=== PATIENT | male | born 1940 | race Two or more races ===

== ENCOUNTER → 2020-04-15 13:47 | Outpatient (BNVA) | payer MEDICARE, MEDICAID, SELFPAY | PROVIDERS: Visit Provider Urology | DX: R35.1 Nocturia (principal); R39.12 Poor urinary stream; N40.1 Benign prostatic hyperplasia with lower urinary tract symptoms; N13.8 Other obstructive and reflux uropathy | CPT/HCPCS: 99202 ==

== ENCOUNTER 2020-05-20 12:12 | Outpatient (REF) | payer MEDICARE, MEDICAID, SELFPAY ==
--- NOTE | ~2020-05-20 | US_ITS ---
EXAMINATION: US PELVIS LIMITED (BLADDER) CLINICAL INFORMATION: Benign prostatic hyperplasia with lower urinary tract symptoms. COMPARISON: None TECHNIQUE: Real-time imaging of the bladder. FINDINGS: BLADDER: Well distended and normal. Bilateral ureteral jets are demonstrated. Prevoid bladder volume is 242 mL. Postvoid bladder volume is 26.3 mL. ADDITIONAL FINDINGS: Enlarged prostate, prostate volume 78.6 mL. US/US bladder IMPRESSION: 1. Post void bladder residual 26.3 mL. 2. Enlarged prostate, prostate volume 78.6 mL.
== END 2020-05-20 12:13 | disposition home or self-care (01) ==
LOC: HO.US 12:12
PROVIDERS: Visit Provider Urology
DX: N40.1 Benign prostatic hyperplasia with lower urinary tract symptoms (principal); N13.8 Other obstructive and reflux uropathy
CPT/HCPCS: 76857

== ENCOUNTER → 2020-05-27 12:49 | Outpatient (BNVA) | payer MEDICARE, MEDICAID, SELFPAY | PROVIDERS: Visit Provider Urology | DX: N40.1 Benign prostatic hyperplasia with lower urinary tract symptoms (principal); N13.8 Other obstructive and reflux uropathy | CPT/HCPCS: 99212 ==

== ENCOUNTER 2020-06-03 11:49 | Outpatient (REF) | payer MEDICARE, MEDICAID, SELFPAY ==
--- NOTE | ~2020-06-03 | US_ITS ---
EXAMINATION: US VENOUS ULTRASOUND WITH DOPPLER LOWER EXTREMITY, LEFT CLINICAL INFORMATION: Edema left lower extremity. Assess for occult DVT. COMPARISON: None TECHNIQUE: Ultrasound of the deep veins is performed from the hip to the calf with compression sonography and color and pulse Doppler assessment. Spectral analysis with color-flow imaging is performed. FINDINGS: There is normal venous compression and respiratory variation and augmented flow. The visualized common femoral vein, superficial femoral vein, profunda femoral vein, popliteal vein, and the trifurcation region shows no evidence of deep venous thrombosis. No popliteal fossa cyst. Incidental node seen left groin with normal pardeep architecture and short axis dimension 0.7 cm. US/US venous duplex LE LT IMPRESSION: No DVT demonstrated in the left lower extremity.
== END 2020-06-03 11:50 | disposition home or self-care (01) ==
LOC: HO.US 11:49
PROVIDERS: PCP Internal Medicine; Visit Provider Internal Medicine
DX: R60.0 Localized edema (principal)
CPT/HCPCS: 93971

== ENCOUNTER → 2020-07-15 12:34 | Outpatient (BNVA) | payer MEDICARE, MEDICAID, SELFPAY | PROVIDERS: PCP Internal Medicine; Visit Provider Surgery Vascular Surgery | DX: I83.12 Varicose veins of left lower extremity with inflammation (principal) | CPT/HCPCS: 99202 ==

== ENCOUNTER 2020-07-21 13:06 | Outpatient (REF) | payer MEDICARE, MEDICAID, SELFPAY ==
--- NOTE | ~2020-07-21 | US_ITS ---
EXAMINATION: RIGHT and LEFT LOWER EXTREMITY VENOUS ULTRASOUND (Reflux Exam) CLINICAL INDICATION: leg pain and varicose veins. COMPARISON: None. TECHNIQUE: Color flow triplex imaging and compression Doppler was performed to evaluate both the deep and the superficial systems bilaterally. To evaluate the superficial system, the examination was performed in the upright position. Color-flow Doppler ultrasound and compression ultrasound were utilized. In addition, maneuvers were utilized to demonstrate reflux. FINDINGS: 1. DEEP VENOUS ULTRASOUND OF THE RIGHT LOWER EXTREMITY: Respiratory variation, normal compression and augmented flow are noted in the right common femoral vein as well as the right popliteal vein and there is no evidence of deep venous thrombosis at these locations. There is deep venous reflux in the common femoral vein measuring 1 second. There is no deep venous reflux seen in the mid femoral or popliteal veins.. There is no evidence of a Dalton's cyst. 2. SUPERFICIAL ULTRASOUND WITH DOPPLER OF RIGHT LOWER EXTREMITY: The right great saphenous vein at the saphenofemoral junction measures 7 mm, at the mid thigh 2 mm, jtada-qri-ldnm 3 mm, ixeia-wzp-objn 2 mm, at mid calf 2 mm and at the ankle measures 2 mm. There is a 2.1 seconds reflux below the knee. There is an accessory medial greater saphenous vein that measures 5 mm and does not demonstrate reflux. The right small saphenous vein measures 2-3 mm and shows no reflux. There is a grocery store courtesy clerk that measures 2 mm below the knee and does not demonstrate reflux. There are small varicosities measuring less than 3 mm that do not demonstrate reflux. 3. DEEP VENOUS ULTRASOUND OF THE LEFT LOWER EXTREMITY: Respiratory variation, normal compression and augmented flow are noted in the left common femoral vein as well as the left popliteal vein and there is no evidence of deep venous thrombosis at these locations. There is no evidence of reflux in the deep system in either the common femoral vein or the popliteal vein. . There is no evidence of a Dalton's cyst. 4. SUPERFICIAL ULTRASOUND WITH DOPPLER OF LEFT LOWER EXTREMITY: Left great saphenous vein at the saphenofemoral junction measures 8 mm, at the mid thigh to mm, wfzgu-urr-mlad 2 mm, rjvzt-hkr-vcuq 2 mm, at mid calf 2 mm and at the ankle measures 1 mm. There is no reflux demonstrated in the left great saphenous vein. Is an accessory medial greater saphenous vein that measures 4 mm and does not demonstrate reflux. The left small saphenous vein measures 1-2 mm and shows no reflux. There is small varicosities measuring less than 3 mm that do not demonstrate reflux. US/US venous duplex LE BI IMPRESSION: 1. No evidence of DVT. Right deep venous reflux in the right common femoral vein. No left deep venous reflux seen. 2. Right greater saphenous vein reflux below the knee measuring 2.1 seconds. No left greater saphenous vein reflux.
== END 2020-07-21 13:07 | disposition home or self-care (01) ==
LOC: HO.US 13:06
PROVIDERS: Visit Provider Surgery Vascular Surgery
DX: I83.893 Varicose veins of bilateral lower extremities with other complications (principal)
CPT/HCPCS: 93970

== ENCOUNTER 2020-08-30 07:55 | Emergency (ER) | payer MEDICARE, MEDICAID, SELFPAY ==
--- NOTE | ~2020-08-30 | XR_ITS ---
EXAMINATION: XR RIBS, RIGHT CLINICAL INFORMATION: Status post fall. COMPARISON: None TECHNIQUE: 3 views of the right ribs were obtained. FINDINGS: Lungs are clear. No consolidation, pneumothorax, or pleural effusion. The cardiomediastinal silhouette and pulmonary vasculature are normal. Osseous structures are unremarkable. Ribs are intact. No fractures are identified. XR/XR ribs RT min 3V w CXR1V IMPRESSION: No acute cardiopulmonary process seen. There is no visible right rib fracture. Seen.
[2020-08-30 08:20] VITALS: BP 157/70; PULSE 79; RESP 17; TEMP 36.8; O2SAT 96; BMI 27.4
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
--- NOTE | 2020-08-30 08:23 | ECG_ITS ---
Test Reason : CP Blood Pressure : / mmHG Vent. Rate : 084 BPM Atrial Rate : 084 BPM P-R Int : 194 ms QRS Dur : 092 ms QT Int : 378 ms P-R-T Axes : 066 045 049 degrees QTc Int : 446 ms Normal sinus rhythm Normal ECG When compared with ECG of 02-DEC-2019 11:02, No significant change was found Referred By: Dara Polanco Electronically Signed By:RUFINO ASHTON MD
[2020-08-30 08:42] VITALS: PULSE 76
--- NOTE | 2020-08-30 09:13 | PC.NURSE ---
Patient is resting quietly in bed in no distress. Respirations are even and nonlabored.
--- NOTE | 2020-08-30 10:08 | PC.NURSE ---
Discharge instructions given to pt who verbalized understanding and denies any questions. pt is amb to exit in no distress
== END 2020-08-30 10:13 | disposition home or self-care (01) ==
PROVIDERS: Emergency Provider Emergency Medicine; PCP Internal Medicine
DX: S20.211A Contusion of right front wall of thorax, initial encounter (principal); R07.89 Other chest pain; V18.0XXA Pedal cycle driver injured in noncollision transport accident in nontraffic accident, initial encounter; Y93.55 Activity, bike riding; Y92.410 Unspecified street and highway as the place of occurrence of the external cause; Y99.9 Unspecified external cause status
CPT/HCPCS: 71101; 93005; 99283; 99284

== ENCOUNTER 2020-09-13 13:49 | Outpatient (REF) | payer MEDICARE, MEDICAID, SELFPAY ==
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
== END 2020-09-13 13:50 | disposition home or self-care (01) ==
LOC: HO.XRAY 13:49
PROVIDERS: PCP Internal Medicine Geriatric Medicine; Visit Provider Emergency Medicine
DX: Z87.828 Personal history of other (healed) physical injury and trauma (principal)
CPT/HCPCS: 71101; 71120

== ENCOUNTER 2020-12-01 07:59 | Emergency (ER) | payer MEDICARE, MEDICAID, SELFPAY ==
--- NOTE | ~2020-12-01 | CT_ITS ---
EXAMINATION: CT HEAD WITHOUT CONTRAST CLINICAL INFORMATION: Mental status change COMPARISON: Previous head CT most recent November 2019 TECHNIQUE: Contiguous axial imaging was performed from the skull base to vertex without intravenous administration of contrast. This CT examination was performed using dose optimization techniques as appropriate, variously including the following: *Automated exposure control *Adjustment of mA and/or kV according to patient size (this includes techniques or standardized protocols for targeted exams where dose is matched to indication/reason for exam; i.e. extremities or head) *Use of iterative reconstruction technique DLP: 745 mGy-cm FINDINGS: There is no evidence of an extra-axial collection. There is no evidence of intra-axial or extra-axial hemorrhage. The ventricles and extra-axial CSF spaces are appropriate. There is nonspecific periventricular white matter disease. No mass, mass effect or infarct is seen. Review of bone windows is normal. No skull fracture is seen. Visualized paranasal sinuses, mastoid air cells and middle ears are clear. CT/CT head/brain wo con IMPRESSION: No acute findings. Mild nonspecific periventricular white matter disease similar to previous exam.
--- NOTE | ~2020-12-01 | XR_ITS ---
EXAMINATION: XR CHEST CLINICAL INFORMATION: Mental status change COMPARISON: Previous chest x-rays most recent August 2020 TECHNIQUE: Frontal view of the chest was obtained. FINDINGS: The cardiac silhouette is slightly enlarged but stable. Hilar and mediastinal contours are unremarkable. The lungs are clear. There is no pleural effusion or pneumothorax. There are degenerative changes of the spine. XR/XR chest 1V IMPRESSION: No evidence for acute disease in the chest.
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
[2020-12-01 08:18] VITALS: BP 126/54; PULSE 75; RESP 18; TEMP 36.6; O2SAT 96; BMI 28.3
[2020-12-01 08:59] LABS: MANUAL DIFF FLAG NO
[2020-12-01 09:01] LABS: Basophils Percent Auto 0.2 % (0-2); Eosinophils Absolute Auto 0.2 X10*3/uL (0.0-0.4); Eosinophils Percent Auto 2.2 % (0-4); Hematocrit 40.7 % (42-52); Imm Gran Abs Auto 0.04 X10*3/uL (0.00-0.03); Imm Gran Pct Auto 0.5 % (0.0-0.4); Lymphocytes Absolute Auto 1.6 X10*3/uL (1.2-4.9); Lymphocytes Percent Auto 19.8 % (20-40); Mean Corpuscular HGB Conc 31.9 g/dl (31.0-36.0); Mean Corpuscular Hemoglobin 29.5 pg (27.0-33.0); Mean Corpuscular Volume 92.5 fL (80-98); Mean Platelet Volume 10.2 fL (9.4-12.4); Monocytes Absolute Auto 0.7 X10*3/uL (0.1-1.2); Monocytes Percent Auto 8.7 % (2-11); Neutrophils Absolute Auto 5.6 X10*3/uL (2.0-8.3); Neutrophils Percent Auto 68.6 % (45-73); Platelet Count 224 X10*3/uL (160-400); Red Cell Distribution Width 13.4 % (11.0-16.0); White Blood Count 8.1 X10*3/uL (4.8-10.8)
[2020-12-01 09:01] LABS: Appearance Urine HAZY; Glucose Urine UA NEG (NEG); Leukocyte Esterase Urine NEG (NEG); Nitrite Urine NEG (NEG); Specific Gravity - Urine >= 1.030 (1.005-1.025); UACC Culture Trigger NO; Urine Blood NEG (NEG); Urine Ketones NEG (NEG); Urine Protein 1+ MG/DL (NEG-TRACE)
[2020-12-01 09:02] LABS: Color Urine YELLOW
[2020-12-01 09:07] LABS: Mucus Urine 2+ /LPF
[2020-12-01 09:08] LABS: Bacteria Urine TRACE /LPF; RBC Urine 0 /HPF (0); WBC Urine 0-2 /HPF (0-4)
[2020-12-01 09:10] LABS: Amorphous Sediment Urine TRACE /LPF
[2020-12-01 09:25] LABS: Alanine Aminotransferase 16 U/L (0-40); Albumin Level 3.8 g/dL (3.5-5.0); Alkaline Phosphatase 105 U/L (39-117); Anion Gap 11 (12-20); Aspartate Amino Transferase 15 U/L (5-37); Bilirubin Direct 0.2 mg/dL (0.0-0.5); Bilirubin Total 0.6 mg/dL (0.0-1.0); Blood Urea Nitrogen 23 mg/dL (9-16); Calcium 9.6 mg/dL (8.4-10.2); Carbon Dioxide 29 mmol/L (22-29); Chloride 108 mmol/L (96-108); Creatinine Clr Calc Pharmacy 60.4; Estimated Glomerular Filt Rate > 60; Glucose Random 122 mg/dL (60-115); Lipase 86 U/L (8-78); Potassium 4.7 mmol/L (3.3-5.1); Sodium 143 mmol/L (135-145)
== END 2020-12-01 10:26 | disposition home or self-care (01) ==
PROVIDERS: Emergency Provider Emergency Medicine
DX: R42 Dizziness and giddiness (principal); F03.90 Unspecified dementia, unspecified severity, without behavioral disturbance, psychotic disturbance, mood disturbance, and anxiety; I10 Essential (primary) hypertension; Z79.899 Other long term (current) drug therapy; Z79.82 Long term (current) use of aspirin
CPT/HCPCS: 36415; 70450; 71045; 80048; 80076; 81001; 81003; 83690; 85025; 99283; 99284

== ENCOUNTER 2021-02-18 08:20 | Outpatient (REF) | payer MEDICARE, MEDICAID, SELFPAY ==
[2021-02-18 09:42] LABS: Thyroid Stimulating Hormone 0.78 uIU/mL (0.32-4.0); Vitamin D 25-OH Total 24.3 ng/mL (>30)
[2021-02-18 09:43] LABS: PSA,Total (Free>4and<10) 2.23 ng/mL (0.00-4.00)
[2021-02-18 10:33] LABS: Folate 11.5 ng/mL (> or = 4.0); Vitamin B12 279 pg/mL (200-900)
== END 2021-02-18 08:21 | disposition home or self-care (01) ==
LOC: HO.LAB 08:20
PROVIDERS: Urology; PCP Internal Medicine Geriatric Medicine; Visit Provider Psychiatry & Neurology Neurology
DX: G31.84 Mild cognitive impairment of uncertain or unknown etiology (principal); N40.1 Benign prostatic hyperplasia with lower urinary tract symptoms; N13.8 Other obstructive and reflux uropathy; Z12.5 Encounter for screening for malignant neoplasm of prostate
CPT/HCPCS: 36415; 82306; 82607; 82746; 84153; 84436; 84443

== ENCOUNTER 2021-12-16 09:00 | Outpatient (RCR) | payer MEDICARE, MEDICAID, SELFPAY ==
[2021-11-14 09:04] VITALS: BP 146/64; PULSE 63; O2SAT 97
== END 2021-12-16 10:23 | disposition home or self-care (01) ==
LOC: HO.PT 09:00
PROVIDERS: PCP Internal Medicine Geriatric Medicine; Visit Provider Nurse Practitioner Family
DX: M54.50 Low back pain, unspecified (principal)
CPT/HCPCS: 97110; 97140; 97161

== ENCOUNTER 2021-12-21 09:06 | Outpatient (REF) | payer MEDICARE, MEDICAID, SELFPAY ==
--- NOTE | ~2021-12-21 | US_ITS ---
EXAMINATION: US RETROPERITONEAL LIMITED (RENAL ONLY) CLINICAL INFORMATION: Frequency of micturition. Benign prostatic hyperplasia with lower urinary tract symptoms. COMPARISON: MRA abdomen 03/12/2007. TECHNIQUE: Real-time imaging of the kidneys. FINDINGS: RIGHT KIDNEY: 8.9 x 5.2 x 4.9 cm (SAG x AP x TRV). The kidney is normal in size, contour, and echogenicity. Renal cortical thickness is normal. No renal calculi or hydronephrosis. Midpole cyst measures 2.3 x 2.2 x 2.8 cm. There is a small peripheral calcification. LEFT KIDNEY: 10.3 x 4.4 x 4.9 cm (SAG x AP x TRV). The kidney is normal in size, contour, and echogenicity. Renal cortical thickness is normal. No renal calculi or hydronephrosis. Lower pole cyst measures 0.9 cm. This appears simple. No follow-up imaging recommended. US/US renal BI IMPRESSION: No hydronephrosis or nephrolithiasis. Right midpole 2.8 cm renal cyst with a peripheral calcification.
== END 2021-12-21 09:07 | disposition home or self-care (01) ==
LOC: HO.US 09:06
PROVIDERS: Visit Provider Nurse Practitioner Family
DX: N40.1 Benign prostatic hyperplasia with lower urinary tract symptoms (principal); R10.9 Unspecified abdominal pain; R35.0 Frequency of micturition; M54.50 Low back pain, unspecified
CPT/HCPCS: 76775

== ENCOUNTER → 2022-02-01 11:28 | Outpatient (BNVA) | payer MEDICARE, MEDICAID, SELFPAY | PROVIDERS: PCP Internal Medicine Geriatric Medicine; Visit Provider Urology | DX: N40.1 Benign prostatic hyperplasia with lower urinary tract symptoms (principal); N13.8 Other obstructive and reflux uropathy; R39.12 Poor urinary stream | CPT/HCPCS: 51798; 99212 ==

== ENCOUNTER → 2022-08-01 09:39 | Outpatient (BNVA) | payer MEDICARE, SELFPAY | PROVIDERS: PCP Internal Medicine Geriatric Medicine; Visit Provider Urology | DX: N40.1 Benign prostatic hyperplasia with lower urinary tract symptoms (principal); N13.8 Other obstructive and reflux uropathy; R35.1 Nocturia | CPT/HCPCS: 51798; 99212 ==

== ENCOUNTER 2022-10-16 12:00 | Outpatient (REF) | payer MEDICARE, SELFPAY ==
[2022-10-16 13:17] LABS: MANUAL DIFF FLAG NO
[2022-10-16 13:56] LABS: Basophils Percent Auto 0.3 % (0-2); Eosinophils Absolute Auto 0.3 X10*3/uL (0.0-0.4); Eosinophils Percent Auto 3.8 % (0-4); Hematocrit 42.1 % (42.0-52.0); Hemoglobin 13.3 g/dl (14.0-18.0); Imm Gran Abs Auto 0.07 X10*3/uL (0.00-0.03); Imm Gran Pct Auto 0.8 % (0.0-0.4); Lymphocytes Percent Auto 22.6 % (20-40); Mean Corpuscular HGB Conc 31.6 g/dl (31.0-36.0); Mean Corpuscular Hemoglobin 29.8 pg (27.0-33.0); Mean Corpuscular Volume 94.4 fL (80.0-98.0); Mean Platelet Volume 10.9 fL (9.4-12.4); Monocytes Absolute Auto 0.8 X10*3/uL (0.1-1.2); Monocytes Percent Auto 9.2 % (2-11); Neutrophils Absolute Auto 5.5 x10*3/uL (2.0-8.3); Neutrophils Percent Auto 63.3 % (45-73); Platelet Count 184 X10*3/uL (160-400); Red Blood Count 4.46 X10*6/uL (4.60-5.80); Red Cell Distribution Width 13.2 % (11.0-16.0); White Blood Count 8.6 X10*3/uL (4.8-10.8)
[2022-10-16 16:52] LABS: Alanine Aminotransferase 40 U/L (0-40); Albumin Level 3.9 g/dL (3.5-5.0); Alkaline Phosphatase 78 U/L (39-117); Anion Gap 8 (12-20); Aspartate Amino Transferase 27 U/L (5-37); Bilirubin Total 0.5 mg/dL (0.0-1.0); Blood Urea Nitrogen 18 mg/dL (9-16); Calcium 9.6 mg/dL (8.4-10.2); Carbon Dioxide 32 mmol/L (22-29); Chloride 105 mmol/L (96-108); Estimated Glomerular Filt Rate > 60; Glucose Random 78 mg/dL (60-115); Potassium 4.3 mmol/L (3.3-5.1); Sodium 141 mmol/L (135-145); Total Protein 7.3 g/dL (6.5-8.0)
[2022-10-16 16:59] LABS: TSH reflex Free T4 0.11 uIU/mL (0.32-4.0)
[2022-10-16 17:29] LABS: Free T4 (Free Thyroxine) 1.03 ng/dL (0.71-1.85)
[2022-10-22 22:18] LABS: NT-proBNP 709 pg/mL (<450)
== END 2022-10-16 12:01 | disposition home or self-care (01) ==
LOC: HO.HHCL 12:00
PROVIDERS: Visit Provider Family Medicine
DX: R60.0 Localized edema (principal); I35.0 Nonrheumatic aortic (valve) stenosis
CPT/HCPCS: 36415; 80053; 83880; 84439; 84443; 85025

== ENCOUNTER 2022-10-16 12:43 | Outpatient (REF) | payer MEDICARE, SELFPAY ==
--- NOTE | ~2022-10-16 | XR_ITS ---
EXAMINATION: XR CHEST CLINICAL INFORMATION: Leg swelling COMPARISON: Chest 12/01/2020 TECHNIQUE: 2 views of the chest were obtained. FINDINGS: The cardiac silhouette is slightly enlarged, however, stable. Hilar and mediastinal contours are unremarkable. The lungs are clear. There is no pleural effusion or pneumothorax. There are mild degenerative changes of the thoracic spine. XR/XR chest 2V IMPRESSION: No acute cardiopulmonary disease.
== END 2022-10-16 12:44 | disposition home or self-care (01) ==
LOC: HO.HHCX 12:43
PROVIDERS: Visit Provider Family Medicine
DX: R60.0 Localized edema (principal); R09.89 Other specified symptoms and signs involving the circulatory and respiratory systems; I35.0 Nonrheumatic aortic (valve) stenosis
CPT/HCPCS: 71046

== ENCOUNTER 2022-10-18 09:43 | Outpatient (REF) | payer MEDICARE, SELFPAY ==
[2022-10-18 12:28] LABS: Free T4 (Free Thyroxine) 0.92 ng/dL (0.71-1.85); Thyroid Stimulating Hormone 0.12 uIU/mL (0.32-4.0)
[2022-10-20 01:44] LABS: Triiodothyronine T3 Free 3.1 pg/mL (2.3-4.2)
[2022-10-20 06:02] LABS: Thyroglobulin Antibodies <1 IU/mL (< or = 1)
[2022-10-26 15:17] LABS: Thyroid Stimulating Immunoglob <89 % baseline (<140)
== END 2022-10-18 09:44 | disposition home or self-care (01) ==
LOC: HO.HHCL 09:43
PROVIDERS: Visit Provider Family Medicine
DX: R94.6 Abnormal results of thyroid function studies (principal)
CPT/HCPCS: 36415; 84439; 84443; 84445; 84481; 86800

== ENCOUNTER 2022-11-07 10:27 | Outpatient (REF) | payer MEDICARE, SELFPAY ==
--- NOTE | ~2022-11-07 | US_ITS ---
EXAMINATION: US THYROID CLINICAL INFORMATION: Low TSH level. COMPARISON: None available. TECHNIQUE: Linear transducer grayscale and color Doppler examination with attention to the region of the thyroid. FINDINGS: SIZE: Measurements of the thyroid lobes and nodules are given in sagittal, anteroposterior and transverse dimensions, respectively. Right Thyroid Lobe: 4.6 x 1.8 x 2.2 cm, volume 9.5 mL. Parenchyma: The gland echotexture is homogeneous. Thyroid vascularity is normal. Left Thyroid Lobe: 4.0 x 1.6 x 2.1 cm, volume 7.0 mL. Parenchyma: The gland echotexture is homogeneous. Thyroid vascularity is normal. Isthmus: 0.9 cm in maximum AP dimension. Estimated total number of nodules greater than or equal to 1 cm: 1. Teletypesetter Operator nodules are described as follows: 1. Location: Left midpole. Size: 1.2 x 0.7 x 0.9 cm, volume 0.42 mL. Nodule characteristics: Composition: Solid (2). Echogenicity: Isoechoic (1). Shape: Wider. Margins: Ill-defined (0). Echogenic Foci: None (0). ACR TI-RADS total points: 3. ACR TI-RADS category: 3. 2. Location: Left lower pole. Size: 0.6 x 0.6 x 0.7 cm, volume 0.14 mL. Nodule characteristics: Composition: Solid (2). Echogenicity: Isoechoic (1). Shape: Wider. Margins: Wider. Echogenic Foci: None (0). ACR TI-RADS total points: 3. ACR TI-RADS category: 3. 3. Location: Left upper pole. Size: 0.8 x 0.5 x 0.7 cm. Nodule characteristics: Composition: Mixed cystic and solid (1). Echogenicity: Isoechoic (1). Shape: Wider. Margins: Smooth (0). Echogenic Foci: None (0). ACR TI-RADS total points: 2. ACR TI-RADS category: 2. 4. Location: Right midpole. Size: 0.7 x 0.5 x 0.5 cm, volume 0.10 mL. Nodule characteristics: Composition: Mixed cystic and solid (1). Echogenicity: Isoechoic (1). Shape: Wider. Margins: Ill-defined (0). Echogenic Foci: None (0). ACR TI-RADS total points: 2. ACR TI-RADS category: 2. Small lower pole right lobe nodule measuring 0.9 x x 0.6 x 0.6 cm and volume 0.20 cm. It has a cystic composition. NODES: No lymphadenopathy is seen in the tissue surrounding the thyroid gland. US/US thyroid IMPRESSION: Bilateral thyroid nodules. None of the nodules are suspicious.
== END 2022-11-07 10:28 | disposition home or self-care (01) ==
LOC: HO.HMGCX 10:27
PROVIDERS: PCP Internal Medicine Geriatric Medicine; Visit Provider Family Medicine
DX: R79.89 Other specified abnormal findings of blood chemistry (principal)
CPT/HCPCS: 76536

== ENCOUNTER 2022-11-21 09:27 | Outpatient (REF) | payer MEDICARE, SELFPAY ==
[2022-11-21 12:01] LABS: Anion Gap 14 (12-20); Blood Urea Nitrogen 18 mg/dL (9-16); Calcium 9.7 mg/dL (8.4-10.2); Carbon Dioxide 30 mmol/L (22-29); Chloride 104 mmol/L (96-108); Estimated Glomerular Filt Rate > 60; Glucose Random 110 mg/dL (60-115); Potassium 3.7 mmol/L (3.3-5.1); Sodium 144 mmol/L (135-145)
[2022-11-21 13:05] LABS: Microalbum/Creatinine Ratio Ur 9.6 ug/mg cr (<30)
== END 2022-11-21 09:28 | disposition home or self-care (01) ==
LOC: HO.HHCL 09:27
PROVIDERS: Visit Provider Internal Medicine Geriatric Medicine
DX: R60.0 Localized edema (principal); I87.2 Venous insufficiency (chronic) (peripheral)
CPT/HCPCS: 36415; 80048; 82043

== ENCOUNTER 2023-03-05 10:51 | Outpatient (REF) | payer MEDICARE, SELFPAY ==
[2023-03-05 14:07] LABS: Anion Gap 11 (12-20); Blood Urea Nitrogen 16 mg/dL (9-16); Calcium 9.6 mg/dL (8.4-10.2); Carbon Dioxide 30 mmol/L (22-29); Chloride 106 mmol/L (96-108); Estimated Glomerular Filt Rate > 60; Glucose Random 101 mg/dL (60-115); Potassium 4.1 mmol/L (3.3-5.1); Sodium 143 mmol/L (135-145)
[2023-03-05 14:27] LABS: TSH reflex Free T4 0.16 uIU/mL (0.32-4.0)
[2023-03-05 15:15] LABS: Free T4 (Free Thyroxine) 0.94 ng/dL (0.71-1.85)
== END 2023-03-05 10:52 | disposition home or self-care (01) ==
LOC: HO.HHCL 10:51
PROVIDERS: Visit Provider Internal Medicine Geriatric Medicine
DX: I10 Essential (primary) hypertension (principal); E05.90 Thyrotoxicosis, unspecified without thyrotoxic crisis or storm
CPT/HCPCS: 36415; 80048; 84439; 84443

== ENCOUNTER 2023-06-06 08:48 | Outpatient (REF) | payer MEDICARE, SELFPAY ==
[2023-06-07 09:03] LABS: Appearance Urine Clear; Color Urine Yellow; Glucose Urine UA Negative (Negative); Leukocyte Esterase Urine Negative (Negative); Nitrite Urine Negative (Negative); Urine Blood Negative (Negative); Urine Ketones Negative (Negative); Urine Protein Negative (Neg-Trace)
[2023-06-07 09:06] LABS: Bacteria Urine None Seen (None Seen); Hyaline Casts Urine 0-2 /LPF (0-2); RBC Urine 0-2 /HPF (0-2); Squamous Epithelial Cell Urine 0-2 /HPF (0-2); WBC Urine 0-5 /HPF (0-5)
== END 2023-06-06 08:49 | disposition home or self-care (01) ==
LOC: HO.HHCLNP 08:48
PROVIDERS: Visit Provider Internal Medicine Geriatric Medicine
DX: N39.0 Urinary tract infection, site not specified (principal)
CPT/HCPCS: 81001

== ENCOUNTER 2023-08-03 09:23 | Outpatient (AMB) | payer MEDICARE, SELFPAY ==
--- NOTE | 2023-08-03 09:51 | MHC.OFFVIS ---
Intake Visit Reasons: BPH- yearly follow up/PVR Intake Note: Patient is Present for PVR/ Urology Med: Doxazosin, Finasteride Antibiotic Allergy:None Blood Thinner: Aspirin Last PVR: 0 Todays PVR: 43 Allergies nifedipine [From Procardia] Allergy (Intermediate, Verified 08/03/23 09:52) EDEMA ibuprofen [Ibuprofen] Allergy (Mild, Verified 08/03/23 09:52) RASH ibuprofen Allergy (Unknown, Uncoded 08/03/23 09:52) rash nifedipine Allergy (Unknown, Uncoded 08/03/23 09:52) edema HPI Comments Details: Frederick is a pleasant Pakistani-speaking male. He is a patient of Dr. Chavez. He seen for the following urologic conditions - lower urinary tract symptoms Pakistani translation performed in office by qualified senior medical transcriptionist PVR 43 cc Twelve month follow-up PVR Accompanied by POCKET GRINDER OPERATOR Reasonable control Occasional accidents Recommend timed voiding - every 3 hours On frusemide for fluid management Continue medication Lower urinary tract symptoms Current visit is for - further symptom evaluation of, predominantly obstructive symptoms Current treatment includes - combination therapy with finasteride and doxazosin 4 mg Prior treatments include - none Prostate Symptom Score - moderate, bother 3 Symptoms include - weak stream, incomplete emptying, nocturia which are progressing Results from testing include - 05/16 bladder ultrasound prostate 80 g, residual 25. Prior Prostate Score unknown PSA 02/13 2.2 Prostate volume 50 g Associated conditions CAD frusemide, carvedilol CVA No Diabetes No Elevated PSA No Erectile Dysfunction yes Testing at next visit will include PVR PFSH Medical History High cholesterol HTN (hypertension) Social History Alcohol intake: never Patient Tobacco Use Status: Never used Tobacco Review of Systems Const Denies chills and Denies fever(s) Card Reports no additional complaints and Denies syncope Resp Denies cough GI Denies abdominal pain and Denies heartburn Reports as per HPI and Denies change in libido Neuro Denies syncope Psych Denies change in libido Endo Denies change in libido Physical Exam Const General: cooperative, healthy appearing, comfortable and no acute distress Orientation/consciousness: patient oriented x3 HEENT Face and sinus: Yes normal facial exam Mouth: moist mucous membranes Neck Neck: Yes normal visual inspection, Yes full ROM and Yes trachea midline Chest Chest palpation & inspection: normal inspection of the chest Resp Effort & Inspection: normal respiratory effort, able to speak in complete sentences and no respiratory distress GI Inspection: Yes normal to inspection Back/Spine/Pelvis Cervical Spine: normal cervical lordosis Thoracic/Lumbar Spine: thoracic and lumbar spine normal to inspection Skin General skin exam: no rashes or lesions noted Neuro General: patient oriented x3, gait normal, tone normal and moves all extremities Extrem General: Yes normal to inspection and Yes capillary refill normal Office Procedures Post Void Residual Post Residual Void Post Void Residual (PVR): 43 [id number] Void Residual by ultrasound Assessment & Plan Assessment & Plan (1) BPH w urinary obs/LUTS: Code(s): N40.1 - Benign prostatic hyperplasia with lower urinary tract symptoms; N13.8 - Other obstructive and reflux uropathy Category: Medical (2) Weak urinary stream: Code(s): R39.12 - Poor urinary stream Category: Medical (3) Nocturia more than twice per night: Code(s): R35.1 - Nocturia Category: Medical Plan Twelve month follow-up Orders: Orders AMB Post Void Residual by ultrasound Today N13.8 - Other obstructive and reflux uropathy, N40.1 - Benign prostatic hyperplasia with lower urinary tract symptoms Medications: Refilled finasteride 5 mg PO DAILY 90 days 90 tabs 3RF N13.8 - Other obstructive and reflux uropathy, N40.1 - Benign prostatic hyperplasia with lower urinary tract symptoms doxazosin 4 mg PO BEDTIME 90 days 90 tabs 3RF N13.8 - Other obstructive and reflux uropathy, N40.1 - Benign prostatic hyperplasia with lower urinary tract symptoms Patient Instructions: Imaging studies, laboratory and physical exam results were discussed and reviewed in detail. No major barriers to patient understanding were identified. An opportunity to ask questions regarding the treatment plan was provided. All questions were answered. The patient expressed understanding and agreement with the above treatment plan. The patient is aware they should contact our office by phone for worsening of their current condition or the appearance of new urologic symptoms. Compliance is encouraged with any medications and followup testing that is ordered. It is a privilege to participate in the urologic care of your patient. If you have any questions or concerns regarding treatment for the above conditions, or other urologic issues, please do not hesitate to contact me. The office telephone contact is [phone]. This note is constructed using voice recognition software. While every effort has been made to ensure accuracy patrol deputy sheriff errors may have been included. Yours sincerely, Dr Triston Lui MD, [facility] - Urology Providers of Expert, Compassionate Care for the Genitourinary System Coding Level of Care Code Est Pt Level 4 (40397) Diagnoses BPH w urinary obs/LUTS N40.1; N13.8 Weak urinary stream R39.12 Nocturia more than twice per night R35.1 CPT Codes Post Residual Void - PVR CPT Code: 46949-[id number] Void Residual by ultrasound ([id number])
== END 2023-08-03 10:26 | disposition home or self-care (01) ==
LOC: HO.HUSH 09:23
PROVIDERS: PCP Internal Medicine Geriatric Medicine; Visit Provider Urology
DX: N40.1 Benign prostatic hyperplasia with lower urinary tract symptoms (principal); N13.8 Other obstructive and reflux uropathy; R39.12 Poor urinary stream; R35.1 Nocturia
CPT/HCPCS: 99213

== ENCOUNTER 2023-08-03 11:54 | Outpatient (REF) | payer MEDICARE, SELFPAY ==
[2023-08-03 13:01] LABS: MANUAL DIFF FLAG NO
[2023-08-03 13:22] LABS: Basophils Percent Auto 0.3 % (0-2); Eosinophils Absolute Auto 0.1 X10*3/uL (0.0-0.4); Eosinophils Percent Auto 1.1 % (0-4); Hematocrit 39.8 % (42.0-52.0); Hemoglobin 13.1 g/dl (14.0-18.0); Imm Gran Abs Auto 0.06 X10*3/uL (0.00-0.03); Imm Gran Pct Auto 0.7 % (0.0-0.4); Lymphocytes Absolute Auto 1.9 X10*3/uL (1.2-4.9); Mean Corpuscular HGB Conc 32.9 g/dl (31.0-36.0); Mean Corpuscular Volume 91.1 fL (80.0-98.0); Mean Platelet Volume 10.1 fL (9.4-12.4); Monocytes Absolute Auto 0.6 X10*3/uL (0.1-1.2); Neutrophils Absolute Auto 6.2 x10*3/uL (2.0-8.3); Neutrophils Percent Auto 69.9 % (45-73); Platelet Count 179 X10*3/uL (160-400); Red Blood Count 4.37 X10*6/uL (4.60-5.80); White Blood Count 8.8 X10*3/uL (4.8-10.8)
[2023-08-03 13:28] LABS: Alanine Aminotransferase 22 U/L (0-40); Alkaline Phosphatase 80 U/L (39-117); Anion Gap 14 (12-20); Aspartate Amino Transferase 22 U/L (5-37); Bilirubin Total 0.6 mg/dL (0.0-1.0); Blood Urea Nitrogen 13 mg/dL (9-16); Calcium 9.6 mg/dL (8.4-10.2); Carbon Dioxide 29 mmol/L (22-29); Chloride 103 mmol/L (96-108); Estimated Glomerular Filt Rate 59; Glucose Random 90 mg/dL (60-115); Potassium 4.2 mmol/L (3.3-5.1); Sodium 142 mmol/L (135-145); Total Protein 7.6 g/dL (6.5-8.0)
[2023-08-06 08:27] LABS: HBS Num1 0.89 mIU/mL (0-7.99); HBsAGNum1 0.24 S/CO (0.00-0.99); Hepatitis B Surface Antigen Negative (Negative); ~HepC Num1 0.33 S/CO (0.00-0.79); ~Hepatitis B Surface Antibody NONREACTIVE (Nonreactive); ~Hepatitis C Antibody Nonreactive (Nonreactive)
== END 2023-08-03 11:55 | disposition home or self-care (01) ==
LOC: HO.HHCL 11:54
PROVIDERS: Visit Provider Internal Medicine Geriatric Medicine
DX: R19.8 Other specified symptoms and signs involving the digestive system and abdomen (principal); R63.5 Abnormal weight gain; R60.9 Edema, unspecified
CPT/HCPCS: 36415; 51798; 80053; 85025; 86706; 86803; 87340; 99212

== ENCOUNTER 2023-08-25 10:48 | Emergency (ER) | payer MEDICARE, SELFPAY ==
--- NOTE | ~2023-08-25 | XR_ITS ---
EXAMINATION: Right shoulder, right clavicle, right humerus and right elbow x-rays CLINICAL INFORMATION: Pain post fall COMPARISON: None. TECHNIQUE: 2 views of the right shoulder, one view of the right clavicle, 2 views of the right humerus and 2 views of the right elbow FINDINGS: Right shoulder: Bone alignment is normal. No fracture or dislocation. Normal glenohumeral joint. Arthritis at the acromioclavicular joint. Soft tissues are normal. Right clavicle: Bone alignment is normal. No acute fracture or dislocation. Arthritis at the acromioclavicular joint. Well-corticated ossification adjacent to the distal clavicle and superior acromioclavicular joint, question related to old trauma. Right humerus: Bone alignment is normal. No fracture or dislocation. Normal soft tissues. Right elbow: Bone alignment is normal. No fracture or dislocation. Soft tissue calcification or ossification adjacent to the medial humeral epicondyle questionable for evidence of old epicondylitis. Soft tissues otherwise normal. Rotation on the lateral view making it difficult to evaluate for elbow joint effusion. XR/XR clavicle RT IMPRESSION: No acute fracture or dislocation. Degenerative changes.
--- NOTE | ~2023-08-25 | CT_ITS ---
EXAMINATION: CT HEAD WITHOUT CONTRAST CLINICAL INFORMATION: Unwitnessed fall with head trauma COMPARISON: Previous head CT most recent November 2020 TECHNIQUE: Contiguous axial imaging was performed from the skull base to vertex without intravenous administration of contrast. This CT examination was performed using dose optimization techniques as appropriate, variously including the following: *Automated exposure control *Adjustment of mA and/or kV according to patient size (this includes techniques or standardized protocols for targeted exams where dose is matched to indication/reason for exam; i.e. extremities or head) *Use of iterative reconstruction technique DLP: 721 mGy-cm FINDINGS: There is no evidence of an extra-axial collection. There is no evidence of intra or extra-axial hemorrhage. There is low-attenuation seen at the base of the bilateral frontal lobes, left greater than right question representing changes from old trauma versus old subcortical white matter infarcts. The ventricles and extra-axial CSF spaces are prominent suggestive of generalized atrophy. There is nonspecific periventricular white matter disease. No mass, mass effect or other infarct is seen. No skull fracture. Visualized paranasal sinuses, mastoid air cells and middle ears are clear. High attenuation adjacent to the right posterior parietal bone questionable for small scalp hematoma. CT/CT head/brain wo IV con IMPRESSION: No acute intracranial pathology. Generalized atrophy and nonspecific periventricular white matter disease. Low-attenuation at the base of both frontal lobes, left greater than right, question representing changes from old trauma versus old infarcts.
--- NOTE | ~2023-08-25 | XR_ITS ---
EXAMINATION: Right shoulder, right clavicle, right humerus and right elbow x-rays CLINICAL INFORMATION: Pain post fall COMPARISON: None. TECHNIQUE: 2 views of the right shoulder, one view of the right clavicle, 2 views of the right humerus and 2 views of the right elbow FINDINGS: Right shoulder: Bone alignment is normal. No fracture or dislocation. Normal glenohumeral joint. Arthritis at the acromioclavicular joint. Soft tissues are normal. Right clavicle: Bone alignment is normal. No acute fracture or dislocation. Arthritis at the acromioclavicular joint. Well-corticated ossification adjacent to the distal clavicle and superior acromioclavicular joint, question related to old trauma. Right humerus: Bone alignment is normal. No fracture or dislocation. Normal soft tissues. Right elbow: Bone alignment is normal. No fracture or dislocation. Soft tissue calcification or ossification adjacent to the medial humeral epicondyle questionable for evidence of old epicondylitis. Soft tissues otherwise normal. Rotation on the lateral view making it difficult to evaluate for elbow joint effusion. XR/XR shoulder RT min 2V IMPRESSION: No acute fracture or dislocation. Degenerative changes.
--- NOTE | ~2023-08-25 | XR_ITS ---
EXAMINATION: Right shoulder, right clavicle, right humerus and right elbow x-rays CLINICAL INFORMATION: Pain post fall COMPARISON: None. TECHNIQUE: 2 views of the right shoulder, one view of the right clavicle, 2 views of the right humerus and 2 views of the right elbow FINDINGS: Right shoulder: Bone alignment is normal. No fracture or dislocation. Normal glenohumeral joint. Arthritis at the acromioclavicular joint. Soft tissues are normal. Right clavicle: Bone alignment is normal. No acute fracture or dislocation. Arthritis at the acromioclavicular joint. Well-corticated ossification adjacent to the distal clavicle and superior acromioclavicular joint, question related to old trauma. Right humerus: Bone alignment is normal. No fracture or dislocation. Normal soft tissues. Right elbow: Bone alignment is normal. No fracture or dislocation. Soft tissue calcification or ossification adjacent to the medial humeral epicondyle questionable for evidence of old epicondylitis. Soft tissues otherwise normal. Rotation on the lateral view making it difficult to evaluate for elbow joint effusion. XR/XR elbow RT 2V IMPRESSION: No acute fracture or dislocation. Degenerative changes.
--- NOTE | ~2023-08-25 | XR_ITS ---
EXAMINATION: XR CHEST CLINICAL INFORMATION: Fall COMPARISON: Previous chest x-ray most recent September 2022 TECHNIQUE: 2 views of the chest were obtained. FINDINGS: The cardiac and mediastinal contours are stable. The lungs are clear. No pleural effusion or pneumothorax. Degenerative changes of the thoracic spine. XR/XR chest 2V IMPRESSION: No evidence for acute disease in the chest.
--- NOTE | ~2023-08-25 | XR_ITS ---
EXAMINATION: Right shoulder, right clavicle, right humerus and right elbow x-rays CLINICAL INFORMATION: Pain post fall COMPARISON: None. TECHNIQUE: 2 views of the right shoulder, one view of the right clavicle, 2 views of the right humerus and 2 views of the right elbow FINDINGS: Right shoulder: Bone alignment is normal. No fracture or dislocation. Normal glenohumeral joint. Arthritis at the acromioclavicular joint. Soft tissues are normal. Right clavicle: Bone alignment is normal. No acute fracture or dislocation. Arthritis at the acromioclavicular joint. Well-corticated ossification adjacent to the distal clavicle and superior acromioclavicular joint, question related to old trauma. Right humerus: Bone alignment is normal. No fracture or dislocation. Normal soft tissues. Right elbow: Bone alignment is normal. No fracture or dislocation. Soft tissue calcification or ossification adjacent to the medial humeral epicondyle questionable for evidence of old epicondylitis. Soft tissues otherwise normal. Rotation on the lateral view making it difficult to evaluate for elbow joint effusion. XR/XR humerus RT IMPRESSION: No acute fracture or dislocation. Degenerative changes.
--- NOTE | ~2023-08-25 | CT_ITS ---
EXAMINATION: CT CERVICAL SPINE WITHOUT CONTRAST CLINICAL INFORMATION: Unwitnessed fall. Head trauma. COMPARISON: Previous cervical spine CT from 2010 TECHNIQUE: Axial images through the cervical spine without IV contrast. Sagittal and coronal reconstructions on the technologist workstation were performed. This CT examination was performed using dose optimization techniques as appropriate, variously including the following: *Automated exposure control *Adjustment of mA and/or kV according to patient size (this includes techniques or standardized protocols for targeted exams where dose is matched to indication/reason for exam; i.e. extremities or head) *Use of iterative reconstruction technique DLP: 458 mGy-cm FINDINGS: Bone alignment is normal. No fracture or dislocation. There is multilevel degenerative spondylosis and degenerative disc disease. There is bilateral facet arthritis, right greater than left. There are degenerative changes at the C1 dens articulation. Prevertebral soft tissues are normal. Visualized lung apices are clear. CT/CT cervical spine wo IV con IMPRESSION: Degenerative changes. No fracture or dislocation. Fleischner guidelines were followed.
[2023-08-25 10:51] VITALS: BP 130/100; PULSE 68; RESP 19; TEMP 36.6; O2SAT 98; BMI 30.8
--- NOTE | 2023-08-25 11:06 | ED_ITS ---
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 Patient currently lives alone. Per family member/ career services assistant, upon arrival to his house at 9:30 a.m. this morning, she found him lying on his bedroom floor covered in blood and incontinent of feces. She noticed that he was wearing 2 different slippers. As fall was unwitnessed, they assume that he attempted to get up to pass a bowel movement in the middle of the night, accidentally put on 2 different slippers, and tripped while attempting to open the door to his bedroom, causing him to fall on his right side. They were able to assist patient up and brought him to the ED for further evaluation. He takes aspirin 81 mg daily. Not on anticoagulation. He presents today with a laceration to the right ear lobe that they believe he sustained via head strike on pull out bed in room. Patient is noted to have Alzheimer's and is a poor historian. He currently endorses minimal right shoulder and right elbow discomfort. No other concerns at this time. Denies headache, dizziness, chest pain, SOB, palpitations. Related Data Home Medications ?Medication ?Instructions ?Recorded ?Confirmed aspirin 81 mg tablet,delayed 81 mg PO QAM 05/27/20 08/01/22 release atorvastatin 20 mg tablet 20 mg PO BEDTIME 05/27/20 08/01/22 calcium carbonate 500 mg-vitamin 1 tab PO BID 05/27/20 08/01/22 D3 10 mcg (400 unit) chewable tablet carvedilol 25 mg tablet 25 mg PO BID 05/27/20 08/01/22 hydralazine 50 mg tablet 50 mg PO TID 05/27/20 08/01/22 irbesartan 300 mg tablet 300 mg PO DAILY 05/27/20 08/01/22 loratadine 10 mg tablet 10 mg PO DAILY 05/27/20 08/01/22 colchicine 0.6 mg tablet 0.6 mg PO DAILY 10/26/21 08/01/22 furosemide 20 mg tablet 20 mg PO DAILY 10/26/21 08/01/22 memantine 5 mg tablet 5 mg PO 10/26/21 08/01/22 pantoprazole 40 mg tablet,delayed 40 mg PO DAILY 10/26/21 08/01/22 release polyvinyl alcohol 1.4 % eye drops 0 drp ophthalmic (eye) Q2H PRN 10/26/21 08/01/22 sertraline 25 mg tablet 25 mg PO DAILY 10/26/21 08/01/22 trazodone 100 mg tablet 100 mg PO BEDTIME 10/26/21 08/01/22 Previous Rx's ?Medication ?Instructions ?Recorded doxazosin 4 mg tablet 4 mg PO BEDTIME 90 days #90 tabs 08/03/23 finasteride 5 mg tablet 5 mg PO DAILY 90 days #90 tabs 08/03/23 Allergies Allergy/AdvReac Type Severity Reaction Status Date / Time nifedipine [From Procardia] Allergy Intermediate EDEMA Verified 08/25/23 10:57 ibuprofen [Ibuprofen] Allergy Mild RASH Verified 08/25/23 10:57 ibuprofen Allergy Unknown rash Uncoded 08/25/23 10:57 nifedipine Allergy Unknown edema Uncoded 08/25/23 10:57 Review of Systems 2 Review of Systems: Yes all other systems are reviewed and are negative [facility] Past Medical History Attestation statement: The following information was validated with the patient. Source: old records reviewed and nursing notes reviewed Medical History High cholesterol HTN (hypertension) Social History Social History Alcohol intake: never Patient Tobacco Use Status: Never used Tobacco Advance Directives: No Advance Directives Information Provided: No Physical Exam 2 Vital Signs: Vital Signs: Last Vital Signs Temp 98 F 08/25/23 16:08 Pulse 68 08/25/23 16:08 Resp 19 08/25/23 16:08 BP 130/100 H 08/25/23 16:08 Pulse Ox 98 08/25/23 16:08 BMI result Body Mass Index 30.8 vital signs stable Const: General: cooperative, healthy appearing and no acute distress O rientation/consciousness: oriented to person and oriented to place L imitations: no limitations HEENT: Other: + 2.5 cm crescent shaped laceration note d to posterior right ear lobe. Bleeding controlled. Head: Yes normal to inspection, Yes No palpable skull fracture present, Yes normocephalic and Yes atraumatic Eyes: General: appearance normal, both eyes and all related structures C onjunctivae: conjunctivae normal Sclerae: sclerae normal Pupils: Equal, round and reactive pupils present Neck: Neck: Yes normal visual inspection, Yes full ROM, Yes no lymphadenopathy and Yes no meningeal signs Resp: Effort & Inspection: normal respiratory effort and able to speak in complete sentences Auscultation: clear to auscultation bilaterally Cardio: Rate: regular rate Rhythm: regular rhythm Back/Spine/Pelvis: Other: No midline spinous tenderness or step off deformity. No paraspinal muscle tenderness. Skin: General skin exam: no rashes or lesions noted Neuro: Other: Strength 5/5 intact throughout.? No saddle anesthesia.? Sensation intact to light touch.? Neurovascular intact distally.? General: oriented to person, oriented to place, gait normal, moves all extremities, no meningeal signs and no focal motor deficits Cranial nerves: Y es Equal, round and reactive pupils present Gait exam (Neuro): Normal gait present Motor exam (neuro): 5/5 motor strength present throughout and Pronator motor function not present Coordination: pyuleb-yk-[id number] test normal, lioj-sr-[id number] test normal and Normal rapid alternating movements of the distal upper extremity present (Neuro) Pupils: Normal pupillary reactivity/response: bilateral Extrem: General: Yes normal to inspection Course Course Course Narrative: 1550-- CBC without leukocytosis or left shift. Chronically anemic when compared to priors, H&H 12.3/36.5. No active bleeding. He denies hematemesis, hematochezia, melena, bright red blood per rectum. Chemistry without acute electrolyte abnormality requiring intervention. BUN slightly elevated to 22, creatinine WNL. Normal liver function. Patient is declining urine sample today. CT head/brain does not demonstrate bleed or skull fracture. CT cervical spine does not demonstrate fracture. X-rays of right clavicle, humerus, shoulder, elbow do not demonstrate acute bony abnormality. > right ear lobe laceration repaired with 7 6 0 nylon sutures. 5 mL of 1% lidocaine used. Patient tolerated procedure well. Bleeding controlled. Antibiotics are not warranted at this time. educated patient and career services assistant on worrisome signs and symptoms, specifically on signs of infection. Patient has remained stable throughout ED visit today. Discussed worrisome signs and symptoms and when to return to the ED. All questions answered at this time. Patient is agreeable with disposition and stable for discharge. Medications Administered Discontinued Medications Generic Name Dose Route Start Last Admin Trade Name Dmitriy PRN Reason Stop Dose Admin Diphtheria/Tetanus/Acell Pertussis 0.5 ml 08/25/23 12:58 08/25/23 13:28 Diphth,Pertus(Acell),Tet Adult 0.5 Ml Syringe IM 08/25/23 12:59 0.5 ml .ONCE ONE Administration Lidocaine HCl 5 ml 08/25/23 12:58 08/25/23 13:29 Lidocaine Hcl 1 % Mpf 5 Ml Vial INFILTRATI 08/25/23 12:59 5 ml ONCE ONE Administration Procedures Laceration Laceration 1: Site: other (ear) Side (If applicable): right Size (cm): 4 Description: linear Depth: simple, single layer Local Anesthetic: lidocaine 1% Amount of anesthesia used (mL): 5 Pre-repair: wound explored, irrigated extensively and deep structures intact Skin layer closed with: nylon Size (cm): 6-0 Number of sutures: 7 Technique: simple, interrupted Medical Decision Making Medical Decision Making MDM Narrative: 82 year old [place] Citizen speaking male with pmhx significant for BPH, HDL, HTN, and Alzheimer's dementia presents to the ED today with family for evaluation after mechanical fall last night. Vital signs stable. Nontoxic appearing and in NAD. On exam, there is a 2.5 cm crescent shaped laceration noted to posterior right ear lobe. Bleeding controlled. ttp. no auricular hematoma noted. EAC and TM wnl. No palpable skull fx. perrla. exam nonfocal. aox2. No midline spinous tenderness or step off deformity. No paraspinal muscle tenderness. FROM intact to cspine. He does not present in collar. ambulating with steady gait. cerebellum intact. Differential diagnosis includes concussion, contusion, ICH, skull fracture, fracture, subluxation Plan for labs, imaging, lac repair, and re-eval. Differential Diagnosis Differential Diagnoses: The differential diagnosis associated with the presentation includes as above. Admission/Observation Consideration of admission/observation: Escalation of care including admission/observation considered EXAMINATION: Right shoulder, right clavicle, right humerus and right elbow x-rays CLINICAL INFORMATION: Pain post fall COMPARISON: None. TECHNIQUE: 2 views of the right shoulder, one view of the right clavicle, 2 views of the right humerus and 2 views of the right elbow FINDINGS: Right shoulder: Bone alignment is normal. No fracture or dislocation. Normal glenohumeral joint. Arthritis at the acromioclavicular joint. Soft tissues are normal. Right clavicle: Bone alignment is normal. No acute fracture or dislocation. Arthritis at the acromioclavicular joint. Well-corticated ossification adjacent to the distal clavicle and superior acromioclavicular joint, question related to old trauma. Right humerus: Bone alignment is normal. No fracture or dislocation. Normal soft tissues. Right elbow: Bone alignment is normal. No fracture or dislocation. Soft tissue calcification or ossification adjacent to the medial humeral epicondyle questionable for evidence of old epicondylitis. Soft tissues otherwise normal. Rotation on the lateral view making it difficult to evaluate for elbow joint effusion. XR/XR shoulder RT min 2V IMPRESSION: No acute fracture or dislocation. Degenerative changes. -------- EXAMINATION: XR CHEST CLINICAL INFORMATION: Fall COMPARISON: Previous chest x-ray most recent September 2022 TECHNIQUE: 2 views of the chest were obtained. FINDINGS: The cardiac and mediastinal contours are stable. The lungs are clear. No pleural effusion or pneumothorax. Degenerative changes of the thoracic spine. XR/XR chest 2V IMPRESSION: No evidence for acute disease in the chest. Lab Data MDM Lab Attestation statement: I reviewed the patient's lab results. as above. 08/25/23 12:24 08/25/23 12:24 Labs: Lab Results 08/25/23 Range/Units 12:24 WBC 9.7 (4.8-10.8) X10*3/uL RBC 4.03 L (4.60-5.80) X10*6/uL Hgb 12.3 L (14.0-18.0) g/dl Hct 36.5 L (42.0-52.0) % MCV 90.6 (80.0-98.0) fL MCH 30.5 (27.0-33.0) pg MCHC 33.7 (31.0-36.0) g/dl RDW 13.0 (11.0-16.0) % Plt Count 161 (160-400) X10*3/uL MPV 9.5 (9.4-12.4) fL Immature Gran % (Auto) 0.7 H (0.0-0.4) % Neut % (Auto) 72.7 (45-73) % Lymph % (Auto) 18.5 L (20-40) % [place] % (Auto) 6.8 (2-11) % Eos % (Auto) 1.1 (0-4) % Baso % (Auto) 0.2 (0-2) % Lymph # (Auto) 1.8 (1.2-4.9) X10*3/uL [place] # (Auto) 0.7 (0.1-1.2) X10*3/uL Eos # (Auto) 0.1 (0.0-0.4) X10*3/uL Baso # (Auto) 0.0 (0.0-0.2) X10*3/uL Abs Immat Gran (auto) 0.07 H (0.00-0.03) X10*3/uL Absolute Neuts (auto) 7.1 (2.0-8.3) x10*3/uL Absolute Nucleated RBC 0.000 (0.0-0.012) X10*3/uL Nucleated RBC % (auto) 0.0 (0.0-0.2) /100WBC Sodium 141 (135-145) mmol/L Potassium 4.0 (3.3-5.1) mmol/L Chloride 102 (96-108) mmol/L Carbon Dioxide 31 H (22-29) mmol/L Anion Gap 12 (12-20) BUN 22 H (9-16) mg/dL Creatinine 1.04 (0.5-1.4) mg/dL Estim Creat Clear Calc 52.6 Estimated GFR > 60 Random Glucose 92 (60-115) mg/dL Calcium 10.0 (8.4-10.2) mg/dL Magnesium 2.1 (1.6-2.6) mg/dL Total Bilirubin 0.5 (0.0-1.0) mg/dL AST 21 (5-37) U/L ALT 25 (0-40) U/L Alkaline Phosphatase 85 (39-117) U/L Total Creatine Kinase 56 (38-174) U/L Total Protein 7.3 (6.5-8.0) g/dL Albumin 3.9 (3.5-5.0) g/dL Lipase 45 (8-78) U/L Independent Interpretation I performed an independent interpretation of an: Plain X-Ray and CT Scan Interpretation: XR right shoulder, right clavicle, right humerus and right elbow without fracture, agree with radiologist's interpretation. CXR without pneumo, agree with radiologist's interpretation. CT head/ brain without acute bleed, agree with radiologist's interpretation. CT c spine without fracture, agree with radiologist's interpretation. Radiology Impression Discussion of test interpretation with radiology: I have reviewed the radiologist's reading. Radiologist Impression: EXAMINATION: CT HEAD WITHOUT CONTRAST CLINICAL INFORMATION: Unwitnessed fall with head trauma COMPARISON: Previous head CT most recent November 2020 TECHNIQUE: Contiguous axial imaging was performed from the skull base to vertex without intravenous administration of contrast. This CT examination was performed using dose optimization techniques as appropriate, variously including the following: *Automated exposure control *Adjustment of mA and/or kV according to patient size (this includes techniques or standardized protocols for targeted exams where dose is matched to indication/reason for exam; i.e. extremities or head) *Use of iterative reconstruction technique DLP: 721 mGy-cm FINDINGS: There is no evidence of an extra-axial collection. There is no evidence of intra or extra-axial hemorrhage. There is low-attenuation seen at the base of the bilateral frontal lobes, left greater than right question representing changes from old trauma versus old subcortical white matter infarcts. The ventricles and extra-axial CSF spaces are prominent suggestive of generalized atrophy. There is nonspecific periventricular white matter disease. No mass, mass effect or other infarct is seen. No skull fracture. Visualized paranasal sinuses, mastoid air cells and middle ears are clear. High attenuation adjacent to the right posterior parietal bone questionable for small scalp hematoma. CT/CT head/brain wo IV con IMPRESSION: No acute intracranial pathology. Generalized atrophy and nonspecific periventricular white matter disease. Low-attenuation at the base of both frontal lobes, left greater than right, question representing changes from old trauma versus old infarcts. EXAMINATION: CT CERVICAL SPINE WITHOUT CONTRAST CLINICAL INFORMATION: Unwitnessed fall. Head trauma. COMPARISON: Previous cervical spine CT from 2009 TECHNIQUE: Axial images through the cervical spine without IV contrast. Sagittal and coronal reconstructions on the technologist workstation were performed. This CT examination was performed using dose optimization techniques as appropriate, variously including the following: *Automated exposure control *Adjustment of mA and/or kV according to patient size (this includes techniques or standardized protocols for targeted exams where dose is matched to indication/reason for exam; i.e. extremities or head) *Use of iterative reconstruction technique DLP: 458 mGy-cm FINDINGS: Bone alignment is normal. No fracture or dislocation. There is multilevel degenerative spondylosis and degenerative disc disease. There is bilateral facet arthritis, right greater than left. There are degenerative changes at the C1 dens articulation. Prevertebral soft tissues are normal. Visualized lung apices are clear. CT/CT cervical spine wo IV con IMPRESSION: Degenerative changes. No fracture or dislocation. Fleischner guidelines were followed. ------ EXAMINATION: XR CHEST CLINICAL INFORMATION: Fall COMPARISON: Previous chest x-ray most recent September 2022 TECHNIQUE: 2 views of the chest were obtained. FINDINGS: The cardiac and mediastinal contours are stable. The lungs are clear. No pleural effusion or pneumothorax. Degenerative changes of the thoracic spine. XR/XR chest 2V IMPRESSION: No evidence for acute disease in the chest. EXAMINATION: Right shoulder, right clavicle, right humerus and right elbow x-rays CLINICAL INFORMATION: Pain post fall COMPARISON: None. TECHNIQUE: 2 views of the right shoulder, one view of the right clavicle, 2 views of the right humerus and 2 views of the right elbow FINDINGS: Right shoulder: Bone alignment is normal. No fracture or dislocation. Normal glenohumeral joint. Arthritis at the acromioclavicular joint. Soft tissues are normal. Right clavicle: Bone alignment is normal. No acute fracture or dislocation. Arthritis at the acromioclavicular joint. Well-corticated ossification adjacent to the distal clavicle and superior acromioclavicular joint, question related to old trauma. Right humerus: Bone alignment is normal. No fracture or dislocation. Normal soft tissues. Right elbow: Bone alignment is normal. No fracture or dislocation. Soft tissue calcification or ossification adjacent to the medial humeral epicondyle questionable for evidence of old epicondylitis. Soft tissues otherwise normal. Rotation on the lateral view making it difficult to evaluate for elbow joint effusion. XR/XR clavicle RT IMPRESSION: No acute fracture or dislocation. Degenerative changes. External Record Review External record reviewed: Inpatient record, Office record, Outpatient record, Prior outpatient labs, Prior outpatient radiology, Primary care record and Outside ED record Prescription Management I considered prescription management with: Pain Medication and Antibiotic Chronic Conditions Patient?s care impacted by: Other (dementia) Social Determinants Patient?s care significantly limited by Social Determinants of Health including: Other Social Determinant of Health Critical Care Time Critical Care Time Critical Care Time: No Discharge Plan Discharge Clinical Impression: Laceration of ear, external, right, Fall Patient Disposition: Home, Self-Care Instructions: Laceration (ED), Fall Prevention for Older Adults (ED), Fall Prevention (ED) Additional Instructions: You were seen in ED today for evaluation after fall. Your labs today are reassuring. The CT scan of your head/ brain does not demonstrate bleed or fracture. The CT scan of your neck does not how fracture. Your chest xray is normal. The xrays of your right clavicle, shoulder, upper arm, and elbow are normal. The laceration to your right earlob was repaired with 7 sutures today. Keep the area clean, dry, and intact until removal of sutures. Please return to the ED in 3-5 days to have these removed. You may apply bacitracin to the area. You do not require oral antibiotics at this time. You may take tylenol at home as needed for pain/ discomfort. Please follow up with your PCP. If you do not have one, a referral has been provided to you. You may call them to establish care. Return to the ED if the ear becomes significantly swollen, painful, if you spike a fever (>100.4F), or if the wound opens and you are unable to control the bleeding. In the case of an emergency call 911. Prescriptions: No Action irbesartan 300 mg tablet 300 mg PO DAILY hydralazine 50 mg tablet 50 mg PO TID carvedilol 25 mg tablet 25 mg PO BID calcium carbonate-vitamin D3 500 mg(1,250mg) -400 unit tablet,chewable 1 tab PO BID loratadine 10 mg tablet 10 mg PO DAILY aspirin 81 mg tablet,delayed release (DR/EC) 81 mg PO QAM atorvastatin 20 mg tablet 20 mg PO BEDTIME memantine 5 mg tablet 5 mg PO colchicine 0.6 mg tablet 0.6 mg PO DAILY sertraline 25 mg tablet 25 mg PO DAILY pantoprazole 40 mg tablet,delayed release (DR/EC) 40 mg PO DAILY trazodone 100 mg tablet 100 mg PO BEDTIME polyvinyl alcohol 1.4 % drops 0 drp ophthalmic (eye) Q2H PRN furosemide 20 mg tablet 20 mg PO DAILY doxazosin 4 mg tablet 4 mg PO BEDTIME 90 Days Qty: 90 3RF finasteride 5 mg tablet 5 mg PO DAILY 90 Days Qty: 90 3RF Referrals: Name,MD Galen [Primary Care Provider] - Interventions: ED Discharge Assessment Last Done: 08/25/23 16:08 Discharge Date/Time: 08/25/23 16:08 Print Language: [place] Citizen
[2023-08-25 12:31] LABS: Basophils Percent Auto 0.2 % (0-2); Eosinophils Absolute Auto 0.1 X10*3/uL (0.0-0.4); Eosinophils Percent Auto 1.1 % (0-4); Hematocrit 36.5 % (42.0-52.0); Hemoglobin 12.3 g/dl (14.0-18.0); Imm Gran Abs Auto 0.07 X10*3/uL (0.00-0.03); Imm Gran Pct Auto 0.7 % (0.0-0.4); Lymphocytes Absolute Auto 1.8 X10*3/uL (1.2-4.9); Lymphocytes Percent Auto 18.5 % (20-40); MANUAL DIFF FLAG NO; Mean Corpuscular HGB Conc 33.7 g/dl (31.0-36.0); Mean Corpuscular Hemoglobin 30.5 pg (27.0-33.0); Mean Corpuscular Volume 90.6 fL (80.0-98.0); Mean Platelet Volume 9.5 fL (9.4-12.4); Monocytes Absolute Auto 0.7 X10*3/uL (0.1-1.2); Monocytes Percent Auto 6.8 % (2-11); Neutrophils Absolute Auto 7.1 x10*3/uL (2.0-8.3); Neutrophils Percent Auto 72.7 % (45-73); Platelet Count 161 X10*3/uL (160-400); Red Blood Count 4.03 X10*6/uL (4.60-5.80); White Blood Count 9.7 X10*3/uL (4.8-10.8)
[2023-08-25 12:50] LABS: Alanine Aminotransferase 25 U/L (0-40); Albumin Level 3.9 g/dL (3.5-5.0); Alkaline Phosphatase 85 U/L (39-117); Anion Gap 12 (12-20); Aspartate Amino Transferase 21 U/L (5-37); Bilirubin Total 0.5 mg/dL (0.0-1.0); Blood Urea Nitrogen 22 mg/dL (9-16); Carbon Dioxide 31 mmol/L (22-29); Chloride 102 mmol/L (96-108); Creatinine Clr Calc Pharmacy 52.6; Estimated Glomerular Filt Rate > 60; Glucose Random 92 mg/dL (60-115); Lipase 45 U/L (8-78); Magnesium 2.1 mg/dL (1.6-2.6); Sodium 141 mmol/L (135-145); Total Protein 7.3 g/dL (6.5-8.0)
[2023-08-25] MEDS: Diphth,Pertus(ACell),Tet Adult 0.5 ML SYRINGE IM (13:28)
[2023-08-25] MEDS: Lidocaine HCl 1 % MPF 5 ML VIAL INFILTRATI (13:29)
[2023-08-25 16:08] VITALS: BP 130/100; PULSE 68; RESP 19; TEMP 36.6; O2SAT 98
== END 2023-08-25 16:08 | disposition home or self-care (01) ==
PROVIDERS: Physician Assistant Medical; Emergency Provider Emergency Medicine; PCP Internal Medicine Geriatric Medicine
DX: S01.311A Laceration without foreign body of right ear, initial encounter (principal); W18.30XA Fall on same level, unspecified, initial encounter; I10 Essential (primary) hypertension; E78.5 Hyperlipidemia, unspecified; G30.9 Alzheimer's disease, unspecified; F02.80 Dementia in other diseases classified elsewhere, unspecified severity, without behavioral disturbance, psychotic disturbance, mood disturbance, and anxiety; Y93.9 Activity, unspecified; Y92.032 Bedroom in apartment as the place of occurrence of the external cause; Y99.9 Unspecified external cause status; Z23 Encounter for immunization
CPT/HCPCS: 12013; 36415; 70450; 71046; 72125; 73000; 73030; 73060; 73070; 80053; 82550; 83690; 83735; 85025; 90471; 90715; 99283; 99284

== ENCOUNTER 2023-08-31 10:13 | Emergency (ER) | payer MEDICARE, SELFPAY ==
[2023-08-31 10:51] VITALS: BP 146/60; PULSE 66; RESP 16; TEMP 35.9; O2SAT 97; BMI 34.3
--- NOTE | 2023-08-31 11:24 | ED.WOUNDLAC ---
HPI - Wound/Laceration General Chief Complaint: Wound/Laceration Stated Complaint: stitch removal Time Seen by Provider: 08/31/23 11:24 Source: patient Mode of arrival: ambulatory Limitations: no limitations History of Present Illness HPI narrative: Patient is an 82-year-old male who presents emergency department for suture removal from the right ear. Reports he was seen in the emergency department 08/25/2023 for evaluation after mechanical fall. He denies any fevers, chills, pus-like drainage, pain to the ear. Denies any hearing changes. No new physical complaints Related Data Home Medications ?Medication ?Instructions ?Recorded ?Confirmed aspirin 81 mg tablet,delayed 81 mg PO QAM 05/27/20 08/01/22 release atorvastatin 20 mg tablet 20 mg PO BEDTIME 05/27/20 08/01/22 calcium carbonate 500 mg-vitamin 1 tab PO BID 05/27/20 08/01/22 D3 10 mcg (400 unit) chewable tablet carvedilol 25 mg tablet 25 mg PO BID 05/27/20 08/01/22 hydralazine 50 mg tablet 50 mg PO TID 05/27/20 08/01/22 irbesartan 300 mg tablet 300 mg PO DAILY 05/27/20 08/01/22 loratadine 10 mg tablet 10 mg PO DAILY 05/27/20 08/01/22 colchicine 0.6 mg tablet 0.6 mg PO DAILY 10/26/21 08/01/22 furosemide 20 mg tablet 20 mg PO DAILY 10/26/21 08/01/22 memantine 5 mg tablet 5 mg PO 10/26/21 08/01/22 pantoprazole 40 mg tablet,delayed 40 mg PO DAILY 10/26/21 08/01/22 release polyvinyl alcohol 1.4 % eye drops 0 drp ophthalmic (eye) Q2H PRN 10/26/21 08/01/22 sertraline 25 mg tablet 25 mg PO DAILY 10/26/21 08/01/22 trazodone 100 mg tablet 100 mg PO BEDTIME 10/26/21 08/01/22 Previous Rx's ?Medication ?Instructions ?Recorded doxazosin 4 mg tablet 4 mg PO BEDTIME 90 days #90 tabs 08/03/23 finasteride 5 mg tablet 5 mg PO DAILY 90 days #90 tabs 08/03/23 Allergies Allergy/AdvReac Type Severity Reaction Status Date / Time nifedipine [From Procardia] Allergy Intermediate EDEMA Verified 08/31/23 10:52 ibuprofen [Ibuprofen] Allergy Mild RASH Verified 08/31/23 10:52 ibuprofen Allergy Unknown rash Uncoded 08/31/23 10:52 nifedipine Allergy Unknown edema Uncoded 08/31/23 10:52 Review of Systems Review of Systems: Yes all other systems are reviewed and are negative [facility] Past Medical History Attestation statement: The following information was validated with the patient. Source: old records reviewed Medical History High cholesterol HTN (hypertension) Social History Social History Alcohol intake: never Patient Tobacco Use Status: Never used Tobacco Advance Directives: No Physical Exam Vital Signs: Vital Signs: Last Vital Signs Temp 96.6 F L 08/31/23 11:37 Pulse 66 08/31/23 11:37 Resp 16 08/31/23 11:37 BP 146/60 H 08/31/23 11:37 Pulse Ox 97 08/31/23 11:37 O2 Del Method Room Air 08/31/23 11:37 BMI result Body Mass Index 34.3 Appearance: Alert.?Oriented to person, place and time. No acute distress.?Normal affect. ENT: Pharynx normal.??External ear canal normal. Right posterior ear with 2.5 cm healing laceration, sutures intact, no active bleeding or purulent discharge Neck: Normal inspection.? Neck supple.?? CVS: Heart sounds normal. Normal heart rate and rhythm.? Pulses normal.?? Respiratory: No respiratory distress.? Lung sounds clear to auscultation bilaterally?? Skin: Skin warm and dry.? Normal skin color.? Neuro: Moves all extremities spontaneously. Sensation intact bilaterally. No focal neuro deficits. Ambulates with normal steady gait. Medical Decision Making Medical Decision Making MDM Narrative: Patient is an 82-year-old male who presents emergency department for suture removal, reviewed ED record from 08/25/2023, 7 sutures were placed to the right posterior ear. At this time there is no purulence, active bleeding, appears to be healing well, no erythema or warmth/surrounding cellulitis. Sutures were removed without complication Differential Diagnosis Differential Diagnoses: The differential diagnosis associated with the presentation includes (Laceration, consistent with delayed wound healing, no evidence cellulitis) Independent Historian Clinical information obtained from an independent historian. History obtained from or confirmed by: Other (Caregiver) External Record Review External record reviewed: Outpatient record Discharge Plan Discharge Clinical Impression: Laceration Patient Disposition: Home, Self-Care Additional Instructions: Seven sutures were removed from the right ear today. You may gently cleanse the area twice daily with warm water and mild non scented soap. Follow-up with your primary care provider. Prescriptions: No Action irbesartan 300 mg tablet 300 mg PO DAILY hydralazine 50 mg tablet 50 mg PO TID carvedilol 25 mg tablet 25 mg PO BID calcium carbonate-vitamin D3 500 mg(1,250mg) -400 unit tablet,chewable 1 tab PO BID loratadine 10 mg tablet 10 mg PO DAILY aspirin 81 mg tablet,delayed release (DR/EC) 81 mg PO QAM atorvastatin 20 mg tablet 20 mg PO BEDTIME memantine 5 mg tablet 5 mg PO colchicine 0.6 mg tablet 0.6 mg PO DAILY sertraline 25 mg tablet 25 mg PO DAILY pantoprazole 40 mg tablet,delayed release (DR/EC) 40 mg PO DAILY trazodone 100 mg tablet 100 mg PO BEDTIME polyvinyl alcohol 1.4 % drops 0 drp ophthalmic (eye) Q2H PRN furosemide 20 mg tablet 20 mg PO DAILY doxazosin 4 mg tablet 4 mg PO BEDTIME 90 Days Qty: 90 3RF finasteride 5 mg tablet 5 mg PO DAILY 90 Days Qty: 90 3RF Referrals: Name,MD Galen [Primary Care Provider] - Interventions: ED Discharge Assessment Last Done: 08/31/23 11:37 Discharge Date/Time: 08/31/23 11:39 Print Language: Persian
[2023-08-31 11:37] VITALS: BP 146/60; PULSE 66; RESP 16; TEMP 35.9; O2SAT 97
== END 2023-08-31 11:39 | disposition home or self-care (01) ==
PROVIDERS: Emergency Provider Emergency Medicine Emergency Medical Services; PCP Internal Medicine Geriatric Medicine
DX: Z48.02 Encounter for removal of sutures (principal)
CPT/HCPCS: 99282

== ENCOUNTER 2023-09-12 10:10 | Outpatient (REF) | payer MEDICARE, SELFPAY ==
--- NOTE | ~2023-09-12 | US_ITS ---
EXAMINATION: US ABDOMEN COMPLETE CLINICAL INFORMATION: Increased abdominal girth, edema, rule out ascites. COMPARISON: Renal ultrasound 12/21/2021. Ultrasound bladder 05/20/2020. TECHNIQUE: Real-time imaging of the abdominal viscera. FINDINGS: PANCREAS: Limited. The visualized pancreatic head and body are normal in appearance. The remainder of the pancreas is obscured from visualization by the overlying bowel gas. ABDOMINAL AORTA: The proximal and distal segments are normal in caliber. The mid segment is poorly visualized due to overlapping bowel gas. There are atherosclerotic calcifications. INFERIOR VENA CAVA: Visualized portions are normal. LIVER: Normal. The liver is normal in size. The liver contour is normal. Parenchymal echogenicity is normal. No focal hepatic lesion. There is no intrahepatic biliary duct dilatation seen. GALLBLADDER: A 1.1 cm calculus is impacted within the gallbladder neck. There is no evidence of gallbladder wall thickening or pericholecystic fluid. COMMON BILE DUCT: Normal in caliber measuring 0.5 cm in diameter. RIGHT KIDNEY: At the interpolar aspect, a 3.8 cm benign, simple cyst is seen, for which no imaging follow-up is recommended. No hydronephrosis or renal calculi. The kidney measures 10.1 cm in maximum dimension. LEFT KIDNEY: At the lower pole, a 1.0 cm benign, simple cyst is seen, for which no imaging follow-up is recommended. No hydronephrosis or renal calculi. The kidney measures 11.4 cm in maximum dimension. SPLEEN: No focal finding. The spleen measures 8.5 cm in maximum dimension. FREE FLUID: None. US/US abdomen complete IMPRESSION: 1. There is cholelithiasis. 2. No ascites is visualized. 3. Technically limited ultrasound examination, in particular of the pancreas and abdominal great vessels.
== END 2023-09-12 10:11 | disposition home or self-care (01) ==
LOC: HO.HMGCX 10:10
PROVIDERS: PCP Internal Medicine Geriatric Medicine; Visit Provider Internal Medicine Geriatric Medicine
DX: R19.8 Other specified symptoms and signs involving the digestive system and abdomen (principal); R63.5 Abnormal weight gain; R60.9 Edema, unspecified
CPT/HCPCS: 76700

== ENCOUNTER 2023-09-13 09:40 | Outpatient (REF) | payer MEDICARE, SELFPAY ==
[2023-09-17 22:39] LABS: TS Negative Control Passed; TS Panel A 2; TS Panel B 0; TS Positive Control Passed; TSpotTB Negative (Negative)
== END 2023-09-13 09:41 | disposition home or self-care (01) ==
LOC: HO.HHCL 09:40
PROVIDERS: Visit Provider Internal Medicine Geriatric Medicine
DX: Z11.1 Encounter for screening for respiratory tuberculosis (principal)
CPT/HCPCS: 36415; 86481

== ENCOUNTER 2024-01-09 08:13 | Outpatient (REF) | payer MEDICARE, SELFPAY ==
[2024-01-09 11:37] LABS: Appearance Urine Clear; Color Urine Yellow; Glucose Urine UA Negative (Negative); Leukocyte Esterase Urine Negative (Negative); Nitrite Urine Negative (Negative); PH 5.5 (5.0-9.0); Urine Blood Negative (Negative); Urine Ketones Negative (Negative); Urine Protein Trace mg/dL (Neg-Trace)
[2024-01-09 11:41] LABS: Bacteria Urine None Seen (None Seen); Hyaline Casts Urine 0-2 /LPF (0-2); RBC Urine 0-2 /HPF (0-2); Squamous Epithelial Cell Urine 0-2 /HPF (0-2); WBC Urine 0-5 /HPF (0-5)
== END 2024-01-09 08:14 | disposition home or self-care (01) ==
LOC: HO.HHCL 08:13
PROVIDERS: Visit Provider Internal Medicine Geriatric Medicine
DX: R32 Unspecified urinary incontinence (principal)
CPT/HCPCS: 81001

== ENCOUNTER 2024-01-16 14:00 | Emergency (ER) | payer MEDICARE, SELFPAY ==
--- NOTE | ~2024-01-16 | XR_ITS ---
EXAMINATION: XR CHEST CLINICAL INFORMATION: Fever, cough. COMPARISON: Chest radiograph 08/25/2023. TECHNIQUE: Frontal view of the chest was obtained. FINDINGS: Low lung volumes limiting evaluation of parenchyma details. Diffuse bronchovascular crowding and mild bibasilar subsegmental atelectasis. Within the limitations, no discrete consolidation, significant pleural effusion or pneumothorax. Stable enlargement of the cardiomediastinal silhouette. No acute osseous findings. XR/XR chest 1V IMPRESSION: Within the limitations, no discrete consolidation, pleural effusion or pneumothorax. The left lower lobe is particularly obscured by overlying cardiomediastinal silhouette, consider repeat imaging with a lateral view as clinically warranted. Electronically signed by: Bonnie Mcclellan MD 01/16/2024 07:43 PM EDT
--- NOTE | ~2024-01-16 | CT_ITS ---
EXAMINATION: CT ANGIOGRAM CHEST CLINICAL INFORMATION: Shortness of breath COMPARISON: None available. TECHNIQUE: Multiple axial images were obtained through the chest after the administration of 65 mL of Omnipaque 350 intravenous contrast. Extensive vascular post-processing including two-dimensional and three-dimensional reformatted images were created and reviewed on an independent workstation. This CT examination was performed using dose optimization techniques as appropriate, variously including the following: *Automated exposure control *Adjustment of mA and/or kV according to patient size (this includes techniques or standardized protocols for targeted exams where dose is matched to indication/reason for exam; i.e. extremities or head) *Use of iterative reconstruction technique DLP: 287 mGy-cm FINDINGS: No evidence for acute or chronic pulmonary embolism. Pulmonary arteries are mildly prominent suggesting pulmonary hypertension. Thoracic aorta grossly intact. Motion degradation limits detail assessment. There is no pleural pericardial disease. Coronary artery calcifications are present. There is no mediastinal mass or lymphadenopathy. No evidence for any right heart strain. No infiltrate. No evidence for interstitial lung disease. Visualized upper abdominal organs are unremarkable. Note made of a moderate-sized axial type hiatus hernia. No osseous lesions. CT/CT angio chest PE protocol IMPRESSION: 1. No evidence for any acute or chronic pulmonary embolism. Motion degradation limits assessment. 2. Suspect pulmonary hypertension. 3. Hiatal hernia. Fleischner guidelines were followed. Electronically signed by: Wilbur Underwood MD 01/16/2024 08:44 PM EDT
--- NOTE | ~2024-01-16 | CT_ITS ---
EXAMINATION: CT ABDOMEN AND PELVIS WITH CONTRAST CLINICAL INFORMATION: Abdominal distention and nausea COMPARISON: None available. TECHNIQUE: Multidetector volumetric images were obtained from the superior aspect of the liver through the pubic symphysis following administration 85 mL of Omnipaque 350 intravenous contrast. Sagittal and coronal reformatted images were obtained on the technologist's workstation. Oral contrast: No This CT examination was performed using dose optimization techniques as appropriate, variously including the following: *Automated exposure control *Adjustment of mA and/or kV according to patient size (this includes techniques or standardized protocols for targeted exams where dose is matched to indication/reason for exam; i.e. extremities or head) *Use of iterative reconstruction technique DLP: 590 mGy-cm FINDINGS: LUNG BASES: Lung bases clear. Minimal bibasilar pleural thickening. Small hiatal hernia. LIVER, GALLBLADDER, AND BILIARY TREE: The liver is normal in size, shape, and attenuation. No focal hepatic lesion or biliary ductal dilatation is present. 2 tiny gallstones are seen in the dependent gallbladder but no adjacent inflammatory change. PANCREAS: Unremarkable. SPLEEN: Unremarkable. ADRENAL GLANDS: Unremarkable. KIDNEYS AND URETERS: No solid mass or hydronephrosis or perinephric collection. There is an exophytic cyst, which appear simple off the medial right kidney at 24 mm. No further workup is needed. BLADDER: Unremarkable. GASTROINTESTINAL TRACT: Moderate sigmoid diverticulosis is noted without jayson diverticulitis. There appears to be a small radiodensity within the sigmoid. This may have been ingested. Small hiatal hernia. No bowel obstruction. No right or left lower quadrant inflammatory change. The appendix is normal. ABDOMINAL WALL: No significant hernia is appreciated. LYMPH NODES: Normal. VASCULAR: Aorta atherosclerotic but not aneurysmal. PELVIC VISCERA: The prostate does appear prominent, measuring approximately 16 mm transverse. There is slight mass effect along the base of the bladder. There is no adenopathy or ascites deep in the pelvis. OSSEOUS STRUCTURES: Multilevel advanced degenerative change in the lumbar spine but no fracture or destructive process. CT/CT abdomen pelvis w IV con IMPRESSION: US Appendix normal . Sigmoid diverticulosis noted. No diverticulitis. Tiny gallstones are present. There is a small hiatal hernia. Fleischner guidelines were followed. Electronically signed by: Marcio Michael MD 01/16/2024 04:43 PM EDT
[2024-01-16 14:16] VITALS: BP 143/66; BP 145/64; PULSE 72; PULSE 78; RESP 18; TEMP 37.3; O2SAT 95; O2SAT 99; BMI 26.3
--- NOTE | 2024-01-16 14:21 | ECG_ITS ---
Test Reason : ABD PAIN Blood Pressure : / mmHG Vent. Rate : 074 BPM Atrial Rate : 074 BPM P-R Int : 208 ms QRS Dur : 090 ms QT Int : 398 ms P-R-T Axes : 055 013 057 degrees QTc Int : 441 ms Normal sinus rhythm Normal ECG When compared with ECG of 30-AUG-2020 08:11, No significant change was found Referred By: Sandi Mann Electronically Signed By:Elder Rodriguez
--- NOTE | 2024-01-16 14:24 | ED_ITS ---
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 The family arrived after he was sent from adult daycare they state he is not more confused and his disention is at baseline. He himself has no complaints and is smiling. MD complaint: hiccups Onset (ago): day(s) (3) Location: abdomen Radiation: non-radiation Severity: moderate Relieving factors: none Exacerbating factors: none Associated symptoms: denies other symptoms Treatments prior to arrival: none Related Data Home Medications ?Medication ?Instructions ?Recorded ?Confirmed aspirin 81 mg tablet,delayed 81 mg PO QAM 05/27/20 08/01/22 release atorvastatin 20 mg tablet 20 mg PO BEDTIME 05/27/20 08/01/22 calcium carbonate 500 mg-vitamin 1 tab PO BID 05/27/20 08/01/22 D3 10 mcg (400 unit) chewable tablet carvedilol 25 mg tablet 25 mg PO BID 05/27/20 08/01/22 hydralazine 50 mg tablet 50 mg PO TID 05/27/20 08/01/22 irbesartan 300 mg tablet 300 mg PO DAILY 05/27/20 08/01/22 loratadine 10 mg tablet 10 mg PO DAILY 05/27/20 08/01/22 colchicine 0.6 mg tablet 0.6 mg PO DAILY 10/26/21 08/01/22 furosemide 20 mg tablet 20 mg PO DAILY 10/26/21 08/01/22 memantine 5 mg tablet 5 mg PO 10/26/21 08/01/22 pantoprazole 40 mg tablet,delayed 40 mg PO DAILY 10/26/21 08/01/22 release polyvinyl alcohol 1.4 % eye drops 0 drp ophthalmic (eye) Q2H PRN 10/26/21 08/01/22 sertraline 25 mg tablet 25 mg PO DAILY 10/26/21 08/01/22 trazodone 100 mg tablet 100 mg PO BEDTIME 10/26/21 08/01/22 Previous Rx's ?Medication ?Instructions ?Recorded doxazosin 4 mg tablet 4 mg PO BEDTIME 90 days #90 tabs 08/03/23 finasteride 5 mg tablet 5 mg PO DAILY 90 days #90 tabs 08/03/23 Allergies Allergy/AdvReac Type Severity Reaction Status Date / Time nifedipine [From Procardia] Allergy Intermediate EDEMA Verified 01/16/24 14:18 ibuprofen [Ibuprofen] Allergy Mild RASH Verified 01/16/24 14:18 ibuprofen Allergy Unknown rash Uncoded 01/16/24 14:18 nifedipine Allergy Unknown edema Uncoded 01/16/24 14:18 Review of Systems 2 Review of Systems: ROS unable to be obtained due to dementia [facility] Past Medical History Attestation statement: The following information was validated with the patient. Source: old records reviewed Medical History High cholesterol HTN (hypertension) Social History Social History Alcohol intake: former Patient Tobacco Use Status: Never used Tobacco Smoked in Last 30 Days: No Use of substances other than those prescribed or required for medical reasons: No Advance Directives: No Physical Exam ED Vital Signs: Vital Signs - 24 hr 01/16/24 14:16 01/16/24 17:04 01/16/24 18:44 Temperature 99.1 F 98.5 F 98.6 F Pulse Rate 72 79 74 Respiratory Rate 18 16 15 Blood Pressure 145/64 H 168/79 H 164/70 H Pulse Oximetry 95 96 95 Oxygen Delivery Method Room Air Room Air Room Air 01/16/24 21:26 Temperature 98.2 F Pulse Rate 76 Respiratory Rate 14 Blood Pressure 128/66 Pulse Oximetry 96 Oxygen Delivery Method Room Air BMI result Body Mass Index 26.3 Appearance: Alert. Oriented to his baseline No acute distress. Eyes: Pupils equal, round and reactive to light. ENT: Pharynx normal. Neck: Normal inspection. Neck supple. CVS: Normal heart rate and rhythm. Pulses normal. Respiratory: No respiratory distress. Breath sounds normal. Abdomen: Soft but distended Skin: Skin warm and dry. Normal skin color. Normal skin turgor. Extremities: 1+ pitting symmetric lower extremity edema. No calf ttp Neuro: Oriented X 3. No motor deficit. No sensory deficit. Medications Administered Discontinued Medications Generic Name Dose Route Start Last Admin Trade Name Dmitriy PRN Reason Stop Dose Admin Iohexol 100 ml 01/16/24 16:01 01/16/24 16:02 Iohexol 350 Mg/Ml 100 Ml Infus..Btl IV 01/16/24 16:02 85 ml ONCE ONE Administration Iohexol 65 ml 01/16/24 19:32 01/16/24 19:33 Iohexol 350 Mg/Ml 100 Ml Infus..Btl IV 01/16/24 19:33 65 ml ONCE ONE Administration Ondansetron HCl 4 mg 01/16/24 14:20 01/16/24 14:35 Ondansetron Hcl 4 Mg/2 Ml Vial IVPUSH 01/16/24 14:21 4 mg ONCE ONE Administration Medical Decision Making Medical Decision Making MDM Narrative: 83 yo male with PMH of HTN, HLD, BPH, dementia here with c/o hicccups x 3 days and chronically distended abdomen at this time will need basic labs, CT scan of abdomen, IV zofran and protonix. Possible GERD, constipation, SBO, ileus Differential Diagnosis Differential Diagnoses: The differential diagnosis associated with the presentation includes GERD, constipation, SBO, ileus Admission/Observation Consideration of admission/observation: Escalation of care including admission/observation considered signed out to Dr. Dao pending CT scan of abdomen Lab Data [facility] Lab Attestation statement: I reviewed the patient's lab results. 01/16/24 14:56 01/16/24 14:56 Labs: Lab Results 01/16/24 01/16/24 01/16/24 Range/Units 14:50 14:56 15:02 WBC 9.2 (4.8-10.8) X10*3/uL RBC 4.05 L (4.60-5.80) X10*6/uL Hgb 12.2 L (14.0-18.0) g/dl Hct 37.2 L (42.0-52.0) % MCV 91.9 (80.0-98.0) fL MCH 30.1 (27.0-33.0) pg MCHC 32.8 (31.0-36.0) g/dl RDW 13.1 (11.0-16.0) % Plt Count 188 (160-400) X10*3/uL MPV 10.1 (9.4-12.4) fL Immature Gran % (Auto) 0.5 H (0.0-0.4) % Neut % (Auto) 65.1 (45-73) % Lymph % (Auto) 25.0 (20-40) % [place] % (Auto) 7.9 (2-11) % Eos % (Auto) 1.3 (0-4) % Baso % (Auto) 0.2 (0-2) % Lymph # (Auto) 2.3 (1.2-4.9) X10*3/uL [place] # (Auto) 0.7 (0.1-1.2) X10*3/uL Eos # (Auto) 0.1 (0.0-0.4) X10*3/uL Baso # (Auto) 0.0 (0.0-0.2) X10*3/uL Abs Immat Gran (auto) 0.05 H (0.00-0.03) X10*3/uL Absolute Neuts (auto) 6.0 (2.0-8.3) x10*3/uL Absolute Nucleated RBC 0.000 (0.0-0.012) X10*3/uL Nucleated RBC % (auto) 0.0 (0.0-0.2) /100WBC D-Dimer High Sensitivty NG/ML VBG pH 7.42 (7.32-7.43) VBG pCO2 54 mmHg VBG pO2 42 mmHg VBG HCO3 35 H (22-26) mmol/L VBG O2 Saturation 70.0 % VBG Base Excess 9.1 mmol/L Sodium 143 (135-145) mmol/L Potassium 3.8 (3.3-5.1) mmol/L Chloride 104 (96-108) mmol/L Carbon Dioxide 32 H (22-29) mmol/L Anion Gap 11 L (12-20) BUN 24 H (9-16) mg/dL Creatinine 1.14 (0.5-1.4) mg/dL Estim Creat Clear Calc 50.8 Estimated GFR > 60 Random Glucose 110 (60-115) mg/dL Lactic Acid 1.0 (0.5-2.0) mmol/L Calcium 9.6 (8.4-10.2) mg/dL Magnesium 2.2 (1.6-2.6) mg/dL Total Bilirubin 0.4 (0.0-1.0) mg/dL Direct Bilirubin 0.1 (0.0-0.5) mg/dL AST 30 (5-37) U/L ALT 25 (0-40) U/L Alkaline Phosphatase 73 (39-117) U/L Ammonia 42 (13-55) umol/L Troponin I High Sens 144.9 H* (<3.5-35.0) ng/L C-Reactive Protein 0.58 H (< or = 0.50) mg/dL B-Natriuretic Peptide 139 H (<100) pg/mL Total Protein 7.3 (6.5-8.0) g/dL Albumin 3.9 (3.5-5.0) g/dL Lipase 49 (8-78) U/L Procalcitonin 0.03 ng/mL Urine Color Yellow Urine Appearance Clear Urine pH 6.5 (5.0-9.0) Ur Specific [place] 1.010 (1.005-1.025) Urine Protein Negative (Neg-Trace) mg/dL Urine Glucose (UA) Negative (Negative) mg/dL Urine Ketones Negative (Negative) mg/dL Urine Blood Negative (Negative) Urine Nitrite Negative (Negative) Ur Leukocyte Esterase Negative (Negative) Influenza Type A (PCR) NEGATIVE (Negative) Influenza Type B (PCR) NEGATIVE (Negative) RSV RNA Qual (PCR) NEGATIVE (Negative) SARS-CoV-2 RNA (RT-PCR) NEGATIVE (Negative) 01/16/24 01/16/24 01/16/24 Range/Units 17:01 18:07 21:45 WBC (4.8-10.8) X10*3/uL RBC (4.60-5.80) X10*6/uL Hgb (14.0-18.0) g/dl Hct (42.0-52.0) % MCV (80.0-98.0) fL MCH (27.0-33.0) pg MCHC (31.0-36.0) g/dl RDW (11.0-16.0) % Plt Count (160-400) X10*3/uL MPV (9.4-12.4) fL Immature Gran % (Auto) (0.0-0.4) % Neut % (Auto) (45-73) % Lymph % (Auto) (20-40) % Edwards % (Auto) (2-11) % Eos % (Auto) (0-4) % Baso % (Auto) (0-2) % Lymph # (Auto) (1.2-4.9) X10*3/uL Edwards # (Auto) (0.1-1.2) X10*3/uL Eos # (Auto) (0.0-0.4) X10*3/uL Baso # (Auto) (0.0-0.2) X10*3/uL Abs Immat Gran (auto) (0.00-0.03) X10*3/uL Absolute Neuts (auto) (2.0-8.3) x10*3/uL Absolute Nucleated RBC (0.0-0.012) X10*3/uL Nucleated RBC % (auto) (0.0-0.2) /100WBC D-Dimer High Sensitivty 214 NG/ML VBG pH (7.32-7.43) VBG pCO2 mmHg VBG pO2 mmHg VBG HCO3 (22-26) mmol/L VBG O2 Saturation % VBG Base Excess mmol/L Sodium (135-145) mmol/L Potassium (3.3-5.1) mmol/L Chloride (96-108) mmol/L Carbon Dioxide (22-29) mmol/L Anion Gap (12-20) BUN (9-16) mg/dL Creatinine (0.5-1.4) mg/dL Estim Creat Clear Calc Estimated GFR Random Glucose (60-115) mg/dL Lactic Acid (0.5-2.0) mmol/L Calcium (8.4-10.2) mg/dL Magnesium (1.6-2.6) mg/dL Total Bilirubin (0.0-1.0) mg/dL Direct Bilirubin (0.0-0.5) mg/dL AST (5-37) U/L ALT (0-40) U/L Alkaline Phosphatase (39-117) U/L Ammonia (13-55) umol/L Troponin I High Sens 129.7 H* 117.0 H* (<3.5-35.0) ng/L C-Reactive Protein (< or = 0.50) mg/dL B-Natriuretic Peptide (<100) pg/mL Total Protein (6.5-8.0) g/dL Albumin (3.5-5.0) g/dL Lipase (8-78) U/L Procalcitonin ng/mL Urine Color Urine Appearance Urine pH (5.0-9.0) Ur Specific [place] (1.005-1.025) Urine Protein (Neg-Trace) mg/dL Urine Glucose (UA) (Negative) mg/dL Urine Ketones (Negative) mg/dL Urine Blood (Negative) Urine Nitrite (Negative) Ur Leukocyte Esterase (Negative) Influenza Type A (PCR) (Negative) Influenza Type B (PCR) (Negative) RSV RNA Qual (PCR) (Negative) SARS-CoV-2 RNA (RT-PCR) (Negative) Independent Interpretation I performed an independent interpretation of an: EKG and CT Scan Interpretation: Rate: 74 Rhythm: NSR [place]: normal Normal P waves. 1st degree AVB Normal QRS complex. ST T wave : normal no CLAU, inverted t wave V1 qTC: 441 prior studies: no acute ischemia The study has been interpreted contemporaneously by me. . Independent Historian Clinical information obtained from an independent historian. History obtained from or confirmed by: Friend and EMS External Record Review External record reviewed: Outpatient record Attestation Attending Attestation: This patient was signed out to me at 16:00. He is pending 2nd troponin and CT imaging. -patient's 2nd troponin is still elevated however lower than 1st. I did not appreciate bowel obstruction on his CT abdomen pelvis and radiologist interpretation is negative for any acute surgical findings -on reassessment patient is daughter told me that he was hypoxic earlier today. Given this and his elevated troponin I ordered a CT PE study -CT PE negative for clot and patient's troponin is trending down and he is still well-appearing with no complaints of shortness of breath or chest pain -patient discharged with outpatient follow up instructions and return precautions Hamilton Dao MD Discharge Plan Discharge Clinical Impression: Hiccups Patient Disposition: Still a Patient Instructions: Hiccups (ED) Additional Instructions: Please follow up with the primary care provider in the next 24-48 hours If you develop any new or worsening symptoms please return to the emergency department Prescriptions: No Action irbesartan 300 mg tablet 300 mg PO DAILY hydralazine 50 mg tablet 50 mg PO TID carvedilol 25 mg tablet 25 mg PO BID calcium carbonate-vitamin D3 500 mg(1,250mg) -400 unit tablet,chewable 1 tab PO BID loratadine 10 mg tablet 10 mg PO DAILY aspirin 81 mg tablet,delayed release (DR/EC) 81 mg PO QAM atorvastatin 20 mg tablet 20 mg PO BEDTIME memantine 5 mg tablet 5 mg PO colchicine 0.6 mg tablet 0.6 mg PO DAILY sertraline 25 mg tablet 25 mg PO DAILY pantoprazole 40 mg tablet,delayed release (DR/EC) 40 mg PO DAILY trazodone 100 mg tablet 100 mg PO BEDTIME polyvinyl alcohol 1.4 % drops 0 drp ophthalmic (eye) Q2H PRN furosemide 20 mg tablet 20 mg PO DAILY doxazosin 4 mg tablet 4 mg PO BEDTIME 90 Days Qty: 90 3RF finasteride 5 mg tablet 5 mg PO DAILY 90 Days Qty: 90 3RF Print Language: Kyrgyz
[2024-01-16] MEDS: ondansetron HCL 4 MG/2 ML VIAL IVPUSH (14:35)
[2024-01-16 15:02] LABS: MANUAL DIFF FLAG NO
[2024-01-16 15:03] LABS: Appearance Urine Clear; Color Urine Yellow; Glucose Urine UA Negative (Negative); Leukocyte Esterase Urine Negative (Negative); Nitrite Urine Negative (Negative); PH 6.5 (5.0-9.0); Urine Blood Negative (Negative); Urine Ketones Negative (Negative); Urine Protein Negative (Neg-Trace)
[2024-01-16 15:06] LABS: VBG Base Excess 9.1 mmol/L; VBG HCO3 35 mmol/L (22-26); VBG pCO2 54 mmHg; VBG pH 7.42 (7.32-7.43); VBG pO2 42 mmHg
[2024-01-16 15:07] LABS: Venous Blood Gas Refer to POC result
[2024-01-16 15:09] LABS: Basophils Percent Auto 0.2 % (0-2); Eosinophils Absolute Auto 0.1 X10*3/uL (0.0-0.4); Eosinophils Percent Auto 1.3 % (0-4); Hematocrit 37.2 % (42.0-52.0); Hemoglobin 12.2 g/dl (14.0-18.0); Imm Gran Abs Auto 0.05 X10*3/uL (0.00-0.03); Imm Gran Pct Auto 0.5 % (0.0-0.4); Lymphocytes Absolute Auto 2.3 X10*3/uL (1.2-4.9); Mean Corpuscular HGB Conc 32.8 g/dl (31.0-36.0); Mean Corpuscular Hemoglobin 30.1 pg (27.0-33.0); Mean Corpuscular Volume 91.9 fL (80.0-98.0); Mean Platelet Volume 10.1 fL (9.4-12.4); Monocytes Absolute Auto 0.7 X10*3/uL (0.1-1.2); Monocytes Percent Auto 7.9 % (2-11); Neutrophils Percent Auto 65.1 % (45-73); Platelet Count 188 X10*3/uL (160-400); Red Blood Count 4.05 X10*6/uL (4.60-5.80); Red Cell Distribution Width 13.1 % (11.0-16.0); White Blood Count 9.2 X10*3/uL (4.8-10.8)
[2024-01-16 15:16] LABS: Ammonia 42 umol/L (13-55)
[2024-01-16 15:30] LABS: B Type Natriuretic Peptide 139 pg/mL (<100)
[2024-01-16 15:31] LABS: Alanine Aminotransferase 25 U/L (0-40); Albumin Level 3.9 g/dL (3.5-5.0); Alkaline Phosphatase 73 U/L (39-117); Anion Gap 11 (12-20); Aspartate Amino Transferase 30 U/L (5-37); Bilirubin Direct 0.1 mg/dL (0.0-0.5); Bilirubin Total 0.4 mg/dL (0.0-1.0); Blood Urea Nitrogen 24 mg/dL (9-16); C Reactive Protein 0.58 mg/dL (< or = 0.50); Calcium 9.6 mg/dL (8.4-10.2); Carbon Dioxide 32 mmol/L (22-29); Chloride 104 mmol/L (96-108); Creatinine Clr Calc Pharmacy 50.8; Estimated Glomerular Filt Rate > 60; Glucose Random 110 mg/dL (60-115); Lipase 49 U/L (8-78); Magnesium 2.2 mg/dL (1.6-2.6); Potassium 3.8 mmol/L (3.3-5.1); Sodium 143 mmol/L (135-145); Total Protein 7.3 g/dL (6.5-8.0)
[2024-01-16 15:35] LABS: Influenza A PCR NEGATIVE (Negative); Influenza B PCR NEGATIVE (Negative); Resp Syncy Virus RNA Qual PCR NEGATIVE (Negative); SARS COV2 PCR INHOUSE NEGATIVE (Negative)
[2024-01-16 15:57] LABS: Troponin-I High Sensitivity 144.9 ng/L (<3.5-35.0)
[2024-01-16] MEDS: iohexoL 350 MG/ML 100 ML INFUS..BTL IV (16:02)
[2024-01-16 17:04] VITALS: BP 168/79; PULSE 79; RESP 16; TEMP 36.9; O2SAT 96
[2024-01-16 17:11] LABS: Procalcitonin 0.03 ng/mL
[2024-01-16 17:45] LABS: Troponin-I High Sensitivity 129.7 ng/L (<3.5-35.0)
[2024-01-16 18:21] LABS: D Dimer High Sensitivity 214 NG/ML
[2024-01-16 18:44] VITALS: BP 164/70; PULSE 74; RESP 15; TEMP 37; O2SAT 95
--- NOTE | 2024-01-16 19:01 | PC.NURSE ---
report received from Melissa ENGLISH, assume care of pt at this time
--- NOTE | 2024-01-16 19:26 | PC.NURSE ---
pt to [place], family went with him
[2024-01-16] MEDS: iohexoL 350 MG/ML 100 ML INFUS..BTL 65 ML IV (19:33)
--- NOTE | 2024-01-16 21:09 | ECG_ITS ---
Test Reason : REPEAT Blood Pressure : / mmHG Vent. Rate : 078 BPM Atrial Rate : 078 BPM P-R Int : 218 ms QRS Dur : 094 ms QT Int : 396 ms P-R-T Axes : 058 023 040 degrees QTc Int : 451 ms Sinus rhythm with 1st degree A-V block Otherwise normal ECG When compared with ECG of 16-JAN-2024 14:25, No significant change was found Referred By: Hamilton Dao Electronically Signed By:Elder Rodriguez
[2024-01-16 21:26] VITALS: BP 128/66; PULSE 76; RESP 14; TEMP 36.8; O2SAT 96
[2024-01-16 23:14] VITALS: BP 143/55; PULSE 75; RESP 14; TEMP 36.8; O2SAT 95
== END 2024-01-16 23:15 | disposition home or self-care (01) ==
PROVIDERS: Emergency Medicine; Emergency Provider Student in an Organized Health Care Education/Training Program; PCP Internal Medicine Geriatric Medicine
DX: R06.6 Hiccough (principal); R09.02 Hypoxemia; R60.0 Localized edema; I10 Essential (primary) hypertension; E78.00 Pure hypercholesterolemia, unspecified; Z79.82 Long term (current) use of aspirin; Z79.02 Long term (current) use of antithrombotics/antiplatelets; Z79.899 Other long term (current) drug therapy; Z03.818 Encounter for observation for suspected exposure to other biological agents ruled out
CPT/HCPCS: 0241U; 36415; 71045; 71275; 74177; 80048; 80076; 81003; 82140; 82803; 83605; 83690; 83735; 83880; 84145; 84484; 85025; 85379; 86140; 87040; 93005; 96374; 99284; J2405; Q9967

== ENCOUNTER → 2024-01-16 14:21 | Outpatient (BNV) | payer MEDICARE, SELFPAY | PROVIDERS: Emergency Provider Student in an Organized Health Care Education/Training Program; PCP Internal Medicine Geriatric Medicine; Visit Provider Internal Medicine Cardiovascular Disease | DX: R10.9 Unspecified abdominal pain (principal) | CPT/HCPCS: 93010 ==

== ENCOUNTER 2024-02-03 15:13 | Emergency (ER) | payer MEDICARE, SELFPAY ==
--- NOTE | ~2024-02-03 | CT_ITS ---
EXAM: CT scan of the head and cervical spine. INDICATION: fall, pain TECHNIQUE: A noncontrast CT scan was performed from the skull base to the vertex. A noncontrast CT scan of the cervical spine was performed from the base of the skull through T1 at 2.5 mm and 1.25 mm collimation. Coronal and sagittal reformats were obtained at the acquisition workstation. This CT examination was performed using dose optimization techniques as appropriate, variously including the following: *Automated exposure control *Adjustment of mA and/or kV according to patient size (this includes techniques or standardized protocols for targeted exams where dose is matched to indication/reason for exam; i.e. extremities or head) *Use of iterative reconstruction technique DLP: 698 and 543 mGy-cm COMPARISON: 08/25/2023 FINDINGS: Head: There is no evidence of acute intracranial hemorrhage or territorial infarction. Calles-white matter differentiation is preserved. No abnormal mass effect or midline shift. No extra-axial fluid collections. No abnormal attenuation is demonstrated within the brain parenchyma. Scattered periventricular and deep white matter hypodensities consistent with microangiopathy. The ventricles and sulcal spaces are proportional without hydrocephalus. Proportional prominence of the ventricles and sulcal spaces. No acute osseous or soft tissue abnormalities. The mastoid air cells and visualized portions of the paranasal sinuses are well aerated. Cervical Spine: The atlantooccipital and atlantoaxial articulations remain well aligned. Straightening of the normal cervical lordosis. Otherwise, there is anatomic alignment of the vertebral bodies and posterior elements. No evidence of acute fracture or subluxation. The vertebral body heights and disc spaces are notable for diffuse spondylosis throughout the spine with moderate disc space narrowing and endplate spurring.. There is no prevertebral soft tissue swelling. The thyroid gland and remaining cervical soft tissues are normal in appearance. The lung apices demonstrate no abnormalities. CT/CT cervical spine wo IV con IMPRESSION: No acute intracranial pathology. No acute fracture subluxation cervical spine. Electronically signed by: Wilbur Underwood MD 02/03/2024 06:48 PM [facility]
[2024-02-03 15:33] VITALS: BP 188/98; PULSE 87; O2SAT 96
[2024-02-03 15:34] VITALS: BMI 40.3
[2024-02-03 16:00] VITALS: BP 155/80; PULSE 76; RESP 16; TEMP 36.9; O2SAT 96
[2024-02-03 17:41] LABS: MANUAL DIFF FLAG NO
[2024-02-03 17:42] LABS: Basophils Percent Auto 0.3 % (0-2); Eosinophils Absolute Auto 0.1 X10*3/uL (0.0-0.4); Eosinophils Percent Auto 0.9 % (0-4); Hematocrit 38.5 % (42.0-52.0); Hemoglobin 12.6 g/dl (14.0-18.0); Imm Gran Abs Auto 0.06 X10*3/uL (0.00-0.03); Imm Gran Pct Auto 0.6 % (0.0-0.4); Lymphocytes Absolute Auto 1.4 X10*3/uL (1.2-4.9); Lymphocytes Percent Auto 13.5 % (20-40); Mean Corpuscular HGB Conc 32.7 g/dl (31.0-36.0); Mean Corpuscular Hemoglobin 29.9 pg (27.0-33.0); Mean Corpuscular Volume 91.2 fL (80.0-98.0); Mean Platelet Volume 9.9 fL (9.4-12.4); Monocytes Absolute Auto 0.6 X10*3/uL (0.1-1.2); Monocytes Percent Auto 5.8 % (2-11); Neutrophils Absolute Auto 8.1 x10*3/uL (2.0-8.3); Neutrophils Percent Auto 78.9 % (45-73); Platelet Count 212 X10*3/uL (160-400); Red Blood Count 4.22 X10*6/uL (4.60-5.80); Red Cell Distribution Width 12.9 % (11.0-16.0); White Blood Count 10.3 X10*3/uL (4.8-10.8)
[2024-02-03 18:00] VITALS: BP 157/82; PULSE 78; RESP 18; O2SAT 99
[2024-02-03 18:10] LABS: Alanine Aminotransferase 43 U/L (0-40); Albumin Level 3.8 g/dL (3.5-5.0); Alkaline Phosphatase 77 U/L (39-117); Anion Gap 16 (12-20); Aspartate Amino Transferase 41 U/L (5-37); Bilirubin Total 0.3 mg/dL (0.0-1.0); Blood Urea Nitrogen 15 mg/dL (9-16); Calcium 9.6 mg/dL (8.4-10.2); Carbon Dioxide 28 mmol/L (22-29); Chloride 105 mmol/L (96-108); Creatinine Clr Calc Pharmacy 53.5; Estimated Glomerular Filt Rate 54; Glucose Random 115 mg/dL (60-115); Magnesium 2.3 mg/dL (1.6-2.6); Potassium 4.6 mmol/L (3.3-5.1); Sodium 144 mmol/L (135-145); Total Protein 7.7 g/dL (6.5-8.0)
[2024-02-03 20:00] VITALS: BP 152/82; PULSE 79; RESP 18; TEMP 36.8; O2SAT 95
--- NOTE | 2024-02-03 20:50 | ED.GENADULT ---
HPI - General Adult General Chief complaint: Abdominal Pain Stated complaint: found laying on ground, not alert/oriented Time Seen by Provider: 02/03/24 17:59 Source: EMS Mode of arrival: EMS Limitations: other History of Present Illness ED Provider: Dr. Marycarmen Azar HPI narrative: Patient comes to the emergency room by ambulance. According to EMS, a bystander found the patient prone in the sidewalk. PD was called, patient was unable to answer any questions. Patient arrived to the emergency room via ambulance. When patient arrived, the patient's family was already waiting for him here. According to the patient's brother, the patient has someone who keeps an eye on him all day long. However, patient ran away from home, patient was very close to their home. Because the patient was unable to answer any questions they brought him in. Patient is awake, alert, patient has dementia and is unable to give any significant history. Patient has no complaints. Related Data Home Medications ?Medication ?Instructions ?Recorded ?Confirmed aspirin 81 mg tablet,delayed 81 mg PO QAM 05/27/20 08/01/22 release atorvastatin 20 mg tablet 20 mg PO BEDTIME 05/27/20 08/01/22 calcium carbonate 500 mg-vitamin 1 tab PO BID 05/27/20 08/01/22 D3 10 mcg (400 unit) chewable tablet carvedilol 25 mg tablet 25 mg PO BID 05/27/20 08/01/22 hydralazine 50 mg tablet 50 mg PO TID 05/27/20 08/01/22 irbesartan 300 mg tablet 300 mg PO DAILY 05/27/20 08/01/22 loratadine 10 mg tablet 10 mg PO DAILY 05/27/20 08/01/22 colchicine 0.6 mg tablet 0.6 mg PO DAILY 10/26/21 08/01/22 furosemide 20 mg tablet 20 mg PO DAILY 10/26/21 08/01/22 memantine 5 mg tablet 5 mg PO 10/26/21 08/01/22 pantoprazole 40 mg tablet,delayed 40 mg PO DAILY 10/26/21 08/01/22 release polyvinyl alcohol 1.4 % eye drops 0 drp ophthalmic (eye) Q2H PRN 10/26/21 08/01/22 sertraline 25 mg tablet 25 mg PO DAILY 10/26/21 08/01/22 trazodone 100 mg tablet 100 mg PO BEDTIME 10/26/21 08/01/22 Previous Rx's ?Medication ?Instructions ?Recorded doxazosin 4 mg tablet 4 mg PO BEDTIME 90 days #90 tabs 08/03/23 finasteride 5 mg tablet 5 mg PO DAILY 90 days #90 tabs 08/03/23 Allergies Allergy/AdvReac Type Severity Reaction Status Date / Time nifedipine [From Procardia] Allergy Intermediate EDEMA Verified 02/03/24 15:39 ibuprofen [Ibuprofen] Allergy Mild RASH Verified 02/03/24 15:39 ibuprofen Allergy Unknown rash Uncoded 02/03/24 15:39 nifedipine Allergy Unknown edema Uncoded 02/03/24 15:39 Review of Systems Review of Systems: Constitutional : No Weight loss, No Fever, No Chills, No Night Sweats, No Fatigue, No Malaise ENT/Mouth : No Hearing loss, No Ear Pain, No Nasal Congestion, No Sinus Pain, No Hoarseness, No sore throat, No Rhinorrhea, No Swallowing Difficulty Eyes: No Eye Pain, No Swelling, No Redness, No Foreign Body, No Discharge, No Vision Changes Cardiovascular : No Chest Pain, No SOB, No Dyspnea on Exertion, No Orthopnea, No Edema, No Palpitations Respiratory : No Cough, No Sputum, No Wheezing, No Smoke Exposure, No Dyspnea Gastrointestinal : No Nausea, No Vomiting, No Diarrhea, No Constipation, No abdominal Pain, No Hematochezia, No Melena Genitourinary : no irregular bleeding, No Dysuria, No Urinary Frequency, No Hematuria, No Urinary Incontinence, No Urgency, No Flank Pain, No Urinary Flow Changes, No Hesitancy Musculoskeletal : No joint pain, No Myalgias, No Joint Swelling Skin : No Skin Lesions, No rash Neuro : No Weakness, No Numbness, No Paresthesias, No Loss of Consciousness, No Dizziness, No Headache Psych : No Anxiety/Panic, No Depression, No SI/HI/AH/VH, No Social Issues, Heme/Lymph: No Bruising, No Bleeding,No Lymphadenopathy Endocrine : No Polyuria, No Polydipsia, No Temperature Intolerance [facility] Past Medical History Medical History High cholesterol HTN (hypertension) Social History Social History Alcohol intake: former Patient Tobacco Use Status: Never used Tobacco Advance Directives: No Advance Directives Information Provided: No Do you have a plan to hurt others: No Plan Physical Exam ED Vital Signs: Vital Signs - 24 hr 02/03/24 16:00 02/03/24 18:00 02/03/24 20:00 Temperature 98.4 F 98.3 F Pulse Rate 76 78 79 Respiratory Rate 16 18 18 Blood Pressure 155/80 H 157/82 H 152/82 H Pulse Oximetry 96 99 95 Oxygen Delivery Method Room Air Room Air Room Air BMI result Body Mass Index 40.3 Const Other: Appearance: Alert. Oriented X1 No acute distress. Seems happy Eyes: Pupils equal, round and reactive to light. ENT: Pharynx normal. Neck: Normal inspection. Neck supple. No lymph nodes noted. No crepitus CVS: Normal heart rate and rhythm. Pulses normal. Normal S1 and S2 Respiratory: No respiratory distress. Breath sounds normal. No Wheezing. No rales Abdomen: Soft and nontender. No rigidity. No distention. Skin: Skin warm and dry. Normal skin color. Normal skin turgor. Extremities: No lower extremity edema. No Lacerations. No Rash Neuro: Oriented X 1. No motor deficit. No sensory deficit. Moving all extremities. No slurred speech. CN 2 through 12 grossly intact Psych: calm, cooperative, normal affect Medical Decision Making Medical Decision Making [facility] Narrative: Since patient was found prone in the sidewalk, unclear if he fell, patient has no signs of injury. -patient has no complaints, vitals stable -CT scan of the head and the neck do not show any acute abnormalities. -we attempted to get urine from the patient, patient does not want to be straight cath, does not want to go to the bathroom. Patient is at baseline according to his family. We will go ahead and let the patient be discharged home with his family. Lab Data [facility] Lab Attestation statement: I reviewed the patient's lab results. 02/03/24 17:37 02/03/24 17:37 Labs: Lab Results 02/03/24 Range/Units 17:37 WBC 10.3 (4.8-10.8) X10*3/uL RBC 4.22 L (4.60-5.80) X10*6/uL Hgb 12.6 L (14.0-18.0) g/dl Hct 38.5 L (42.0-52.0) % MCV 91.2 (80.0-98.0) fL MCH 29.9 (27.0-33.0) pg MCHC 32.7 (31.0-36.0) g/dl RDW 12.9 (11.0-16.0) % Plt Count 212 (160-400) X10*3/uL MPV 9.9 (9.4-12.4) fL Immature Gran % (Auto) 0.6 H (0.0-0.4) % Neut % (Auto) 78.9 H (45-73) % Lymph % (Auto) 13.5 L (20-40) % Burnett % (Auto) 5.8 (2-11) % Eos % (Auto) 0.9 (0-4) % Baso % (Auto) 0.3 (0-2) % Lymph # (Auto) 1.4 (1.2-4.9) X10*3/uL Burnett # (Auto) 0.6 (0.1-1.2) X10*3/uL Eos # (Auto) 0.1 (0.0-0.4) X10*3/uL Baso # (Auto) 0.0 (0.0-0.2) X10*3/uL Abs Immat Gran (auto) 0.06 H (0.00-0.03) X10*3/uL Absolute Neuts (auto) 8.1 (2.0-8.3) x10*3/uL Absolute Nucleated RBC 0.000 (0.0-0.012) X10*3/uL Nucleated RBC % (auto) 0.0 (0.0-0.2) /100WBC Sodium 144 (135-145) mmol/L Potassium 4.6 D (3.3-5.1) mmol/L Chloride 105 (96-108) mmol/L Carbon Dioxide 28 (22-29) mmol/L Anion Gap 16 (12-20) BUN 15 (9-16) mg/dL Creatinine 1.28 (0.5-1.4) mg/dL Estim Creat Clear Calc 53.5 Estimated GFR 54 Random Glucose 115 (60-115) mg/dL Calcium 9.6 (8.4-10.2) mg/dL Magnesium 2.3 (1.6-2.6) mg/dL Total Bilirubin 0.3 (0.0-1.0) mg/dL AST 41 H (5-37) U/L ALT 43 H (0-40) U/L Alkaline Phosphatase 77 (39-117) U/L Total Protein 7.7 (6.5-8.0) g/dL Albumin 3.8 (3.5-5.0) g/dL Independent Interpretation I performed an independent interpretation of an: CT Scan Radiology Impression Discussion of test interpretation with radiology: I have reviewed the radiologist's reading. Radiologist Impression: Head: There is no evidence of acute intracranial hemorrhage or territorial infarction. Calles-white matter differentiation is preserved. No abnormal mass effect or midline shift. No extra-axial fluid collections. No abnormal attenuation is demonstrated within the brain parenchyma. Scattered periventricular and deep white matter hypodensities consistent with microangiopathy. The ventricles and sulcal spaces are proportional without hydrocephalus. Proportional prominence of the ventricles and sulcal spaces. No acute osseous or soft tissue abnormalities. The mastoid air cells and visualized portions of the paranasal sinuses are well aerated. Cervical Spine: The atlantooccipital and atlantoaxial articulations remain well aligned. Straightening of the normal cervical lordosis. Otherwise, there is anatomic alignment of the vertebral bodies and posterior elements. No evidence of acute fracture or subluxation. The vertebral body heights and disc spaces are notable for diffuse spondylosis throughout the spine with moderate disc space narrowing and endplate spurring.. There is no prevertebral soft tissue swelling. The thyroid gland and remaining cervical soft tissues are normal in appearance. The lung apices demonstrate no abnormalities. Discharge Plan Discharge Clinical Impression: Dementia Patient Disposition: Home, Self-Care Instructions: Dementia (ED) Additional Instructions: Please follow-up with your primary care physician tomorrow. If you have any worsening or new symptoms, please return to the emergency room or call 911 Prescriptions: No Action irbesartan 300 mg tablet 300 mg PO DAILY hydralazine 50 mg tablet 50 mg PO TID carvedilol 25 mg tablet 25 mg PO BID calcium carbonate-vitamin D3 500 mg(1,250mg) -400 unit tablet,chewable 1 tab PO BID loratadine 10 mg tablet 10 mg PO DAILY aspirin 81 mg tablet,delayed release (DR/EC) 81 mg PO QAM atorvastatin 20 mg tablet 20 mg PO BEDTIME memantine 5 mg tablet 5 mg PO colchicine 0.6 mg tablet 0.6 mg PO DAILY sertraline 25 mg tablet 25 mg PO DAILY pantoprazole 40 mg tablet,delayed release (DR/EC) 40 mg PO DAILY trazodone 100 mg tablet 100 mg PO BEDTIME polyvinyl alcohol 1.4 % drops 0 drp ophthalmic (eye) Q2H PRN furosemide 20 mg tablet 20 mg PO DAILY doxazosin 4 mg tablet 4 mg PO BEDTIME 90 Days Qty: 90 3RF finasteride 5 mg tablet 5 mg PO DAILY 90 Days Qty: 90 3RF Print Language: [place]
[2024-02-03 21:04] VITALS: BP 152/82; PULSE 79; RESP 18; TEMP 36.8; O2SAT 95
[2024-02-03 21:29] LABS: Appearance Urine Clear; Color Urine Yellow; Glucose Urine UA Negative (Negative); Leukocyte Esterase Urine Negative (Negative); Nitrite Urine Negative (Negative); Urine Blood Negative (Negative); Urine Ketones Negative (Negative); Urine Protein Negative (Neg-Trace)
== END 2024-02-03 21:15 | disposition home or self-care (01) ==
PROVIDERS: Physician Assistant Medical; Emergency Provider Emergency Medicine
DX: F03.90 Unspecified dementia, unspecified severity, without behavioral disturbance, psychotic disturbance, mood disturbance, and anxiety (principal); R10.2 Pelvic and perineal pain; R51.9 Headache, unspecified; M54.2 Cervicalgia; Z79.899 Other long term (current) drug therapy
CPT/HCPCS: 36415; 70450; 72125; 80053; 81003; 83735; 85025; 99283

== ENCOUNTER 2024-03-13 11:44 | Inpatient (IN) | payer OTHER, SELFPAY ==
[2024-03-13] VITALS (9 sets, daily range): BP systolic 143–185; BP diastolic 63–81; PULSE 63–72; RESP 16–20; TEMP 36.1–36.8; O2SAT 73–98; BMI 26.3; BMI 26.2
--- NOTE | ~2024-03-13 | US_ITS ---
EXAMINATION: US ABDOMEN LIMITED CLINICAL INFORMATION: Right upper quadrant tenderness, rule out acute cholecystitis. Liver, gallbladder, CBD only per provider. COMPARISON: CT abdomen and pelvis 03/13/2024. Ultrasound abdomen 09/12/2023. Ultrasound renal 12/21/2021. TECHNIQUE: Real-time imaging of the right upper quadrant abdominal viscera. FINDINGS: LIVER: The liver is normal in size. The liver contour is normal. Increased parenchymal echogenicity. No focal hepatic lesion. There is no intrahepatic biliary duct dilatation seen. GALLBLADDER: The gallbladder is physiologically distended. Multiple mobile gallstones are present. No evidence of gallbladder wall thickening or pericholecystic fluid. COMMON BILE DUCT: Normal in caliber measuring 0.3 cm in diameter. FREE FLUID: None. US/US abdomen limited IMPRESSION: Cholelithiasis without gallbladder wall thickening or pericholecystic free fluid to suggest acute cholecystitis. Electronically signed by: Jsesee Anaya MD 03/14/2024 10:41 PM EST
--- NOTE | ~2024-03-13 | CT_ITS ---
EXAMINATION: CT ABDOMEN AND PELVIS WITH CONTRAST CLINICAL INFORMATION: Vomiting. Left upper quadrant tenderness. COMPARISON: CT dated January 16, 2024. TECHNIQUE: Multidetector volumetric images were obtained from the superior aspect of the liver through the pubic symphysis following administration 85 mL of Omnipaque 350 intravenous contrast. Sagittal and coronal reformatted images were obtained on the technologist's workstation. Oral contrast: No This CT examination was performed using dose optimization techniques as appropriate, variously including the following: *Automated exposure control *Adjustment of mA and/or kV according to patient size (this includes techniques or standardized protocols for targeted exams where dose is matched to indication/reason for exam; i.e. extremities or head) *Use of iterative reconstruction technique DLP: 794 mGy-cm FINDINGS: Limited by patient's motion artifact. Gas and fluid-filled mildly prominent jejunal and ileal loops. Numerous diverticula in the left hemicolon. Minimal pericolonic edema pattern in the descending colon and sigmoid colon. Appendix is normal. No ascites. No pneumoperitoneum. No pneumatosis intestinalis. Radiopaque/hyperintense tablets in the duodenum. Cholelithiasis without pericholecystic fluid collection or gallbladder wall thickening. No intrahepatic or extrahepatic biliary ductal dilatation. No peripancreatic fluid collections. Liver and spleen demonstrated no gross focal lesions. No nodular lesions in the adrenal glands. 2 cm exophytic cystic lesion in the lateral lower pole right kidney. There are few scattered subcentimeter cystic lesions in the right kidney. No hydronephrosis in either kidney. Mixed plaques throughout the abdominal aorta wall and iliac arteries without aneurysm or dissection. Calcified plaques in the origin of the main renal arteries. Diastases abdominal rectus muscles in the perihilar umbilical region with small fat-containing umbilical hernia. Multilevel thoracolumbar spondylosis. Castellvi type III sacralization. Bone marrow inhomogeneity of the bony pelvis. Syndesmophyte formation and both sacroiliac joints. CT/CT abdomen pelvis w IV con IMPRESSION: Consider mild enteritis in the correct clinical settings resulting in ileus without intestinal obstruction pattern. Diverticular disease, left hemicolon acute noncomplicated diverticulitis cannot be excluded. Cholelithiasis. Fleischner guidelines were followed. Electronically signed by: Usama Guillaume MD 03/13/2024 03:28 PM EST
--- NOTE | 2024-03-13 11:44 | ED.GENADULT ---
HPI - General Adult General Chief complaint: General Medical Stated complaint: FEVER, VOMITING, FROM ADULT DAY CARE Source: patient, EMS and sales driver Mode of arrival: EMS Limitations: language barrier and altered mental status History of Present Illness ED Provider: Cynthia MARQUEZ narrative: Patient is an 83-year-old male with history of dementia, HTN, high cholesterol presenting to the ED from adult daycare after one episode of vomiting and reported fever. Patient does not remember this episode of vomiting and denies any current complaints. History is limited due to dementia. He is afebrile via rectal temp here. Reportedly tested negative for Covid at daycare. MD complaint: vomiting Onset (ago): minute(s) Treatments prior to arrival: none Related Data Home Medications ?Medication ?Instructions ?Recorded ?Confirmed aspirin 81 mg tablet,delayed 81 mg PO QAM 05/27/20 08/01/22 release atorvastatin 20 mg tablet 20 mg PO BEDTIME 05/27/20 08/01/22 calcium 500 mg (as carbonate)-vit 1 tab PO BID 05/27/20 08/01/22 D3 10 mcg (400 unit) chewable tablet carvedilol 25 mg tablet 25 mg PO BID 05/27/20 08/01/22 hydralazine 50 mg tablet 50 mg PO TID 05/27/20 08/01/22 irbesartan 300 mg tablet 300 mg PO DAILY 05/27/20 08/01/22 loratadine 10 mg tablet 10 mg PO DAILY 05/27/20 08/01/22 colchicine 0.6 mg tablet 0.6 mg PO DAILY 10/26/21 08/01/22 furosemide 20 mg tablet 20 mg PO DAILY 10/26/21 08/01/22 memantine 5 mg tablet 5 mg PO 10/26/21 08/01/22 pantoprazole 40 mg tablet,delayed 40 mg PO DAILY 10/26/21 08/01/22 release polyvinyl alcohol 1.4 % eye drops 0 drp ophthalmic (eye) Q2H PRN 10/26/21 08/01/22 sertraline 25 mg tablet 25 mg PO DAILY 10/26/21 08/01/22 trazodone 100 mg tablet 100 mg PO BEDTIME 10/26/21 08/01/22 acetaminophen 500 mg tablet 500 mg PO Q6H PRN pain 03/13/24 docusate sodium 100 mg capsule 100 mg PO BID 03/13/24 Previous Rx's ?Medication ?Instructions ?Recorded doxazosin 4 mg tablet 4 mg PO BEDTIME 90 days #90 tabs 08/03/23 finasteride 5 mg tablet 5 mg PO DAILY 90 days #90 tabs 08/03/23 Allergies Allergy/AdvReac Type Severity Reaction Status Date / Time nifedipine [From Procardia] Allergy Intermediate EDEMA Verified 03/13/24 11:57 ibuprofen [Ibuprofen] Allergy Mild RASH Verified 03/13/24 11:57 ibuprofen Allergy Unknown rash Uncoded 03/13/24 11:57 nifedipine Allergy Unknown edema Uncoded 03/13/24 11:57 Review of Systems Review of Systems: As per HPI Yes all other systems are reviewed and are negative Constitutional: Constitutional: Reports as per HPI [facility] Past Medical History Medical History High cholesterol HTN (hypertension) Social History Social History Alcohol intake: former Patient Tobacco Use Status: Never used Tobacco Advance Directives: No Advance Directives Information Provided: Yes Do you have a plan to hurt others: No Plan Physical Exam ED Vital Signs: Vital Signs - 24 hr 03/13/24 11:55 03/13/24 15:56 Temperature 97.7 F 97.6 F Pulse Rate 63 68 Respiratory Rate 20 16 Blood Pressure 143/65 H 144/70 H Pulse Oximetry 98 97 Oxygen Delivery Method Room Air Room Air BMI result Body Mass Index 26.3 Const General: cooperative, no acute distress, alert and awake Orientation/consciousness: oriented to person Limitations: altered mental status [facility] Head: Yes normocephalic and Yes atraumatic Ears: external ears normal General nose exam: Normal external nose present Face and sinus: Yes face symmetric Mouth: oropharynx normal and moist mucous membranes Throat: Yes uvula midline Eyes Pupils: Equal, round and reactive pupils present Neck Neck: Yes normal visual inspection and Yes supple Resp Effort & Inspection: normal respiratory effort and able to speak in complete sentences Auscultation: clear to auscultation bilaterally Cardio Rate: regular rate Rhythm: regular rhythm Heart sounds: S1 normal heart sound present and S2 normal heart sound present GI Inspection: Yes distended Palpation (GI): Firmness to palpation present (GI), Tenderness to palpation present (GI) in the LUQ, no guarding and No Rebound tenderness present Auscultation: Hyperactive bowel sounds present General: Yes no CVA tenderness Back/Spine/Pelvis Back: no CVA tenderness Skin General skin exam: elasticity normal and turgor normal Neuro General: oriented to person, moves all extremities, no focal motor deficits and CN's II-XI intact bilaterally Cranial nerves: Yes Equal, round and reactive pupils present Cognition (Neuro): normal cognition Extrem General: Yes full ROM, Yes no pedal edema and Yes no calf tenderness Psych Mental Status: mental status grossly normal Affect: normal affect Thought process: Normal thought process present Course Reevaluation(s) Reevaluation #1: patient cannot answer any questions he just says no to everything. His stomach is distended and firm with very diminished BS, I asked when his bowel movement was and his CAR ELECTRONICS INSTALLER states this AM with another caregiver. She notes he is fine but then I cannot get him to drink anything we used sales driver and offered water, ros sepideh, juice he just keeps pushing everything away. His CAR ELECTRONICS INSTALLER states she thinks he passed gas earlier. I am going to start him on fluids and admit him at this time he will not tolerate PO at all and he is unreliable. He should be able to drink per CAR ELECTRONICS INSTALLER. Medications Administered Discontinued Medications Generic Name Dose Route Start Last Admin Trade Name Dmitriy PRN Reason Stop Dose Admin Iohexol 100 ml 03/13/24 13:31 03/13/24 13:32 Iohexol 350 Mg/Ml 100 Ml Infus..Btl IV 03/13/24 13:32 85 ml ONCE ONE Administration Ondansetron HCl 4 mg 03/13/24 12:03 03/13/24 12:28 Ondansetron Hcl 4 Mg/2 Ml Vial IVPUSH 03/13/24 12:04 4 mg ONCE ONE Administration Medical Decision Making Medical Decision Making MDM Narrative: Patient is an 83-year-old male with history of dementia, HTN, high cholesterol presenting to the ED from adult daycare after one episode of vomiting and reported fever. On exam patient is awake, A+Ox1, VS WNL, afebrile, normal neurological exam without focal deficits, physical exam findings as above. Given reported symptoms and physical exam findings, initial differential includes viral illness, covid, flu, gastritis, electrolyte abnormality. Given abdominal distention and tenderness, and patient unable to report complaints, will obtain CT A/P. Labs notable for no leukocytosis, mild stable anemia, troponin of 9.7, no delta on repeat. CT A/P notable for mild enteritis with ileus, no obstruction pattern, cannot exclude diverticulitis. My interpretation is in agreement with the radiologist's interpretation. Given that patient is unable to report any symptoms, feel he should be admitted for further monitoring and evaluation. Admission accepted by Dr. Anthony. CAR ELECTRONICS INSTALLER at bedside updated on and agreeable with plan. In-person vault keeper was utilized for all interactions, assessments, and discussions. Differential Diagnosis Differential Diagnoses: The differential diagnosis associated with the presentation includes As per [facility] Admission/Observation Consideration of admission/observation: Escalation of care including admission/observation considered Patient would have been admitted to the hospital had their work up had any findings where hospital admission was appropriate and their clinical presentation warranted hospital admission. Consult Healthcare Provider Management of the patient was discussed with: Hospitalist Lab Data [facility] Lab Attestation statement: I reviewed the patient's lab results. As per [facility] 03/13/24 12:13 03/13/24 12:13 Labs: Lab Results 03/13/24 03/13/24 03/13/24 Range/Units 12:13 14:18 15:58 WBC 9.8 (4.8-10.8) X10*3/uL RBC 4.28 L (4.60-5.80) X10*6/uL Hgb 12.5 L (14.0-18.0) g/dl Hct 39.2 L (42.0-52.0) % MCV 91.6 (80.0-98.0) fL MCH 29.2 (27.0-33.0) pg MCHC 31.9 (31.0-36.0) g/dl RDW 12.9 (11.0-16.0) % Plt Count 182 (160-400) X10*3/uL MPV 9.6 (9.4-12.4) fL Immature Gran % (Auto) 0.5 H (0.0-0.4) % Neut % (Auto) 63.1 (45-73) % Lymph % (Auto) 25.5 (20-40) % [place] % (Auto) 9.5 (2-11) % Eos % (Auto) 1.2 (0-4) % Baso % (Auto) 0.2 (0-2) % Lymph # (Auto) 2.5 (1.2-4.9) X10*3/uL [place] # (Auto) 0.9 (0.1-1.2) X10*3/uL Eos # (Auto) 0.1 (0.0-0.4) X10*3/uL Baso # (Auto) 0.0 (0.0-0.2) X10*3/uL Abs Immat Gran (auto) 0.05 H (0.00-0.03) X10*3/uL Absolute Neuts (auto) 6.2 (2.0-8.3) x10*3/uL Absolute Nucleated RBC 0.000 (0.0-0.012) X10*3/uL Nucleated RBC % (auto) 0.0 (0.0-0.2) /100WBC PT 11.4 (10.9-12.4) SEC INR 1.0 (0.9-1.1) Sodium 142 (135-145) mmol/L Potassium 4.1 (3.3-5.1) mmol/L Chloride 106 (96-108) mmol/L Carbon Dioxide 33 H (22-29) mmol/L Anion Gap 7 L (12-20) BUN 17 H (9-16) mg/dL Creatinine 1.17 (0.5-1.4) mg/dL Estim Creat Clear Calc 47.9 Estimated GFR 60 Random Glucose 86 (60-115) mg/dL Calcium 9.3 (8.4-10.2) mg/dL Total Bilirubin 0.3 (0.0-1.0) mg/dL AST 23 (5-37) U/L ALT 29 (0-40) U/L Alkaline Phosphatase 70 (39-117) U/L Troponin I High Sens 9.7 D 10.1 (<3.5-35.0) ng/L Total Protein 7.2 (6.5-8.0) g/dL Albumin 3.8 (3.5-5.0) g/dL Urine Color Yellow Urine Appearance Clear Urine pH 7.0 (5.0-9.0) Ur Specific [place] 1.020 (1.005-1.025) Urine Protein Negative (Neg-Trace) mg/dL Urine Glucose (UA) Negative (Negative) mg/dL Urine Ketones Negative (Negative) mg/dL Urine Blood Negative (Negative) Urine Nitrite Negative (Negative) Ur Leukocyte Esterase Negative (Negative) Influenza Type A (PCR) NEGATIVE (Negative) Influenza Type B (PCR) NEGATIVE (Negative) RSV RNA Qual (PCR) NEGATIVE (Negative) SARS-CoV-2 RNA (RT-PCR) NEGATIVE (Negative) Independent Interpretation I performed an independent interpretation of an: CT Scan Interpretation: CT A/P notable for mild enteritis with ileus, no obstruction pattern, cannot exclude diverticulitis. Radiology Impression Discussion of test interpretation with radiology: I have reviewed the radiologist's reading. Radiologist Impression: CT/CT abdomen pelvis w IV con IMPRESSION: Consider mild enteritis in the correct clinical settings resulting in ileus without intestinal obstruction pattern. Diverticular disease, left hemicolon acute noncomplicated diverticulitis cannot be excluded. Cholelithiasis. External Record Review External record reviewed: Inpatient record, Office record and Outpatient record Discharge Plan Discharge Clinical Impression: Vomiting, Ileus Patient Disposition: Admitted As Inpatient Print Language: Moldovan
--- NOTE | 2024-03-13 11:45 | ECG_ITS ---
Test Reason : VOMITING Blood Pressure : / mmHG Vent. Rate : 063 BPM Atrial Rate : 063 BPM P-R Int : 208 ms QRS Dur : 096 ms QT Int : 426 ms P-R-T Axes : 072 043 047 degrees QTc Int : 435 ms Normal sinus rhythm Normal ECG When compared with ECG of 16-JAN-2024 21:27, No significant change was found Referred By: Daniela Marie Electronically Signed By:WHITNEY LAURA
[2024-03-13 12:19] LABS: MANUAL DIFF FLAG NO
[2024-03-13 12:22] LABS: Basophils Percent Auto 0.2 % (0-2); Eosinophils Absolute Auto 0.1 X10*3/uL (0.0-0.4); Eosinophils Percent Auto 1.2 % (0-4); Hematocrit 39.2 % (42.0-52.0); Hemoglobin 12.5 g/dl (14.0-18.0); Imm Gran Abs Auto 0.05 X10*3/uL (0.00-0.03); Imm Gran Pct Auto 0.5 % (0.0-0.4); Lymphocytes Absolute Auto 2.5 X10*3/uL (1.2-4.9); Lymphocytes Percent Auto 25.5 % (20-40); Mean Corpuscular HGB Conc 31.9 g/dl (31.0-36.0); Mean Corpuscular Hemoglobin 29.2 pg (27.0-33.0); Mean Corpuscular Volume 91.6 fL (80.0-98.0); Mean Platelet Volume 9.6 fL (9.4-12.4); Monocytes Absolute Auto 0.9 X10*3/uL (0.1-1.2); Monocytes Percent Auto 9.5 % (2-11); Neutrophils Absolute Auto 6.2 x10*3/uL (2.0-8.3); Neutrophils Percent Auto 63.1 % (45-73); Platelet Count 182 X10*3/uL (160-400); Red Blood Count 4.28 X10*6/uL (4.60-5.80); Red Cell Distribution Width 12.9 % (11.0-16.0); White Blood Count 9.8 X10*3/uL (4.8-10.8)
[2024-03-13] MEDS: ondansetron HCL 4 MG/2 ML VIAL IVPUSH (12:28)
[2024-03-13 12:36] LABS: Alanine Aminotransferase 29 U/L (0-40); Albumin Level 3.8 g/dL (3.5-5.0); Alkaline Phosphatase 70 U/L (39-117); Anion Gap 7 (12-20); Aspartate Amino Transferase 23 U/L (5-37); Bilirubin Total 0.3 mg/dL (0.0-1.0); Blood Urea Nitrogen 17 mg/dL (9-16); Calcium 9.3 mg/dL (8.4-10.2); Carbon Dioxide 33 mmol/L (22-29); Chloride 106 mmol/L (96-108); Creatinine Clr Calc Pharmacy 47.9; Estimated Glomerular Filt Rate 60; Glucose Random 86 mg/dL (60-115); Potassium 4.1 mmol/L (3.3-5.1); Sodium 142 mmol/L (135-145); Total Protein 7.2 g/dL (6.5-8.0)
[2024-03-13 12:37] LABS: Prothrombin Time 11.4 SEC (10.9-12.4)
[2024-03-13 12:41] LABS: Troponin-I High Sensitivity 9.7 ng/L (<3.5-35.0)
[2024-03-13 13:03] LABS: Influenza A PCR NEGATIVE (Negative); Influenza B PCR NEGATIVE (Negative); Resp Syncy Virus RNA Qual PCR NEGATIVE (Negative); SARS COV2 PCR INHOUSE NEGATIVE (Negative)
[2024-03-13] MEDS: iohexoL 350 MG/ML 100 ML INFUS..BTL IV (13:32)
--- NOTE | 2024-03-13 14:22 | PC.NURSE ---
patent noted to be incontinent of urine, patient cleaned up, new pads, linens clean and dry
[2024-03-13 14:47] LABS: Troponin-I High Sensitivity 10.1 ng/L (<3.5-35.0)
[2024-03-13 16:03] LABS: Appearance Urine Clear; Color Urine Yellow; Glucose Urine UA Negative (Negative); Leukocyte Esterase Urine Negative (Negative); Nitrite Urine Negative (Negative); Urine Blood Negative (Negative); Urine Ketones Negative (Negative); Urine Protein Negative (Neg-Trace)
[2024-03-13] MEDS: 0.9 % Sodium Chloride 1,000 ML 80 ML IVCONT (16:45)
--- NOTE | 2024-03-13 18:14 | P.HPHOSP_ITS ---
History of Present Illness Date of Service: 03/13/24 Chief Complaint: vomiting 83 year old male with dementia, HTN, HLD, BPH brought to the ED to be evaluated for an episode of vomitting while at an adult daycare. There was also report of fever, although pt doesn't have fever here. He denies any pain, last BM unknown, no diarrhea here. Labs nl WBC, normal renal fuction. CT shows: Consider mild enteritis in the correct clinical settings resulting in ileus without intestinal obstruction pattern. Diverticular disease, left hemicolon acute noncomplicated diverticulitis cannot be excluded. Cholelithiasis. Review of Systems 2 Review of Systems: +nausea, vomiting, no abdominal pain subjective fever. Yes all other systems are reviewed and are negative [facility] Medical History BPH w urinary obs/LUTS High cholesterol HTN (hypertension) Social History Household Members: Unknown / Unable to assess Do you presently have visiting nurse or other home services: Yes (blood bank specialist) Alcohol intake: former Patient Tobacco Use Status: Never used Tobacco Use of substances other than those prescribed or required for medical reasons: Unknown Currently Displaying Signs/Symptoms of Drug Intoxication Withdrawal: No Advance Directives: No Advance Directives Information Provided: Yes Do you have a plan to hurt others: No Plan Meds Allergies Allergy/AdvReac Type Severity Reaction Status Date / Time nifedipine [From Procardia] Allergy Intermediate EDEMA Verified 03/13/24 11:57 ibuprofen [Ibuprofen] Allergy Mild RASH Verified 03/13/24 11:57 ibuprofen Allergy Unknown rash Uncoded 03/13/24 11:57 nifedipine Allergy Unknown edema Uncoded 03/13/24 11:57 Active Medications: Current Medications Sodium Chloride (Ns) 1,000 mls @ 80 mls/hr IVCONT .[id number] COURTNEY Last Admin: 03/13/24 16:45 Dose: 80 mls/hr Home Medications ?Medication ?Instructions ?Recorded ?Confirmed ?Last Taken ?Type aspirin 81 mg tablet,delayed 81 mg PO QAM 05/27/20 03/13/24 03/13/24 History release atorvastatin 20 mg tablet 20 mg PO BEDTIME 05/27/20 03/13/24 03/13/24 History calcium 500 mg (as carbonate)-vit 1 tab PO BID 05/27/20 03/13/24 03/13/24 History D3 10 mcg (400 unit) chewable tablet carvedilol 25 mg tablet 25 mg PO BID 05/27/20 03/13/24 03/13/24 History hydralazine 50 mg tablet 50 mg PO TID 05/27/20 03/13/24 03/13/24 History irbesartan 300 mg tablet 300 mg PO DAILY 05/27/20 03/13/24 03/13/24 History loratadine 10 mg tablet 10 mg PO DAILY 05/27/20 03/13/24 03/13/24 History colchicine 0.6 mg tablet 0.6 mg PO DAILY 10/26/21 03/13/24 03/13/24 History pantoprazole 40 mg tablet,delayed 40 mg PO DAILY@0630 10/26/21 03/13/24 03/13/24 History release sertraline 25 mg tablet 25 mg PO DAILY 10/26/21 03/13/24 03/13/24 History trazodone 100 mg tablet 100 mg PO BEDTIME 10/26/21 03/13/24 03/13/24 History acetaminophen 500 mg tablet 500 mg PO Q6H PRN pain 03/13/24 03/13/24 03/13/24 History docusate sodium 100 mg capsule 100 mg PO BID 03/13/24 03/13/24 03/13/24 History furosemide 40 mg tablet 40 mg PO DAILY 03/13/24 03/13/24 Unknown History memantine 10 mg tablet 10 mg PO BID 03/13/24 03/13/24 Unknown History Physical Exam 2 Vital Signs and Narrative: Vital Signs: Last Vital Signs Temp 97.6 F 03/13/24 15:56 Pulse 68 03/13/24 15:56 Resp 16 03/13/24 15:56 BP 144/70 H 03/13/24 15:56 Pulse Ox 97 03/13/24 15:56 O2 Del Method Room Air 03/13/24 15:56 BMI result Body Mass Index 26.3 Results Labs 03/13/24 12:13 03/13/24 12:13 Labs: Laboratory Results - last 24 hr 03/13/24 03/13/24 03/13/24 12:13 14:18 15:58 MCV 91.6 MCH 29.2 MCHC 31.9 RDW 12.9 Plt Count 182 MPV 9.6 Immature Gran % (Auto) 0.5 H Neut % (Auto) 63.1 Lymph % (Auto) 25.5 [place] % (Auto) 9.5 Eos % (Auto) 1.2 Baso % (Auto) 0.2 Lymph # (Auto) 2.5 [place] # (Auto) 0.9 Eos # (Auto) 0.1 Baso # (Auto) 0.0 Abs Immat Gran (auto) 0.05 H Absolute Neuts (auto) 6.2 Absolute Nucleated RBC 0.000 Nucleated RBC % (auto) 0.0 PT 11.4 INR 1.0 Anion Gap 7 L Estim Creat Clear Calc 47.9 Estimated GFR 60 Random Glucose 86 Calcium 9.3 Total Bilirubin 0.3 AST 23 ALT 29 Alkaline Phosphatase 70 Troponin I High Sens 9.7 D 10.1 Total Protein 7.2 Albumin 3.8 Urine Color Yellow Urine Appearance Clear Urine pH 7.0 Ur Specific [place] 1.020 Urine Protein Negative Urine Glucose (UA) Negative Urine Ketones Negative Urine Blood Negative Urine Nitrite Negative Ur Leukocyte Esterase Negative Influenza Type A (PCR) NEGATIVE Influenza Type B (PCR) NEGATIVE RSV RNA Qual (PCR) NEGATIVE SARS-CoV-2 RNA (RT-PCR) NEGATIVE Imaging Radiologist's Impressions: Impressions Abdomen/Pelvis CT 03/13/24 13:20 IMPRESSION: Consider mild enteritis in the correct clinical settings resulting in ileus without intestinal obstruction pattern. Diverticular disease, left hemicolon acute noncomplicated diverticulitis cannot be excluded. Cholelithiasis. Fleischner guidelines were followed. Electronically signed by: Usama Guillaume MD 03/13/2024 03:28 PM [facility] Assessment and Plan (1) Vomiting: Qualifiers: Nausea presence: unspecified Vomiting type: unspecified Qualified Code(s): R11.10 - Vomiting, unspecified Status: Acute (2) Ileus: Status: Acute Plan 83/m with dementia, HTN, HLD, BPH presenting from adult day care with nausea/vomitting x 1 and fever, wbc normal. CT suggests mild enteritis and possible non-complicated diverticulitis. n/v/enteritis and possible divertiuculitis -? ileus -IVF -Cetriaxone + Flagyl -surgery consult if not improving HTN--resume home meds HLD-resume home meds BPH-resume home meds dementia--Naemenda DVT prophylaxis-- lovenox Full code Quality Stroke Does the patient have a stroke diagnosis?: No VTE Prior VTE?: No VTE Risk Level:: Medical - moderate - high VTE Device Contraindication: Treatment Not Indicated VTE Drug Contraindication: N/A - Med Ordered
--- NOTE | 2024-03-13 18:14 | PHA.MEDREC ---
Addendum entered by Gela Castaneda RPh 03/13/24 18:47: REVIEWED BY [facility] Original Note: Pharmacy Consult ? Medication Reconciliation Pharmacy has completed the medication reconciliation. Patient marble helper at bedside at time had list from [facility] with no date stating it is up to date or not, the WOOD REPATCHER stated it was but 3 medications are not accounted for on that list that have been filled recently, Docusate 100mg filled 03/04 for 30 days, Sertaline 25mg filled 02/14 for 30 and Trazodone 100mg filled 02/14 for 30 days. I got a list from [facility] and it confirmed those medications. The patients WOOD REPATCHER confirmed he took the medications this morning.
[2024-03-13] MEDS: Lactated Ringers 1,000 ML 100 ML IVCONT (18:51)
[2024-03-13] MEDS: Docusate Sodium 100 MG CAPSULE PO (19:40)
[2024-03-13] MEDS: Memantine HCl 10 MG TABLET PO (19:41)
[2024-03-13] MEDS: Aspirin Enteric Coated 81 MG TABLET.DR PO (19:41)
[2024-03-13] MEDS: carvediloL 25 MG TABLET PO (19:41)
[2024-03-13] MEDS: traZODone HCL 100 MG TABLET PO (19:41)
[2024-03-13] MEDS: Enoxaparin Sodium 40 MG/0.4 ML SYRINGE SUBCUT (19:42)
[2024-03-13] MEDS: cefTRIAXone sodium 1 GM VIAL IVPUSH (19:42)
[2024-03-13] MEDS: metroNIDAZOLE/NS 500 MG/100 ML PIGGYBACK 100 MG IV (19:44)
[2024-03-13] MEDS: hydrALAZINE HCl 50 MG TABLET PO (19:44)
[2024-03-13] MEDS: Doxazosin Mesylate 2 MG TABLET 4 MG PO (19:46)
[2024-03-13] MEDS: Atorvastatin Calcium 20 MG TABLET PO (19:46)
--- NOTE | 2024-03-13 21:37 | PC.NURSE ---
blood cultures cancelled from 11am, by , pt high risk for aspiration, pt NPO due to pocketing medication and multiple attempts to swallow pills , High risk for aspiration
--- NOTE | 2024-03-13 23:26 | PC.NURSE ---
2244: Patients BP is 185/81 automatic, recheck @ 2324 is 176/78 manually. MD Tejada made aware
[2024-03-14] MEDS: metroNIDAZOLE/NS 500 MG/100 ML PIGGYBACK 100 MG IV ×3 (03:11→19:18)
[2024-03-14 04:00] VITALS: BP 151/73; PULSE 69; RESP 18; TEMP 36.7
[2024-03-14] MEDS: Lactated Ringers 1,000 ML 100 ML IVCONT ×2 (04:55→16:12)
[2024-03-14 07:02] VITALS: BP 168/77; PULSE 66; RESP 14; TEMP 36.5; O2SAT 97
[2024-03-14] MEDS: Loratadine 10 MG TABLET PO (09:33)
[2024-03-14] MEDS: Milk of Magnesia 30 ML ORAL.SUSP PO (09:33)
[2024-03-14] MEDS: hydrALAZINE HCl 50 MG TABLET PO ×3 (09:33→20:25)
[2024-03-14] MEDS: Aspirin Enteric Coated 81 MG TABLET.DR PO (09:33)
[2024-03-14] MEDS: Calcium + Vitamin D 250 MG TABLET 500 MG PO ×2 (09:33→20:25)
[2024-03-14] MEDS: Sertraline HCL 25 MG TABLET PO (09:33)
[2024-03-14] MEDS: 0.9 % Sodium Chloride Flush 3 ML SYRINGE IVFLUSH ×2 (09:33→16:12)
[2024-03-14] MEDS: carvediloL 25 MG TABLET PO ×2 (09:33→20:25)
[2024-03-14] MEDS: Valsartan 160 MG TABLET PO (09:34)
[2024-03-14] MEDS: Colchicine 0.6 MG TABLET 0.3 MG PO (09:34)
[2024-03-14] MEDS: Furosemide 40 MG TABLET PO (09:34)
[2024-03-14] MEDS: Memantine HCl 10 MG TABLET PO ×2 (09:34→20:25)
[2024-03-14] MEDS: Docusate Sodium 100 MG CAPSULE PO ×2 (09:34→20:25)
[2024-03-14] MEDS: Finasteride 5 MG TABLET PO (09:34)
--- NOTE | 2024-03-14 11:06 | P.CONGS_ITS ---
History of Present Illness Consult details Consult date: 03/14/24 <Domi Powell PA-C - Last Filed: 03/14/24 11:18> Requesting physician: Reza Anthony <Domi Powell PA-C - Last Filed: 03/14/24 11:18> Narrative: Seen with manager of financial, history obtained from EMR and STRINGED INSTRUMENT ASSEMBLER at bedside. 83 year old pleasant ukrainian speaking male with PMH of dementia, HTN, HLD, BPH brought to the ED to be evaluated for two episodes of vomiting at an adult daycare. The dayscare staff also reports a fever although he was afebrile in the ED. Given the vomiting and fever he was brought to the ED. Work up included CBC, BMP, LFTs which WNL. CT scan showed mildly dilated SB loops. At the bedside, the STRINGED INSTRUMENT ASSEMBLER reports he is at his baseline mental status. His last BM was yesterday and was normal. His abdomen is at his baseline size. He will c/o pain if he is having any and he currently denies. Denies fever, chills, diarrhea, hematochezia. Surgical hx of left inguinal hernia repair. <Domi Powell PA-C - Last Filed: 03/14/24 11:18> Review of Systems 2 Review of Systems: Yes Unobtainable due to mental condition <Domi Powell PA-C - Last Filed: 03/14/24 11:18> [facility] Past Medical History Medical History: Medical History BPH w urinary obs/LUTS High cholesterol HTN (hypertension) <Domi Powell PA-C - Last Filed: 03/14/24 11:18> Surgical History Surgical History: Surgical History (Updated 03/14/24 @ 11:11 by Domi Powell PA-C) Hx of left inguinal hernia repair <Domi Powell PA-C - Last Filed: 03/14/24 11:18> Social History Social History: Social History Household Members: Unknown / Unable to assess Do you presently have visiting nurse or other home 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) Alcohol intake: former Patient Tobacco Use Status: Never used Tobacco Use of substances other than those prescribed or required for medical reasons: Unknown Currently Displaying Signs/Symptoms of Drug Intoxication Withdrawal: No Advance Directives: No Advance Directives Information Provided: Yes Do you have a plan to hurt others: No Plan service: No <Domi Powell PA-C - Last Filed: 03/14/24 11:18> Meds Allergies/Adverse reactions: Allergies Allergy/AdvReac Type Severity Reaction Status Date / Time nifedipine [From Procardia] Allergy Intermediate EDEMA Verified 03/13/24 11:57 ibuprofen [Ibuprofen] Allergy Mild RASH Verified 03/13/24 11:57 ibuprofen Allergy Unknown rash Uncoded 03/13/24 11:57 nifedipine Allergy Unknown edema Uncoded 03/13/24 11:57 <Domi Powell PA-C - Last Filed: 03/14/24 11:18> Active Medications: Current Medications Acetaminophen (Acetaminophen 325 Mg Tablet) 650 mg PO Q6H PRN PRN Reason: Pain, Mild (Pain Scale 1-3), fever or headache Aspirin (Aspirin Enteric Coated 81 Mg Tablet.Dr) 81 mg PO DAILY [facility] Last Admin: 03/14/24 09:33 Dose: 81 mg Atorvastatin Calcium (Atorvastatin Calcium 20 Mg Tablet) 20 mg PO BEDTIME [facility] Last Admin: 03/13/24 19:46 Dose: 20 mg Calcium Carbonate (Calcium Carbonate 750 Mg Tab.Chew) 750 mg PO Q4H PRN PRN Reason: Heartburn Calcium Carbonate/Cholecalciferol (Calcium + Vitamin D 250 Mg Tablet) 500 mg PO BID [facility] Last Admin: 03/14/24 09:33 Dose: 500 mg Carvedilol (Carvedilol 25 Mg Tablet) 25 mg PO BID [facility]; Protocol Last Admin: 03/14/24 09:33 Dose: 25 mg Ceftriaxone Sodium (Ceftriaxone Sodium 1 Gm Vial) 1 gm IVPUSH Q24H [facility] Last Admin: 03/13/24 19:42 Dose: 1 gm Colchicine (Colchicine 0.6 Mg Tablet) 0.3 mg PO DAILY [facility] Last Admin: 03/14/24 09:34 Dose: 0.3 mg Docusate Sodium (Docusate Sodium 100 Mg Capsule) 100 mg PO BID [facility] Last Admin: 03/14/24 09:34 Dose: 100 mg Doxazosin Mesylate (Doxazosin Mesylate 2 Mg Tablet) 4 mg PO BEDTIME [facility]; Protocol Last Admin: 03/13/24 19:46 Dose: 4 mg Enoxaparin Sodium (Enoxaparin Sodium 40 Mg/0.4 Ml Syringe) 40 mg SUBCUT Q24H [facility] Last Admin: 03/13/24 19:42 Dose: 40 mg Finasteride (Finasteride 5 Mg Tablet) 5 mg PO DAILY [facility] Last Admin: 03/14/24 09:34 Dose: 5 mg Furosemide (Furosemide 40 Mg Tablet) 40 mg PO DAILY [facility]; Protocol Last Admin: 03/14/24 09:34 Dose: 40 mg Hydralazine HCl (Hydralazine Hcl 50 Mg Tablet) 50 mg PO TID [facility]; Protocol Last Admin: 03/14/24 09:33 Dose: 50 mg Lactated Ringer's (Lr) 1,000 mls @ 100 mls/hr IVCONT .Q10H [facility] Last Admin: 03/14/24 04:55 Dose: 100 mls/hr Metronidazole (Flagyl) 500 mg in 100 mls @ 100 mls/hr IV Q8H [facility] Last Infusion: 03/14/24 04:11 Dose: Infused Loratadine (Loratadine 10 Mg Tablet) 10 mg PO DAILY [facility] Last Admin: 03/14/24 09:33 Dose: 10 mg Magnesium Hydroxide (Milk Of Magnesia 30 Ml Oral.Susp) 30 ml PO DAILY PRN PRN Reason: Constipation Last Admin: 03/14/24 09:33 Dose: 30 ml Melatonin (Melatonin 3 Mg Tablet) 6 mg PO BEDTIME PRN PRN Reason: Insomnia Memantine (Memantine Hcl 10 Mg Tablet) 10 mg PO BID [facility] Last Admin: 03/14/24 09:34 Dose: 10 mg Omeprazole (Omeprazole 20 Mg Capsule.Dr) 20 mg PO DAILY@0630 [facility] Last Admin: 03/14/24 05:49 Dose: Not Given Sertraline HCl (Sertraline Hcl 25 Mg Tablet) 25 mg PO DAILY [facility] Last Admin: 03/14/24 09:33 Dose: 25 mg Sodium Chloride (0.9 % Sodium Chloride Flush 3 Ml Syringe) 3 ml IVFLUSH QSHIFT [facility] Last Admin: 03/14/24 09:33 Dose: 3 ml Trazodone HCl (Trazodone Hcl 100 Mg Tablet) 100 mg PO BEDTIME [facility] Last Admin: 03/13/24 19:41 Dose: 100 mg Valsartan (Valsartan 160 Mg Tablet) 160 mg PO DAILY [facility] Last Admin: 03/14/24 09:34 Dose: 160 mg <Domi Powell PA-C - Last Filed: 03/14/24 11:18> Home medications: Home Medications ?Medication ?Instructions ?Recorded ?Confirmed ?Last Taken ?Type aspirin 81 mg tablet,delayed 81 mg PO QAM 05/27/20 03/13/24 03/13/24 History release atorvastatin 20 mg tablet 20 mg PO BEDTIME 05/27/20 03/13/24 03/13/24 History calcium 500 mg (as carbonate)-vit 1 tab PO BID 05/27/20 03/13/24 03/13/24 History D3 10 mcg (400 unit) chewable tablet carvedilol 25 mg tablet 25 mg PO BID 05/27/20 03/13/24 03/13/24 History hydralazine 50 mg tablet 50 mg PO TID 05/27/20 03/13/24 03/13/24 History irbesartan 300 mg tablet 300 mg PO DAILY 05/27/20 03/13/24 03/13/24 History loratadine 10 mg tablet 10 mg PO DAILY 05/27/20 03/13/24 03/13/24 History colchicine 0.6 mg tablet 0.6 mg PO DAILY 10/26/21 03/13/24 03/13/24 History pantoprazole 40 mg tablet,delayed 40 mg PO DAILY@0630 10/26/21 03/13/24 03/13/24 History release sertraline 25 mg tablet 25 mg PO DAILY 10/26/21 03/13/24 03/13/24 History trazodone 100 mg tablet 100 mg PO BEDTIME 10/26/21 03/13/24 03/13/24 History acetaminophen 500 mg tablet 500 mg PO Q6H PRN pain 03/13/24 03/13/24 03/13/24 History docusate sodium 100 mg capsule 100 mg PO BID 03/13/24 03/13/24 03/13/24 History furosemide 40 mg tablet 40 mg PO DAILY 03/13/24 03/13/24 Unknown History memantine 10 mg tablet 10 mg PO BID 03/13/24 03/13/24 Unknown History <Domi Powell PA-C - Last Filed: 03/14/24 11:18> Physical Exam 2 Vital Signs: Vital Signs: Last Vital Signs Temp 97.7 F 03/14/24 07:02 Pulse 66 03/14/24 07:02 Resp 14 03/14/24 07:02 BP 168/77 H 03/14/24 07:02 Pulse Ox 97 03/14/24 07:02 O2 Del Method Room Air 03/14/24 07:02 BMI result Body Mass Index 26.2 <Domi Powell PA-C - Last Filed: 03/14/24 11:18> Const: General: cooperative, comfortable, no acute distress and alert; No ill appearing <Domi Powell PA-C - Last Filed: 03/14/24 11:18> Resp: Effort & Inspection: normal respiratory effort <Domi Powell PA-C - Last Filed: 03/14/24 11:18> GI: Other: protuberant abdomen (at baseline per STRINGED INSTRUMENT ASSEMBLER) <Domi Powell PA-C - Last Filed: 03/14/24 11:18> Inspection: Yes scar (well healed left groin) <Domi Powell PA-C - Last Filed: 03/14/24 11:18> Palpation (GI): Soft to palpation, Tenderness to palpation present (GI) in the RUQ, no guarding and not rigid <Domi Powell PA-C - Last Filed: 03/14/24 11:18> Percussion: Yes normal to percussion <Domi Powell PA-C - Last Filed: 03/14/24 11:18> Skin: General skin exam: no rashes or lesions noted and no jaundice < Domi Powell PA-C - Last Filed: 03/14/24 11:18> Neuro: General: moves all extremities <Domi Powell PA-C - Last Filed: 03/14/24 11:18> Results Labs Result diagrams: 03/13/24 12:13 03/13/24 12:13 <Domi Powell PA-C - Last Filed: 03/14/24 11:18> Labs: Abnormal lab results 03/13/24 Range/Units 12:13 RBC 4.28 L (4.60-5.80) X10*6/uL Hgb 12.5 L (14.0-18.0) g/dl Hct 39.2 L (42.0-52.0) % Immature Gran % (Auto) 0.5 H (0.0-0.4) % Abs Immat Gran (auto) 0.05 H (0.00-0.03) X10*3/uL Carbon Dioxide 33 H (22-29) mmol/L Anion Gap 7 L (12-20) BUN 17 H (9-16) mg/dL Short CBC 03/13/24 Range/Units 12:13 WBC 9.8 (4.8-10.8) X10*3/uL Hgb 12.5 L (14.0-18.0) g/dl Hct 39.2 L (42.0-52.0) % Plt Count 182 (160-400) X10*3/uL BMP 03/13/24 12:13 Sodium 142 Potassium 4.1 Chloride 106 Carbon Dioxide 33 H BUN 17 H Creatinine 1.17 Calcium 9.3 Liver Function 03/13/24 Range/Units 12:13 Total Bilirubin 0.3 (0.0-1.0) mg/dL AST 23 (5-37) U/L ALT 29 (0-40) U/L Alkaline Phosphatase 70 (39-117) U/L Albumin 3.8 (3.5-5.0) g/dL Urine 03/13/24 Range/Units 15:58 Urine Color Yellow Urine Appearance Clear Urine pH 7.0 (5.0-9.0) Ur Specific [place] 1.020 (1.005-1.025) Urine Protein Negative (Neg-Trace) mg/dL Urine Glucose (UA) Negative (Negative) mg/dL All other labs normal. <AIDA Jansen Last Filed: 03/14/24 11:18> Imaging Abdomen CT scan report/results: report reviewed and image reviewed <AIDA Jansen Last Filed: 03/14/24 11:18> Assessment and Plan (1) Ileus: Status: Acute <AIDA Jansen Last Filed: 03/14/24 11:18> 83 year old male with PMH of dementia, HTN, HLD, BPH presenting from adult daycare after an episode of vomiting with CT scan with very mildly dilated small bowel loops. Concern for rigid abdomen and ileus and therefore general surgery was consulted. His abdomen is protuberant but per STRINGED INSTRUMENT ASSEMBLER the size is at baseline. Non tympanitic. He is actually very difficult to assess but when distracted his abdomen is soft- per STRINGED INSTRUMENT ASSEMBLER patient tightens abdomen when palpated. Gallbladder wall may be thickened on my review, however it is similar to previous CT scan in 01/16. Will obtain ABD US to assess for acute cholecystitis as he is tender in the RUQ on exam. He is clinically not obstructed as he is passing flatus and moving his bowels and has good air distally. If ABD US ok, can advance diet as tolerated. <Domi Powell PA-C - Last Filed: 03/14/24 11:18> 83 year old male with PMH of dementia, HTN, HLD, BPH presenting from adult daycare after an episode of vomiting with CT scan with very mildly dilated small bowel loops. Concern for rigid abdomen and ileus and therefore general surgery was consulted. His abdomen is protuberant but per STRINGED INSTRUMENT ASSEMBLER the size is at baseline. Non tympanitic. He is actually very difficult to assess but when distracted his abdomen is soft- per STRINGED INSTRUMENT ASSEMBLER patient tightens abdomen when palpated. Gallbladder wall may be thickened on my review, however it is similar to previous CT scan in 01/16. Will obtain ABD US to assess for acute cholecystitis as he is tender in the RUQ on exam. He is clinically not obstructed as he is passing flatus and moving his bowels and has good air distally. If ABD US ok, can advance diet as tolerated. Patient seen abdominal ultrasound reviewed and it was fine. Patient advancing diet bowel regimen abdomen is relatively benign but is distended. Agree with history and physical as above. <Lucy Madrigal MD - Last Filed: 03/16/24 15:41> Procedures Date of Service Date of Service: 03/14/24 <Domi Powell PA-C - Last Filed: 03/14/24 11:18> 03/16/24 <Lucy Madrigal MD - Last Filed: 03/16/24 15:41>
[2024-03-14 15:21] VITALS: BP 133/89; PULSE 64; RESP 20; TEMP 37.1; O2SAT 95
--- NOTE | 2024-03-14 16:09 | MHC.CM.PN ---
CM ASSESSMENT COMPLETED W/ PATIENT/GENERAL MERCHANDISE SALESPERSON AT BEDSIDE AND W/ [facility] TRANSITIONS COORDINATOR PATIENT NOT ABLE TO ANSWER ALL QUESTIONS. PATIENT ORIENTED TO SELF AND AND PLACE. IMM DELIVERED. ABLE TO COMPLETE HCP AND IDENTIFY HIS BROTHER, DAVID, CHOSEN HCA. PT HAD DIFFICULTY ANSWERING OTHER QUESTIONS, EASILY DISTRACTED. PER CCA : PATIENT LIVES IN AN APARTMENT ALONE, ATTENDS [employer] IN [place]. ALSO HAS HAIRSPRING SETTER 42 HRS/WK - SISTER IN LAW IS HAIRSPRING SETTER. [facility] IS WORKING ON INCREASING HAIRSPRING SETTER HOURS, BUT PATIENT DOES NOT CURRENTLY HAVE COVERAGE OVERNIGHTS. FOR THIS REASON [facility] FILED ELDER @ [facility] ON 03/05. CM LM FOR BROTHER/NOW HCP TO DISCUSS. DP: HOME RESUME SERVICES, ? INCREASE IN SERVICES VS SNF. PENDING DISCUSSION W/ HCP. CM WILL CONTINUE TO FOLLOW.
[2024-03-14] MEDS: cefTRIAXone sodium 1 GM VIAL IVPUSH (18:02)
[2024-03-14] MEDS: Enoxaparin Sodium 40 MG/0.4 ML SYRINGE SUBCUT (18:03)
[2024-03-14 19:28] VITALS: BP 177/81; PULSE 73; RESP 18; TEMP 36.6
[2024-03-14] MEDS: Atorvastatin Calcium 20 MG TABLET PO (20:25)
[2024-03-14] MEDS: Doxazosin Mesylate 2 MG TABLET 4 MG PO (20:25)
[2024-03-14] MEDS: traZODone HCL 100 MG TABLET PO (20:25)
[2024-03-15] MEDS: 0.9 % Sodium Chloride Flush 3 ML SYRINGE IVFLUSH ×2 (00:25→09:11)
[2024-03-15] MEDS: Lactated Ringers 1,000 ML 100 ML IVCONT ×2 (01:35→13:49)
[2024-03-15 02:49] VITALS: BP 154/71; PULSE 68; RESP 18; TEMP 36.6; O2SAT 96
[2024-03-15] MEDS: metroNIDAZOLE/NS 500 MG/100 ML PIGGYBACK 100 MG IV ×3 (03:22→19:26)
[2024-03-15] MEDS: Omeprazole 20 MG CAPSULE.DR PO (06:24)
[2024-03-15 07:51] VITALS: BP 156/71; PULSE 68; RESP 16; TEMP 37.1; O2SAT 97
--- NOTE | 2024-03-15 09:08 | P.PNIM_ITS ---
Subjective Subjective Date of Service: 03/15/24 Interval History: no abd pain, no reported bm Physical Exam 2 Vital Signs: Vital Signs: Last Vital Signs Temp 98.7 F 03/15/24 07:51 Pulse 68 03/15/24 07:51 Resp 16 03/15/24 07:51 BP 156/71 H 03/15/24 07:51 Pulse Ox 97 03/15/24 07:51 O2 Del Method Room Air 03/15/24 07:51 BMI result Body Mass Index 26.2 General: AO X 3, no acute distress Resp: CTA bilateral CVS: S1,S2,RRR GI: +BS, NT, rigigid but appear chronic softens when he relaxes Skin: No rash Neuro: motor grossly intact Psych: appropriate affect Objective Data Active Medications Acetaminophen (Acetaminophen 325 Mg Tablet) 650 mg PO Q6H PRN PRN Reason: Pain, Mild (Pain Scale 1-3), fever or headache Aspirin (Aspirin Enteric Coated 81 Mg Tablet.) 81 mg PO DAILY [facility] Last Admin: 03/14/24 09:33 Dose: 81 mg Documented By: ASHLEY Atorvastatin Calcium (Atorvastatin Calcium 20 Mg Tablet) 20 mg PO BEDTIME [facility] Last Admin: 03/14/24 20:25 Dose: 20 mg Documented By: ELLEN Calcium Carbonate (Calcium Carbonate 750 Mg Tab.Chew) 750 mg PO Q4H PRN PRN Reason: Heartburn Calcium Carbonate/Cholecalciferol (Calcium + Vitamin D 250 Mg Tablet) 500 mg PO BID [facility] Last Admin: 03/14/24 20:25 Dose: 500 mg Documented By: ELLEN Carvedilol (Carvedilol 25 Mg Tablet) 25 mg PO BID [facility]; Protocol Last Admin: 03/14/24 20:25 Dose: 25 mg Documented By: ELLEN Ceftriaxone Sodium (Ceftriaxone Sodium 1 Gm Vial) 1 gm IVPUSH Q24H [facility] Last Admin: 03/14/24 18:02 Dose: 1 gm Documented By: ASHLEY Colchicine (Colchicine 0.6 Mg Tablet) 0.3 mg PO DAILY [facility] Last Admin: 03/14/24 09:34 Dose: 0.3 mg Documented By: ASHLEY Docusate Sodium (Docusate Sodium 100 Mg Capsule) 100 mg PO BID [facility] Last Admin: 03/14/24 20:25 Dose: 100 mg Documented By: ELLEN Doxazosin Mesylate (Doxazosin Mesylate 2 Mg Tablet) 4 mg PO BEDTIME [facility]; Protocol Last Admin: 03/14/24 20:25 Dose: 4 mg Documented By: ELLEN Enoxaparin Sodium (Enoxaparin Sodium 40 Mg/0.4 Ml Syringe) 40 mg SUBCUT Q24H [facility] Last Admin: 03/14/24 18:03 Dose: 40 mg Documented By: ASHLEY Finasteride (Finasteride 5 Mg Tablet) 5 mg PO DAILY [facility] Last Admin: 03/14/24 09:34 Dose: 5 mg Documented By: ASHLEY Furosemide (Furosemide 40 Mg Tablet) 40 mg PO DAILY [facility]; Protocol Last Admin: 03/14/24 09:34 Dose: 40 mg Documented By: ASHLEY Hydralazine HCl (Hydralazine Hcl 50 Mg Tablet) 50 mg PO TID [facility]; Protocol Last Admin: 03/14/24 20:25 Dose: 50 mg Documented By: ELLEN Lactated Ringer's (Lr) 1,000 mls @ 100 mls/hr IVCONT .Q10H [facility] Last Admin: 03/15/24 01:35 Dose: 100 mls/hr Documented By: ELLEN Metronidazole (Flagyl) 500 mg in 100 mls @ 100 mls/hr IV Q8H [facility] Last Infusion: 03/15/24 04:33 Dose: Infused Documented By: ELLEN Loratadine (Loratadine 10 Mg Tablet) 10 mg PO DAILY [facility] Last Admin: 03/14/24 09:33 Dose: 10 mg Documented By: ASHLEY Magnesium Hydroxide (Milk Of Magnesia 30 Ml Oral.Susp) 30 ml PO DAILY PRN PRN Reason: Constipation Last Admin: 03/14/24 09:33 Dose: 30 ml Documented By: ASHLEY Melatonin (Melatonin 3 Mg Tablet) 6 mg PO BEDTIME PRN PRN Reason: Insomnia Memantine (Memantine Hcl 10 Mg Tablet) 10 mg PO BID [facility] Last Admin: 03/14/24 20:25 Dose: 10 mg Documented By: ELLEN Omeprazole (Omeprazole 20 Mg Capsule.Dr) 20 mg PO DAILY@0630 [facility] Last Admin: 03/15/24 06:24 Dose: 20 mg Documented By: ELLEN Sertraline HCl (Sertraline Hcl 25 Mg Tablet) 25 mg PO DAILY [facility] Last Admin: 03/14/24 09:33 Dose: 25 mg Documented By: ASHLEY Sodium Chloride (0.9 % Sodium Chloride Flush 3 Ml Syringe) 3 ml IVFLUSH QSHIFT [facility] Last Admin: 03/15/24 00:25 Dose: 3 ml Documented By: ELLEN Trazodone HCl (Trazodone Hcl 100 Mg Tablet) 100 mg PO BEDTIME [facility] Last Admin: 03/14/24 20:25 Dose: 100 mg Documented By: ELLEN Valsartan (Valsartan 160 Mg Tablet) 160 mg PO DAILY [facility] Last Admin: 03/14/24 09:34 Dose: 160 mg Documented By: ASHLEY Labs 03/13/24 12:13 03/13/24 12:13 Assessment and Plan (1) Ileus: Status: Acute Plan 83/m with dementia, HTN, HLD, BPH presenting from adult day care with nausea/vomitting x 1 and fever, wbc normal. CT suggests mild enteritis and possible non-complicated diverticulitis. n/v/enteritis and possible divertiuculitis -? ileus -IVF -Cetriaxone + Flagyl -seen by surgery, no intervention -US no cholecystitis, Positive gallstones HTN--continue valsartan, hydralazine and lasix HLD-lipitor BPH-proscar dementia--Naemenda DVT prophylaxis-- lovenox Full code Quality Stroke Does the patient have a stroke diagnosis?: No VTE Prior VTE?: No VTE Risk Level:: Medical - moderate - high VTE Device Contraindication: Treatment Not Indicated VTE Drug Contraindication: N/A - Med Ordered
[2024-03-15] MEDS: carvediloL 25 MG TABLET PO ×2 (09:21→21:06)
[2024-03-15] MEDS: hydrALAZINE HCl 50 MG TABLET PO ×3 (09:22→21:06)
[2024-03-15] MEDS: Loratadine 10 MG TABLET PO (09:22)
[2024-03-15] MEDS: Memantine HCl 10 MG TABLET PO ×2 (09:23→21:07)
[2024-03-15] MEDS: Sertraline HCL 25 MG TABLET PO (09:23)
[2024-03-15] MEDS: Furosemide 40 MG TABLET PO (09:23)
[2024-03-15] MEDS: Valsartan 160 MG TABLET PO (09:23)
[2024-03-15] MEDS: Colchicine 0.6 MG TABLET 0.3 MG PO (09:23)
[2024-03-15] MEDS: Finasteride 5 MG TABLET PO (09:26)
[2024-03-15] MEDS: Calcium + Vitamin D 250 MG TABLET 500 MG PO ×2 (09:26→21:06)
[2024-03-15] MEDS: Aspirin Enteric Coated 81 MG TABLET.DR PO (09:26)
--- NOTE | 2024-03-15 13:07 | PM.PNGS ---
Subjective Subjective Date of Service: 03/15/24 Interval history: Patient feeling good comfortable hungry Patient had ultrasound done which did not reveal any worrisome findings with the gallbladder consistent with a acute cholecystitis Physical Exam Vital Signs: Vital Signs: Last Vital Signs Temp 98.7 F 03/15/24 07:51 Pulse 68 03/15/24 07:51 Resp 16 03/15/24 07:51 BP 156/71 H 03/15/24 07:51 Pulse Ox 97 03/15/24 07:51 O2 Del Method Room Air 03/15/24 07:51 BMI result Body Mass Index 26.2 GI: Other: Abdomen is soft nontender moderately distended but good active bowel sounds. Nontender to deep palpation in the right midabdomen Objective Data Active Medications Acetaminophen (Acetaminophen 325 Mg Tablet) 650 mg PO Q6H PRN PRN Reason: Pain, Mild (Pain Scale 1-3), fever or headache Aspirin (Aspirin Enteric Coated 81 Mg Tablet.) 81 mg PO DAILY [facility] Last Admin: 03/15/24 09:26 Dose: 81 mg Documented By: SHAHNAZ Atorvastatin Calcium (Atorvastatin Calcium 20 Mg Tablet) 20 mg PO BEDTIME [facility] Last Admin: 03/14/24 20:25 Dose: 20 mg Documented By: ELLEN Calcium Carbonate (Calcium Carbonate 750 Mg Tab.Chew) 750 mg PO Q4H PRN PRN Reason: Heartburn Calcium Carbonate/Cholecalciferol (Calcium + Vitamin D 250 Mg Tablet) 500 mg PO BID [facility] Last Admin: 03/15/24 09:26 Dose: 500 mg Documented By: SHAHNAZ Carvedilol (Carvedilol 25 Mg Tablet) 25 mg PO BID [facility]; Protocol Last Admin: 03/15/24 09:21 Dose: 25 mg Documented By: SHAHNAZ Ceftriaxone Sodium (Ceftriaxone Sodium 1 Gm Vial) 1 gm IVPUSH Q24H [facility] Last Admin: 03/14/24 18:02 Dose: 1 gm Documented By: ASHLEY Colchicine (Colchicine 0.6 Mg Tablet) 0.3 mg PO DAILY [facility] Last Admin: 03/15/24 09:23 Dose: 0.3 mg Documented By: SHAHNAZ Docusate Sodium (Docusate Sodium 100 Mg Capsule) 100 mg PO BID [facility] Last Admin: 03/15/24 11:57 Dose: Not Given Documented By: SHAHNAZ Non-Admin Reason: Patient Refused Doxazosin Mesylate (Doxazosin Mesylate 2 Mg Tablet) 4 mg PO BEDTIME [facility]; Protocol Last Admin: 03/14/24 20:25 Dose: 4 mg Documented By: ELLEN Enoxaparin Sodium (Enoxaparin Sodium 40 Mg/0.4 Ml Syringe) 40 mg SUBCUT Q24H [facility] Last Admin: 03/14/24 18:03 Dose: 40 mg Documented By: ASHLEY Finasteride (Finasteride 5 Mg Tablet) 5 mg PO DAILY [facility] Last Admin: 03/15/24 09:26 Dose: 5 mg Documented By: SHAHNAZ Furosemide (Furosemide 40 Mg Tablet) 40 mg PO DAILY [facility]; Protocol Last Admin: 03/15/24 09:23 Dose: 40 mg Documented By: SHAHNAZ Hydralazine HCl (Hydralazine Hcl 50 Mg Tablet) 50 mg PO TID [facility]; Protocol Last Admin: 03/15/24 09:22 Dose: 50 mg Documented By: SHAHNAZ Lactated Ringer's (Lr) 1,000 mls @ 100 mls/hr IVCONT .Q10H [facility] Last Admin: 03/15/24 01:35 Dose: 100 mls/hr Documented By: ELLEN Metronidazole (Flagyl) 500 mg in 100 mls @ 100 mls/hr IV Q8H [facility] Last Infusion: 03/15/24 04:33 Dose: Infused Documented By: ELLEN Loratadine (Loratadine 10 Mg Tablet) 10 mg PO DAILY [facility] Last Admin: 03/15/24 09:22 Dose: 10 mg Documented By: SHAHNAZ Magnesium Hydroxide (Milk Of Magnesia 30 Ml Oral.Susp) 30 ml PO DAILY PRN PRN Reason: Constipation Last Admin: 03/14/24 09:33 Dose: 30 ml Documented By: ASHLEY Melatonin (Melatonin 3 Mg Tablet) 6 mg PO BEDTIME PRN PRN Reason: Insomnia Memantine (Memantine Hcl 10 Mg Tablet) 10 mg PO BID [facility] Last Admin: 03/15/24 09:23 Dose: 10 mg Documented By: SHAHNAZ Omeprazole (Omeprazole 20 Mg Capsule.Dr) 20 mg PO DAILY@0630 [facility] Last Admin: 03/15/24 06:24 Dose: 20 mg Documented By: ELLEN Sertraline HCl (Sertraline Hcl 25 Mg Tablet) 25 mg PO DAILY [facility] Last Admin: 03/15/24 09:23 Dose: 25 mg Documented By: SHAHNAZ Sodium Chloride (0.9 % Sodium Chloride Flush 3 Ml Syringe) 3 ml IVFLUSH QSHIFT [facility] Last Admin: 03/15/24 09:11 Dose: 3 ml Documented By: SHAHNAZ Trazodone HCl (Trazodone Hcl 100 Mg Tablet) 100 mg PO BEDTIME [facility] Last Admin: 03/14/24 20:25 Dose: 100 mg Documented By: ELLEN Valsartan (Valsartan 160 Mg Tablet) 160 mg PO DAILY [facility] Last Admin: 03/15/24 09:23 Dose: 160 mg Documented By: SHAHNAZ Labs 03/13/24 12:13 03/13/24 12:13 Procedures Date of Service Date of Service: 03/15/24 Progress Note: A&P Assessment and plan (1) Ileus: Status: Acute Assessment and Plan: 83-year-old male with a abdominal distention maybe some of this is close to his baseline but he does not seem to be obstructed and there is no evidence of acute cholecystitis. Would encourage bowel regimen making sure he is going to the bathroom and passing stool and gas and slow advancement of his p.o. intake. Ambulation is good. Correction of any electrolytes that are. No surgical issues at this time Time Spent With Patient Time: Total time managing care of this patient today ____ minutes. Quality Stroke Does the patient have a stroke diagnosis?: No VTE Prior VTE?: No VTE Risk Level:: Medical - moderate - high VTE Device Contraindication: Treatment Not Indicated VTE Drug Contraindication: N/A - Med Ordered
[2024-03-15 15:56] VITALS: BP 175/79; PULSE 68; RESP 18; TEMP 36.6; O2SAT 96
[2024-03-15 17:07] VITALS: BP 170/74; PULSE 72; RESP 18; O2SAT 97
[2024-03-15] MEDS: cefTRIAXone sodium 1 GM VIAL IVPUSH (18:16)
[2024-03-15] MEDS: Enoxaparin Sodium 40 MG/0.4 ML SYRINGE SUBCUT (18:16)
[2024-03-15 20:00] VITALS: BP 135/62; PULSE 84; RESP 18; TEMP 37.3; O2SAT 97
[2024-03-15] MEDS: traZODone HCL 100 MG TABLET PO (21:06)
[2024-03-15] MEDS: Atorvastatin Calcium 20 MG TABLET PO (21:07)
[2024-03-15] MEDS: Doxazosin Mesylate 2 MG TABLET 4 MG PO (21:07)
[2024-03-15] MEDS: Docusate Sodium 100 MG CAPSULE PO (21:07)
[2024-03-16] MEDS: metroNIDAZOLE/NS 500 MG/100 ML PIGGYBACK 100 MG IV (03:03)
[2024-03-16 03:33] VITALS: BP 140/82; PULSE 69; RESP 18; TEMP 36.4; O2SAT 96
[2024-03-16] MEDS: Omeprazole 20 MG CAPSULE.DR PO (06:06)
[2024-03-16 08:00] VITALS: BP 166/88; PULSE 73; RESP 18; TEMP 36.9; O2SAT 97
[2024-03-16] MEDS: Valsartan 160 MG TABLET PO (09:17)
[2024-03-16] MEDS: Furosemide 40 MG TABLET PO (09:17)
[2024-03-16] MEDS: Sertraline HCL 25 MG TABLET PO (09:18)
[2024-03-16] MEDS: Memantine HCl 10 MG TABLET PO ×2 (09:18→20:59)
[2024-03-16] MEDS: hydrALAZINE HCl 50 MG TABLET PO ×3 (09:18→20:59)
[2024-03-16] MEDS: carvediloL 25 MG TABLET PO ×2 (09:18→20:59)
[2024-03-16] MEDS: Loratadine 10 MG TABLET PO (09:22)
[2024-03-16] MEDS: Docusate Sodium 100 MG CAPSULE PO (09:22)
[2024-03-16] MEDS: Aspirin Enteric Coated 81 MG TABLET.DR PO (09:22)
[2024-03-16] MEDS: Calcium + Vitamin D 250 MG TABLET 500 MG PO (09:22)
[2024-03-16] MEDS: Colchicine 0.6 MG TABLET 0.3 MG PO (09:22)
[2024-03-16] MEDS: Finasteride 5 MG TABLET PO (09:22)
--- NOTE | 2024-03-16 10:47 | HO.PM.IMPN ---
Subjective Subjective Date of Service: 03/16/24 Interval History: no abd pain, has had bm, no n/v Physical Exam Vital Signs: Vital Signs: Last Vital Signs Temp 98.5 F 03/16/24 08:00 Pulse 73 03/16/24 08:00 Resp 18 03/16/24 08:00 BP 166/88 H 03/16/24 08:00 Pulse Ox 97 03/16/24 08:00 O2 Del Method Room Air 03/16/24 08:00 BMI result Body Mass Index 26.2 Const: Other: General: AO X 3, no acute distress Resp: CTA bilateral CVS: S1,S2,RRR GI: +BS, NT, distention unchanged + bs Skin: No rash Neuro: motor grossly intact Psych: appropriate affect Objective Data Active Medications Acetaminophen (Acetaminophen 325 Mg Tablet) 650 mg PO Q6H PRN PRN Reason: Pain, Mild (Pain Scale 1-3), fever or headache Aspirin (Aspirin Enteric Coated 81 Mg Tablet.) 81 mg PO DAILY [facility] Last Admin: 03/16/24 09:22 Dose: 81 mg Documented By: SHAHNAZ Atorvastatin Calcium (Atorvastatin Calcium 20 Mg Tablet) 20 mg PO BEDTIME [facility] Last Admin: 03/15/24 21:07 Dose: 20 mg Documented By: ELLEN Calcium Carbonate (Calcium Carbonate 750 Mg Tab.Chew) 750 mg PO Q4H PRN PRN Reason: Heartburn Calcium Carbonate/Cholecalciferol (Calcium + Vitamin D 250 Mg Tablet) 500 mg PO BID [facility] Last Admin: 03/16/24 09:22 Dose: 500 mg Documented By: SHAHNAZ Carvedilol (Carvedilol 25 Mg Tablet) 25 mg PO BID [facility]; Protocol Last Admin: 03/16/24 09:18 Dose: 25 mg Documented By: SHANHAZ Ceftriaxone Sodium (Ceftriaxone Sodium 1 Gm Vial) 1 gm IVPUSH Q24H [facility] Last Admin: 03/15/24 18:16 Dose: 1 gm Documented By: SHAHNAZ Colchicine (Colchicine 0.6 Mg Tablet) 0.3 mg PO DAILY [facility] Last Admin: 03/16/24 09:22 Dose: 0.3 mg Documented By: SHAHNAZ Docusate Sodium (Docusate Sodium 100 Mg Capsule) 100 mg PO BID [facility] Last Admin: 03/16/24 09:22 Dose: 100 mg Documented By: SHAHNAZ Doxazosin Mesylate (Doxazosin Mesylate 2 Mg Tablet) 4 mg PO BEDTIME [facility]; Protocol Last Admin: 03/15/24 21:07 Dose: 4 mg Documented By: ELLEN Enoxaparin Sodium (Enoxaparin Sodium 40 Mg/0.4 Ml Syringe) 40 mg SUBCUT Q24H [facility] Last Admin: 03/15/24 18:16 Dose: 40 mg Documented By: SHAHNAZ Finasteride (Finasteride 5 Mg Tablet) 5 mg PO DAILY [facility] Last Admin: 03/16/24 09:22 Dose: 5 mg Documented By: SHAHNAZ Furosemide (Furosemide 40 Mg Tablet) 40 mg PO DAILY [facility]; Protocol Last Admin: 03/16/24 09:17 Dose: 40 mg Documented By: SHAHNAZ Hydralazine HCl (Hydralazine Hcl 50 Mg Tablet) 50 mg PO TID [facility]; Protocol Last Admin: 03/16/24 09:18 Dose: 50 mg Documented By: SHAHNAZ Metronidazole (Flagyl) 500 mg in 100 mls @ 100 mls/hr IV Q8H [facility] Last Infusion: 03/16/24 04:03 Dose: Infused Documented By: ELLEN Loratadine (Loratadine 10 Mg Tablet) 10 mg PO DAILY [facility] Last Admin: 03/16/24 09:22 Dose: 10 mg Documented By: SHAHNAZ Magnesium Hydroxide (Milk Of Magnesia 30 Ml Oral.Susp) 30 ml PO DAILY PRN PRN Reason: Constipation Last Admin: 03/14/24 09:33 Dose: 30 ml Documented By: ASHLEY Melatonin (Melatonin 3 Mg Tablet) 6 mg PO BEDTIME PRN PRN Reason: Insomnia Memantine (Memantine Hcl 10 Mg Tablet) 10 mg PO BID [facility] Last Admin: 03/16/24 09:18 Dose: 10 mg Documented By: SHAHNAZ Omeprazole (Omeprazole 20 Mg Capsule.Dr) 20 mg PO DAILY@0630 [facility] Last Admin: 03/16/24 06:06 Dose: 20 mg Documented By: ELLEN Sertraline HCl (Sertraline Hcl 25 Mg Tablet) 25 mg PO DAILY [facility] Last Admin: 03/16/24 09:18 Dose: 25 mg Documented By: SHAHNAZ Sodium Chloride (0.9 % Sodium Chloride Flush 3 Ml Syringe) 3 ml IVFLUSH QSHIFT [facility] Last Admin: 03/16/24 09:17 Dose: Not Given Documented By: SHAHNAZ Non-Admin Reason: IV Running Trazodone HCl (Trazodone Hcl 100 Mg Tablet) 100 mg PO BEDTIME [facility] Last Admin: 03/15/24 21:06 Dose: 100 mg Documented By: ELLEN Valsartan (Valsartan 160 Mg Tablet) 160 mg PO DAILY [facility] Last Admin: 03/16/24 09:17 Dose: 160 mg Documented By: SHAHNAZ Labs 03/13/24 12:13 03/13/24 12:13 Assessment and Plan (1) Ileus: Status: Acute Plan 83/m with dementia, HTN, HLD, BPH presenting from adult day care with nausea/vomitting x 1 and fever, wbc normal. CT suggests mild enteritis and possible non-complicated diverticulitis. n/v/enteritis and possible divertiuculitis, clinically improvied -? ileus -IVF -Cetriaxone + Flagyl--> PO Ceftin and PO flagyl for 7 days -seen by surgery, no intervention -US no cholecystitis, Positive gallstones -advance diet HTN--continue valsartan, hydralazine and lasix HLD-lipitor BPH-proscar dementia--Naemenda DVT prophylaxis-- lovenox Full code out of bed, and ambulate Quality Stroke Does the patient have a stroke diagnosis?: No VTE Prior VTE?: No VTE Risk Level:: Medical - moderate - high VTE Device Contraindication: Treatment Not Indicated VTE Drug Contraindication: N/A - Med Ordered
[2024-03-16] MEDS: metroNIDAZOLE 500 MG TABLET PO ×2 (12:29→20:57)
[2024-03-16 15:20] VITALS: BP 138/80; PULSE 68; RESP 16; TEMP 36.2; O2SAT 97
[2024-03-16] MEDS: Enoxaparin Sodium 40 MG/0.4 ML SYRINGE SUBCUT (18:27)
[2024-03-16] MEDS: cefTRIAXone sodium 1 GM VIAL IVPUSH (18:28)
[2024-03-16 19:01] VITALS: BP 142/78; PULSE 75; RESP 18; TEMP 36.6; O2SAT 98
[2024-03-16] MEDS: traZODone HCL 100 MG TABLET PO (20:57)
[2024-03-16] MEDS: Doxazosin Mesylate 2 MG TABLET 4 MG PO (20:57)
[2024-03-16] MEDS: Atorvastatin Calcium 20 MG TABLET PO (20:57)
[2024-03-16] MEDS: 0.9 % Sodium Chloride Flush 3 ML SYRINGE IVFLUSH (20:59)
[2024-03-17] VITALS (7 sets, daily range): BP systolic 160–190; BP diastolic 72–84; PULSE 69–74; RESP 16–18; TEMP 36.9–37; O2SAT 95–98
--- NOTE | 2024-03-17 02:11 | PC.NURSE ---
PATIENT VERY DIFFICULT TO ADMINISTER SCHEDULED PO MEDICATIONS, RN REPORT STATED ONE AT A TIME FOLLOWED BY SIPS OF JUICE. PATIENT AT FIRST UNWILLING TO OPEN MOUTH, THEN SPIT OUT FIRST PILL. GIVEN SIPS FIRST THEN A PILL, ENCOURAGED TO SWALLOW, TOOK A FEW, THEN TRIED CRUSHING IN MELTED SHERBERT WITH SMALL BITS. TOOK FEW MORE, NOTED TO BE POCKETING IN CHEEKS, SWALLOWED, FEW SIPS , THEN SPIT OUT SMALL PIECES. MOUTH INSPECTION SHOWED MODERATE AMOUNT THICK STRINGY PHLEGM, CLEARED WITH PATIENT SPITTING OUT. NO S/SX RESP DISTRESS, NO COLOR CHANGES, HOB UP, AND MOUTH NOTED CLEAR. NO COUGH, NO GAGGING. PATIENT DECLINED ALL SIPS OF FLUIDS REST OF EVENING. WILL CONTINUE TO MONITOR, REPORT OF NEED FOR SPEECH EVAL.
[2024-03-17] MEDS: metroNIDAZOLE 500 MG TABLET PO (03:46)
--- NOTE | 2024-03-17 03:55 | PC.NURSE ---
0355-scheduled po flagy taken without difficulty at this time, pill split in half, apple juice before and after, and mouth check, pleasant mood. Will continue to monitor
--- NOTE | 2024-03-17 08:00 | P.DS_ITS ---
DS: Providers Provider Date of Service: 03/17/24 Date of admission: 03/13/24 18:33 Date of discharge: 03/17/24 Primary care physician: [facility] Consults: 03/14/24 09:49 Consult to General Surgery Routine Consulting Provider: [facility] Reason for consultation: nausea and vomitting, rigid abdomen ? ileus DS: Diagnosis Discharge Diagnosis (1) Ileus: Status: Acute DS: Summary Hospital Course Hospital Course: admission hpi 83 year old male with dementia, HTN, HLD, BPH brought to the ED to be evaluated for an episode of vomitting while at an adult daycare. There was also report of fever, although pt doesn't have fever here. He denies any pain, last BM unknown, no diarrhea here. Labs nl WBC, normal renal fuction. CT shows: Consider mild enteritis in the correct clinical settings resulting in ileus without intestinal obstruction pattern. Diverticular disease, left hemicolon acute noncomplicated diverticulitis cannot be excluded. Cholelithiasis. Hospital course: Patient was admitted for an episode of vomiting, further testing with a CT scan suggests a possible ileus and diverticulitis. He was admitted hydrated given antibiotics and diet slowly advanced. He has had bowel movement, he had bowel sounds, he been seen by surgery and at this point and indication for procedure. Given that the patient is not having any further symptoms of nausea or vomiting no abdominal pain and tolerating diet he will be discharged home and to complete a course of 5 days of antibiotics for possible diverticulitis as suggested by the CT scan. Time Attestation Discharge Coordination Time (in mins): 35 Quality: Safe Use of Opioids Does Pt have an Active Cancer Diagnosis on the Problem List?: No Quality: Stroke Does the patient have a stroke diagnosis?: No Physical Exam Vital Signs: Vital Signs: Last Vital Signs Temp 98.5 F 03/17/24 07:09 Pulse 74 03/17/24 07:09 Resp 16 03/17/24 07:09 BP 190/80 H 03/17/24 07:09 Pulse Ox 95 03/17/24 07:09 O2 Del Method Room Air 03/17/24 07:09 BMI result Body Mass Index 26.2 Discharge Plan Discharge Anticipated Discharge Date/Time: 03/17/24 07:57 Patient Disposition: Home, Self-Care Discharge Diagnosis: ileus and possible diverticulitis Referrals: Center,[facility] [Primary Care Provider] - 1 Week Discharge Medications: New cefuroxime axetil 500 mg tablet 500 mg PO BID 1 Days Qty: 2 0RF Rx Instructions: next dose today evening metronidazole 500 mg Tablet 500 mg PO Q8H Qty: 3 0RF Continued acetaminophen 500 mg tablet 500 mg PO Q6H PRN (Reason: pain) docusate sodium 100 mg capsule 100 mg PO BID furosemide 40 mg Tablet 40 mg PO DAILY memantine 10 mg Tablet 10 mg PO BID irbesartan 300 mg tablet 300 mg PO DAILY hydralazine 50 mg tablet 50 mg PO TID carvedilol 25 mg tablet 25 mg PO BID calcium carbonate-vitamin D3 500 mg(1,250mg) -400 unit tablet,chewable 1 tab PO BID loratadine 10 mg tablet 10 mg PO DAILY aspirin 81 mg tablet,delayed release (DR/EC) 81 mg PO QAM atorvastatin 20 mg tablet 20 mg PO BEDTIME colchicine 0.6 mg tablet 0.6 mg PO DAILY sertraline 25 mg tablet 25 mg PO DAILY pantoprazole 40 mg tablet,delayed release (DR/EC) 40 mg PO DAILY@0630 trazodone 100 mg tablet 100 mg PO BEDTIME doxazosin 4 mg tablet 4 mg PO BEDTIME 90 Days Qty: 90 3RF finasteride 5 mg tablet 5 mg PO DAILY 90 Days Qty: 90 3RF Discharge Orders: Discharge Order (Routine); Ordered 03/17/24 Ordered By: Reza Anthony Diet: chopped advance diet Activity on Discharge: As tolerated Stand Alone Forms: Patient Portal Discharge page Print Language: Omani Care Plan Goals: recovery from ileues and diverticulitis Health Concerns: ileus and diverticulitis Plan of Treatment: take ceftinand flagyl as recommended and follow up with your doctor in a week diet should be chopped advance NDD3 Follow up with your octor in a week Assessment: see above Discharge Date/Time: 03/17/24 13:54
[2024-03-17] MEDS: Valsartan 160 MG TABLET PO (08:17)
[2024-03-17] MEDS: hydrALAZINE HCl 50 MG TABLET PO (08:20)
[2024-03-17] MEDS: Aspirin Enteric Coated 81 MG TABLET.DR PO (08:20)
[2024-03-17] MEDS: Sertraline HCL 25 MG TABLET PO (08:20)
[2024-03-17] MEDS: Memantine HCl 10 MG TABLET PO (08:20)
[2024-03-17] MEDS: Calcium + Vitamin D 250 MG TABLET 500 MG PO (08:20)
[2024-03-17] MEDS: Loratadine 10 MG TABLET PO (08:20)
[2024-03-17] MEDS: Docusate Sodium 100 MG CAPSULE PO (08:21)
[2024-03-17] MEDS: carvediloL 25 MG TABLET PO (08:21)
[2024-03-17] MEDS: Furosemide 40 MG TABLET PO (08:21)
[2024-03-17] MEDS: Finasteride 5 MG TABLET PO (08:21)
[2024-03-17] MEDS: Colchicine 0.6 MG TABLET 0.3 MG PO (08:22)
--- NOTE | 2024-03-17 09:11 | MHC.CM.PN ---
Addendum entered by Daniela Gillespie RN 03/17/24 09:17: IMM delivered. Original Note: Per MD patient medically cleared for dc. This CM spoke w/ Thaddeus, brother/HCP, regarding [facility]'s safety concerns (no overnight BACK TUFTER coverage, patient has been found wandering at night). Thaddeus is aware [facility] is working on increasing BACK TUFTER hours. Thaddeus and another sister, along with Estephanie (Thaddeus' /patient's current BACK TUFTER), will cover overnights until [facility] is able to increase hours. Thaddeus will stay tonight. CM also spoke w/ Dee RN @ [facility]. He will resume the program tomorrow. Program provides transport. CM updated [facility] CM Herrera Bran, who is agreeable to plan. LM for Martha, [facility] transitions coordinator, with update. Sister in law/BACK TUFTER, Estephanie, will provide transport home. RN aware.
== END 2024-03-17 13:54 | disposition home or self-care (01) | DRG 389 ==
LOC: HO.ED 16:02 → HO.EDOVER 18:54 → HO.S3 20:26
PROVIDERS: Registered Nurse Emergency; Admitting Provider Internal Medicine; Emergency Provider Emergency Medicine Emergency Medical Services; Visit Provider Internal Medicine
DX: K56.7 Ileus, unspecified (principal); K57.32 Diverticulitis of large intestine without perforation or abscess without bleeding; F03.90 Unspecified dementia, unspecified severity, without behavioral disturbance, psychotic disturbance, mood disturbance, and anxiety; I10 Essential (primary) hypertension; E78.5 Hyperlipidemia, unspecified; N40.0 Benign prostatic hyperplasia without lower urinary tract symptoms; Z20.822 Contact with and (suspected) exposure to COVID-19; Z79.82 Long term (current) use of aspirin; Z79.899 Other long term (current) drug therapy
CPT/HCPCS: 0241U; 74177; 76705; 80053; 81003; 84484; 85025; 85610; 93005; 99285; J0696; J1650; J1836; J2405; J7120; Q9967

== ENCOUNTER → 2024-03-13 11:45 | Outpatient (BNV) | payer MEDICARE, SELFPAY | PROVIDERS: Emergency Provider Emergency Medicine Emergency Medical Services; Visit Provider Internal Medicine | DX: R11.10 Vomiting, unspecified (principal) | CPT/HCPCS: 93010 ==

== ENCOUNTER → 2024-03-13 12:03 | Outpatient (BNV) | payer MEDICARE, SELFPAY | PROVIDERS: Emergency Provider Emergency Medicine Emergency Medical Services; Visit Provider Radiology Diagnostic Radiology | DX: R10.12 Left upper quadrant pain (principal); R11.10 Vomiting, unspecified | CPT/HCPCS: 74177 ==

== ENCOUNTER → 2024-03-13 18:33 | Outpatient (BNV) | payer OTHER, SELFPAY | PROVIDERS: Admitting Provider Internal Medicine; Emergency Provider Emergency Medicine Emergency Medical Services; Visit Provider Surgery | DX: K56.7 Ileus, unspecified (principal) | CPT/HCPCS: 99222; 99232 ==

== ENCOUNTER → 2024-03-13 18:33 | Outpatient (BNV) | payer OTHER, SELFPAY | PROVIDERS: Admitting Provider Internal Medicine; Emergency Provider Emergency Medicine Emergency Medical Services; Visit Provider Internal Medicine | DX: K56.7 Ileus, unspecified (principal); R11.2 Nausea with vomiting, unspecified | CPT/HCPCS: 99222; 99232; 99239 ==

== ENCOUNTER 2024-08-26 09:57 | Outpatient (REF) | payer OTHER, SELFPAY ==
--- OUTSIDE RECORDS SUMMARY | 2024-08-26 11:22 | XMS_ITS | Encounter Summary ---
Author Organization [employer] Address [address] [place] [address] Care Team Providers Care Blender Snuff Name Role Phone Name, Galen AGUAYO Primary Care Provider [phone] Reason for Visit * Reason Comments Med Refill Encounter Details Date Type Department Care Team ([facility] st Contact Info) Description 04/02/2023 Refill C [facility] [address] [place] [address] Name, MD [address]en [address] [place] [address] Social History Tobacco Use Types Packs/Day Years Used Date Smoking Tobacco: Never Smokeless Tobacco: Never Alcohol Use Standard Drinks/Week Comments Never 0 (1 standard drink = 0.6 oz pur e alcohol) Depression Answer Date Recorded Patient Health Questionnaire-9 Score 0 11/17/2022 Housing Stability Answer Date Recorded What is your housing situation today? I have vega wolff 01/18/[address] you li ve. Do you have problems with any of the following? None of the above 01/18/2023 Food Insecurity Answer Date Recorded Within the past 12 months, y ou worried that your food would run out before you got money to buy more: Never True 01/18/2023 Within the past 12 months,th e food you bought just didn't last and you didn't have enough money to get more: Never True Transportation Answer Date Recorded In the past 12 months, has l ack of transportation kept you from medical appts, meetings, work or from getting things needed for daily living? No 01/18/2023 Utilities Answer Date Recorded In the past 12 months, has t he electric, gas, oil or water company threatened to shut off services in your home? No 01/18/2023 Depression Answer Date Recorded Patient Health Questionnaire-2 Score 0 11/17/2022 Sex and Gender Information Value Date Recorded Sex Assigned at Male 01/23/2022 10:15 AM EDT Legal Sex Male 10:15 AM EDT Gender Identity Male 01/23/2022 10:15 AM EDT Sexual Orientation Straight 01/23/2022 10 :15 AM EDT documented as of this encounter Plan of Treatment Not on file documented as of this encounter Visit Diagnoses Not on filedocumented in this encounter Additional Health Concerns Assessment Noted Time PHQ-9 Depression Total Score: 0 11/18/19 23 10:53 AM EDT documented as of this encounter Care Teams Blender Snuff Relationship Specialty Start Date End Date Name, MD [address] [place] [address] PCP - General Family Medicine 02/24/19 documented as of this encounter
[2024-08-26 12:15] LABS: Alanine Aminotransferase 13 U/L (0-40); Albumin Level 4.2 g/dL (3.5-5.0); Alkaline Phosphatase 76 U/L (39-117); Anion Gap 12 (12-20); Aspartate Amino Transferase 21 U/L (5-37); Bilirubin Total 0.6 mg/dL (0.0-1.0); Blood Urea Nitrogen 20 mg/dL (9-16); Calcium 9.4 mg/dL (8.4-10.2); Carbon Dioxide 31 mmol/L (22-29); Chloride 104 mmol/L (96-108); Cholesterol 138 mg/dL (<200); Estimated Glomerular Filt Rate 60; Glucose Random 106 mg/dL (60-115); HDL Cholesterol 30 mg/dL (>40); LDL Cholesterol Calculated 77 mg/dL (<100); Potassium 4.1 mmol/L (3.3-5.1); Sodium 143 mmol/L (135-145); Total Protein 7.3 g/dL (6.5-8.0); Triglycerides 158 mg/dL (<150)
== END 2024-08-26 09:58 | disposition home or self-care (01) ==
LOC: HO.HHCL 09:57
PROVIDERS: Visit Provider Internal Medicine Geriatric Medicine
DX: E78.00 Pure hypercholesterolemia, unspecified (principal)
CPT/HCPCS: 36415; 80053; 80061

== ENCOUNTER 2024-12-03 10:37 | Observation (INO) | payer OTHER, SELFPAY ==
[2024-12-03] VITALS (7 sets, daily range): BP systolic 149–173; BP diastolic 73–103; PULSE 82–105; RESP 13–23; TEMP 36.4–36.6; O2SAT 95–98; BMI 25.4
--- NOTE | 2024-12-03 | EEG_ITS ---
Roomed Performed: 1st Floor Reason: Seizure like activity History: 83-year-old man with a history of Alzheimer's disease, nonverbal presenting to the ER with possible seizure. Apparently patient was eating his oatmeal at breakfast time and began to shake, foam at the mouth and his eyes rolled in the back of his head. Family reported that the patient then fell to the floor. Patient's family denied any history of seizure disorder or episode similar to this previously. Head CT 12/03/24 - No acute intracranial abnormality Medication: aspirin, atorvastatin, calcium, D3, carvedilol, hydralazine, irbesartan, loratadine, colchicine, pantoprazole, sertraline, trazodone, acetaminophen, docusate sodium, furosemide, memantine Technical Description Photic stimulation: Completed Hyperventilation: omitted Behavioral state: pt h/o states nonverbal but pt spoke a few words and appeared to follow commands with eyes open and closed State of Consciousness: awake and asleep Skull defect: no Sedation: no Handedness: unknown Duration of study: over 30 minutes Description: This is a 16 channel EEG with an EKG lead. Patient is awake and sleep during the tracing. Background EEG rhythm is low amplitude mixed theta beta mostly on the theta side with no obvious asymmetry or paroxysmal tendency. No focal activity is noted. Photic stimulation does not produce any significant driving. Hyperventilation is not performed. Cardiac lead does not reveal any significant abnormality. No sharp wave spikes or paroxysmal tendency noted. Impression: Moderate slowing with no epileptic discharges. MTDD
--- NOTE | ~2024-12-03 | CT_ITS ---
EXAMINATION: CT HEAD WITHOUT IV CONTRAST HISTORY: seizure, fall. TECHNIQUE: Unenhanced helical CT of the head was performed per standard departmental protocol. Coronal and sagittal reformats of the head were also evaluated. One or more of the following techniques was used for dose reduction: Automated exposure control, adjustment of the mA and/or kV according to patient size, use of iterative reconstruction technique. DLP: 739 mGy-cm COMPARISON: Comparison is made with the prior examination dated 02/03/2024. FINDINGS: BRAIN: There is diffuse prominence of the ventricular system and cortical sulci, consistent with atrophy. Periventricular and subcortical white matter hypodensities are noted which are nonspecific, but often seen in the setting of small vessel ischemic disease. There is no mass effect or midline shift. No intra- or extra-axial fluid collections are identified. SINUSES: There is a small amount of fluid in the left maxillary sinus. The mastoid air cells and middle ear cavities are well pneumatized. ORBITS: The visualized orbits are unremarkable. BONES/SOFT TISSUES: The extracranial soft tissues are unremarkable. The calvarium is intact. No suspicious lytic or sclerotic lesions. CT/CT head/brain wo IV con IMPRESSION: No acute intracranial abnormality. Electronically signed by: Behzad Talbert MD 12/03/2024 03:30 PM EDT
--- NOTE | ~2024-12-03 | CT_ITS ---
EXAMINATION: CT CHEST WITH CONTRAST CLINICAL INFORMATION: Status post fall. Pain. COMPARISON: CT angiogram chest dated January 16, 2024. TECHNIQUE: Multidetector volumetric CT imaging of the chest was obtained after the administration of 85 mL of Omnipaque 350 intravenous contrast without immediate adverse reactions. Axial MIP volume rendering provided. Sagittal and coronal reformatted images were obtained. This CT examination was performed using dose optimization techniques as appropriate, variously including the following: *Automated exposure control *Adjustment of mA and/or kV according to patient size (this includes techniques or standardized protocols for targeted exams where dose is matched to indication/reason for exam; i.e. extremities or head) *Use of iterative reconstruction technique DLP: 378.23 mGy centimeter. FINDINGS: No pneumomediastinum. No hemothorax. No hemopericardium. No gross lung contusion. No IV contrast extravasation in the thoracic aorta. Bilateral small pleural effusions. Compression atelectasis lung bases. Heart is enlarged. Mixed plaques throughout the thoracic aorta wall and its main branches. Ascending thoracic aorta measures 4.3 cm in maximum diameter descending thoracic aorta measures 3 cm in maximum diameter the aortic arch measures 2.8 cm in maximum diameter. Calcified plaques in the coronary arteries. Subcentimeter low density nodules in the thyroid gland. Bilateral multifocal patchy pulmonary groundglass. Multilevel spondylosis without acute fracture or trauma-related listhesis axial skeleton. Sternum is intact. Clavicles are grossly intact. Scapula are intact. No acute rib fracture. Intra-abdominal organs are evaluated on a different report section/exam. CT/CT chest w IV con IMPRESSION: No acute intrathoracic organ injury or vascular injury. No acute fracture. Mild interstitial lung edema and bilateral small pericardial effusions. Fleischner guidelines were followed. Electronically signed by: Usama Guillaume MD 12/03/2024 03:36 PM EDT
--- NOTE | ~2024-12-03 | CT_ITS ---
EXAMINATION: CT CERVICAL SPINE WITHOUT CONTRAST CLINICAL INFORMATION: Seizure with fall COMPARISON: February 03, 2024 and August 25, 2023 TECHNIQUE: Axial imaging was performed from the base of the skull through T2 without IV contrast. Coronal and sagittal reformatted images were generated from the original axial data set. ALARA: The examination used one or more of the following radiation dose reduction techniques: Automated exposure control, iterative reconstruction, and/or adjustment of mA and/or KV. DLP: 375 mGY*cm FINDINGS: There is mild reversal cervical lordosis. There is moderate and severe degenerative change with disc space narrowing and facet sclerosis and osteophytes most advanced at C4-5. Focal lytic lesions in the upper C7 vertebral body and posterior right T1 vertebral body are stable and probably degenerative. No fracture lines are identified. Soft tissues are unremarkable. CT/CT cervical spine wo IV con IMPRESSION: Stable multilevel degenerative disc disease and facet osteoarthritis. Electronically signed by: Claudio Leos MD 12/03/2024 03:31 PM EDT
--- NOTE | ~2024-12-03 | CT_ITS ---
EXAMINATION: CT ABDOMEN AND PELVIS WITH CONTRAST CLINICAL INFORMATION: Status post fall. Pain. COMPARISON: March 13, 2024. TECHNIQUE: Multidetector volumetric images were obtained from the superior aspect of the liver through the pubic symphysis following administration 85 mL of Omnipaque 350 intravenous contrast. Sagittal and coronal reformatted images were obtained on the technologist's workstation. Oral contrast: No This CT examination was performed using dose optimization techniques as appropriate, variously including the following: *Automated exposure control *Adjustment of mA and/or kV according to patient size (this includes techniques or standardized protocols for targeted exams where dose is matched to indication/reason for exam; i.e. extremities or head) *Use of iterative reconstruction technique DLP: 927.1 mGy centimeter. FINDINGS: Uterus is intact. Pancreas is intact. Spleen is intact. Cholelithiasis. Kidneys are intact. Cystic lesions, right kidney. No mesenteric hematoma. No hematoma, retroperitoneum. No hemoperitoneum. No ascites. No pneumoperitoneum. Numerous diverticula throughout the large intestine. No intestinal obstruction pattern. Abdominal aorta is intact with mixed plaques. No aneurysm or dissection abdominal aorta. Mixed plaques throughout the arteries in the retroperitoneum and the coronary arteries and thoracic aorta. No IV contrast extravasation in the main vessels. Small fat-containing umbilical and left inguinal hernias. Small to moderate volume in the scrotal sac no fully included in the examination. Prostate gland is prominent, intact. Bilateral small volume pleural effusions and mild interstitial lung edema in the correct clinical settings. Multilevel thoracolumbar spondylosis without acute fracture or trauma-related listhesis. Castellvi type III sacralization. Bony pelvis is intact. Coxofemoral joints are intact with normal alignment. CT/CT abdomen pelvis w IV con IMPRESSION: No acute intra-abdominal pelvic organ injury or acute fracture. Fleischner guidelines were followed. Electronically signed by: Usama Guillaume MD 12/03/2024 03:31 PM EDT
--- NOTE | 2024-12-03 11:10 | ED_ITS ---
HPI - General Adult General Chief complaint: Fall Stated complaint: SZ W/FALL,HIT HEAD,POST ICTAL PER EMS Time Seen by Provider: 12/03/24 11:10 Source: patient, family (patient's daughter via telephone) and EMS Mode of arrival: EMS Limitations: physical limitation (patient has severe Alzheimer's non-verbal at [facility]) History of Present Illness ED Provider: Cora Moore PA-C HPI narrative: Patient is an 83 year old assigned male at with a history of alzheimers disease, being non-verbal, BPH, and varicose veins presenting to the emergency department today after a possible seizure and a fall. Patient's family at the bed side states that the patient was eating oatmeal for breakfast when he began to shake, foam at the mouth, and his eyes rolled into the back of his head. Family states that the patient then fell to the floor. Patient's family states that he does not have a history of seizures and has never had an episode like this before. Related Data Home Medications ?Medication ?Instructions ?Recorded ?Confirmed aspirin 81 mg tablet,delayed 81 mg PO QAM 05/27/20 release atorvastatin 20 mg tablet 20 mg PO BEDTIME 05/27/20 calcium 500 mg (as carbonate)-vit 1 tab PO BID 03/13/24 D3 10 mcg (400 unit) chewable tablet carvedilol 25 mg tablet 25 mg PO BID 05/27/20 hydralazine 50 mg tablet 50 mg PO TID 05/27/20 irbesartan 300 mg tablet 300 mg PO DAILY 05/27/20 loratadine 10 mg tablet 10 mg PO DAILY 05/27/2002/23 colchicine 0.6 mg tablet 0.6 mg PO DAILY 10/26/21 pantoprazole 40 mg tablet,delayed 40 mg PO DAILY@0630 10/26/21 03/13/24 release sertraline 25 mg tablet 25 mg PO DAILY 10/26/2102/23 trazodone 100 mg tablet 100 mg PO BEDTIME 10/26/21 1 05/14/23 acetaminophen 500 mg tablet 500 mg PO Q6H PRN pain 03/13/24 docusate sodium 100 mg capsule 100 mg PO BID 03/13/24 03/13/24 furosemide 40 mg tablet 40 mg PO DAILY 03/13/2402/23 memantine 10 mg tablet 10 mg PO BID 03/13/24 Previous Rx's ?Medication ?Instructions ?Recorded doxazosin 4 mg tablet 4 mg PO BEDTIME 90 days #90 tabs 08/03/23 finasteride 5 mg tablet 5 mg PO DAILY 90 days #90 ta bs 08/03/23 cefuroxime axetil 500 mg tablet 500 mg PO BID 1 day #2 tabs 03/17/24 metronidazole 500 mg tablet 500 mg PO Q8H #3 tabs 02/24 06/16 Allergies Allergy/AdvReac Type Severity Reaction Status Date / Time nifedipine (From Procardia) Allergy Intermediate EDEMA Verified 12/03/24 11:01 ibuprofen (Ibuprofen) Allergy Mild RASH Verified 12/03/24 11:01 ibuprofen Allergy Unknown rash Uncoded 03/13/24 11:57 nifedipine Allergy Unknown edema Uncoded 03/13/24 11:57 Review of Systems 2 Constitutional: Constitutional: Reports as per HPI Eyes: Eyes: Reports as per HPI ENT: Reports as per HPI Cardiovascular: Cardiovascular: Reports as per HPI Respiratory: Respiratory: Reports as per HPI Gastrointestinal: Gastrointestinal: Reports as per HPI Genitourinary: Genitourinary: Reports as per HPI Musculoskeletal: Musculoskeletal: Reports as per HPI Integumentary/Breasts: Skin/Breast: Reports as per HPI Neurologic: Reports as per HPI Psychiatric: Psychiatric: Reports as per HPI Endocrine: Endocrine: Reports as per HPI Hematologic/Lymphatic: Hematologic/Lymphatic: Reports as per HPI Allergic/Immunologic: Allergic/Immunologic: Reports as per HPI PMF Past Medical History Attestation statement: The following information was validated with the patient. 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) Alcohol intake: former Patient Tobacco Use Status: Never used Tobacco Smoked in Last 30 Days: No Advance Directives: No Advance Directives Information Provided: Yes Do you have a plan to hurt others: No Plan service: No Physical Exam ED Vital Signs: Vital Signs - 24 hr 12/03/24 10:53 12/03/24 12:04 12/03/24 12:04 Temperature 97.7 F Pulse Rate 88 85 85 Respiratory Rate 20 16 16 Blood Pressure 149/73 H 165/79 H 165/79 H Pulse Oximetry 97 96 96 Oxygen Delivery Method Room Air Room Air 12/03/24 14:34 Temperature 97.9 F Pulse Rate 90 Respiratory Rate 13 Blood Pressure 156/103 H Pulse Oximetry 98 Oxygen Delivery Method Room Air BMI result Body Mass Index 25.4 Const General: cooperative, no acute distress, alert and awake Nutritional Appearance: well nourished [facility] Head: Yes normal to inspection and Yes atraumatic Ears: hearing grossly normal bilaterally and external ears normal General nose exam: Normal external nose present, no nasal discharge noted and no epistaxis Face and sinus: Yes normal facial exam, No abrasion and No laceration Mouth: Normal oral and palatal mucosa present, no drooling and no muffled voice Eyes General: appearance normal, both eyes and all related structures Periorbital: periorbital findings normal Eyelids: Yes eyelids normal Conjunctivae: conjunctivae normal Pupils: Equal, round and reactive pupils present EOM: EOMs intact bilaterally Neck Neck: Yes normal visual inspection and Yes full ROM Resp Effort & Inspection: normal respiratory effort and able to speak in complete sentences Neuro Cranial nerves: Yes Equal, round and reactive pupils present Extrem General: Yes normal to inspection, Yes full ROM and Yes capillary refill normal Medications Administered Discontinued Medications Generic Name Dose Route Start Last Admin Trade Name Freq PRN Reason Stop Dose Admin Sodium Chloride 1,000 mls @ 999 mls/hr 12/03/24 12:15 12/03/24 14:08 Ns IV 12/03/24 13:15 Infused .Q1H1M COURTNEY Infusion Iohexol 100 ml 12/03/24 15:25 12/03/24 15:25 Iohexol 350 Mg/Ml 100 Ml Infus..Btl IV 12/03/24 15:26 85 ml ONCE ONE Administration Medical Decision Making Medical Decision Making [facility] Narrative: Patient is an 83 year old assigned male at with a history of alzheimers disease, being non-verbal, BPH, and varicose veins presenting to the emergency department today after a possible seizure and a fall. Patient's physical exam is consistent with his baseline. Patient's blood work showed a sodium of 146, BUN of 18, initial lactic of 2.7 with a repeat after 1 liter of fluid of 2.7. Patient's EKG was unremarkable. Patient's CT head, c-spine, chest, and abdomen/pelvis showed no acute process. I explained my physical exam findings as well as all test results to the patient and the patient's daughter. I answered all questions asked by the patient's daughter. Given the uncertainty of the patient's episode, mild dehydration, and persistent lactic acidosis - patient should be admitted for further monitoring / evaluation. I spoke with the hospitalist team who agreed to admission. Patient's daughter verbalized agreement and understanding with this treatment plan and admission. Differential Diagnosis Differential Diagnoses: The differential diagnosis associated with the presentation includes Syncope Seizure Dehydration Lactic acidosis Admission/Observation Consideration of admission/observation: Escalation of care including admission/observation considered Admitted as noted in the MDM Rationale portion of this note. Consult Healthcare Provider Management of the patient was discussed with: Hospitalist (agreed to admission as noted in the MDM Rationale portion of this note. ) Lab Data [facility] Lab Attestation statement: I reviewed the patient's lab results. My interpretation of these results are in the MDM Rationale portion of this note. 12/03/24 11:36 12/03/24 11:36 Labs: Lab Results 12/03/24 12/03/24 12/03/24 Range/Units 11:36 12:53 14:14 WBC 9.4 (4.8-10.8) X10*3/uL RBC 4.04 L (4.60-5.80) X10*6/uL Hgb 12.3 L (14.0-18.0) g/dl Hct 36.5 L (42.0-52.0) % MCV 90.3 (80.0-98.0) fL MCH 30.4 (27.0-33.0) pg MCHC 33.7 (31.0-36.0) g/dl RDW 13.1 (11.0-16.0) % Plt Count 167 (160-400) X10*3/uL MPV 10.3 (9.4-12.4) fL Immature Gran % (Auto) 0.4 (0.0-0.4) % Neut % (Auto) 81.5 H (45-73) % Lymph % (Auto) 12.2 L (20-40) % [place] % (Auto) 5.1 (2-11) % Eos % (Auto) 0.6 (0-4) % Baso % (Auto) 0.2 (0-2) % Lymph # (Auto) 1.1 L (1.2-4.9) X10*3/uL [place] # (Auto) 0.5 (0.1-1.2) X10*3/uL Eos # (Auto) 0.1 (0.0-0.4) X10*3/uL Baso # (Auto) 0.0 (0.0-0.2) X10*3/uL Abs Immat Gran (auto) 0.04 H (0.00-0.03) X10*3/uL Absolute Neuts (auto) 7.6 (2.0-8.3) x10*3/uL Absolute Nucleated RBC 0.000 (0.0-0.012) X10*3/uL Nucleated RBC % (auto) 0.0 (0.0-0.2) /100WBC VBG pH 7.50 H (7.32-7.43) VBG pCO2 36 mmHg VBG pO2 129 mmHg VBG HCO3 28 H (22-26) mmol/L VBG O2 Saturation 99.0 % VBG Base Excess 5.2 mmol/L Sodium 146 H (135-145) mmol/L Potassium 3.9 (3.3-5.1) mmol/L Chloride 111 H (96-108) mmol/L Carbon Dioxide 29 (22-29) mmol/L Anion Gap 10 L (12-20) BUN 18 H (9-16) mg/dL Creatinine 1.03 (0.5-1.4) mg/dL Estim Creat Clear Calc 52.5 Estimated GFR > 60 Random Glucose 120 H (60-115) mg/dL Lactic Acid 2.7 H* (0.5-2.0) mmol/L Lactic Acid F/U @ 2Hr 2.7 H* (0.5-2.0) mmol/L Calcium 9.1 (8.4-10.2) mg/dL Magnesium 2.2 (1.6-2.6) mg/dL Total Bilirubin 0.4 (0.0-1.0) mg/dL AST 23 (5-37) U/L ALT 16 (0-40) U/L Alkaline Phosphatase 79 (39-117) U/L Troponin I High Sens 8.5 (<3.5-35.0) ng/L Total Protein 6.8 (6.5-8.0) g/dL Albumin 4.0 (3.5-5.0) g/dL Independent Interpretation I performed an independent interpretation of an: EKG and CT Scan Interpretation: My interpretation is in agreement with the radiologist's impression of these imaging studies. L Report Number: [id number]: Total DLP = 0.00 mGy-cm Reason for Exam: fall, pain EXAMINATION: CT ABDOMEN AND PELVIS WITH CONTRAST CLINICAL INFORMATION: Status post fall. Pain. COMPARISON: March 13, 2024. TECHNIQUE: Multidetector volumetric images were obtained from the superior aspect of the liver through the pubic symphysis following administration 85 mL of Omnipaque 350 intravenous contrast. Sagittal and coronal reformatted images were obtained on the technologist's workstation. Oral contrast: No This CT examination was performed using dose optimization techniques as appropriate, variously including the following: *Automated exposure control *Adjustment of mA and/or kV according to patient size (this includes techniques or standardized protocols for targeted exams where dose is matched to indication/reason for exam; i.e. extremities or head) *Use of iterative reconstruction technique DLP: 927.1 mGy centimeter. FINDINGS: Uterus is intact. Pancreas is intact. Spleen is intact. Cholelithiasis. Kidneys are intact. Cystic lesions, right kidney. No mesenteric hematoma. No hematoma, retroperitoneum. No hemoperitoneum. No ascites. No pneumoperitoneum. Numerous diverticula throughout the large intestine. No intestinal obstruction pattern. Abdominal aorta is intact with mixed plaques. No aneurysm or dissection abdominal aorta. Mixed plaques throughout the arteries in the retroperitoneum and the coronary arteries and thoracic aorta. No IV contrast extravasation in the main vessels. Small fat-containing umbilical and left inguinal hernias. Small to moderate volume in the scrotal sac no fully included in the examination. Prostate gland is prominent, intact. Bilateral small volume pleural effusions and mild interstitial lung edema in the correct clinical settings. Multilevel thoracolumbar spondylosis without acute fracture or trauma-related listhesis. Castellvi type III sacralization. Bony pelvis is intact. Coxofemoral joints are intact with normal alignment. CT/CT abdomen pelvis w IV con IMPRESSION: No acute intra-abdominal pelvic organ injury or acute fracture. Fleischner guidelines were followed. Electronically signed by: Usama Guillaume MD 12/03/2024 03:31 PM EDT RP Dictated By: Usama Canchola MD Signed By: Electronically signed by Usama Garcia MD 12/03/24 1531 Report Number: [id number]: Total DLP = 0.00 mGy-cm Reason for Exam: seizure, fall EXAMINATION: CT CERVICAL SPINE WITHOUT CONTRAST CLINICAL INFORMATION: Seizure with fall COMPARISON: February 03, 2024 and August 25, 2023 TECHNIQUE: Axial imaging was performed from the base of the skull through T2 without IV contrast. Coronal and sagittal reformatted images were generated from the original axial data set. ALARA: The examination used one or more of the following radiation dose reduction techniques: Automated exposure control, iterative reconstruction, and/or adjustment of mA and/or KV. DLP: 375 mGY*cm FINDINGS: There is mild reversal cervical lordosis. There is moderate and severe degenerative change with disc space narrowing and facet sclerosis and osteophytes most advanced at C4-5. Focal lytic lesions in the upper C7 vertebral body and posterior right T1 vertebral body are stable and probably degenerative. No fracture lines are identified. Soft tissues are unremarkable. CT/CT cervical spine wo IV con IMPRESSION: Stable multilevel degenerative disc disease and facet osteoarthritis. Electronically signed by: Claudio Leos MD 12/03/2024 03:31 PM EDT RP Dictated By: Claudio Leos MD Signed By: Electronically signed by Claudio Leos MD 12/03/24 1531 Reason for Exam: fall, pain EXAMINATION: CT CHEST WITH CONTRAST CLINICAL INFORMATION: Status post fall. Pain. COMPARISON: CT angiogram chest dated January 16, 2024. TECHNIQUE: Multidetector volumetric CT imaging of the chest was obtained after the administration of 85 mL of Omnipaque 350 intravenous contrast without immediate adverse reactions. Axial MIP volume rendering provided. Sagittal and coronal reformatted images were obtained. This CT examination was performed using dose optimization techniques as appropriate, variously including the following: *Automated exposure control *Adjustment of mA and/or kV according to patient size (this includes techniques or standardized protocols for targeted exams where dose is matched to indication/reason for exam; i.e. extremities or head) *Use of iterative reconstruction technique DLP: 378.23 mGy centimeter. FINDINGS: No pneumomediastinum. No hemothorax. No hemopericardium. No gross lung contusion. No IV contrast extravasation in the thoracic aorta. Bilateral small pleural effusions. Compression atelectasis lung bases. Heart is enlarged. Mixed plaques throughout the thoracic aorta wall and its main branches. Ascending thoracic aorta measures 4.3 cm in maximum diameter descending thoracic aorta measures 3 cm in maximum diameter the aortic arch measures 2.8 cm in maximum diameter. Calcified plaques in the coronary arteries. Subcentimeter low density nodules in the thyroid gland. Bilateral multifocal patchy pulmonary groundglass. Multilevel spondylosis without acute fracture or trauma-related listhesis axial skeleton. Sternum is intact. Clavicles are grossly intact. Scapula are intact. No acute rib fracture. Intra-abdominal organs are evaluated on a different report section/exam. CT/CT chest w IV con IMPRESSION: No acute intrathoracic organ injury or vascular injury. No acute fracture. Mild interstitial lung edema and bilateral small pericardial effusions. Fleischner guidelines were followed. Electronically signed by: Usama Guillaume MD 12/03/2024 03:36 PM EDT RP Dictated By: Usama Canchola MD Signed By: Electronically signed by Usama Garcia MD 12/03/24 1536 Report Number: [id number]: Total DLP = 2434.00 mGy-cm Reason for Exam: seizure, fall EXAMINATION: CT HEAD WITHOUT IV CONTRAST HISTORY: seizure, fall. TECHNIQUE: Unenhanced helical CT of the head was performed per standard departmental protocol. Coronal and sagittal reformats of the head were also evaluated. One or more of the following techniques was used for dose reduction: Automated exposure control, adjustment of the mA and/or kV according to patient size, use of iterative reconstruction technique. DLP: 739 mGy-cm COMPARISON: Comparison is made with the prior examination dated 02/03/2024. FINDINGS: BRAIN: There is diffuse prominence of the ventricular system and cortical sulci, consistent with atrophy. Periventricular and subcortical white matter hypodensities are noted which are nonspecific, but often seen in the setting of small vessel ischemic disease. There is no mass effect or midline shift. No intra- or extra-axial fluid collections are identified. SINUSES: There is a small amount of fluid in the left maxillary sinus. The mastoid air cells and middle ear cavities are well pneumatized. ORBITS: The visualized orbits are unremarkable. BONES/SOFT TISSUES: The extracranial soft tissues are unremarkable. The calvarium is intact. No suspicious lytic or sclerotic lesions. CT/CT head/brain wo IV con IMPRESSION: No acute intracranial abnormality. Electronically signed by: Behzda Talbert MD 12/03/2024 03:30 PM EDT RP Dictated By: Behzad Talbert MD Signed By: Electronically signed by Behzad Talbert MD 12/03/24 1530 I independently interpreted this EKG and am in agreement with the below findings: Vent. Rate: 85 BPM Atrial Rate: 85 BPM P-R Int: 220 ms QRS Dur: 144 ms QT Int: 402 ms P-R-T Axes: 50 11 14 degrees QTcB Int: 478 ms Sinus rhythm with 1st degree A-V block Right bundle branch block When compared with ECG of 13-Mar-2024 12:17, Right bundle branch block is now Present Referred By: Cora Moore Electronically Signed By: MG ASHTON MD Dictated By: Mg Ashton MD Signed By: Electronically signed by Mg Ashton MD 12/03/24 1252 Radiology Impression Discussion of test interpretation with radiology: I have reviewed the radiologist's reading. Independent Historian Clinical information obtained from an independent historian. History obtained from or confirmed by: EMS (EMS provided additional history) and Other (Patient's daughter provided additional history) Critical Care Time Critical Care Time Critical Care Time: Yes Total Critical Care Time: 43 Attestation: I spent 43 minutes of Critical Care Time with this patient. This does not include time spent on separately reported billable procedures. Discharge Plan Discharge Clinical Impression: Acidosis, lactic, Seizure-like activity Patient Disposition: Admitted As Inpatient Print Language: Urdu
--- NOTE | 2024-12-03 11:11 | ECG_ITS ---
Test Reason : SEIZURE Blood Pressure : */* mmHG Vent. Rate : 85 BPM Atrial Rate : 85 BPM P-R Int : 220 ms QRS Dur : 144 ms QT Int : 402 ms P-R-T Axes : 50 11 14 degrees QTcB Int : 478 ms Sinus rhythm with 1st degree A-V block Right bundle branch block Abnormal ECG When compared with ECG of 13-Mar-2024 12:17, Right bundle branch block is now Present Referred By: Cora Moore Electronically Signed By: RUFINO ASHTON MD
[2024-12-03 11:41] LABS: MANUAL DIFF FLAG NO
[2024-12-03 11:45] LABS: Hematocrit 36.5 % (42.0-52.0); Hemoglobin 12.3 g/dl (14.0-18.0); Imm Gran Abs Auto 0.04 X10*3/uL (0.00-0.03); Imm Gran Pct Auto 0.4 % (0.0-0.4); Lymphocytes Absolute Auto 1.1 X10*3/uL (1.2-4.9); Mean Corpuscular HGB Conc 33.7 g/dl (31.0-36.0); Mean Corpuscular Hemoglobin 30.4 pg (27.0-33.0); Mean Corpuscular Volume 90.3 fL (80.0-98.0); NRBC Abs Auto 0.000 X10*3/uL (0.0-0.012); NRBC Pct Auto 0.0 /100WBC (0.0-0.2); Platelet Count 167 X10*3/uL (160-400); Red Blood Count 4.04 X10*6/uL (4.60-5.80); White Blood Count 9.4 X10*3/uL (4.8-10.8)
--- NOTE | 2024-12-03 11:57 | PC.NURSE ---
83 M presents to ED after shaking, seizure like activity during breakfast, and eyes went back, and was foaming from the mouth. Pt has advanced Alzheimer'S and rarely responds or responds verbally. Pt fell on to the floor but did not hit his head per daughter. RR even and unlabored, denies CP or SOB. Pt has secretions in mouth, suctioned. Pt has a lot of saliva at baseline per family. C-collar in place. Pt has his eyes open, is looking around. No visible s/s of distress or pain.
[2024-12-03 12:02] LABS: Alanine Aminotransferase 16 U/L (0-40); Albumin Level 4.0 g/dL (3.5-5.0); Alkaline Phosphatase 79 U/L (39-117); Anion Gap 10 (12-20); Aspartate Amino Transferase 23 U/L (5-37); Blood Urea Nitrogen 18 mg/dL (9-16); Calcium 9.1 mg/dL (8.4-10.2); Carbon Dioxide 29 mmol/L (22-29); Chloride 111 mmol/L (96-108); Creatinine Clr Calc Pharmacy 52.5; Estimated Glomerular Filt Rate > 60; Magnesium 2.2 mg/dL (1.6-2.6); Potassium 3.9 mmol/L (3.3-5.1); Sodium 146 mmol/L (135-145); Total Protein 6.8 g/dL (6.5-8.0)
[2024-12-03 12:11] LABS: Troponin-I High Sensitivity 8.5 ng/L (<3.5-35.0)
--- NOTE | 2024-12-03 12:55 | MHC.EDTECH ---
delay on ekg do to ekg machine in use nurse aware
[2024-12-03 12:56] LABS: Venous Blood Gas Refer to POC result
[2024-12-03 12:58] LABS: VBG HCO3 28 mmol/L (22-26); VBG O2 % Saturation 99.0 %
--- NOTE | 2024-12-03 13:04 | PC.NURSE ---
[facility] the pt's caregiver assisted living phone number if needs ride home [phone]
[2024-12-03 13:40] LABS: Reflex Lactate? Lactic Acid Added
--- OUTSIDE RECORDS SUMMARY | 2024-12-03 15:10 | XMS_ITS | Clinical Summary ---
Author Organization [facility] Address [address] [place] [address] Phone Care Team Providers Care Skills Instructor Name Role Phone Name, Galen AGUAYO Primary Care Provider [phone] Allergies No known active allergies Medications furosemide (LASIX) 20 MG tablet Take 20 mg by mouth daily. Active carvedilol (COREG) 25 MG tablet Take 25 mg by mouth 2 (two) times a day with meals. Active atorvastatin (LIPITOR) 20 MG tablet Take 20 mg by mouth daily. Active irbesartan (AVAPRO) 300 MG tablet Take 300 mg by mouth daily. Active aspirin 81 MG EC tablet Take 81 mg by mouth every morning. 01/20/2021 Active calcium carbonate-vitam in D3 1,250 mg (500 mg elemental)-400 units per tablet Take 1 tablet by mouth 2 (two) times a day. 01/20/2021 Active doxazosin (CARDURA) 4 MG tablet Take 4 mg by mouth nightly at bedtime. at bedtime. 02/14/2021 Active finasteride (PROSCAR) 5 mg tablet Take 5 mg by mouth every morning. 02/14/2021 Active hydrALAZINE (APRESOLINE) 50 MG tablet Take 50 mg by mouth 3 (three) times a day. 02/14/2021 Active loratadine (CLARITIN) 10 mg tablet Take 10 mg by mouth daily. 02/11/2021 Active memantine (NAMENDA) 5 MG tablet Take 5 mg by mouth daily. 12/13/2020 Active traZODone (DESYREL) 100 MG tablet Take 100 mg by mouth nightly at bedtime. at bedtime. 02/14/2021 Active pantoprazole (PROTONIX) 40 MG tablet Take 1 tablet (40 mg total) by mouth daily. 21 tablet 02/24/2021 Active ibuprofen (ADVIL,MOTRIN) 600 MG tablet Take 1 tablet (600 mg total) by mouth every 8 (eight) hours for 7 days. 21 tablet 02/23/2021 Active acetaminophen (TYLENOL) 325 mg tablet Take 650 mg by mouth every 4 (four) hours as needed for mild pain. 02/25/2021 Active Active Problems Problem Noted Date Diagnosed Date Acute pericarditis 02/21/2021 Assessment & Plan (02/22/2021 4:32 PM EST): Etiology for the pericarditis is unknown, uric acid levels normal. An echocardiogram showed normal EF, no significant left ventricular wall motion abnormalities, bicuspid aortic valve, no recurrent effusion. Patient is feeling symptomatically improved following initiation of colchicine and Toradol. Viral respiratory panel was ordered for send out, Covid swab negative Continue with colchicine 0.6 mg twice daily as per cardiology recommendations Continue carvedilol as per his home regimen Start ibuprofen 600 mg every 8 hours, discontinue Toradol in preparation for hopeful discharge tomorrow Check JOSE, rheumatoid factor Trend BMP Dementia Assessment & Plan (02/22/2021 4:33 PM EST): Patient more alert and oriented this morning, able to provide a history of a few days worth of worsening of the chest pain along the left side. Patient doing well speaking in Colombian this morning Case management consultation appreciated Patient will likely need assistance with home medication preparation for discharge, especially with the introduction of some new medications. Will confirm med rec tomorrow prior to discharge Essential hypertension Assessment & Plan (02/22/2021 4:34 PM EST): Confirm medications with patient's brother tomorrow Continue the following regimen and monitor BP: carvedilol 25 mg twice daily Doxazosin 4 mg nightly Finasteride 5 mg in the morning Hydralazine 50 mg 3 times daily Irbesartan 300 mg daily Hyperlipidemia Social History Tobacco Use Types Packs/Day Years Used Date Smoking Tobacco: Never Smokeless Tobacco: Never Alcohol Use Standard Drinks/Week Comments Not Currently 0 (1 standard drink = 0.6 oz pur e alcohol) Education Answer Date Recorded Are you interested in more education? Not on ivette e 07/22/2022 Are you concerned about learning? Not on file 07/22/2022 No 07/22/2022 No 07/22/2022 Digital Access Answer Date Recorded No 08/22/2022 No 08/22/2022 Reliable internet access at home? Not on file 08/22/2022 Device with a working camera? Not on file Sex and Gender Information Value Date Recorded Sex Assigned at Not on file Legal Sex Male 3:10 PM EST Gender Identity Not on file Sexual Orientation Not on file Last Filed Vital Signs Vital Sign Reading Time Taken Comments Blood Pressure 134/60 03/24/2021 11:53 AM EST Pulse 70 03/24/2021 11:53 AM EST Temperature 36.7 C (98 F) 03/24/2021 11:53 AM EST Respiratory Rate 16 03/24/2021 11:5 3 AM EST Oxygen Saturation 98% 03/24/2021 11: 53 AM EST Inhaled Oxygen Concentration - - Weight 72.5 kg (159 lb 14.4 oz) 02/22/2021 8:20 PM EST Height 160 cm (5' 3 ) 02/22/2021 8:20 PM EST est imated Body Mass Index 28.33 02/22/2021 8:20 PM EST Plan of Treatment Health Maintenance Due Date Last Done Comments Adult Td,Tdap Booster 1942 BLOOD PRESSURE 1942 DEPRESSION SCREENING 1954 PNEUMOCOCCAL VACCINES (50+ years) (1 of 1 - PCV) 1992 ZOSTER VACCINES (1 of 2) 1992 RSV VACCINE (1 - 1-dose 75+ series) 2017 CREATININE LEVEL 02/23/2022 02/23/2021, 02/22/2021, 02/21/2021 POTASSIUM LEVEL 02/23/2022 02/23/2021, 02/22/2021, 02/21/2021 INFLUENZA VACCINE (#1) 2024 COVID-19 VACCINE ( - 2023-2 5 season) 2024 HEPATITIS A VACCINES Aged Out No long er eligible based on patient's age to complete this topic HIB VACCINES Aged Out No longer eligi ble based on patient's age to complete this topic MENINGOCOCCAL VACCINES (ACWY) Aged Out No longer eligible based on patient's age to complete this topic MENINGOCOCCAL VACCINES (B) Aged Out N o longer eligible based on patient's age to complete this topic Medical Devices Not on file Procedures Procedure Name Priority Date/Time Associated Diagnosis Comments BASIC METABOLIC PANEL Routine 02/23/2021 5:59 AM EST from Last 3 Months or Most Recently Relevant to Health Maintenance Results * (ABNORMAL) Basic metabolic panel (02/23/2021 5:59 AM EST) SODIUM 139 133 - 146 mmol/L [facility] CHLORIDE 106 96 - 108 mmol/L [facility] POTASSIUM 4.4 3.3 - 5.1 mmol/L [facility] CO2 25 21 - 35 mmol/L [facility] BUN 27(H) 6 - 19 mg/dL [facility] CREATININE 1.00 0.5 - 1.5 mg/dL [facility] GLUCOSE 98 70 - 99 mg/dL [facility] CALCIUM 8.6 8.4 - 10.3 mg/dL [facility] EGFR 72 >59 mL/min/1.7 3m2 [facility] Comment:Estimated glomerular filtration rate calculated using the CKD-EPI equation. ANION GAP 12 10 - 20 mmol/L [facility] Blood 02/23/2021 5:59 AM EST 02/23/2021 6:27 AM EST Fani Gay MD LAB BLOOD ORDERABLES Final R esult [address] [address] from Last 3 Months or Most Recently Relevant to Health Maintenance Insurance MEDICARE PART A & [place] B [facility] PART A & [place] HEALTH MEDICARE PART A & [place]ALTH MEDICARE PART A & B [facility] Advance Directives For more information, please contact: [phone] (9AM - 5PM [facility], Sunday-Sunday) * Full Code (Latest Code Status on File) Date Activated Date Inactivated Comments 02/21/2021 11:20 PM Question Answer Comments Code Status Confirmed With: Patient Care Teams Skills Instructor Relationship Specialty Start Date End Date Name, MD Galen [address] [place] [id number] PCP - General Geriatric Psychiatry 02/21/21 Additional Source Comments The information contained in this document represents components of the legal health record. It is not the complete legal health record.[facility]
--- OUTSIDE RECORDS SUMMARY | 2024-12-03 15:10 | XMS_ITS | Continuity of Care Document ---
Author Name [facility], Medical Address [address] [place] [id number] Organization Unknown Address [address] [place] [address] Medications No known medications Problems No known problems
--- OUTSIDE RECORDS SUMMARY | 2024-12-03 15:10 | XMS_ITS | Encounter Summary ---
Author Organization [facility] Address [address] [place] [address] Encounters * CPT with Medical [facility] at [facility] on 2024-11-04 Patient with intermittent swelling of left wrist and hand extends to elbow at times. No fever or redness appears to have pain. Patient with advanced dementia and is non verbal. 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 } DE1 sent to the above address for the pt with extremity pain and swelling in his left arm. The pt was met in his apartment and thet pts INDEPENDENT TRADER was at his side. The pts daughter was not on site but did translate through her phone. The pt had swelling in his left hand mostly between his thumb and pointer finger, and his forearm was also swollen to the elbow. The pt had pain upon palpation to the area of the shoulder and also the wrist area. The pt could not, or would not squeeze SC1s fingers in either hand. The pt had equal pulses in both wrists and neither was red or hot to the touch. The pts daughter stated they give him 500 mg PO of Tylenol in the morning and night and they also are putting on Diclofenac Topical gel and Arthritis creams to the arm twice a day. Dr Mccord was contacted and results were shared and then a video call was done with the pt and Dr Mccord. Dr Mccord suggested that the pt go to an urgent care that can do X-rays and see if there is anything broken. The daughterwas also made aware of the warning signs over the video with the DR and she understood. The warning signs were, chest pain, severe shortness of breath, extreme pain, and she did understand. Dr Mccord advised they could increase the Tylenol use to 4 times a day, and they were pleased with that info. SC1 cleared the call. WRR. IV_(FLUIDS_AND/OR_MEDICATION), MEDICATION_IM, ORAL_MEDICATION, WOUND_CARE, ORTHOSTATIC_VITAL_SIGNS Written by Medical [facility] on 2024-11-04
--- OUTSIDE RECORDS SUMMARY | 2024-12-03 15:10 | XMS_ITS | Encounter Summary ---
Author Organization [facility] Address [address] [place] [address] Phone Care Team Providers Care Patient Clerical Assistant Name Role Phone Name, Galen AGUAYO Primary Care Provider [phone] Encounter Details Date Type Department Care Team (Late st Contact Info) Description 02/21/2021 Procedure Pass [facility] [address] [place] [address] Social History Tobacco Use Types Packs/Day Years Used Date Smoking Tobacco: Never Smokeless Tobacco: Never Alcohol Use Standard Drinks/Week Comments Not Currently 0 (1 standard drink = 0.6 oz pur e alcohol) Sex and Gender Information Value Date Recorded Sex Assigned at Not on file Legal Sex Male 3:10 PM EST Gender Identity Not on file Sexual Orientation Not on file documented as of this encounter Functional Status * Calculated C-SSRS Risk Score (Lifetime/Recent) Answer Date of Assessment Author No Risk Indicated 02/21/2021 3:34 PM Shannan Morales RN * [place] Suicide Severity Rating Scale (Screener/Recent Self-Report) Question Answer Date of Assessment Author 1. Wish to be (Past 1 Month) No 02/21/2021 3:34 PM Shannan Nelson RN 2. Non-Specific Active Suici jesus Thoughts (Past 1 Month) No 02/21/2021 3:34 PM Jelena Nelson RN 6. Suicidal Behavior (Lifetime) No 3:34 PM Shannan Nelson RN documented as of this encounter Plan of Treatment Not on file documented as of this encounter Visit Diagnoses Not on filedocumented in this encounter Additional Health Concerns Infection Onset Date Last Indicated Resolved Time CoV-Risk Comment:Per note documentation 02/21/2021 02/21/2021 4:26 PM EST documented as of this encounter Care Teams Patient Clerical Assistant Relationship Specialty Start Date End Date Name, MD Galen [address] [place] [address] PCP - General Geriatric Psychiatry 02/21/21 documented as of this encounter Additional Source Comments The information contained in this document represents components of the legal health record. It is not the complete legal health record.[facility]
[2024-12-03] MEDS: iohexoL 350 MG/ML 100 ML INFUS..BTL IV (15:25)
[2024-12-03 15:54] LABS: ~Lactic Acid-LAB USE ONLY 2.7 mmol/L (0.5-2.0)
--- NOTE | 2024-12-03 16:00 | MHC.EDTECH ---
patient is incontinent washed and change patient put on a male purewick nurse aware
[2024-12-03 16:16] LABS: Reflex Lactate? 2 Y
--- NOTE | 2024-12-03 16:26 | PM.DS ---
DS: Providers Provider Date of Service: 12/03/24 Date of discharge: 12/03/24 Primary care physician: Galen Chavez MD Physical Exam Vital Signs: Vital Signs: Last Vital Signs Temp 97.9 F 12/03/24 14:34 Pulse 90 12/03/24 14:34 Resp 13 12/03/24 14:34 BP 156/103 H 12/03/24 14:34 Pulse Ox 98 12/03/24 14:34 O2 Del Method Room Air 12/03/24 14:34 BMI result Body Mass Index 25.4 DS: Data Data Completed and Pending Labs on day of discharge: Laboratory Results - last 24 hr 12/03/24 12/03/24 12/03/24 11:36 12:53 14:14 WBC 9.4 RBC 4.04 L Hgb 12.3 L Hct 36.5 L MCV 90.3 MCH 30.4 MCHC 33.7 RDW 13.1 Plt Count 167 MPV 10.3 Immature Gran % (Auto) 0.4 Neut % (Auto) 81.5 H Lymph % (Auto) 12.2 L [place] % (Auto) 5.1 Eos % (Auto) 0.6 Baso % (Auto) 0.2 Lymph # (Auto) 1.1 L [place] # (Auto) 0.5 Eos # (Auto) 0.1 Baso # (Auto) 0.0 Abs Immat Gran (auto) 0.04 H Absolute Neuts (auto) 7.6 Absolute Nucleated RBC 0.000 Nucleated RBC % (auto) 0.0 VBG pH 7.50 H VBG pCO2 36 VBG pO2 129 VBG HCO3 28 H VBG O2 Saturation 99.0 VBG Base Excess 5.2 Sodium 146 H Potassium 3.9 Chloride 111 H Carbon Dioxide 29 Anion Gap 10 L BUN 18 H Creatinine 1.03 Estim Creat Clear Calc 52.5 Estimated GFR > 60 Random Glucose 120 H Lactic Acid 2.7 H* Lactic Acid F/U @ 2Hr 2.7 H* Calcium 9.1 Magnesium 2.2 Total Bilirubin 0.4 AST 23 ALT 16 Alkaline Phosphatase 79 Troponin I High Sens 8.5 Total Protein 6.8 Albumin 4.0 Discharge Plan Discharge Prescriptions: No Action acetaminophen 500 mg tablet 500 mg PO Q6H PRN (Reason: pain) docusate sodium 100 mg capsule 100 mg PO BID furosemide 40 mg Tablet 40 mg PO DAILY memantine 10 mg Tablet 10 mg PO BID cefuroxime axetil 500 mg tablet 500 mg PO BID 1 Days Qty: 2 0RF Rx Instructions: next dose today evening metronidazole 500 mg Tablet 500 mg PO Q8H Qty: 3 0RF irbesartan 300 mg tablet 300 mg PO DAILY hydralazine 50 mg tablet 50 mg PO TID carvedilol 25 mg tablet 25 mg PO BID calcium carbonate-vitamin D3 500 mg(1,250mg) -400 unit tablet,chewable 1 tab PO BID loratadine 10 mg tablet 10 mg PO DAILY aspirin 81 mg tablet,delayed release (DR/EC) 81 mg PO QAM atorvastatin 20 mg tablet 20 mg PO BEDTIME colchicine 0.6 mg tablet 0.6 mg PO DAILY sertraline 25 mg tablet 25 mg PO DAILY pantoprazole 40 mg tablet,delayed release (DR/EC) 40 mg PO DAILY@0630 trazodone 100 mg tablet 100 mg PO BEDTIME doxazosin 4 mg tablet 4 mg PO BEDTIME 90 Days Qty: 90 3RF finasteride 5 mg tablet 5 mg PO DAILY 90 Days Qty: 90 3RF Referrals: Name,MD Galen [Primary Care Provider, Internal Medicine] Print Language: Luxembourgish
--- NOTE | 2024-12-03 16:27 | PM.IMHP ---
History of Present Illness Date of Service: 12/03/24 Chief Complaint: Seizure 83-year-old man with a history of Alzheimer's disease, nonverbal presenting to the ER with possible seizure. Apparently patient was eating his oatmeal at breakfast time and began to shake, foam at the mouth and his eyes rolled in the back of his head. Family reported that the patient then fell to the floor. Patient's family denied any history of seizure disorder or episode similar to this previously. Unable to Morgan any information or history from the patient at this time. Imaging studies done in the ER including head, chest, cervical spine and abdominal CTs all negative for acute abnormality. Sodium mildly elevated at 146, lactic acid 2.7. Blood pressure mildly elevated. Patient was given a L of IV fluid in the ER. He will be admitted further management and treatment of possible seizure. 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) Alcohol intake: former Patient Tobacco Use Status: Never used Tobacco Smoked in Last 30 Days: No Advance Directives: No Advance Directives Information Provided: Yes Do you have a plan to hurt others: No Plan service: No Meds Allergies Allergy/AdvReac Type Severity Reaction Status Date / Time nifedipine (From Procardia) Allergy Intermediate EDEMA Verified 12/03/24 11:01 ibuprofen (Ibuprofen) Allergy Mild RASH Verified 12/03/24 11:01 ibuprofen Allergy Unknown rash Uncoded 03/13/24 11:57 nifedipine Allergy Unknown edema Uncoded 03/13/24 11:57 Home Medications ?Medication ?Instructions ?Recorded ?Confirmed ?Last Taken ?Type aspirin 81 mg tablet,delayed 81 mg PO QAM 05/27/20 03/13/24 03/13/24 History release atorvastatin 20 mg tablet 20 mg PO BEDTIME 05/27/20 03/13/24 03/13/24 History calcium 500 mg (as carbonate)-vit 1 tab PO BID 05/27/20 03/13/24 03/13/24 History D3 10 mcg (400 unit) chewable tablet carvedilol 25 mg tablet 25 mg PO BID 05/27/20 03/13/24 03/13/24 History hydralazine 50 mg tablet 50 mg PO TID 05/27/20 03/13/24 03/13/24 History irbesartan 300 mg tablet 300 mg PO DAILY 05/27/20 03/13/24 03/13/24 History loratadine 10 mg tablet 10 mg PO DAILY 05/27/20 03/13/24 03/13/24 History colchicine 0.6 mg tablet 0.6 mg PO DAILY 10/26/21 03/13/24 03/13/24 History pantoprazole 40 mg tablet,delayed 40 mg PO DAILY@0630 10/26/21 03/13/24 03/13/24 History release sertraline 25 mg tablet 25 mg PO DAILY 10/26/21 03/13/24 03/13/24 History trazodone 100 mg tablet 100 mg PO BEDTIME 10/26/21 03/13/24 03/13/24 History acetaminophen 500 mg tablet 500 mg PO Q6H PRN pain 03/13/24 03/13/24 03/13/24 History docusate sodium 100 mg capsule 100 mg PO BID 03/13/24 03/13/24 03/13/24 History furosemide 40 mg tablet 40 mg PO DAILY 03/13/24 03/13/24 Unknown History memantine 10 mg tablet 10 mg PO BID 03/13/24 03/13/24 Unknown History Physical Exam Vital Signs and Narrative: Vital Signs: Last Vital Signs Temp 97.9 F 12/03/24 14:34 Pulse 90 12/03/24 14:34 Resp 13 12/03/24 14:34 BP 156/103 H 12/03/24 14:34 Pulse Ox 98 12/03/24 14:34 O2 Del Method Room Air 12/03/24 14:34 BMI result Body Mass Index 25.4 Appearing in no acute distress head is normocephalic atraumatic eyes pupils are PERRLA sclera is anicteric mouth throat mucous membranes are intact and moist neck is supple no lymphadenopathy, no JVD noted lung sounds are clear to auscultation heart regular rate rhythm, clear S1, S2 positive bowel sounds, abdomen is soft, nontender neuro patient is alert, non verbal Results Labs 12/03/24 11:36 12/03/24 11:36 Labs: Laboratory Results - last 24 hr 12/03/24 12/03/24 12/03/24 11:36 12:53 14:14 MCV 90.3 MCH 30.4 MCHC 33.7 RDW 13.1 Plt Count 167 MPV 10.3 Immature Gran % (Auto) 0.4 Neut % (Auto) 81.5 H Lymph % (Auto) 12.2 L [place] % (Auto) 5.1 Eos % (Auto) 0.6 Baso % (Auto) 0.2 Lymph # (Auto) 1.1 L [place] # (Auto) 0.5 Eos # (Auto) 0.1 Baso # (Auto) 0.0 Abs Immat Gran (auto) 0.04 H Absolute Neuts (auto) 7.6 Absolute Nucleated RBC 0.000 Nucleated RBC % (auto) 0.0 VBG pH 7.50 H VBG pCO2 36 VBG pO2 129 VBG HCO3 28 H VBG O2 Saturation 99.0 VBG Base Excess 5.2 Anion Gap 10 L Estim Creat Clear Calc 52.5 Estimated GFR > 60 Random Glucose 120 H Lactic Acid 2.7 H* Lactic Acid F/U @ 2Hr 2.7 H* Calcium 9.1 Magnesium 2.2 Total Bilirubin 0.4 AST 23 ALT 16 Alkaline Phosphatase 79 Total Protein 6.8 Albumin 4.0 Imaging Radiologist's Impressions: Impressions Abdomen/Pelvis CT 12/03/24 14:33 IMPRESSION: No acute intra-abdominal pelvic organ injury or acute fracture. Fleischner guidelines were followed. Electronically signed by: Usama Guillaume MD 12/03/2024 03:31 PM EDT RP Cervical Spine CT 12/03/24 14:33 IMPRESSION: Stable multilevel degenerative disc disease and facet osteoarthritis. Electronically signed by: Claudio Leos MD 12/03/2024 03:31 PM EDT RP Chest CT 12/03/24 14:33 IMPRESSION: No acute intrathoracic organ injury or vascular injury. No acute fracture. Mild interstitial lung edema and bilateral small pericardial effusions. Fleischner guidelines were followed. Electronically signed by: Usama Guillaume MD 12/03/2024 03:36 PM EDT RP Head CT 12/03/24 14:33 IMPRESSION: No acute intracranial abnormality. Electronically signed by: Behzad Talbert MD 12/03/2024 03:30 PM EDT RP Assessment and Plan (1) Seizure-like activity: Status: Acute Plan 83 year old man admitted with possible seizure with a history of Alzheimer's dementia and nonverbal Possible seizure no hx of seizures brain CT neg Monitor on telemetry EEG Neurology consultation Hold off on antiepileptic medications at this time Seizure precautions Hypertension Elevated blood pressure reading BPH Continue home medications Alzheimer's dementia Continue home medications DVT prophylaxis with Lovenox Full code Medication reconciliation pending Quality Stroke Does the patient have a stroke diagnosis?: No VTE Prior VTE?: No VTE Risk Level:: Medical - moderate - high VTE Device Contraindication: Treatment Not Indicated VTE Drug Contraindication: N/A - Med Ordered
[2024-12-03 17:27] LABS: Appearance Urine Clear; Glucose Urine UA Negative (Negative); PH 7.0 (5.0-9.0); Specific Gravity - Urine >= 1.030 (1.005-1.025)
[2024-12-03 17:40] LABS: ~Lactic Acid-LAB USE ONLY 1.2 mmol/L (0.5-2.0)
--- NOTE | 2024-12-03 18:39 | PHA.MEDREC ---
Addendum entered by Nathan Mancia, JoannaD 12/03/24 19:12: MED REC CHECKED BY [facility] Original Note: Pharmacy Consult ? Medication Reconciliation Pharmacy has completed the medication reconciliation. Spoke to patient dialysis patient care technician Basia [phone] through information clerk service ( ID#[id number]) to confirm med list. Basia states she doesn't have a list with her , however patient has a HEALTH PSYCHOLOGIST Ceci [phone]. Called left voicemail. Check patients file and there was a list of medications Dated from 03/11/24. Utilized claim and list of medications to confirm med list. Will update with any changes is HEALTH PSYCHOLOGIST calls back.
[2024-12-04] VITALS (7 sets, daily range): BP systolic 139–167; BP diastolic 67–88; PULSE 63–89; RESP 14–19; TEMP 36.3–37.1; O2SAT 96–100
[2024-12-04] MEDS: 0.9 % Sodium Chloride Flush 3 ML SYRINGE IVFLUSH ×2 (02:27→08:58)
[2024-12-04 04:42] LABS: Hematocrit 36.2 % (42.0-52.0); Hemoglobin 12.1 g/dl (14.0-18.0); Mean Corpuscular HGB Conc 33.4 g/dl (31.0-36.0); Mean Corpuscular Hemoglobin 30.3 pg (27.0-33.0); Mean Corpuscular Volume 90.5 fL (80.0-98.0); NRBC Abs Auto 0.000 X10*3/uL (0.0-0.012); NRBC Pct Auto 0.0 /100WBC (0.0-0.2); Platelet Count 158 X10*3/uL (160-400); Red Blood Count 4.00 X10*6/uL (4.60-5.80); White Blood Count 8.8 X10*3/uL (4.8-10.8)
[2024-12-04 05:11] LABS: Alanine Aminotransferase 14 U/L (0-40); Albumin Level 3.9 g/dL (3.5-5.0); Alkaline Phosphatase 74 U/L (39-117); Anion Gap 13 (12-20); Aspartate Amino Transferase 25 U/L (5-37); Blood Urea Nitrogen 17 mg/dL (9-16); Calcium 9.0 mg/dL (8.4-10.2); Carbon Dioxide 26 mmol/L (22-29); Chloride 111 mmol/L (96-108); Creatinine Clr Calc Pharmacy 54.7; Estimated Glomerular Filt Rate > 60; Potassium 3.5 mmol/L (3.3-5.1); Sodium 146 mmol/L (135-145); Total Protein 6.7 g/dL (6.5-8.0)
--- NOTE | 2024-12-04 08:20 | PC.NURSE ---
Pt remains in EEG at this time
--- NOTE | 2024-12-04 08:58 | MHC.CM.PN ---
Patient has Alzheimer's and is non-verbal; CM spoke briefly with Brother/HCP/Thaddeus at listed # but per Thaddeus' request, also spoke with Daughter/Lela @ [phone]. CM addressed HAM with Daughter and original will be mailed to her @ [phone] [facility] [id number], and a copy will be placed on the chart. Patient lives alone in an apartment but he has 3 cost estimating clerk who are with him throughout the day/night. Home/resume said services is the goal and CM has initiated and will follow for dc planning. PCP is Dr. Galen Chavez and Patient will need BLS transport to home at [place].
--- NOTE | 2024-12-04 09:21 | PC.NURSE ---
While attempting AM medication admin pt noticed to close lips together, even attempted to put medications in pudding without success. Daughter Lela called and she states pt always has a hard time with medication admin but when TECHNICAL SUPPORT REPRESENTATIVE is around he recognizes here and may be helpful to have her here during med aide, Lela to call TECHNICAL SUPPORT REPRESENTATIVE and ask if she can come by at some point. Will reassess
--- NOTE | 2024-12-04 09:53 | P.CNNE_ITS ---
History of Present Illness Data of Consult Service Date: 12/04/24 Primary Care Provider: Galen Chavez MD [facility] Reason for consult: Seizure 83-year-old man with a history of Alzheimer's disease, nonverbal presenting to the ER with possible seizure. Apparently patient was eating his oatmeal at breakfast time and began to shake, foam at the mouth and his eyes rolled in the back of his head. Family reported that the patient then fell to the floor. He was unable to provide any history. 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) Alcohol intake: former Patient Tobacco Use Status: Never used Tobacco Smoked in Last 30 Days: No Advance Directives: No Advance Directives Information Provided: Yes Do you have a plan to hurt others: No Plan Nutrition Risks: No Nutritional Risk service: No Meds Allergies Allergy/AdvReac Type Severity Reaction Status Date / Time nifedipine (From Procardia) Allergy Intermediate EDEMA Verified 12/03/24 11:01 ibuprofen (Ibuprofen) Allergy Mild RASH Verified 12/03/24 11:01 ibuprofen Allergy Unknown rash Uncoded 03/13/24 11:57 nifedipine Allergy Unknown edema Uncoded 03/13/24 11:57 Active Medications: Current Medications Acetaminophen (Acetaminophen 325 Mg Tablet) 650 mg PO Q6H PRN PRN Reason: Pain, Mild 1-3,fever,headache Aspirin (Aspirin Enteric Coated 81 Mg Tablet.) 81 mg PO DAILY [facility] Last Admin: 12/04/24 09:10 Dose: Not Given Atorvastatin Calcium (Atorvastatin Calcium 20 Mg Tablet) 20 mg PO BEDTIME [facility] Calcium Carbonate (Calcium Carbonate 750 Mg Tab.Chew) 750 mg PO Q4H PRN PRN Reason: Heartburn Carvedilol (Carvedilol 25 Mg Tablet) 25 mg PO BID [facility]; Protocol Last Admin: 12/04/24 09:10 Dose: Not Given Colchicine (Colchicine 0.6 Mg Tablet) 0.6 mg PO DAILY [facility] Last Admin: 12/04/24 09:10 Dose: Not Given Docusate Sodium (Docusate Sodium 100 Mg Capsule) 100 mg PO BID [facility] Last Admin: 12/04/24 09:10 Dose: Not Given Doxazosin Mesylate (Doxazosin Mesylate 2 Mg Tablet) 4 mg PO BEDTIME [facility]; Protocol Enoxaparin Sodium (Enoxaparin Sodium 40 Mg/0.4 Ml Syringe) 40 mg SUBCUT Q24H [facility] Last Admin: 12/03/24 18:12 Dose: 40 mg Finasteride (Finasteride 5 Mg Tablet) 5 mg PO DAILY [facility] Last Admin: 12/04/24 09:10 Dose: Not Given Furosemide (Furosemide 40 Mg Tablet) 40 mg PO DAILY [facility]; Protocol Last Admin: 12/04/24 09:10 Dose: Not Given Hydralazine HCl (Hydralazine Hcl 50 Mg Tablet) 50 mg PO TID [facility]; Protocol Last Admin: 12/04/24 09:10 Dose: Not Given Loratadine (Loratadine 10 Mg Tablet) 10 mg PO DAILY [facility] Last Admin: 12/04/24 09:11 Dose: Not Given Magnesium Hydroxide (Milk Of Magnesia 30 Ml Oral.Susp) 30 ml PO DAILY PRN PRN Reason: Constipation Melatonin (Melatonin 3 Mg Tablet) 6 mg PO BEDTIME PRN PRN Reason: Insomnia Memantine (Memantine Hcl 10 Mg Tablet) 10 mg PO BID [facility] Last Admin: 12/04/24 09:11 Dose: Not Given Ondansetron HCl (Ondansetron Hcl 4 Mg/2 Ml Vial) 4 mg IVPUSH Q8H PRN PRN Reason: Nausea and Vomiting Pantoprazole Sodium (Pantoprazole Sodium 20 Mg Tablet.Dr) 40 mg PO DAILY@0630 [facility] Sertraline HCl (Sertraline Hcl 25 Mg Tablet) 25 mg PO DAILY [facility] Last Admin: 12/04/24 09:09 Dose: 25 mg Sodium Chloride (0.9 % Sodium Chloride Flush 3 Ml Syringe) 3 ml IVFLUSH QSHIFT [facility] Last Admin: 12/04/24 08:58 Dose: 3 ml Trazodone HCl (Trazodone Hcl 100 Mg Tablet) 200 mg PO BEDTIME PRN PRN Reason: Sleep Valsartan (Valsartan 160 Mg Tablet) 160 mg PO DAILY [facility] Last Admin: 12/04/24 09:11 Dose: Not Given Home Medications ?Medication ?Instructions ?Recorded ?Confirmed ?Last Taken ?Type aspirin 81 mg tablet,delayed 81 mg PO QAM 05/27/2001/1703/13/24 History release atorvastatin 20 mg tablet 20 mg PO BEDTIME 05/27/2003/13/24 History calcium 500 mg (as carbonate)-vit 1 tab PO BID 1 12/03/24 03/13/24 History D3 10 mcg (400 unit) chewable tablet carvedilol 25 mg tablet 25 mg PO BID 05/27/2003/13/24 History hydralazine 50 mg tablet 50 mg PO TID 05/27/2003/13/24 History irbesartan 300 mg tablet 300 mg PO DAILY 05/27/2001/1703/13/24 History loratadine 10 mg tablet 10 mg PO DAILY 05/27/2011/2403/13/24 History colchicine 0.6 mg tablet 0.6 mg PO DAILY 10/26/2101/1703/13/24 History pantoprazole 40 mg tablet,delayed 40 mg PO DAILY@0630 10/26/21 12/03/24 03/13/24 History release sertraline 25 mg tablet 25 mg PO DAILY 10/26/2111/2403/13/24 History acetaminophen 500 mg tablet 500 mg PO Q6H PRN pain 12/03/24 03/13/24 History docusate sodium 100 mg capsule 100 mg PO BID 03/13/24 12/03/24 03/13/24 History furosemide 40 mg tablet 40 mg PO DAILY 03/13/2411/24 Unknown History memantine 10 mg tablet 10 mg PO BID 03/13/24 Unknown History trazodone 100 mg tablet 200 mg PO BEDTIME PRN Sleep 12/03/24 12/03/24 Unknown History Physical Exam 2 Vital Signs: Vital Signs: Last Vital Signs Temp 97.4 F 12/04/24 08:36 Pulse 63 12/04/24 08:36 Resp 18 12/04/24 08:36 BP 146/88 H 12/04/24 08:36 Pulse Ox 100 12/04/24 08:36 O2 Del Method Room Air 12/04/24 08:36 BMI result Body Mass Index 25.4 Neuro: Other: He is alert and awake taking his breakfast but did not appropriately respond to verbal commands. No word output. There was moderate left hemiparesis. Visual song were difficult to determine. Exam was limited. Results Labs 12/04/24 04:02 12/04/24 04:02 Labs: Short CBC 12/03/24 12/04/24 Range/Units 11:36 04:02 WBC 9.4 8.8 (4.8-10.8) X10*3/uL Hgb 12.3 L 12.1 L (14.0-18.0) g/dl Hct 36.5 L 36.2 L (42.0-52.0) % Plt Count 167 158 L (160-400) X10*3/uL BMP 12/03/24 12/04/24 11:36 04:02 Sodium 146 H 146 H Potassium 3.9 3.5 Chloride 111 H 111 H Carbon Dioxide 29 26 BUN 18 H 17 H Creatinine 1.03 0.99 Calcium 9.1 9.0 Liver Function 12/03/24 12/04/24 Range/Units 11:36 04:02 Total Bilirubin 0.4 0.6 (0.0-1.0) mg/dL AST 23 25 (5-37) U/L ALT 16 14 (0-40) U/L Alkaline Phosphatase 79 74 (39-117) U/L Albumin 4.0 3.9 (3.5-5.0) g/dL Urine 12/03/24 Range/Units 17:12 Urine Color Yellow Urine Appearance Clear Urine pH 7.0 (5.0-9.0) Ur Specific [place] >= 1.030 H (1.005-1.025) Urine Protein Trace (Neg-Trace) mg/dL Urine Glucose (UA) Negative (Negative) mg/dL Head CT revealed moderately severe diffuse cerebral atrophy and [id number] microvascular ischemic changes including a large area of hypodensity in left frontal area Assessment and Plan (1) Seizure-like activity: Status: Acute 83 years old man probably with multifactorial dementia including aphasia with significant vascular disease putting him at risk for seizure disorder presented with an episode that probably was a seizure. My recommendation is to obtain an EEG and cover him with levetiracetam at least 500 mg twice a day. Procedures Date of Service Date of Service: 12/04/24
--- NOTE | 2024-12-04 11:18 | PM.DS ---
DS: Providers Provider Date of Service: 12/04/24 Date of admission: 12/03/24 16:59 Date of discharge: 12/04/24 Primary care physician: Galen Chavez MD Consults: 12/03/24 17:23 Consult to Neurology Routine Consulting Provider: [facility] Reason for consultation: ? seizure DS: Diagnosis Discharge Diagnosis (1) Seizure-like activity: Status: Acute DS: Summary Hospital Course Hospital Course: from initial hpi: 83-year-old man with a history of Alzheimer's disease, nonverbal presenting to the ER with possible seizure. Apparently patient was eating his oatmeal at breakfast time and began to shake, foam at the mouth and his eyes rolled in the back of his head. Family reported that the patient then fell to the floor. Patient's family denied any history of seizure disorder or episode similar to this previously. Unable to [place] any information or history from the patient at this time. Imaging studies done in the ER including head, chest, cervical spine and abdominal CTs all negative for acute abnormality. Sodium mildly elevated at 146, lactic acid 2.7. Blood pressure mildly elevated. Patient was given a L of IV fluid in the ER. He will be admitted further management and treatment of possible seizure. hospital course: Patient was admitted for seizure-like activity. Was seen by Neurology felt this was likely seizure and recommended starting on Keppra 500 mg b.i.d.. EEG was obtained and had no epileptic waves, can follow up with neuro. For hypertension was continued on carvedilol, doxazosin, irbesartan, hydralazine. For BPH continued on doxazosin. For Alzheimer's dementia continued on memantine. Patient is back to his baseline and will be discharged home. Time Attestation Discharge Coordination Time (in mins): 34 Quality: Safe Use of Opioids Does Pt have an Active Cancer Diagnosis on the Problem List?: No Quality: Stroke Does the patient have a stroke diagnosis?: No Physical Exam Exam: Exam: Appearing in no acute distress head is normocephalic atraumatic eyes pupils are PERRLA sclera is anicteric mouth throat mucous membranes are intact and moist neck is supple no lymphadenopathy, no JVD noted lung sounds are clear to auscultation heart regular rate rhythm, clear S1, S2 positive bowel sounds, abdomen is soft, nontender neuro patient is alert, minimally verbal Vital Signs: Vital Signs: Last Vital Signs Temp 97.8 F 12/04/24 10:13 Pulse 71 12/04/24 10:13 Resp 15 12/04/24 10:13 BP 146/80 H 12/04/24 10:13 Pulse Ox 97 12/04/24 10:13 O2 Del Method Room Air 12/04/24 10:13 BMI result Body Mass Index 25.4 DS: Data Data Completed and Pending Labs on day of discharge: Laboratory Results - last 24 hr 12/03/24 12/03/24 12/03/24 11:36 12:53 14:14 WBC 9.4 RBC 4.04 L Hgb 12.3 L Hct 36.5 L MCV 90.3 MCH 30.4 MCHC 33.7 RDW 13.1 Plt Count 167 MPV 10.3 Immature Gran % (Auto) 0.4 Neut % (Auto) 81.5 H Lymph % (Auto) 12.2 L [place] % (Auto) 5.1 Eos % (Auto) 0.6 Baso % (Auto) 0.2 Lymph # (Auto) 1.1 L [place] # (Auto) 0.5 Eos # (Auto) 0.1 Baso # (Auto) 0.0 Abs Immat Gran (auto) 0.04 H Absolute Neuts (auto) 7.6 Absolute Nucleated RBC 0.000 Nucleated RBC % (auto) 0.0 VBG pH 7.50 H VBG pCO2 36 VBG pO2 129 VBG HCO3 28 H VBG O2 Saturation 99.0 VBG Base Excess 5.2 Sodium 146 H Potassium 3.9 Chloride 111 H Carbon Dioxide 29 Anion Gap 10 L BUN 18 H Creatinine 1.03 Estim Creat Clear Calc 52.5 Estimated GFR > 60 Random Glucose 120 H Lactic Acid 2.7 H* Lactic Acid F/U @ 2Hr 2.7 H* Lactic Acid F/U @ 4Hr Calcium 9.1 Magnesium 2.2 Total Bilirubin 0.4 AST 23 ALT 16 Alkaline Phosphatase 79 Troponin I High Sens 8.5 Total Protein 6.8 Albumin 4.0 Urine Color Urine Appearance Urine pH Ur Specific [place] Urine Protein Urine Glucose (UA) Urine Ketones Urine Blood Urine Nitrite Ur Leukocyte Esterase 12/03/24 12/04/24 17:12 04:02 WBC 8.8 RBC 4.00 L Hgb 12.1 L Hct 36.2 L MCV 90.5 MCH 30.3 MCHC 33.4 RDW 13.0 Plt Count 158 L MPV 10.4 Immature Gran % (Auto) Neut % (Auto) Lymph % (Auto) [place] % (Auto) Eos % (Auto) Baso % (Auto) Lymph # (Auto) [place] # (Auto) Eos # (Auto) Baso # (Auto) Abs Immat Gran (auto) Absolute Neuts (auto) Absolute Nucleated RBC 0.000 Nucleated RBC % (auto) 0.0 VBG pH VBG pCO2 VBG pO2 VBG HCO3 VBG O2 Saturation VBG Base Excess Sodium 146 H Potassium 3.5 Chloride 111 H Carbon Dioxide 26 Anion Gap 13 BUN 17 H Creatinine 0.99 Estim Creat Clear Calc 54.7 Estimated GFR > 60 Random Glucose 86 Lactic Acid Lactic Acid F/U @ 2Hr Lactic Acid F/U @ 4Hr 1.2 Calcium 9.0 Magnesium Total Bilirubin 0.6 AST 25 ALT 14 Alkaline Phosphatase 74 Troponin I High Sens Total Protein 6.7 Albumin 3.9 Urine Color Yellow Urine Appearance Clear Urine pH 7.0 Ur Specific [place] >= 1.030 H Urine Protein Trace Urine Glucose (UA) Negative Urine Ketones Negative Urine Blood Negative Urine Nitrite Negative Ur Leukocyte Esterase Negative Discharge Plan Discharge Anticipated Discharge Date/Time: 12/04/24 11:15 Patient Disposition: Home, Self-Care Discharge Diagnosis: seizure Referrals: Codi Ma MD [Physician, Neurology] - 1 Week Name,MD Galen [Primary Care Provider, Internal Medicine] Discharge Medications: New levetiracetam [Keppra] 500 mg tablet 500 mg PO BID Qty: 180 0RF Continued trazodone 100 mg tablet 200 mg PO BEDTIME PRN (Reason: Sleep) acetaminophen 500 mg tablet 500 mg PO Q6H PRN (Reason: pain) docusate sodium 100 mg capsule 100 mg PO BID furosemide 40 mg Tablet 40 mg PO DAILY memantine 10 mg Tablet 10 mg PO BID irbesartan 300 mg tablet 300 mg PO DAILY hydralazine 50 mg tablet 50 mg PO TID carvedilol 25 mg tablet 25 mg PO BID calcium carbonate-vitamin D3 500 mg(1,250mg) -400 unit tablet,chewable 1 tab PO BID loratadine 10 mg tablet 10 mg PO DAILY aspirin 81 mg tablet,delayed release (DR/EC) 81 mg PO QAM atorvastatin 20 mg tablet 20 mg PO BEDTIME colchicine 0.6 mg tablet 0.6 mg PO DAILY sertraline 25 mg tablet 25 mg PO DAILY pantoprazole 40 mg tablet,delayed release (DR/EC) 40 mg PO DAILY@0630 doxazosin 4 mg tablet 4 mg PO BEDTIME 90 Days Qty: 90 3RF finasteride 5 mg tablet 5 mg PO DAILY 90 Days Qty: 90 3RF Discharge Orders: Discharge Order (Routine); Ordered 12/04/24 Ordered By: Alexander Wheeler Diet: Advance to usual diet Activity on Discharge: As tolerated Stand Alone Forms: Patient Portal Discharge page Print Language: Kiswahili Care Plan Goals: avoid seizure Health Concerns: seziure Plan of Treatment: starting keppra Assessment: see above
--- NOTE | 2024-12-04 11:27 | MHC.CM.PN ---
Patient has been medically cleared for dc to home today, self carer. Patient's Brother/HCP/Thaddeus is here and will transport to home.
[2024-12-04] MEDS: levETIRAcetam Oral Soln 500 MG/5 ML PO (12:19)
== END 2024-12-04 12:46 | disposition home or self-care (01) ==
LOC: HO.ED 16:29 → HO.EDOVER 17:11
PROVIDERS: Physician Assistant Medical; Admitting Provider Nurse Practitioner Acute Care; Emergency Provider Emergency Medicine Emergency Medical Services; PCP Internal Medicine Geriatric Medicine; Visit Provider Internal Medicine
DX: R56.9 Unspecified convulsions (principal); E87.20 Acidosis, unspecified; R10.9 Unspecified abdominal pain; I44.0 Atrioventricular block, first degree; M47.812 Spondylosis without myelopathy or radiculopathy, cervical region; R07.9 Chest pain, unspecified; J81.1 Chronic pulmonary edema; I31.39 Other pericardial effusion (noninflammatory); E78.00 Pure hypercholesterolemia, unspecified; Z91.81 History of falling; I10 Essential (primary) hypertension
CPT/HCPCS: 36415; 70450; 71260; 72125; 74177; 80053; 81003; 82803; 83605; 83735; 84484; 85025; 85027; 93005; 95816; 96360; 96361; 96372; 99222; 99285; J1650; Q9967

== ENCOUNTER → 2024-12-03 11:11 | Outpatient (BNV) | payer OTHER, SELFPAY | PROVIDERS: Emergency Provider Emergency Medicine Emergency Medical Services; PCP Internal Medicine Geriatric Medicine; Visit Provider Radiology Diagnostic Radiology | DX: R56.9 Unspecified convulsions (principal); W19.XXXA Unspecified fall, initial encounter | CPT/HCPCS: 70450; 71260; 72125; 74177 ==

== ENCOUNTER → 2024-12-03 11:11 | Outpatient (BNV) | payer OTHER, SELFPAY | PROVIDERS: PCP Internal Medicine Geriatric Medicine; Visit Provider Internal Medicine Cardiovascular Disease | DX: I44.0 Atrioventricular block, first degree (principal); I45.10 Unspecified right bundle-branch block | CPT/HCPCS: 93010 ==

== ENCOUNTER → 2024-12-03 16:59 | Outpatient (BNV) | payer OTHER, SELFPAY | PROVIDERS: Admitting Provider Nurse Practitioner Acute Care; Emergency Provider Emergency Medicine Emergency Medical Services; PCP Internal Medicine Geriatric Medicine; Visit Provider Nurse Practitioner Acute Care | DX: R56.9 Unspecified convulsions (principal) | CPT/HCPCS: 99223; 99239 ==

== ENCOUNTER → 2024-12-03 16:59 | Outpatient (BNV) | payer OTHER, SELFPAY | PROVIDERS: Admitting Provider Nurse Practitioner Acute Care; Emergency Provider Emergency Medicine Emergency Medical Services; PCP Internal Medicine Geriatric Medicine; Visit Provider Psychiatry & Neurology Neurology | DX: R56.9 Unspecified convulsions (principal) | CPT/HCPCS: 95816; 99222 ==

== ENCOUNTER 2025-01-29 10:50 | Inpatient (IN) | payer OTHER, SELFPAY ==
[2025-01-29] VITALS (11 sets, daily range): BP systolic 124–149; BP diastolic 53–76; PULSE 75–94; RESP 17–20; TEMP 36.6–38.8; O2SAT 94–98; BMI 28.5
--- NOTE | ~2025-01-29 | CT_ITS ---
EXAMINATION: CT HEAD WITHOUT CONTRAST CLINICAL INFORMATION: Altered mental status and weakness COMPARISON: 12/03/2024 TECHNIQUE: Contiguous axial imaging was performed from the skull base to vertex without intravenous administration of contrast. This CT examination was performed using dose optimization techniques as appropriate, variously including the following: *Automated exposure control *Adjustment of mA and/or kV according to patient size (this includes techniques or standardized protocols for targeted exams where dose is matched to indication/reason for exam; i.e. extremities or head) *Use of iterative reconstruction technique FINDINGS: There is no acute ischemic change. Moderate chronic white matter hypodensity is most pronounced in the left frontal lobe. There is no intracranial hemorrhage. There is no mass-effect or midline shift. Mild to moderate generalized atrophy is present. Basal cisterns and ventricles are within normal limits for age/cerebral volume. Orbits are symmetrical and unremarkable. Mild mucosal thickening is present in the ethmoid air cells, increased since the prior There are no bony abnormalities. CT/CT head/brain wo IV con IMPRESSION: No acute intracranial abnormality. Mild mucosal thickening in the ethmoid air cells is new since the prior. Chronic white matter changes are probably related to small vessel disease. Electronically signed by: Claudio Leos MD 01/29/2025 01:24 PM [facility]
--- NOTE | ~2025-01-29 | XR_ITS ---
EXAMINATION: XR CHEST CLINICAL INFORMATION: Febrile, lethargic COMPARISON: January 16, 2024 TECHNIQUE: Frontal view of the chest was obtained. FINDINGS: Mild cardiomegaly is again noted. There is atherosclerotic calcifications in the aortic arch. There is crowding of pulmonary vascularity without clear opacity. Both hemidiaphragms are visible. XR/XR chest 1V IMPRESSION: No acute disease, low lung volumes. Electronically signed by: Claudio Leos MD 01/29/2025 11:19 AM [facility]
--- NOTE | ~2025-01-29 | CT_ITS ---
EXAMINATION: CT ABDOMEN AND PELVIS WITH CONTRAST CLINICAL INFORMATION: Sepsis. COMPARISON: December 03, 2024. TECHNIQUE: Multidetector volumetric images were obtained from the superior aspect of the liver through the pubic symphysis following administration 85 mL of Omnipaque 350 intravenous contrast. Sagittal and coronal reformatted images were obtained on the technologist's workstation. Oral contrast: No This CT examination was performed using dose optimization techniques as appropriate, variously including the following: *Automated exposure control *Adjustment of mA and/or kV according to patient size (this includes techniques or standardized protocols for targeted exams where dose is matched to indication/reason for exam; i.e. extremities or head) *Use of iterative reconstruction technique. DLP: 830.06 mGy-cm FINDINGS: LUNG BASES: Bilateral small trace pleural effusions. Compression atelectasis. LIVER, GALLBLADDER, AND BILIARY TREE: Liver measures 16 cm. Subcentimeter cystic lesions too small to be fully characterized. Main portal veins and hepatic veins are patent. There is a 6 mm intraluminal calcification in the gallbladder neck. There is pericholecystic fluid and a 3 mm gallbladder wall thickening. No intrahepatic or extrahepatic biliary ductal dilatation. PANCREAS: No focal mass. No peripancreatic fluid collection. No main pancreatic ductal dilatation. SPLEEN: 9 cm. No solid or cystic lesion. ADRENAL GLANDS: No nodular lesions. KIDNEYS AND URETERS: Kidneys are small. Normal enhancement of the renal cortex. No solid enhancing renal mass. No hydronephrosis. No gross nephrolithiasis. Cystic lesions mostly on the right kidney, the largest measures 3 cm. No dilatation of the ureter. Prominent lymph nodes in the right perinephric/pararenal compartment. BLADDER: Fluid-filled nearly collapsed with the likely trabeculated wall. GASTROINTESTINAL TRACT: Abundant stool within the large intestine. No intestinal obstruction pattern. Collapsed appearance of the rectosigmoid colon. Numerous diverticula throughout the left hemicolon mostly the sigmoid colon. No pericolonic edema pattern. Appendix is normal. No ascites. No pneumoperitoneum. No peripheral enhancing fluid collections in the peritoneal cavity. Hiatal hernia, small to moderate size. ABDOMINAL WALL: Small fat-containing umbilical hernia and diastases of the abdominal rectus muscles. LYMPH NODES: Nonspecific mildly prominent inguinal, periceliac and retroperitoneal. VASCULAR: Irregular mixed plaques throughout the aorta and iliac arteries without aneurysm or dissection. Calcified plaques in the coronary arteries. PELVIC VISCERA: Heterogeneously enlarged prostate gland measures 8 cm protruding upon the urinary bladder floor. Prominent seminal vesicles, bilaterally. OSSEOUS STRUCTURES: Quintin type III sacralization. Rudimentary rib, L1. Multilevel thoracolumbar spondylosis pronounced from L3-4 to L5-S1. Syndesmophyte formation and marginal osteophyte formation with sclerosis and the sacroiliac joints. Nonspecific subcentimeter lytic lesions in the bony pelvis and posteriorly throughout the axial skeleton.. Multilevel syndesmophyte formation throughout the axial skeletal. CT/CT abdomen pelvis w IV con IMPRESSION: Concerning acute calculus cholecystitis in the correct clinical settings. Benign prostate hyperplasia versus malignancy. Diverticular disease. Coronary artery disease and atherosclerosis disease. Bilateral small volume pleural effusions. Multilevel spondylosis with the questionable subcentimeter lytic lesions versus calcium metabolic disorders. Fleischner guidelines were followed. Electronically signed by: Usama Guillaume MD 01/29/2025 01:32 PM [facility]
--- NOTE | ~2025-01-29 | US_ITS ---
EXAMINATION: US ABDOMEN LIMITED CLINICAL INFORMATION: Right upper quadrant. COMPARISON: CT 01/29/2025 TECHNIQUE: Real-time imaging of the right upper quadrant abdominal viscera. FINDINGS: GALLBLADDER: Gallstones present. Gallbladder wall is thickened measuring 5 mm. There is mild edema/fluid in the gallbladder wall. Cpc reports there is no tenderness in the area of the gallbladder. COMMON BILE DUCT: Normal in caliber measuring 0.3 cm in diameter. No free fluid in the immediate vicinity of the gallbladder. US/US abdomen limited IMPRESSION: Gallstones. Gallbladder wall is thickened with edema/fluid in the bone. Reported negative sonographic Morgan's sign. Findings are equivocal. If there is persistent clinical concern for cholecystitis, recommend short-term follow-up ultrasound or HIDA scan for further evaluation. Electronically signed by: Bk Campbell MD 01/29/2025 03:11 PM [facility]
--- NOTE | 2025-01-29 11:19 | ED.GENADULT ---
HPI - General Adult General Chief complaint: Weakness Stated complaint: SUDDEN WEAK,WARM TO TOUCH Time Seen by Provider: 01/29/25 11:12 Source: patient Mode of arrival: ambulatory Limitations: altered mental status History of Present Illness ED Provider: Dr. Suggs HPI narrative: 84-year-old male history of advanced dementia presented hospital today for evaluation of increased weakness and lethargy. The patient is confused at baseline due to his dementia. Patient lives at home with family and swimming pool attendant. The patient is present with a swimming pool attendant. She stated that patient has been feeling ill for the past couple of days. She noticed that when she tried to get him up today. He appears to be very weak. This is your generalized weakness. Patient at baseline is able to ambulate with a walker. He is confused however able to conversation. Related Data Home Medications ?Medication ?Instructions ?Recorded ?Confirmed aspirin 81 mg tablet,delayed 81 mg PO QAM 05/27/20 12/03/24 release atorvastatin 20 mg tablet 20 mg PO BEDTIME 05/27/20 12/03/24 calcium 500 mg (as carbonate)-vit 1 tab PO BID 05/27/20 12/03/24 D3 10 mcg (400 unit) chewable tablet carvedilol 25 mg tablet 25 mg PO BID 05/27/20 12/03/24 hydralazine 50 mg tablet 50 mg PO TID 05/27/20 12/03/24 irbesartan 300 mg tablet 300 mg PO DAILY 05/27/20 12/03/24 loratadine 10 mg tablet 10 mg PO DAILY 05/27/20 12/03/24 colchicine 0.6 mg tablet 0.6 mg PO DAILY 10/26/21 12/03/24 pantoprazole 40 mg tablet,delayed 40 mg PO DAILY@0630 10/26/21 12/03/24 release sertraline 25 mg tablet 25 mg PO DAILY 10/26/21 12/03/24 acetaminophen 500 mg tablet 500 mg PO Q6H PRN pain 03/13/24 12/03/24 docusate sodium 100 mg capsule 100 mg PO BID 03/13/24 12/03/24 furosemide 40 mg tablet 40 mg PO DAILY 03/13/24 12/03/24 trazodone 100 mg tablet 200 mg PO BEDTIME PRN Sleep 12/03/24 12/03/24 Previous Rx's ?Medication ?Instructions ?Recorded doxazosin 4 mg tablet 4 mg PO BEDTIME 90 days #90 tabs 08/03/23 finasteride 5 mg tablet 5 mg PO DAILY 90 days #90 tabs 08/03/23 levetiracetam 500 mg/5 mL (5 mL) 500 mg (5 mL) PO BID 90 days #900 12/04/24 oral solution mL memantine 10 mg tablet 10 mg PO BID 30 days #60 tabs 01/28/25 Allergies Allergy/AdvReac Type Severity Reaction Status Date / Time nifedipine (From Procardia) Allergy Intermediate EDEMA Verified 01/29/25 11:11 ibuprofen (Ibuprofen) Allergy Mild RASH Verified 01/29/25 11:11 ibuprofen Allergy Unknown rash Uncoded 03/13/24 11:57 nifedipine Allergy Unknown edema Uncoded 03/13/24 11:57 Review of Systems Review of Systems: Pertinent review of systems as mentioned in HPI. All other system otherwise negative. 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 Diffuse tenderness Neurological: Awake and alert, no facial droop noted, and moving all 4 extremities Skin: Warm to touch Psychiatric: Appropriate mood and thoughts Vital Signs: Vital Signs - 24 hr 01/29/25 11:08 01/29/25 11:09 01/29/25 12:30 Temperature 98 F 101.8 F H 100.9 F H Pulse Rate 90 94 88 Respiratory Rate 20 18 19 Blood Pressure 129/53 L 129/53 L 127/65 Pulse Oximetry 94 94 95 Oxygen Delivery Method Nasal Cannula Room Air Room Air 01/29/25 14:00 01/29/25 14:47 Temperature Pulse Rate 80 88 Respiratory Rate 20 17 Blood Pressure 128/66 139/66 Pulse Oximetry 97 97 Oxygen Delivery Method Room Air Room Air BMI result Body Mass Index 28.5 Medications Administered Discontinued Medications Generic Name Dose Route Start Last Admin Trade Name Freq PRN Reason Stop Dose Admin Acetaminophen 650 mg 01/29/25 11:08 01/29/25 11:30 Acetaminophen Supp 650 Mg Supp.Rect KS 01/29/25 11:09 650 mg ONCE ONE Administration Ceftriaxone Sodium 1 gm/ 50 mls @ 100 mls/hr 01/29/25 11:32 01/29/25 12:16 Sodium Chloride IV 01/29/25 12:01 Infused ONCE ONE Infusion Sodium Chloride 1,000 mls @ 999 mls/hr 01/29/25 11:45 01/29/25 13:00 Ns IV 01/29/25 12:45 Infused .Q1H1M COURTNEY Infusion Sodium Chloride 1,000 mls @ 1,200 mls/hr 01/29/25 12:30 01/29/25 13:10 Ns IV 01/29/25 13:19 1,200 mls/hr .Q50M COURTNEY Administration Ceftriaxone Sodium 1 gm/ 50 mls @ 100 mls/hr 01/29/25 13:13 01/29/25 13:40 Sodium Chloride IV 01/29/25 13:42 100 mls/hr ONCE ONE Administration Iohexol 100 ml 01/29/25 13:17 01/29/25 13:18 Iohexol 350 Mg/Ml 100 Ml Infus..Btl IV 01/29/25 13:18 85 ml ONCE ONE Administration Medical Decision Making Medical Decision Making MDM Narrative: This is a 84-year-old male history of advanced dementia presented hospital today for evaluation of altered mentation lethargy and generalized weakness. Patient was found to have a fever. However he does not have any signs of tachycardia or tachypnea on exam. Patient does appear to be confused encephalopathic on my exam. We will plan to pursue a broad sepsis workup for the patient at this time. We will assess for any signs of UTI with a UA. Chest x-ray will be obtained to rule for any signs of pneumonia. We will obtain a CT head and CT abdomen and pelvis. Patient does have distended abdomen. Concern for possible intra-abdominal process. We will plan to straight cath for urinalysis. Lactic acid will be obtained blood culture will be obtained. Ceftriaxone will be given empirically to cover for infection. Bolus IV fluid will be given to the patient does time. boat engines installer was used for this encounter. CT head is negative. CT abdomen and pelvis shows possible acalculous cholecystitis. I did consulted general surgery team Dr. Haynes. Recommended IR tube if signs of cholecystitis with hospital admission. UA shows possible UTI. Lactic acid is elevated 2.5. Cover the patient with IV ceftriaxone, IV Flagyl will be added on as well. We will plan to admit the patient to the hospital. Differential Diagnosis Differential Diagnoses: The differential diagnosis associated with the presentation includes Colitis, gastroenteritis, intra-abdominal abscess, UTI, pneumonia, sepsis Consult Healthcare Provider Management of the patient was discussed with: Hospitalist and Music Specialist (Dr. Haynes) Lab Data MDM Lab Attestation statement: I reviewed the patient's lab results. 01/29/25 11:32 01/29/25 11:32 Labs: Lab Results 01/29/25 01/29/25 01/29/25 Range/Units 11:32 11:45 13:37 WBC 23.1 H (4.8-10.8) X10*3/uL RBC 4.43 L (4.60-5.80) X10*6/uL Hgb 13.3 L (14.0-18.0) g/dl Hct 40.1 L (42.0-52.0) % MCV 90.5 (80.0-98.0) fL MCH 30.0 (27.0-33.0) pg MCHC 33.2 (31.0-36.0) g/dl RDW 12.9 (11.0-16.0) % Plt Count 141 L (160-400) X10*3/uL MPV 11.2 (9.4-12.4) fL Immature Gran % (Auto) Cancelled Neut % (Auto) Cancelled Lymph % (Auto) Cancelled [place] % (Auto) Cancelled Eos % (Auto) Cancelled Baso % (Auto) Cancelled Lymph # (Auto) Cancelled [place] # (Auto) Cancelled Eos # (Auto) Cancelled Baso # (Auto) Cancelled Abs Immat Gran (auto) Cancelled Absolute Neuts (auto) Cancelled Absolute Nucleated RBC 0.000 (0.0-0.012) X10*3/uL Nucleated RBC % (auto) 0.0 (0.0-0.2) /100WBC Neutrophils % (Manual) 88 H (45-73) % Band Neutrophils % 0 L (3-5) % Lymphocytes % (Manual) 9 L (20-40) % Monocytes % (Manual) 3 (2-11) % Abs Neuts (Manual) 20.3 H (2.0-8.3) X10*3/uL Lymphocytes # (Manual) 2.1 (1.2-4.9) X10*3/uL Monocytes # (Manual) 0.7 (0.1-1.2) X10*3/uL Toxic Vacuolation PRESENT Platelet Estimate SLIGHTLY DECREASED (NORMAL) Large Platelets PRESENT Plt Morphology Comment NOTE RBC Morphology NOTED Polychromasia 1+ (0-2) /OIF Sodium 144 (135-145) mmol/L Potassium 3.8 (3.3-5.1) mmol/L Chloride 107 (96-108) mmol/L Carbon Dioxide 25 (22-29) mmol/L Anion Gap 16 (12-20) BUN 24 H (9-16) mg/dL Creatinine 1.44 H (0.5-1.4) mg/dL Estim Creat Clear Calc 35.4 Estimated GFR 47 Random Glucose 123 H (60-115) mg/dL Lactic Acid 2.5 H* (0.5-2.0) mmol/L Calcium 9.2 (8.4-10.2) mg/dL Total Bilirubin 1.1 H (0.0-1.0) mg/dL Direct Bilirubin 0.3 (0.0-0.5) mg/dL AST 42 H (5-37) U/L ALT 13 (0-40) U/L Alkaline Phosphatase 85 (39-117) U/L Ammonia 33 (13-55) umol/L Total Protein 7.6 (6.5-8.0) g/dL Albumin 4.1 (3.5-5.0) g/dL Lipase 17 (8-78) U/L TSH 0.16 L (0.32-4.0) uIU/mL Free T4 1.06 (0.71-1.85) ng/dL Urine Color Dark Yellow Urine Appearance Cloudy Urine pH 5.5 (5.0-9.0) Ur Specific [place] 1.025 (1.005-1.025) Urine Protein 100 (2+) H (Neg-Trace) mg/dL Urine Glucose (UA) Negative (Negative) mg/dL Urine Ketones Trace (Negative) mg/dL Urine Blood Large (3+) H (Negative) Urine Nitrite Negative (Negative) Ur Leukocyte Esterase Moderate (2+) H (Negative) Urine RBC 11-20 H (0-2) /HPF Urine WBC 21-50 (0-5) /HPF Urine WBC Clumps Present Ur Squamous Epith Cells 6-10 (0-2) /HPF Urine Bacteria 2+ (None Seen) Hyaline Casts 0-2 (0-2) /LPF Influenza Type A (PCR) NEGATIVE (Negative) Influenza Type B (PCR) NEGATIVE (Negative) RSV RNA Qual (PCR) NEGATIVE (Negative) SARS-CoV-2 RNA (RT-PCR) NEGATIVE (Negative) Independent Interpretation I performed an independent interpretation of an: CT Scan Radiology Impression Discussion of test interpretation with radiology: I have reviewed the radiologist's reading. Chronic Conditions Dementia Critical Care Time Critical Care Time Critical Care Time: Yes Total Critical Care Time: 40 Attestation: Time is exclusive of separately billable procedures. Time includes: direct patient care, patient reassessment, coordination of patient care, interpretation of data (laboratory data, pulse oximetry, arterial blood gases and chest xrays), review of patient's medical records, medical consultation and documentation of patient care. Procedures excluded from critical care time: central intravenous line placement and electrocardiography. Discharge Plan Discharge Clinical Impression: Sepsis, UTI (urinary tract infection), Acalculous cholecystitis Patient Disposition: Admitted As Inpatient Print Language: Chinese
[2025-01-29] MEDS: Acetaminophen Supp 650 MG SUPP.RECT PR (11:30)
[2025-01-29 11:51] LABS: Hematocrit 40.1 % (42.0-52.0); Hemoglobin 13.3 g/dl (14.0-18.0); Mean Corpuscular HGB Conc 33.2 g/dl (31.0-36.0); Mean Corpuscular Hemoglobin 30.0 pg (27.0-33.0); Mean Corpuscular Volume 90.5 fL (80.0-98.0); NRBC Abs Auto 0.000 X10*3/uL (0.0-0.012); NRBC Pct Auto 0.0 /100WBC (0.0-0.2); Platelet Count 141 X10*3/uL (160-400); Red Blood Count 4.43 X10*6/uL (4.60-5.80); White Blood Count 23.1 X10*3/uL (4.8-10.8)
[2025-01-29 11:54] LABS: Ammonia 33 umol/L (13-55)
[2025-01-29 12:19] LABS: Alanine Aminotransferase 13 U/L (0-40); Albumin Level 4.1 g/dL (3.5-5.0); Alkaline Phosphatase 85 U/L (39-117); Anion Gap 16 (12-20); Aspartate Amino Transferase 42 U/L (5-37); Blood Urea Nitrogen 24 mg/dL (9-16); Calcium 9.2 mg/dL (8.4-10.2); Carbon Dioxide 25 mmol/L (22-29); Chloride 107 mmol/L (96-108); Creatinine Clr Calc Pharmacy 35.4; Estimated Glomerular Filt Rate 47; Lipase 17 U/L (8-78); Potassium 3.8 mmol/L (3.3-5.1); Sodium 144 mmol/L (135-145); Total Protein 7.6 g/dL (6.5-8.0)
[2025-01-29 12:28] LABS: Resp Syncy Virus RNA Qual PCR NEGATIVE (Negative); SARS COV2 PCR INHOUSE NEGATIVE (Negative)
[2025-01-29 12:33] LABS: Band Neutrophils Percent 0 % (3-5); Large Platelet PRESENT; Lymphocytes Absolute Manual 2.1 X10*3/uL (1.2-4.9); Lymphocytes Percent Manual 9 % (20-40); Monocytes Absolute Manual 0.7 X10*3/uL (0.1-1.2); Monocytes Percent Manual 3 % (2-11); Neutrophils Absolute Manual 20.3 X10*3/uL (2.0-8.3); Neutrophils Percent Manual 88 % (45-73); Polychromasia 1+ (0-2) /OIF; RBC Morphology NOTED; Toxic Vacuolation PRESENT
[2025-01-29] MEDS: iohexoL 350 MG/ML 100 ML INFUS..BTL IV (13:18)
[2025-01-29 13:20] LABS: Free T4 (Free Thyroxine) 1.06 ng/dL (0.71-1.85)
[2025-01-29 13:38] LABS: Reflex Lactate? Lactic Acid Added
[2025-01-29 13:46] LABS: Appearance Urine Cloudy; Glucose Urine UA Negative (Negative); PH 5.5 (5.0-9.0); Specific Gravity - Urine 1.025 (1.005-1.025); UMIC TRIGGER UA YES
--- NOTE | 2025-01-29 14:30 | PC.NURSE ---
Delay in IVF completion due to pt continuously laying on side/IV tubing. Pt not redirectable due to baseline dementia. IV re-dressed, taped to facilitate infusion. Care ongoing.
--- OUTSIDE RECORDS SUMMARY | 2025-01-29 14:35 | XMS_ITS | Encounter Summary ---
Author Organization [employer] Address [address] [place] [address] Care Team Providers Care Pulp Roller Name Role Phone Name, Galen AGUAYO Primary Care Provider [phone] Reason for Visit * Reason Comments Med Refill Encounter Details Date Type Department Care Team ([facility] st Contact Info) Description 01/25/2025 Refill [facility] [address] [place] [address] Name, MD Galen [address] [place] [address] Social History Tobacco Use Types Packs/Day Years Used Date Smoking Tobacco: Never Passive Smoke Exposure: Never Smokeless Tobacco: Never Alcohol Use Standard [...] as of this encounter Plan of Treatment Upcoming Encounters Date Type Department Care Team (Late st Contact Info) Description 03/11/2025 2:15 PM EST Office Visit [facility] [address] [place] [id number] Name, MD Galen [address] [place] [phone] documented as of this encounter Visit Diagnoses Not on filedocumented in this encounter Additional Health Concerns Assessment Noted Time PHQ-9 Depression Total Score: 0 11/18/19 23 10:53 AM EDT documented as of this encounter Care Teams Pulp Roller Relationship Specialty Start Date End Date Name, MD Galen [address] [place] [id number] PCP - General Family Medicine 02/24/19 Home Care [facility] 09/30/24 documented as of this encounter
--- OUTSIDE RECORDS SUMMARY | 2025-01-29 14:35 | XMS_ITS | Encounter Summary ---
Author Organization [facility] Address [address] [place] [id number] Phone Care Team Providers Care Head Pumper Name Role Phone Name, Galen AGUAYO Primary Care Provider [phone] Encounter Details Date Type Department Care Team (Late st Contact Info) Description 02/21/2021 Procedure Pass [facility] [address] [place] [address] Social History Tobacco Use Types Packs/Day Years [...] 02/21/2021 3:34 PM Shannan Morales RN * [place] Suicide Severity Rating Scale (Screener/Recent Self-Report) Question [...] documented as of this encounter Care Teams Head Pumper Relationship Specialty Start Date End Date Name, MD Galen [address] [place] [address] PCP - General Geriatric Psychiatry 02/21/21 documented as of this encounter Additional Source Comments The information contained in this document represents components of the legal health record. It is not the complete legal health record.[facility]
--- OUTSIDE RECORDS SUMMARY | 2025-01-29 14:35 | XMS_ITS | Encounter Summary ---
Author Organization [employer] Address [address] [facility] [address] [address] [place] [address] Care Team Providers Care Human Resources Assistant Name Role Phone Name, Galen AGUAYO Primary Care Provider [phone] Encounter Details Date Type Department Care Team ([facility] st Contact Info) Description 01/29/2025 Orders Only [facility] External Provider, [facility] Social History Tobacco Use Types Packs/Day Years [...] Description 03/11/2025 2:15 PM EST Office Visit [facility] [address] [place] [address] Name, MD Galen [address] [place] [address] documented as of this encounter Procedures Procedure Name Priority Date/Time Associated Diagnosis Comments URINALYSIS, COMPLETE Routine 01/29/2025 1:[address] ABDOMEN PELVIS W CONTRAST Routine 01/29/2025 12:[address] HEAD WO CONTRAST Routine 01/29/2025 1 2:58 PM EST SARS COV2/INFLUENZA A/B AND RSV RNA QL NAAT Routine 01/29/2025 11:45 AM EST COMPLETE BLOOD COUNT MAN DIF Routine 01/29/2025 11:32 AM EST TSH W/REFLEX TO FT4 Routine 01/29/2025 1 1:32 AM EST CBC WITH AUTO DIFFERENTIAL Routine 01/29/2025 11:32 AM EST T4, FREE Routine 01/29/2025 11:32 AM EST LACTIC ACID Routine 01/29/2025 11:32 AM EST AMMONIA (P) Routine 01/29/2025 11:32 AM EST XR CHEST 1 VIEW Routine 01/29/2025 11:11 AM EST documented in this encounter Results * (ABNORMAL) Urinalysis Complete (01/29/2025 1:37 PM EST) Color Urine Dark Yellow [facility] Appearance Urine Cloudy [facility] PH 5.5 5.0 - 9.0 [facility] Glucose Urine UA Negative Negative mg/dL [facility] Urine Blood Large (3+)(A) Negative [facility] Specific Howard - Urine 1.025 1.005 - 1.025 [facility] Urine Protein 100 (2+)(A) Neg-Trace mg/dL [facility] Urine Ketones Trace Negative mg/dL [facility] Nitrite Urine Negative Negative [facility] Leukocyte Esterase Urine Moderate (2+)(A) Negative [facility] RBC Urine 11-20(A) 0 - 2 /HPF [facility] Urine WBC 21-50 0 - 5 /HPF [facility] WBC CLUMPS, UR Present [facility] Urine Squamous Epithelial Cell 6-10 0 - 2 /HPF [facility] Urine Bacteria 2+ None Seen [facility] Hyaline Casts, Urine 0-2 0 - 2 /LPF [facility] 01/29/2025 1:37 PM EST 01/29/2025 1:40 PM EST us Generic External Data Provider LAB URINE ORDERAB LES Final Result Performing Organization Address City/State/[facility] Co de Phone Number [facility] [address] [place] [phone] * CT Abdomen Pelvis w/ Contrast (01/29/2025 12:58 PM EST) Anatomical Region Laterality Modality Body, Pelvis, Abdomen Computed T omography 01/29/2025 12:5 8 PM EST Narrative 01/29/2025 1:34 PM EST [address] [address] [address] Scan Report Signed Patient: Frederick Worthy MR#: [id number] 462 : 1940 Acct:[id number] Age/Sex: 84 / M ADM Date: 01/29/25 Loc: HO.ED Attending Dr: Ordering Physician: Teresita Suggs DO Date of Service: 01/29/25 Procedure(s): CT abdomen pelvis w IV con Accession Number(s): [id number] cc: SuggsTeresita Shabbir ; Name,Galen AGUAYO Report Number: [id number]: Total DLP = 839.05 mGy-cm Reason for Exam: sepsis EXAMINATION: CT ABDOMEN AND PELVIS WITH CONTRAST CLINICAL INFORMATION: Sepsis. COMPARISON: December 03, 2024. TECHNIQUE: Multidetector volumetric images were obtained from the superior aspect of the liver through the pubic symphysis following administration 85 mL of Omnipaque 350 intravenous contrast. Sagittal and coronal reformatted images were obtained on the technologist's workstation. Oral contrast: No This CT examination was performed using dose optimization techniques as appropriate, variously including the following: *Automated exposure control *Adjustment of mA and/or kV according to patient size (this includes techniques or standardized protocols for targeted exams where dose is matched to indication/reason for exam; i.e. extremities or head) *Use of iterative reconstruction technique. DLP: 830.06 mGy-cm FINDINGS: LUNG BASES: Bilateral small trace pleural effusions. Compression atelectasis. LIVER, GALLBLADDER, AND BILIARY TREE: Liver measures 16 cm. Subcentimeter cystic lesions too small to be fully characterized. Main portal veins and hepatic veins are patent. There is a 6 mm intraluminal calcification in the gallbladder neck. There is pericholecystic fluid and a 3 mm gallbladder wall thickening. No intrahepatic or extrahepatic biliary ductal dilatation. PANCREAS: No focal mass. No peripancreatic fluid collection. No main pancreatic ductal dilatation. SPLEEN: 9 cm. No solid or cystic lesion. ADRENAL GLANDS: No nodular lesions. KIDNEYS AND URETERS: Kidneys are small. Normal enhancement of the renal cortex. No solid enhancing renal mass. No hydronephrosis. No gross nephrolithiasis. Cystic lesions mostly on the right kidney, the largest measures 3 cm. No dilatation of the ureter. Prominent lymph nodes in the right perinephric/pararenal compartment. BLADDER: Fluid-filled nearly collapsed with the likely trabeculated wall. GASTROINTESTINAL TRACT: Abundant stool within the large intestine. No intestinal obstruction pattern. Collapsed appearance of the rectosigmoid colon. Numerous diverticula throughout the left hemicolon mostly the sigmoid colon. No pericolonic edema pattern. Appendix is normal. No ascites. No pneumoperitoneum. No peripheral enhancing fluid collections in the peritoneal cavity. Hiatal hernia, small to moderate size. ABDOMINAL WALL: Small fat-containing umbilical hernia and diastases of the abdominal rectus muscles. LYMPH NODES: Nonspecific mildly prominent inguinal, periceliac and retroperitoneal. VASCULAR: Irregular mixed plaques throughout the aorta and iliac arteries without aneurysm or dissection. Calcified plaques in the coronary arteries. PELVIC VISCERA: Heterogeneously enlarged prostate gland measures 8 cm protruding upon the urinary bladder floor. Prominent seminal vesicles, bilaterally. OSSEOUS STRUCTURES: Quintin type III sacralization. Rudimentary rib, L1. Multilevel thoracolumbar spondylosis pronounced from L3-4 to L5-S1. Syndesmophyte formation and marginal osteophyte formation with sclerosis and the sacroiliac joints. Nonspecific subcentimeter lytic lesions in the bony pelvis and posteriorly throughout the axial skeleton.. Multilevel syndesmophyte formation throughout the axial skeletal. CT/CT abdomen pelvis w IV con IMPRESSION: Concerning acute calculus cholecystitis in the correct clinical settings. Benign prostate hyperplasia versus malignancy. Diverticular disease. Coronary artery disease and atherosclerosis disease. Bilateral small volume pleural effusions. Multilevel spondylosis with the questionable subcentimeter lytic lesions versus calcium metabolic disorders. Fleischner guidelines were followed. Electronically signed by: Usama Guillaume MD 01/29/2025 01:32 PM [facility] Dictated By: Usama Canchola MD Signed By: <Electronically signed by Usama Garcai MD in OV> 01/29/25 1332 DD/ 1258 TD/TT: 01/29/25 [address] Installer: Procedure Note Donotuseinterpreter, Image - 01/29/[address] [address] [address] Scan Report Signed Patient: Vineet Worthy#: [id number] 462 : 1940cct:[id number] Age/Sex: 84 / MADM Date: 01/29/25 Loc: HO.ED Attending Dr: Ordering Physician: Teresita Suggs DO Date of Service: 01/29/25 Procedure(s): CT abdomen pelvis w IV con Accession Number(s): [id number] cc: IfeanyiTeresita DO; Name,Galen AGUAYO Report Number: [id number]: Total DLP = 839.05 mGy-cm Reason for Exam: sepsis EXAMINATION: CT ABDOMEN AND PELVIS WITH CONTRAST CLINICAL INFORMATION: Sepsis. COMPARISON: December 03, 2024. TECHNIQUE: Multidetector volumetric images were obtained from the superior aspect of the liver through the pubic symphysis following administration 85 mL of Omnipaque 350 intravenous contrast. Sagittal and coronal reformatted images were obtained on the technologist's workstation. Oral contrast: No This CT examination was performed using dose optimization techniques as appropriate, variously including the following: *Automated exposure control *Adjustment of mA and/or kV according to patient size (this includes techniques or standardized protocols for targeted exams where dose is matched to indication/reason for exam; i.e. extremities or head) *Use of iterative reconstruction technique. DLP: 830.06 mGy-cm FINDINGS: LUNG BASES: Bilateral small trace pleural effusions. Compression atelectasis. LIVER, GALLBLADDER, AND BILIARY TREE: Liver measures 16 cm. Subcentimeter cystic lesions too small to be fully characterized. Main portal veins and hepatic veins are patent. There is a 6 mm intraluminal calcification in the gallbladder neck. There is pericholecystic fluid and a 3 mm gallbladder wall thickening. No intrahepatic or extrahepatic biliary ductal dilatation. PANCREAS: No focal mass. No peripancreatic fluid collection. No main pancreatic ductal dilatation. SPLEEN: 9 cm. No solid or cystic lesion. ADRENAL GLANDS: No nodular lesions. KIDNEYS AND URETERS: Kidneys are small. Normal enhancement of the renal cortex. No solid enhancing renal mass. No hydronephrosis. No gross nephrolithiasis. Cystic lesions mostly on the right kidney, the largest measures 3 cm. No dilatation of the ureter. Prominent lymph nodes in the right perinephric/pararenal compartment. BLADDER: Fluid-filled nearly collapsed with the likely trabeculated wall. GASTROINTESTINAL TRACT: Abundant stool within the large intestine. No intestinal obstruction pattern. Collapsed appearance of the rectosigmoid colon. Numerous diverticula throughout the left hemicolon mostly the sigmoid colon. No pericolonic edema pattern. Appendix is normal. No ascites. No pneumoperitoneum. No peripheral enhancing fluid collections in the peritoneal cavity. Hiatal hernia, small to moderate size. ABDOMINAL WALL: Small fat-containing umbilical hernia and diastases of the abdominal rectus muscles. LYMPH NODES: Nonspecific mildly prominent inguinal, periceliac and retroperitoneal. VASCULAR: Irregular mixed plaques throughout the aorta and iliac arteries without aneurysm or dissection. Calcified plaques in the coronary arteries. PELVIC VISCERA: Heterogeneously enlarged prostate gland measures 8 cm protruding upon the urinary bladder floor. Prominent seminal vesicles, bilaterally. OSSEOUS STRUCTURES: Quintin type III sacralization. Rudimentary rib, L1. Multilevel thoracolumbar spondylosis pronounced from L3-4 to L5-S1. Syndesmophyte formation and marginal osteophyte formation with sclerosis and the sacroiliac joints. Nonspecific subcentimeter lytic lesions in the bony pelvis and posteriorly throughout the axial skeleton.. Multilevel syndesmophyte formation throughout the axial skeletal. CT/CT abdomen pelvis w IV con IMPRESSION: Concerning acute calculus cholecystitis in the correct clinical settings. Benign prostate hyperplasia versus malignancy. Diverticular disease. Coronary artery disease and atherosclerosis disease. Bilateral small volume pleural effusions. Multilevel spondylosis with the questionable subcentimeter lytic lesions versus calcium metabolic disorders. Fleischner guidelines were followed. Electronically signed by: Usama Guillaume MD 01/29/2025 01:32 PM EST Dictated By: Usama Canchola MD Signed By: <Electronically signed by Usama Garcia MDin OV> 01/29/25 1332 DD/ 1258 TD/TT: 01/29/25 [address] Installer: [facility] External Provider IMG CT PROCEDURES Final Result * CT Head w/o Contrast (01/29/2025 12:58 PM EST) Anatomical Region Laterality Modality Head, Neck Computed Tomogra phy 01/29/2025 12:5 8 PM EST Narrative 01/29/2025 1:27 PM EST [address] [address] [address] Scan Report Signed Patient: Frederick Worthy MR#: [id number] 462 : 1940 Acct:[id number] Age/Sex: 84 / M ADM Date: 01/29/25 Loc: HO.ED Attending Dr: Ordering Physician: Teresita Suggs DO Date of Service: 01/29/25 Procedure(s): CT head/brain wo IV con Accession Number(s): [id number] cc: Teresita Suggs DO; Name,Galen AGUAYO Report Number: [id number]: Total DLP = 706.98 mGy-cm Reason for Exam: ams, weakness EXAMINATION: CT HEAD WITHOUT CONTRAST CLINICAL INFORMATION: Altered mental status and weakness COMPARISON: 12/03/2024 TECHNIQUE: Contiguous axial imaging was performed from the skull base to vertex without intravenous administration of contrast. This CT examination was performed using dose optimization techniques as appropriate, variously including the following: *Automated exposure control *Adjustment of mA and/or kV according to patient size (this includes techniques or standardized protocols for targeted exams where dose is matched to indication/reason for exam; i.e. extremities or head) *Use of iterative reconstruction technique FINDINGS: There is no acute ischemic change. Moderate chronic white matter hypodensity is most pronounced in the left frontal lobe. There is no intracranial hemorrhage. There is no mass-effect or midline shift. Mild to moderate generalized atrophy is present. Basal cisterns and ventricles are within normal limits for age/cerebral volume. Orbits are symmetrical and unremarkable. Mild mucosal thickening is present in the ethmoid air cells, increased since the prior There are no bony abnormalities. CT/CT head/brain wo IV con IMPRESSION: No acute intracranial abnormality. Mild mucosal thickening in the ethmoid air cells is new since the prior. Chronic white matter changes are probably related to small vessel disease. Electronically signed by: Claudio Leos MD 01/29/2025 01:24 PM [facility] Dictated By: Claudio Leos MD Signed By: <Electronically signed by Claudio Leos MD in OV> 01/29/25 1324 DD/ 1258 TD/TT: 01/29/25 [address] Installer: Procedure Note Donotuseinterpreter, Image - 01/29/[address] [address] [address] Scan Report Signed Patient: Vineet Worthy#: [id number] 462 : 1940cct:[id number] Age/Sex: 84 / MADM Date: 01/29/25 Loc: HO.ED Attending Dr: Ordering Physician: Teresita Suggs DO Date of Service: 01/29/25 Procedure(s): CT head/brain wo IV con Accession Number(s): [id number] cc: Teresita Suggs DO; Name,Galen AGUAYO Report Number: [id number]: Total DLP = 706.98 mGy-cm Reason for Exam: ams, weakness EXAMINATION: CT HEAD WITHOUT CONTRAST CLINICAL INFORMATION: Altered mental status and weakness COMPARISON: 12/03/2024 TECHNIQUE: Contiguous axial imaging was performed from the skull base to vertex without intravenous administration of contrast. This CT examination was performed using dose optimization techniques as appropriate, variously including the following: *Automated exposure control *Adjustment of mA and/or kV according to patient size (this includes techniques or standardized protocols for targeted exams where dose is matched to indication/reason for exam; i.e. extremities or head) *Use of iterative reconstruction technique FINDINGS: There is no acute ischemic change. Moderate chronic white matter hypodensity is most pronounced in the left frontal lobe. There is no intracranial hemorrhage. There is no mass-effect or midline shift. Mild to moderate generalized atrophy is present. Basal cisterns and ventricles are within normal limits for age/cerebral volume. Orbits are symmetrical and unremarkable. Mild mucosal thickening is present in the ethmoid air cells, increased since the prior There are no bony abnormalities. CT/CT head/brain wo IV con IMPRESSION: No acute intracranial abnormality. Mild mucosal thickening in the ethmoid air cells is new since the prior. Chronic white matter changes are probably related to small vessel disease. Electronically signed by: Claudio Leos MD 01/29/2025 01:24 PM [facility] Dictated By: Claudio Leos MD Signed By: <Electronically signed by Claudio Leos MD in OV> 01/29/25 1324 DD/ 1258 TD/TT: 01/29/25 [address] Installer: [facility] External Provider IMG CT PROCEDURES Final Result * SARS-CoV-2 RNA, Influenza A/B, and RSV RNA, Ql NAAT (01/29/2025 11:45 AM EST) Influenza A PCR NEGATIVE Negative [facility] Influenza B PCR NEGATIVE Negative [facility] Resp Syncy Virus RNA Qual PCR NEGATIVE Negative [facility] SARS COV2 PCR NEGATIVE Negative [facility] Comment:All test results mus t be correlated with clinical findings.Negative results do not preclude SARS-CoV2, influenza Avirus, influenza B virus and/or RSV infectionand should not be used as the sole basis for treatment orother patient management decisions. Negative results must becombined with clinical observations, patient history, andepidemiological information.This test has not been evaluated for monitoring treatment ofinfection.This test has been authorized by the FDA under an EmergencyUse Authorization (EUA) for use by authorized laboratories.Testing performed on the [employer] GeneXpert utilizingreal-time RT-PCR.All SARS CoV2 and positive influenza A/B results arereported to [facility]. 01/29/2025 11:4 5 AM EST 01/29/2025 11:50 AM EST Generic External Data Provider LAB MICROBIOLOGY - GENERAL ORDERABLES Final Result Performing Organization Address [facility]/ZIP Co de Phone Number [facility] [address] [place] [phone] * T4, Free (01/29/2025 11:32 AM EST) Free T4 (Free Thyroxine) 1.06 0.71 - 1.85 ng/dL [facility] 01/29/2025 11:3 2 AM EST 01/29/2025 11:37 AM EST Generic External Data Provider LAB BLOOD ORDERAB LES Final Result Performing Organization Address City/[facility]/ZIP Co de Phone Number [facility] [address] [place] [phone] * (ABNORMAL) Complete Blood Count Manual Diff (01/29/2025 11:32 AM EST) White Blood Count 23.1(H) 4.8 - 10.8 X10*3/uL [facility] Red Blood Count 4.43(L) 4.60 - 5.80 X10*6/uL [facility] Hemoglobin 13.3(L) 14.0 - 18.0 g/dl [facility] Hematocrit 40.1(L) 42.0 - 52.0 % [facility] Mean Corpuscular Volume 90.5 80.0 - 98.0 fL [facility] Mean Corpuscular Hemoglobin 30.0 27.0 - 33.0 pg [facility] Mean Corpuscular HGB Conc 33.2 31.0 - 36.0 g/dl [facility] Red Cell Distribution Width 12.9 11.0 - 16.0 % [facility] Platelet Count 141(L) 160 - 400 X10*3/uL [facility] Mean Platelet Volume 11.2 9.4 - 12.4 fL [facility] NRBC Pct Auto 0.0 0.0 - 0.2 /100WBC [facility] NRBC Abs Auto 0.000 0.0 - 0.012 X10*3/uL [facility] Neutrophils % Manual 88(H) 45 - 73 % [facility] Band Neutrophils Percent 0(L) 3 - 5 % [facility] Lymphocytes Percent Manual 9(L) 20 - 40 % [facility] Monocytes Percent Manual 3 2 - 11 % [facility] NEUTROPHILS ABSOLUTE MANUAL 20.3(H) 2.0 - 8.3 X10*3/uL [facility] LYMPHOCYTES ABSOLUTE MANUAL 2.1 1.2 - 4.9 X10*3/uL [facility] MONOCYTES ABSOLUTE MANUAL 0.7 0.1 - 1.2 X10*3/uL [facility] Platelet Estimate SLIGHTLY DECREASED NORMAL [facility] Large Platelet [facility] Platelet Morphology Comment NOTE [facility] RBC Morphology NOTED [facility] POLYCHROMASIA 1+ (0-2) /OIF [facility] Toxic Vacuolation [facility] 01/29/2025 11:3 2 AM EST 01/29/2025 11:37 AM EST us Generic External Data Provider LAB BLOOD ORDERAB LES Final Result Performing Organization Address [facility] Co de Phone Number [facility] [address] [place] [address] [phone] * (ABNORMAL) TSH with Reflex to Free T4 (01/29/2025 11:32 AM EST) TSH reflex Free T4 0.16(L) 0.32 - 4.0 uIU/mL [facility] 01/29/2025 11:3 2 AM EST 01/29/2025 11:37 AM EST us Generic External Data Provider LAB BLOOD ORDERAB LES Final Result Performing Organization Address [facility] de Phone Number [facility] [address] [place] [phone] * (ABNORMAL) Lactic Acid (01/29/2025 11:32 AM EST) Lactic Acid 2.5(HH) 0.5 - 2.0 mmol/L [facility] Comment:Critical value for L ACTIC: Results called to and read rajni: ELLA Person calling: TERESITACarin Date: 01/29/25 Time: 1220 01/29/2025 11:3 2 AM EST 01/29/2025 11:37 AM EST us Generic External Data Provider LAB BLOOD ORDERAB LES Final Result Performing Organization Address [facility] Co de Phone Number [facility] [address] [place] [phone] * Ammonia, Plasma (01/29/2025 11:32 AM EST) Pathologist [facility] Ammonia (P) [phone] - 55 umol/L [facility] 01/29/2025 11:3 2 AM EST 01/29/2025 11:37 AM EST us Generic External Data Provider LAB BLOOD ORDERAB LES Final Result [facility] [address] [place] [phone] * (ABNORMAL) CBC auto differential (01/29/2025 11:32 AM EST) [facility] White Blood Count 23.1(H) 4.8 - 10.8 X10*3/uL [facility] Red Blood Count 4.43(L) 4.60 - 5.80 X10*6/uL [facility] Hemoglobin 13.3(L) 14.0 - 18.0 g/dl [facility] Hematocrit 40.1(L) 42.0 - 52.0 % [facility] Mean Corpuscular Volume 90.5 80.0 - 98.0 fL [facility] Mean Corpuscular Hemoglobin 30.0 27.0 - 33.0 pg [facility] Mean Corpuscular HGB Conc 33.2 31.0 - 36.0 g/dl [facility] Red Cell Distribution Width 12.9 11.0 - 16.0 % [facility] Platelet Count 141(L) 160 - 400 X10*3/uL [facility] Mean Platelet Volume 11.2 9.4 - 12.4 fL [facility] Neutrophils Percent Auto 87.7(H) 45 - 73 % [facility] Imm Gran Pct Auto 1.5(H) 0.0 - 0.4 % [facility] Lymphocytes Percent Auto 6.3(L) 20 - 40 % [facility] Monocytes Percent Auto 4.2 2 - 11 % [facility] Eosinophils Percent Auto 0.0 0 - 4 % [facility] Basophils Percent Auto 0.3 0 - 2 % [facility] NRBC Pct Auto 0.0 0.0 - 0.2 /100WBC [facility] Neutrophils Absolute Auto 20.3(H) 2.0 - 8.3 x10*3/uL [facility] Imm Gran Abs Auto 0.34(H) 0.00 - 0.03 X10*3/uL [facility] Lymphocytes Absolute Auto 1.5 1.2 - 4.9 X10*3/uL [facility] Monocytes Absolute Auto 1.0 0.1 - 1.2 X10*3/uL [facility] Eosinophils Absolute Auto 0.0 0.0 - 0.4 X10*3/uL [facility] Basophils Absolute Auto 0.1 0.0 - 0.2 X10*3/uL [facility] NRBC Abs Auto 0.000 0.0 - 0.012 X10*3/uL [facility] 01/29/2025 11:3 2 AM EST 01/29/2025 11:37 AM EST us Generic External Data Provider LAB BLOOD ORDERAB LES Edited Result - Final Performing Organization Address City/State/[facility] Co de Phone Number [facility] [address] [place] [phone] * XR Chest 1 View (01/29/2025 11:11 AM EST) Anatomical Region Laterality Modality Chest Radiographic Vi ging 01/29/2025 11:1 1 AM EST Narrative 01/29/2025 11:22 AM EST [address] [address] XRay Report Signed Patient: Frederick Worthy MR#: [id number] 462 : 1940 Acct:[id number] Age/Sex: 84 / M ADM Date: 01/29/25 Loc: HO.ED Attending Dr: Ordering Physician: Teresita Suggs DO Date of Service: 01/29/25 Procedure(s): XR chest 1V Accession Number(s): [id number] cc: Teresita Suggs DO; Name,Galen AGUAYO Reason for Exam: Febrile, lethargic EXAMINATION: XR CHEST CLINICAL INFORMATION: Febrile, lethargic COMPARISON: January 16, 2024 TECHNIQUE: Frontal view of the chest was obtained. FINDINGS: Mild cardiomegaly is again noted. There is atherosclerotic calcifications in the aortic arch. There is crowding of pulmonary vascularity without clear opacity. Both hemidiaphragms are visible. XR/XR chest 1V IMPRESSION: No acute disease, low lung volumes. Electronically signed by: Claudio Leos MD 01/29/2025 11:19 AM EST Dictated By: Claudio Leos MD Signed By: <Electronically signed by Claudio Leos MD in OV> 01/29/25 1119 DD/ 1111 TD/TT: 01/29/25 1115 [place] [employer] Installer: Procedure Note Donotuseinterpreter, Image - 01/29/2025 [place] [address] XRay Report Signed Patient: Vineet Worthy#: [id number] : [id number] Age/Sex: 84 / MADM Date: 01/29/25 Loc: .ED Attending Dr: Ordering Physician: Teresita Suggs DO Date of Service: 01/29/25 Procedure(s): XR chest 1V Accession Number(s): [id number] cc: Teresita Suggs DO; Name,Galen AGUAYO Reason for Exam: Febrile, lethargic EXAMINATION: XR CHEST CLINICAL INFORMATION: Febrile, lethargic COMPARISON: January 16, 2024 TECHNIQUE: Frontal view of the chest was obtained. FINDINGS: Mild cardiomegaly is again noted. There is atherosclerotic calcifications in the aortic arch. There is crowding of pulmonary vascularity without clear opacity. Both hemidiaphragms are visible. XR/XR chest 1V IMPRESSION: No acute disease, low lung volumes. Electronically signed by: Claudio Leos MD 01/29/2025 11:19 AM EST RP Dictated By: Claudio Leos MD Signed By: <Electronically signed by Claudio Leos MD in OV> 01/29/25 1119 DD/ 1111 TD/TT: 01/29/25 1115 [place] [address] Installer: [facility] External Provider IMG XR PROCEDURES Final Result documented in this encounter Visit Diagnoses Not on filedocumented in this encounter Additional Health Concerns Assessment Noted Time PHQ-9 Depression Total Score: 0 11/18/19 23 10:53 AM EDT documented as of this encounter Care Teams Human Resources Assistant Relationship Specialty Start Date End Date Name, MD Galen [address] [place] [address] PCP - General Family Medicine 02/24/19 [facility] 09/30/24 documented as of this encounter
--- OUTSIDE RECORDS SUMMARY | 2025-01-29 14:35 | XMS_ITS | Encounter Summary ---
Author Organization [employer] Address [address] [facility] 7t [place] [address] Care Team Providers Care Cloth Spreader Screen Printing Name Role Phone NameGalen MD Primary Care Provider [phone] Encounter Details Date Type Department Care Team (Late st Contact Info) Description 05/08/2022 Orders Only [facility] MED & PEDS [address] [place], [place] [phone] Nelia Morrow LPN Social History Tobacco Use Types Packs/Day Years Used Date Smoking Tobacco: Never Assessed Sex and Gender Information Value Date Recorded Sex Assigned at Male 01/23/2022 10:15 AM EDT Legal Sex Male 10:15 AM EDT Gender Identity Male 01/23/2022 10:15 AM EDT Sexual Orientation Straight 01/23/2022 10 :15 AM EDT documented as of this encounter Plan of Treatment Upcoming Encounters Date Type Department Care Team (Late st Contact Info) Description 03/11/2025 2:15 PM EST Office Visit [facility] MEDICINE [address] [place] [address] Galen Chavez MD [address] [place] [address] documented as of this encounter Visit Diagnoses Not on filedocumented in this encounter Care Teams Cloth Spreader Screen Printing Relationship Specialty Start Date End Date Galen Chavez MD [address] [place] [address] PCP - General Family Medicine 02/24/19 [facility] 09/30/24 documented as of this encounter
--- OUTSIDE RECORDS SUMMARY | 2025-01-29 14:35 | XMS_ITS | Encounter Summary ---
Author Organization [employer] Address [address] [facility] 7t [place] [address] Care Team Providers Care Hack Saw Operator Name Role Phone NameGalen MD Primary Care Provider Encounter Details Date Type Department Care Team (Late st Contact Info) Description 07/05/2022 Orders Only [facility] CHC MED & PEDS [address] [place], [place] [phone] Nelia Morrow LPN Social History Tobacco Use [...] Description 03/11/2025 2:15 PM EST Office Visit [facility] MEDICINE [address] [place] [address] Galen Chavez MD [address] [place] [address] documented as of this encounter Visit Diagnoses Not on filedocumented in this encounter Care Teams Hack Saw Operator Relationship Specialty Start Date End Date Galen Chavez MD [address] [place] [address] PCP - General Family Medicine 02/24/19 [facility] 09/30/24 documented as of this encounter
--- OUTSIDE RECORDS SUMMARY | 2025-01-29 14:35 | XMS_ITS | Encounter Summary ---
Author Organization [employer] Address [address] [facility] [address] 7[address] [place] [address] Care Team Providers Care Electrical Tech Name Role Phone Name, Galen AGUAYO Primary Care Provider [phone] Reason for Visit * Reason Onset Date Comments Hospital Follow-up 03/20/2024 Encounter Details Date Type Department Care Team ([facility] st Contact Info) Description 03/20/2024 Telephone [facility] MEDICINE [address] [place] [address] Name, MD Galen [address] [place] [address] Hospital Follow-up Social History Tobacco Use Types Packs/Day Years [...] AM EDT documented as of this encounter Miscellaneous Notes * Telephone Encounter - Rafael Ji - 03/20/2024 4:13 PM EST Tc from pt requesting a HDF appt. Hospital: [facility] Date of admission: 03/13/2024 Discharge date: 03/17/2024 Diagnosed:Diverticulosis *Send message to [facility] Clinical Care Coordinators documented in this encounter Plan of Treatment Upcoming Encounters Date Type Department Care Team (Late st Contact Info) Description 03/11/2025 2:15 PM EST Office Visit [facility] MEDICINE [address] [place] [phone] Name, MD Galen [address] [place] [address] documented as of this encounter Visit Diagnoses Not on filedocumented in this encounter Additional Health Concerns Assessment Noted Time PHQ-9 Depression Total Score: 0 11/18/19 10:53 AM EDT documented as of this encounter Care Teams Electrical Tech Relationship Specialty Start Date End Date Name, MD Galen [address] [place] [address] PCP - General Family Medicine 02/24/19 [facility] 09/30/24 documented as of this encounter
--- OUTSIDE RECORDS SUMMARY | 2025-01-29 14:35 | XMS_ITS | Encounter Summary ---
Author Organization [employer] [facility] Address [address] [facility] 7t [place] [address] Care Team Providers Care Air Brush Operator Name Role Phone Name, Galen AGUAYO Primary Care Provider [phone] Encounter Details Date Type Department Care Team ([facility] Contact Info) Description 10/17/[address] [facility] MEDICINE [address] [place] [phone] Merry Sandhu MD [address] [place] [address] [phone] Low TSH level (Primary Dx) Social History Tobacco Use Types Packs/Day Years [...] Upcoming Encounters Date Type Department Care Team ([facility] Contact Info) Description 03/11/2025 2:15 PM EST Office [address] [facility] MEDICINE [address] [place] [address] [phone] Galen Chavez MD [address] [place] [address] [phone] documented as of this encounter Procedures Procedure Name Priority Date/Time Associated Diagnosis Comments THYROID PEROXIDASE AND THYROGLOBULIN ANTIBODIES Routine 10/18/2022 9:47 AM EDT Low TSH level TSI (THYROID STIMULATING IMMUNOGLOBULIN) Routine 10/18/2022 9:47 AM EDT Low TSH level T3, FREE Routine 10/18/2022 9:47 AM EDT Low TSH level TSH Routine 10/18/2022 9:47 AM EDT Low TSH level T4, FREE Routine 10/18/2022 9:47 AM EDT Low TSH level documented in this encounter Results * TSI (Thyroid Stimulating Immunoglobulin) (10/18/2022 9:47 AM EDT) Thyroid Stimulating Immunoglobulin <89 <140 % baseline [facility] Comment: Thyroid stimulating immunoglobulins (TSI) can engagethe TSH receptors resulting in hyperthyroidism inGraves' disease patients. TSI levels can be useful inmonitoring the clinical outcome of Graves' disease aswell as assessing the potential for hyperthyroidismfrom maternal- transfer. TSI results greater thanor equal to (>=) 140% of the Reference Control areconsidered positive.NOTE:A serum TSH level greater than 350 micro-InternationalUnits/mL can interfere with the TSI bioassay andpotentially give false positive results.Patients who are and are suspected of havinghyperthyroidism should have both TSI and humanChorionic Gonadotropin(hCG) tests measured. A serumhCG level greater than 40,625 mIU/mL can interferewith the TSI bioassay and may give false negativeresults. In these patients it is recommended thata second TSI be obtained when the hCG concentrationfalls below 40,625 mIU/mL (usually after [id number] gestation).The analytical performance characteristics of thisassay have been determined by [place]. The modificationshave not been cleared or approved by the FDA. Thisassay has been validated pursuant to the CLIAregulations and is used for clinical purposes.THIS TEST WAS PERFORMED AT:[employer] [facility] [place] [address]ZJZTMHJMEÑO MACK MD,PHD Blood Venous blood specimen / Unknown 10/18/2022 9:47 AM EDT 10/18/2022 11:24 AM EDT Merry Sandhu MD LAB BLOOD ORDERABLES Final Resul t Performing Organization Address [facility] Co de Phone Number [facility] [address] [place] [address] [phone] * (ABNORMAL) TSH (10/18/2022 9:47 AM EDT) Thyroid Stimulating Hormone 0.12(L) 0.32 - 4.0 uIU/mL [facility] Comment:TSH 3rd Generation ( [facility]) Blood Venous blood specimen / Unknown 10/18/2022 9:47 AM EDT 10/18/2022 11:24 AM EDT Merry Sandhu MD LAB BLOOD ORDERABLES Final Resul t Performing Organization Address [facility] Co de Phone Number [facility] [address] [place] [address] [phone] * Thyroid Peroxidase And Thyroglobulin Antibodies (10/18/2022 9:47 AM EDT) Thyroglobulin Antibodies <1 < or = 1 IU/mL [facility] Comment:THIS TEST WAS PERFOR MED AT:[employer] [address] [id number] LOZANO MD 10/18/2022 9:47 AM EDT 10/18/2022 11:24 AM EDT Merry Sandhu MD LAB BLOOD ORDERABLES Final Resul t Performing Organization Address [facility] Co de Phone Number [facility] [address] [place] [address] [phone] * T3, Free (10/18/2022 9:47 AM EDT) T3, Free 3.1 2.3 - 4.2 pg/mL [facility] Comment:THIS TEST WAS PERFOR MED AT:[employer] [place] [phone] LOZANO MD Blood Venous blood specimen / Unknown 10/18/2022 9:47 AM EDT 10/18/2022 11:24 AM EDT Merry Sandhu MD LAB BLOOD ORDERABLES Final Resul t Performing Organization Address [facility] Co de Phone Number [facility] [address] [place] [phone] * T4, Free (10/18/2022 9:47 AM EDT) Free T4 (Free Thyroxine) 0.92 0.71 - 1.85 ng/dL [facility] Blood Venous blood specimen / Unknown 10/18/2022 9:47 AM EDT 10/18/2022 11:24 AM EDT Merry Sandhu MD LAB BLOOD ORDERABLES Final Resul t Performing Organization Address [facility] Co de Phone Number [facility] [address] [place] [phone] documented in this encounter Visit Diagnoses Diagnosis Low TSH level- Primary documented in this encounter Care Teams Air Brush Operator Relationship Specialty Start Date End Date Name, MD Galen [address] [place] [phone] PCP - General Family Medicine 02/24/19 [facility] 09/30/24 documented as of this encounter
--- OUTSIDE RECORDS SUMMARY | 2025-01-29 14:35 | XMS_ITS | Encounter Summary ---
Author Organization [employer] Address [address] [facility] [address] [facility] [address] 7[address] [place] [address] Care Team Providers Care Shock Absorber Installer Name Role Phone Name, Galen AGUAYO Primary Care Provider [phone] Encounter Details Date Type Department Care Team ([facility] st Contact Info) Description 04/03/2024 Orders Only [facility] MEDICINE [address] [place] [address] Anh Waite MD [address] [place] [address] Social History Tobacco Use Types Packs/Day Years [...] t he electric, gas, oil or water [employer] threatened to shut off services in your [...] Description 03/11/2025 2:15 PM EST Office Visit [facility] MEDICINE [address] [place] [phone] Name, MD Galen [address] [place] [address] documented as of this encounter Visit Diagnoses Not on filedocumented in this encounter Additional Health Concerns Assessment Noted Time PHQ-9 Depression Total Score: 0 11/18/19 23 10:53 AM EDT documented as of this encounter Care Teams Shock Absorber Installer Relationship Specialty Start Date End Date Name, MD Galen [address] [place] [phone] PCP - General Family Medicine 02/24/19 [facility] 09/30/24 documented as of this encounter
--- OUTSIDE RECORDS SUMMARY | 2025-01-29 14:35 | XMS_ITS | Encounter Summary ---
Author Organization [employer] Address [address] [facility] [address] 7t [place] [address] Care Team Providers Care Community Health Agent Name Role Phone Name, Galen AGUAYO Primary Care Provider [phone] Reason for Visit * Reason Comments Med Refill Encounter Details Date Type Department Care Team ([facility] st Contact Info) Description 04/02/2023 Refill [facility] CHC MED & PEDS [address] [place], [place] [phone] Name, MD Galen [address] [place] [address] Social History Tobacco Use Types Packs/Day Years [...] Description 03/11/2025 2:15 PM EST Office Visit [facility] MEDICINE [address] [place] [phone] Name, MD Galen [address] [place] [phone] documented as of this encounter Visit Diagnoses Not on filedocumented in this encounter Additional Health Concerns Assessment Noted Time PHQ-9 Depression Total Score: 0 11/18/19 23 10:53 AM EDT documented as of this encounter Care Teams Community Health Agent Relationship Specialty Start Date End Date Name, MD Galen [address] [place] [phone] PCP - General Family Medicine 02/24/19 [facility] 09/30/24 documented as of this encounter
--- OUTSIDE RECORDS SUMMARY | 2025-01-29 14:35 | XMS_ITS | Clinical Summary ---
Author Organization [facility] Address [address] [place] [address] Phone Care Team Providers Care Candy Cooker Helper Name Role Phone Name, Galen AGUAYO Primary Care Provider [phone] Allergies No known active allergies Medications furosemide [...] left side. Patient doing well speaking in Khmer this morning Case management consultation appreciated Patient [...] VACCINE (#1) 2024 COVID-19 VACCINE ( - 2024-2 6 season) 2024 HEPATITIS A VACCINES Aged Out [...] Date/Time Associated Diagnosis Comments BASIC METABOLIC PANEL (BMP) Routine 02/23/2021 5:59 AM EST from Last 3 Months or Most Recently Relevant to Health Maintenance Results * (ABNORMAL) Basic metabolic panel (02/23/2021 5:59 AM EST) SODIUM 139 133 - 146 mmol/L [facility] CHLORIDE 106 96 - 108 mmol/L [facility] POTASSIUM 4.4 3.3 - 5.1 mmol/L [facility] CO2 25 21 - 35 mmol/L [facility] BUN 27(H) 6 - 19 mg/dL [facility] CREATININE 1.00 0.5 - 1.5 mg/dL [facility] GLUCOSE 98 70 - 99 mg/dL [facility] CALCIUM 8.6 8.4 - 10.3 mg/dL [facility] EGFR 72 >59 mL/min/1.7 3m2 [facility] Comment:Estimated glomerular filtration rate calculated using the CKD-EPI equation. ANION GAP 12 10 - 20 mmol/L [facility] Blood 02/23/2021 5:59 AM EST 02/23/2021 6:27 AM EST us Fani Gay MD LAB BLOOD BKR ORDERABLES Fin al Result [facility] [address] [place] [address] from Last 3 Months or Most Recently Relevant to Health Maintenance Insurance MEDICARE PART A & B [place] B Member Subscriber Plan / Payer (Ef fective 2004-Present) Name:Frederick Worthy Member ID:[id number] Relation to Subscriber:Self Name:Frederick Worthy Subscriber ID:[id number] Payer ID:[id number] Group ID:Not on file Type:Medicare Address: [facility] [employer] [facility] [facility] [address] [place] [address] [place] HEALTH MEDICARE PART A & [place] HEALTH MEDICARE PART A & B [facility] Advance Directives For more information, please contact: [phone] (9AM - 5PM [facility], Sunday-Sunday) * Full Code (Latest Code Status on File) Date Activated Date Inactivated Comments 02/21/2021 11:20 PM Question Answer Comments Code Status Confirmed With: Patient Care Teams Candy Cooker Helper Relationship Specialty Start Date End Date Name, MD Galen [address] [place] [phone] PCP - General Geriatric Psychiatry 02/21/21 Additional Source Comments The information contained in this document represents components of the legal health record. It is not the complete legal health record.[facility]
--- OUTSIDE RECORDS SUMMARY | 2025-01-29 14:36 | XMS_ITS | Clinical Summary ---
Author Organization [employer] Address [address] [place] [address] Care Team Providers Care Technical Trainer Name Role Phone Name, Galen AGUAYO Primary Care Provider [phone] Allergies Active Allergy Reactions Criticality Noted Date Comments Cortisone Swelling 01/23/2017 Ibuprofen Rash Low 08/30/2011 Nifedipine Swelling 08/30/2011 Medications Aspirin Low Dose 81 MG EC tablet Take 81 mg by mouth in the morning. 09/15/19 23 Active atorvastatin (Lipitor) 20 MG tablet Take 20 mg by mouth at bedtime. 08/19/19 23 Active carvedilol (Coreg) 25 MG tablet 09/15/19 23 Active finasteride (Proscar) 5 MG tablet Take 5 mg by mouth in the morning. 09/15/19 23 Active hydrALAZINE (Apresoline) 50 MG tablet 08/17/19 23 Active irbesartan (Avapro) 300 MG tablet Take 300 mg by mouth in the morning. 08/17/19 23 Active ketorolac (Acular) 0.5 % ophthalmic solution 06/15/19 23 Active lidocaine (Xylocaine) 5 % ointment 11/05/19 22 Active memantine (Namenda) 10 MG tablet 10/12/19 23 Active polyvinyl alcohol (Liquifilm Tears) 1.4 % ophthalmic solution 11/05/19 22 Active sertraline (Zoloft) 25 MG tablet Take 25 mg by mouth in the morning. 09/15/19 23 Active furosemide (Lasix) 40 MG tablet Take 40 mg by mouth in the morning. 02/27/20 23 Active Pain Relief Extra Strength 500 MG tablet TAKE 1 TABLET BY MOUTH EVERY 6 HOURS NEEDED FOR PAIN 60 tablet 3 04/02/19 24 Active Blood Pressure Monitoring (Omron 3 Series BP Monitor) device 07/27/19 24 Active liver oil-zinc oxide (Desitin) 40 % ointment Apply topically if needed for irritation. 113 g 2 08/26/19 25 Active docusate sodium (Colace) 100 MG capsule TAKE 1 CAPSULE BY MOUTH TWICE DAILY 180 capsule 1 09/23/19 25 Active loratadine (Claritin) 10 MG tabletIndicatio ns:Allergic rhinitis, unspecified seasonality, unspecified trigger TAKE 1 TABLET BY MOUTH EVERY MORNING 90 tablet 1 11/21/19 25 Active levETIRAcetam (Keppra) 500 MG tablet 12/05/19 25 Active colchicine 0.6 MG tablet TAKE 1 TABLET BY MOUTH EVERY MORNING 90 tablet 1 12/23/19 25 Active pantoprazole (ProtoNix) 40 MG EC tabletIndicatio ns:Heartburn TAKE 1 TABLET BY MOUTH EVERY MORNING 90 tablet 1 12/23/19 25 Active traZODone (Desyrel) 100 MG tablet TAKE 2 TABLETS BY MOUTH EVERY DAY AT BEDTIME 60 tablet 1 12/27/19 25 Active doxazosin (Cardura) 4 MG tablet Take 1 tablet (4 mg) by mouth at bedtime. 90 tablet 01/06/20 25 Active Calcium Carb-Cholecalci ferol 500-10 MG-MCG chewable tablet TAKE 1 TABLET BY MOUTH TWICE DAILY IN THE MORNING AND IN THE EVENING (CHEW) 180 tablet 1 01/27/20 25 Active Calcium Carb-Cholecalci ferol 500-10 MG-MCG chewable tablet TAKE 1 TABLET BY MOUTH TWICE DAILY IN THE MORNING AND IN THE EVENING (CHEW) 180 tablet 1 06/21/19 25 025 Discontinued doxazosin (Cardura) 4 MG tablet Take 1 tablet (4 mg) by mouth at bedtime. 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 Encouraged high protein soft foods such as yogurt and legumes. Encouraged 2-3L of water daily Gait instability 04/02/2024 Assessment & Plan (04/02/2024 4:18 PM EST): Pt will need bedside commode d/t inability to mobilize to bathroom without multiple person assist Pt will also need walker d/t imbalance and inability to mobilize without multiple person assist. Urinary incontinence 06/06/2023 Assessment & Plan (02/15/2024 4:06 PM EST): Pt will need a bedside commode to encourage mobilization. Pt will need appropriate sized diapers with velcro (not pampers), wipes, gloves and blue edy pads for his bed for incontinence. Venous insufficiency 11/20/2022 Food insecurity 11/16/2022 Dementia (CMS/HCC) 10/16/2022 Overview (10/16/2022): Last Assessment & Plan: Patient more alert and oriented this morning, able to provide a history of a few days worth of worsening of the chest pain along the left side. Patient doing well speaking in Maltese this morning Case management consultation appreciated Patient will likely need assistance with home medication preparation for discharge, especially with the introduction of some new medications. Will confirm med rec tomorrow prior to discharge Assessment & Plan (04/02/2024 4:17 PM EST): Confirmed medication list with caregivers and instructed them which meds can be crushed for administration d/t trouble swallowing medications. Pt will need bedside commode d/t inability to mobilize to bathroom without multiple person assist Pt will also need walker d/t imbalance and inability to mobilize without multiple person assist. 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 Pt has an unsteady gait and a hx of falls and will need a walker with a seat. F/u with PCP next month Hyperlipidemia 10/16/2022 Acute pericarditis 02/21/2021 Overview (11/16/2022): Last Assessment & Plan: Etiology for the pericarditis is unknown, uric [...] tomorrow Check JOSE, rheumatoid factor Trend BMP Non-rheumatic mitral regurgitation 03/07/2018 Edema of lower extremity 12/19/2017 Essential hypertension 12/19/2017 Overview (10/16/2022): Last Assessment & Plan: Confirm medications with patient's brother tomorrow Continue the following regimen and monitor BP: carvedilol 25 mg twice daily Doxazosin 4 mg nightly Finasteride 5 mg in the morning Hydralazine 50 mg 3 times daily Irbesartan 300 mg daily Assessment & Plan (02/15/2024 4:04 PM EST): Pt BP was elevated upon arrival but was normalized at 140/80 when rechecked. Reinforced low sodium diet and encouraged twice a day BP checks. ED precautions reviewed. 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 Chronic kidney disease 08/08/2011 Hypertensive left ventricular hypertrophy 2011 Plantar fascial fibromatosis 08/08/2011 Pure hypercholesterolemia 08/08/2011 Resolved Problems Problem Noted Date Diagnosed Date Resolved Date Ileus ([facility]) 04/02/2024 04/02/2024 Encounters Date Type Department Care Team Description 01/29/2025 Orders Only [facility] External Provider, [facility] 01/25/2025 Refill [facility] [address] [place] [phone] Galen Chavez MD 01/05/2025 Refill [facility] [address] [place] [address] Galen Chavez MD 12/26/2024 Refill [facility] [address] [place] [phone] Rosanne Kessler MD 12/21/2024 Refill [facility] [address] [place] [phone] Galen Chavez MD Heartburn 12/12/2024 3:15 PM EDT Office Visit [facility] [address] [place] [phone] Galen Chavez MD Seizure disorder ([facility]) (Primary Dx); Dementia, unspecified dementia severity, unspecified dementia type, unspecified whether behavioral, psychotic, or mood disturbance or anxiety ([facility]) 12/12/2024 Travel 12/12/2024 Telephone [facility] [address] [place] [phone] Leela Caro RN 12/11/[address] [address] [place] Aranda [place] chart prep 12/03/2024 Orders Only GENERIC EXTERNAL DATA DEPARTMENT Provider, Generic External Data 11/20/2024 Refill [facility] [address] [place] [phone] Galen Chavez MD Allergic rhinitis, unspecified seasonality, unspecified trigger 11/06/2024 Telephone [facility] [address] [place] [phone] Leela Caro, RN 11/04/2024 Telephone [facility] [address] [place] [phone] Galen Chavez MD Nurse Triage; Results (A protective services immigration case worker stopped by asking questions about this patient inquiring additional information about pt. The name of the immigration case worker is Herrera Bran from [facility] his cell # is [phone] his office number is [phone]. [phone]) from Last 3 Months Immunizations Immunization Administration Dates Next Due Influenza High-dose Quadriva lent Preservative Free 03/05/2023,12/20/2021,12/20/2020,02/26 Influenza injectable quadriv alent preservative free 01/23/2017 Influenza, High Dose Seasona l, Preservative Free 01/25/2024,12/19/2017 Influenza, Split (incl. migue fied surface antigen) 04/16/2012 Pfizer Covid-19 Vaccine 12+ 01/25/2024 Pneumococcal Conjugate PCV 13 05/08/2017 Pneumococcal Polysaccharide PPSV23 03/04/2021 Tdap 08/25/2023,03/05/2023,04/16/2012 Zoster, Recombinant 02/27/2019,12/26/2018 Zoster, live 05/08/2017 Social History Tobacco Use Types Packs/Day Years Used Date Smoking Tobacco: Never Passive Smoke Exposure: Never Smokeless Tobacco: Never Tobacco Cessation:Counseling Given: Not Answered Alcohol Use Standard Drinks/Week Comments Never 0 [...] t he electric, gas, oil or water [employer] threatened to shut off services in your home? No 01/18/2023 Depression Answer Date Recorded Patient Health Questionnaire-2 Score 0 11/17/2022 Sex and Gender Information Value Date Recorded Sex Assigned at Male 01/23/2022 10:15 AM EDT Legal Sex Male 10:15 AM EDT Gender Identity Male 01/23/2022 10:15 AM EDT Sexual Orientation Straight 01/23/2022 10 :15 AM EDT Last Filed Vital Signs Vital Sign Reading Time Taken Comments Blood Pressure 132/68 12/12/2024 3:20 PM EDT Pulse 65 12/12/2024 3:20 PM EDT Temperature 36.1 C (97 F) 08/25/2024 3:38 PM EDT Respiratory Rate 16 12/12/2024 3:20 PM EDT Oxygen Saturation 99% 12/12/2024 3:20 PM EDT Inhaled Oxygen Concentration - - Weight 74 kg (163 lb 4 oz) 12/12/2024 3:20 PM ED T Height 160 cm (5' 3 ) 12/12/2024 3:20 PM EDT Body Mass Index 28.92 12/12/2024 3:20 PM EDT Plan of Treatment Upcoming Encounters Date Type Department Care Team (Late st Contact Info) Description 03/11/2025 2:15 PM EST Office Visit [facility] [address] [place] [phone] Name, MD Galen [address] [place] [address] Health Maintenance Due Date Last Done Comments Dental X-Ray: Bitewings 1940 RSV Patients and Patients Aged 60 years or older (1 - 1-dose 75+ series) 2017 Dental Oral Exam 02/09/2023 08/08/2022, 05/19/2009 Dental Prophylaxis 02/09/2023 08/08/2022 Depression Screening 11/18/2023 11/17/2022, 11/18/19 23 SDOH Screening 11/18/2023 11/17/2022 COVID-19 Vaccine ( season) 2024 01/25/2024, 09/22/2021, 05/03/2021, Additional history exists Influenza Vaccine (#1) 2024 , 03/05/2023, 12/20/2021, Additional history exists Alcohol/Substance Use Screening 03/11/2025 03/11/2024 Dental X-Ray: Full Mouth 08/09/2025 08/08/2022, 04/27 Tobacco Screening 12/12/2025 12/12/2024 Lipid Panel 08/26/2029 08/26/2024, 08/25, 05/26/2021 DTaP/Tdap/Td Vaccines (4 - Td or Tdap) 08/24/2033 08/25/2023, 03/05/2023, 04/16/2012 Zoster Vaccines Completed 02/27/2019, 05/2018, 05/08/2017 Pneumococcal Vaccine: 50+ Years Completed 03/04/2021, 05/08/2017 HIB Vaccines Aged Out No longer eligi ble based on patient's age to complete this topic HPV Vaccines Aged Out No longer eligi ble based on patient's age to complete this topic Hepatitis A Vaccines Aged Out No long er eligible based on patient's age to complete this topic Hepatitis B Vaccines Aged Out No long er eligible based on patient's age to complete this topic IPV Vaccines Aged Out No longer eligi ble based on patient's age to complete this topic Meningococcal B Vaccine Aged Out No l onger eligible based on patient's age to complete this topic Meningococcal Vaccine Aged Out No tucker je eligible based on patient's age to complete this topic RSV under 20 months Aged Out No longe r eligible based on patient's age to complete this topic Rotavirus Vaccines Aged Out No longer eligible based on patient's age to complete this topic Procedures Procedure Name Priority Date/Time Associated Diagnosis Comments URINALYSIS, COMPLETE Routine 01/29/2025 1:[address] ABDOMEN PELVIS W CONTRAST Routine 01/29/2025 12:[address] HEAD WO CONTRAST Routine 01/29/2025 12:58 PM EST SARS COV2/INFLUENZA A/B AND RSV RNA QL NAAT Routine 01/29/2025 11:45 AM EST T4, FREE Routine 01/29/2025 11:32 AM EST COMPLETE BLOOD COUNT MAN DIF Routine 01/29/2025 11:32 AM EST TSH W/REFLEX TO FT4 Routine 01/29/2025 11:32 AM EST LACTIC ACID Routine 01/29/2025 11:32 AM EST AMMONIA (P) Routine 01/29/2025 11:32 AM EST CBC WITH AUTO DIFFERENTIAL Routine 01/29/2025 11:32 AM EST XR CHEST 1 VIEW Routine 01/29/2025 11:[address] CHEST W CONTRAST Routine 12/03/2024 2 :[address] CERVICAL SPINE WO CONTRAST Routine 12/03/2024 2:[address] ABDOMEN PELVIS W CONTRAST Routine 12/03/2024 2:[address] HEAD WO CONTRAST Routine 12/03/2024 2 :33 PM EDT LACTIC ACID LAB USE ONLY Routine 12/03/2024 2:14 PM EDT VENOUS BLOOD GAS Routine 12/03/2024 12:53 PM EDT LIPID PANEL, STANDARD Routine 08/26/2024 9:58 AM EDT Pure hypercholesterolemia PROPHYLAXIS - ADULT Routine 08/08/2022 8 :00 AM EDT Edentulism Partial edentulism, class III PANORAMIC RADIOGRAPHIC IMAGE Routine 08/08/2022 8:00 AM EDT Edentulism Partial edentulism, class III COMPREHENSIVE ORAL EVALUATION - NEW OR ESTABLISHED PATIENT Routine 08/08/2022 8:00 AM EDT Edentulism Partial edentulism, class III from Last 3 Months or Most Recently Relevant to Health Maintenance Results * (ABNORMAL) Urinalysis Complete (01/29/2025 1:37 PM EST) Color Urine Dark Yellow [facility] Appearance Urine Cloudy [facility] PH 5.5 5.0 - 9.0 [facility] Glucose Urine UA Negative Negative mg/dL [facility] Urine Blood Large (3+)(A) Negative [facility] Specific [place]or - Urine 1.025 1.005 - 1.025 [facility] Urine Protein 100 (2+)(A) Neg-Trace mg/dL [facility] Urine Ketones Trace Negative mg/dL [facility] Nitrite Urine Negative Negative [facility] Leukocyte Esterase Urine Moderate (2+)(A) Negative [facility] RBC Urine 11-20(A) 0 - 2 /HPF [facility] Urine WBC 21-50 0 - 5 /HPF [facility] WBC CLUMPS, UR Present [facility] Urine Squamous Epithelial Cell 6-10 0 - 2 /HPF [facility] Urine Bacteria 2+ None Seen [facility] Hyaline Casts, Urine 0-2 0 - 2 /LPF [facility] 01/29/2025 1:37 PM EST 01/29/2025 1:40 PM EST us Generic External Data Provider LAB URINE ORDERAB LES Final Result [facility] [address] [place] [address] [phone] * CT Abdomen Pelvis w/ Contrast (01/29/2025 12:58 PM EST) Only the most recent of2 resultswithin the time period is included. Anatomical Region Laterality Modality Body, Pelvis, Abdomen Computed T omography 01/29/2025 12:5 8 PM EST Narrative 01/29/2025 1:[address] [address] [address] Scan Report Signed Patient: Frederick Worthy MR#: [id number] 462 : 1940 Acct:[id number] Age/Sex: 84 / M ADM Date: 01/29/25 Loc: .ED Attending Dr: Ordering Physician: Teresita Suggs DO Date of Service: 01/29/25 Procedure(s): CT abdomen pelvis w IV con Accession Number(s): [id number] cc: Teresita Suggs DO; Name,Galen AGUAYO Report Number: [id number]: Total DLP = 839.05 mGy-cm Reason for [...] by: Usama Guillaume MD 01/29/2025 01:32 PM [facility] Dictated By: Usama Canchola MD Signed By: <Electronically signed by sUama Garcia MD in OV> 01/29/25 1332 DD/ 1258 TD/TT: 01/29/25 1319 Director Funds Development: Procedure Note Donotuseinterpreter, Image - 01/29/[address] [address] [address] Scan Report Signed Patient: Vineet Worthy#: [id number] : 1940cct:[id number] Age/Sex: 84 / MADM Date: 01/29/25 Loc: .ED Attending Dr: Ordering Physician: Teresita Suggs DO Date of Service: 01/29/25 Procedure(s): CT abdomen pelvis w IV con Accession Number(s): [id number] cc: Teresita Suggs DO; Name,Galen AGUAYO Report Number: [id number]: Total DLP = 839.05 mGy-cm Reason for [...] 01/29/25 1332 DD/ 1258 TD/TT: 01/29/25 1319 Director Funds Development: [facility] External Provider IMG CT PROCEDURES Final Result * CT Head w/o Contrast (01/29/2025 12:58 PM EST) Only the most recent of2 resultswithin the time period is included. Anatomical Region Laterality Modality Head, Neck Computed Tomogra phy 01/29/2025 12:5 8 PM EST Narrative 01/29/2025 1:27 PM EST [address] [address] [address] Scan Report Signed Patient: Frederick Worthy MR#: [id number] 462 : 1940 Acct:[id number] Age/Sex: 84 / M ADM Date: 01/29/25 Loc: HO.ED Attending Dr: Ordering Physician: Teresita Suggs DO Date of Service: 01/29/25 Procedure(s): CT head/brain wo IV con Accession Number(s): [id number] cc: Teresita Suggs DO; Name,Galen AGUAYO Report Number: [id number]: Total DLP = 706.98 mGy-cm Reason for [...] by: Claudio Leos MD 01/29/2025 01:24 PM EST Dictated By: Claudio Leos MD Signed By: <Electronically signed by Claudio Leos MD in OV> 01/29/25 1324 DD/ 1258 TD/TT: 01/29/25 1319 Director Funds Development: Procedure Note Donotdajainterpreter, Image - 01/29/[address] [address] [address] Scan Report Signed Patient: Vineet Worthy#: [id number] : 1940cct:[id number] Age/Sex: 84 / MADM Date: 01/29/25 Loc: HO.ED Attending Dr: Ordering Physician: Teresita Suggs DO Date of Service: 01/29/25 Procedure(s): CT head/brain wo IV con Accession Number(s): [id number] cc: Teresita Suggs DO; Name,Galen AGUAYO Report Number: [id number]: Total DLP = 706.98 mGy-cm Reason for [...] by: Claudio Leos MD 01/29/2025 01:24 PM EST Dictated By: Claudio Leos MD Signed By: <Electronically signed by Claudio Leos MD in OV> 01/29/25 1324 DD/ 1258 TD/TT: 01/29/25 1319 Director Funds Development: [facility] External Provider IMG CT PROCEDURES Final Result * SARS-CoV-2 RNA, Influenza A/B, and RSV RNA, Ql NAAT (01/29/2025 11:45 AM EST) Influenza A PCR NEGATIVE Negative [facility] Influenza B PCR NEGATIVE Negative [facility] Resp Syncy Virus RNA Qual PCR NEGATIVE Negative [facility] SARS COV2 PCR NEGATIVE Negative [facility] Comment:All test results mus t [...] use by authorized laboratories.Testing performed on the [employer] GeneXpert utilizingreal-time RT-PCR.All SARS CoV2 and positive influenza A/B results arereported to [facility]. 01/29/2025 11:4 5 AM EST 01/29/2025 11:50 AM EST Generic External Data Provider LAB MICROBIOLOGY - GENERAL ORDERABLES Final Result [facility] [address] [place] [address] [phone] * (ABNORMAL) Complete Blood Count Manual Diff (01/29/2025 11:32 AM EST) White Blood Count 23.1(H) 4.8 - 10.8 X10*3/uL [facility] Red Blood Count 4.43(L) 4.60 - 5.80 X10*6/uL [facility] Hemoglobin 13.3(L) 14.0 - 18.0 g/dl [facility] Hematocrit 40.1(L) 42.0 - 52.0 % [facility] Mean Corpuscular Volume 90.5 80.0 - 98.0 fL [facility] Mean Corpuscular Hemoglobin 30.0 27.0 - 33.0 pg [facility] Mean Corpuscular HGB Conc 33.2 31.0 - 36.0 g/dl [facility] Red Cell Distribution Width 12.9 11.0 - 16.0 % [facility] Platelet Count 141(L) 160 - 400 X10*3/uL [facility] Mean Platelet Volume 11.2 9.4 - 12.4 fL [facility] NRBC Pct Auto 0.0 0.0 - 0.2 /100WBC [facility] NRBC Abs Auto 0.000 0.0 - 0.012 X10*3/uL [facility] Neutrophils % Manual 88(H) 45 - 73 % [facility] Band Neutrophils Percent 0(L) 3 - 5 % [facility] Lymphocytes Percent Manual 9(L) 20 - 40 % [facility] Monocytes Percent Manual 3 2 - 11 % [facility] NEUTROPHILS ABSOLUTE MANUAL 20.3(H) 2.0 - 8.3 X10*3/uL [facility] LYMPHOCYTES ABSOLUTE MANUAL 2.1 1.2 - 4.9 X10*3/uL [facility] MONOCYTES ABSOLUTE MANUAL 0.7 0.1 - 1.2 X10*3/uL [facility] Platelet Estimate SLIGHTLY DECREASED NORMAL [facility] Large Platelet PRESENT [facility] Platelet Morphology Comment NOTE [facility] RBC Morphology NOTED [facility] POLYCHROMASIA 1+ (0-2) /OIF [facility] Toxic Vacuolation PRESENT [facility] 01/29/2025 11:3 2 AM EST 01/29/2025 11:37 AM EST us Generic External Data Provider LAB BLOOD ORDERAB LES Final Result Performing Organization Address [facility] Co de Phone Number [facility] [address] [place] [phone] * (ABNORMAL) TSH with Reflex to Free T4 (01/29/2025 11:32 AM EST) TSH reflex Free T4 0.16(L) 0.32 - 4.0 uIU/mL [facility] 01/29/2025 11:3 2 AM EST 01/29/2025 11:37 AM EST Generic External Data Provider LAB BLOOD ORDERAB LES Final Result Performing Organization Address [facility] Phone Number [facility] [address] [place] [phone] * (ABNORMAL) CBC auto differential (01/29/2025 11:32 AM EST) White Blood Count 23.1(H) 4.8 - 10.8 X10*3/uL [facility] Red Blood Count 4.43(L) 4.60 - 5.80 X10*6/uL [facility] Hemoglobin 13.3(L) 14.0 - 18.0 g/dl [facility] Hematocrit 40.1(L) 42.0 - 52.0 % [facility] Mean Corpuscular Volume 90.5 80.0 - 98.0 fL [facility] Mean Corpuscular Hemoglobin 30.0 27.0 - 33.0 pg [facility] Mean Corpuscular HGB Conc 33.2 31.0 - 36.0 g/dl [facility] Red Cell Distribution Width 12.9 11.0 - 16.0 % [facility] Platelet Count 141(L) 160 - 400 X10*3/uL [facility] Mean Platelet Volume 11.2 9.4 - 12.4 fL [facility] Neutrophils Percent Auto 87.7(H) 45 - 73 % [facility] Imm Gran Pct Auto 1.5(H) 0.0 - 0.4 % [facility] Lymphocytes Percent Auto 6.3(L) 20 - 40 % [facility] Monocytes Percent Auto 4.2 2 - 11 % [facility] Eosinophils Percent Auto 0.0 0 - 4 % [facility] Basophils Percent Auto 0.3 0 - 2 % [facility] NRBC Pct Auto 0.0 0.0 - 0.2 /100WBC [facility] Neutrophils Absolute Auto 20.3(H) 2.0 - 8.3 x10*3/uL [facility] Imm Gran Abs Auto 0.34(H) 0.00 - 0.03 X10*3/uL [facility] Lymphocytes Absolute Auto 1.5 1.2 - 4.9 X10*3/uL [facility] [facility] Monocytes Absolute Auto 1.0 0.1 - 1.2 X10*3/uL [facility] Eosinophils Absolute Auto 0.0 0.0 - 0.4 X10*3/uL [facility] Basophils Absolute Auto 0.1 0.0 - 0.2 X10*3/uL [facility] NRBC Abs Auto 0.000 0.0 - 0.012 X10*3/uL [facility] 01/29/2025 11:3 2 AM EST 01/29/2025 11:37 AM EST us Generic External Data Provider LAB BLOOD ORDERAB LES Edited Result - Final [facility] [address] [place] [address], [place] [phone] * T4, Free (01/29/2025 11:32 AM EST) Free T4 (Free Thyroxine) 1.06 0.71 - 1.85 ng/dL [facility] 01/29/2025 11:3 2 AM EST 01/29/2025 11:37 AM EST us Generic External Data Provider LAB BLOOD ORDERAB LES Final Result Performing Organization Address [facility] de Phone Number [facility] [address] [place] [phone] * (ABNORMAL) Lactic Acid (01/29/2025 11:32 AM EST) Lactic Acid 2.5(HH) 0.5 - 2.0 mmol/L [facility] Comment:Critical value for L ACTIC: Results called to and read backby: ELLA Person calling: [employer] Date: 01/29/25 Time: 1220 01/29/2025 11:3 2 AM EST 01/29/2025 11:37 AM EST Generic External Data Provider LAB BLOOD ORDERAB LES Final Result Performing Organization Address [facility] de Phone Number [facility] [address] [place] [phone] * Ammonia, Plasma (01/29/2025 11:32 AM EST) Ammonia (P) 33 13 - 55 umol/L [facility] 01/29/2025 11:3 2 AM EST 01/29/2025 11:37 AM EST Generic External Data Provider LAB BLOOD ORDERAB LES Final Result Performing Organization Address [facility] de Phone Number [facility] [address] [place] [phone] * XR Chest 1 View (01/29/2025 11:11 AM EST) Anatomical Region Laterality Modality Chest Radiographic Vi ging 01/29/2025 11:1 1 AM EST Narrative 01/29/2025 11:22 AM EST [address] [address] XRay Report Signed Patient: Frederick Worthy MR#: [id number] 462 : 1940 Acct:[id number] Age/Sex: 84 / M ADM Date: 01/29/25 Loc: SHILPA.ED Attending Dr: Ordering Physician: Teresita Suggs DO Date of Service: 01/29/25 Procedure(s): XR chest 1V Accession Number(s): [id number] cc: Teresita Suggs DO; Name,Galen AGUAYO Reason [...] by: Claudio Leos MD 01/29/2025 11:19 AM [facility] Dictated By: Claudio Leos MD Signed By: <Electronically signed by Claudio Leos MD in OV> 01/29/25 1119 DD/ 1111 TD/TT: 01/29/25 1115 Director Funds Development: Procedure Note Donotuseinterpreter, Image - 01/29/2025 [place] [address] XRay Report Signed Patient: Vineet Worthy#: [id number] 462 : 1940cct:[id number] Age/Sex: 84 / MADM Date: 01/29/25 Loc: SHILPA.ED Attending Dr: Ordering Physician: Teresita Suggs DO Date of Service: 01/29/25 Procedure(s): XR chest 1V Accession Number(s): [id number] cc: Teresita Suggs DO; Name,Galen AGUAOY Reason for Exam: Febrile, lethargic EXAMINATION: XR [...] 01/29/25 1119 DD/ 1111 TD/TT: 01/29/25 1115 Director Funds Development: [facility] External Provider IMG XR PROCEDURES Final Result * CT Cervical Spine w/o Contrast (12/03/2024 2:33 PM EDT) Anatomical Region Laterality Modality Spine, C-spine Computed Tomogra phy 12/03/2024 2:33 PM EDT Narrative 12/03/2024 3:34 PM EDT [place] [address] CT Scan Report Signed Patient: Frederick Worthy MR#: [id number] 462 : 1940 Acct:[id number] Age/Sex: 83 / M ADM Date: 12/03/24 Loc: .ED Attending Dr: Ordering Physician: Cora Moore Date of Service: 12/03/24 Procedure(s): CT cervical spine wo IV con Accession Number(s): [id number] cc: Cora Moore; Name,Galen AGUAYO Report Number: [id number]: Total DLP = 0.00 mGy-cm Reason for Exam: seizure, fall EXAMINATION: CT CERVICAL SPINE WITHOUT CONTRAST CLINICAL INFORMATION: Seizure with fall COMPARISON: February 03, 2024 and August 25, 2023 TECHNIQUE: Axial imaging was performed from the base of the skull through T2 without IV contrast. Coronal and sagittal reformatted images were generated from the original axial data set. ALARA: The examination used one or more of the following radiation dose reduction techniques: Automated exposure control, iterative reconstruction, and/or adjustment of mA and/or KV. DLP: 375 mGY*cm FINDINGS: There is mild reversal cervical lordosis. There is moderate and severe degenerative change with disc space narrowing and facet sclerosis and osteophytes most advanced at C4-5. Focal lytic lesions in the upper C7 vertebral body and posterior right T1 vertebral body are stable and probably degenerative. No fracture lines are identified. Soft tissues are unremarkable. CT/CT cervical spine wo IV con IMPRESSION: Stable multilevel degenerative disc disease and facet osteoarthritis. Electronically signed by: Claudio Leos MD 12/03/2024 03:31 PM EDT RP Dictated By: Claudio Leos MD Signed By: <Electronically signed by Claudio Leos MD in OV> 12/03/24 1531 DD/ 1433 TD/TT: 12/03/24 1524 Director Funds Development: Procedure Note Donotuseinterpreter, Image - 12/03/[address] [place] [address] [address] Scan Report Signed Patient: Vineet Worthy#: [id number] 462 : 1940cct:[id number] Age/Sex: 83 / MADM Date: 12/03/24 Loc: HO.ED Attending Dr: Ordering Physician: Cora Moore Date of Service: 12/03/24 Procedure(s): CT cervical spine wo IV con Accession Number(s): [id number] cc: Cora Moore; Name,Galen AGUAYO Report Number: [id number]: Total DLP = 0.00 mGy-cm Reason for Exam: seizure, fall EXAMINATION: CT CERVICAL SPINE WITHOUT CONTRAST CLINICAL INFORMATION: Seizure with fall COMPARISON: February 03, 2024 and August 25, 2023 TECHNIQUE: Axial imaging was performed from the base of the skull through T2 without IV contrast. Coronal and sagittal reformatted images were generated from the original axial data set. ALARA: The examination used one or more of the following radiation dose reduction techniques: Automated exposure control, iterative reconstruction, and/or adjustment of mA and/or KV. DLP: 375 mGY*cm FINDINGS: There is mild reversal cervical lordosis. There is moderate and severe degenerative change with disc space narrowing and facet sclerosis and osteophytes most advanced at C4-5. Focal lytic lesions in the upper C7 vertebral body and posterior right T1 vertebral body are stable and probably degenerative. No fracture lines are identified. Soft tissues are unremarkable. CT/CT cervical spine wo IV con IMPRESSION: Stable multilevel degenerative disc disease and facet osteoarthritis. Electronically signed by: Claudio Leos MD 12/03/2024 03:31 PM EDT RP Dictated By: Claudio Leos MD Signed By: <Electronically signed by Claudio Leos MD in OV> 12/03/24 1531 DD/ 1433 TD/TT: 12/03/24 1524 Director Funds Development: [facility] External Provider IMG CT PROCEDURES Final Result * CT Chest w/ Contrast (12/03/2024 2:33 PM EDT) Anatomical Region Laterality Modality Body, Chest Computed Tomogra phy 12/03/2024 2:33 PM EDT Narrative 12/03/2024 3:38 PM EDT [place] [address] CT Scan Report Signed Patient: Frederick Worthy MR#: [id number] 462 : 1940 Acct:[id number] Age/Sex: 83 / M ADM Date: 12/03/24 Loc: .ED Attending Dr: Ordering Physician: Cora Moore Date of Service: 12/03/24 Procedure(s): CT chest w IV con Accession Number(s): [id number] cc: Cora Moore; Name,Galen AGUAYO Report Number: [id number]: Total DLP = 0.00 mGy-cm Reason for Exam: fall, pain EXAMINATION: CT CHEST WITH CONTRAST CLINICAL INFORMATION: Status post fall. Pain. COMPARISON: CT angiogram chest dated January 16, 2024. TECHNIQUE: Multidetector volumetric CT imaging of the chest was obtained after the administration of 85 mL of Omnipaque 350 intravenous contrast without immediate adverse reactions. Axial MIP volume rendering provided. Sagittal and coronal reformatted images were obtained. This CT examination was performed using dose optimization techniques as appropriate, variously including the following: *Automated exposure control *Adjustment of mA and/or kV according to patient size (this includes techniques or standardized protocols for targeted exams where dose is matched to indication/reason for exam; i.e. extremities or head) *Use of iterative reconstruction technique DLP: 378.23 mGy centimeter. FINDINGS: No pneumomediastinum. No hemothorax. No hemopericardium. No gross lung contusion. No IV contrast extravasation in the thoracic aorta. Bilateral small pleural effusions. Compression atelectasis lung bases. Heart is enlarged. Mixed plaques throughout the thoracic aorta wall and its main branches. Ascending thoracic aorta measures 4.3 cm in maximum diameter descending thoracic aorta measures 3 cm in maximum diameter the aortic arch measures 2.8 cm in maximum diameter. Calcified plaques in the coronary arteries. Subcentimeter low density nodules in the thyroid gland. Bilateral multifocal patchy pulmonary groundglass. Multilevel spondylosis without acute fracture or trauma-related listhesis axial skeleton. Sternum is intact. Clavicles are grossly intact. Scapula are intact. No acute rib fracture. Intra-abdominal organs are evaluated on a different report section/exam. CT/CT chest w IV con IMPRESSION: No acute intrathoracic organ injury or vascular injury. No acute fracture. Mild interstitial lung edema and bilateral small pericardial effusions. Fleischner guidelines were followed. Electronically signed by: Usama Guillaume MD 12/03/2024 03:36 PM EDT Dictated By: Usama Canchola MD Signed By: <Electronically signed by Usama Garcia MD in OV> 12/03/24 1536 DD/ 1433 TD/TT: 12/03/24 1524 Director Funds Development: Procedure Note Donotuseinterpreter, Image - 12/03/[address] [address] [address] Scan Report Signed Patient: Vineet Worthy#: [id number] 462 : 1940cct:[id number] Age/Sex: 83 / MADM Date: 12/03/24 Loc: HO.ED Attending Dr: Ordering Physician: Cora Moore Date of Service: 12/03/24 Procedure(s): CT chest w IV con Accession Number(s): [id number] cc: Cora Moore; Name,Galen MD Report Number: [id number]: Total DLP = 0.00 mGy-cm Reason for Exam: fall, pain EXAMINATION: CT CHEST WITH CONTRAST CLINICAL INFORMATION: Status post fall. Pain. COMPARISON: CT angiogram chest dated January 16, 2024. TECHNIQUE: Multidetector volumetric CT imaging of the chest was obtained after the administration of 85 mL of Omnipaque 350 intravenous contrast without immediate adverse reactions. Axial MIP volume rendering provided. Sagittal and coronal reformatted images were obtained. This CT examination was performed using dose optimization techniques as appropriate, variously including the following: *Automated exposure control *Adjustment of mA and/or kV according to patient size (this includes techniques or standardized protocols for targeted exams where dose is matched to indication/reason for exam; i.e. extremities or head) *Use of iterative reconstruction technique DLP: 378.23 mGy centimeter. FINDINGS: No pneumomediastinum. No hemothorax. No hemopericardium. No gross lung contusion. No IV contrast extravasation in the thoracic aorta. Bilateral small pleural effusions. Compression atelectasis lung bases. Heart is enlarged. Mixed plaques throughout the thoracic aorta wall and its main branches. Ascending thoracic aorta measures 4.3 cm in maximum diameter descending thoracic aorta measures 3 cm in maximum diameter the aortic arch measures 2.8 cm in maximum diameter. Calcified plaques in the coronary arteries. Subcentimeter low density nodules in the thyroid gland. Bilateral multifocal patchy pulmonary groundglass. Multilevel spondylosis without acute fracture or trauma-related listhesis axial skeleton. Sternum is intact. Clavicles are grossly intact. Scapula are intact. No acute rib fracture. Intra-abdominal organs are evaluated on a different report section/exam. CT/CT chest w IV con IMPRESSION: No acute intrathoracic organ injury or vascular injury. No acute fracture. Mild interstitial lung edema and bilateral small pericardial effusions. Fleischner guidelines were followed. Electronically signed by: Usama Guillaume MD 12/03/2024 03:36 PM EDT RP Dictated By: Usama Canchola MD Signed By: <Electronically signed by Usama Garcia MDin OV> 12/03/24 1536 DD/ 1433 TD/TT: 12/03/24 1524 Director Funds Development: [facility] External Provider IMG CT PROCEDURES Final Result * (ABNORMAL) Lactic Acid (12/03/2024 2:14 PM EDT) Lactic Acid 2.7(HH) 0.5 - 2.0 mmol/L [facility] Comment:Critical value for t est(s): LACTA Results called to iggy back by: NIDIA Person calling: ALETA Date:12.03.24 Time: 1553 12/03/2024 2:14 PM EDT 12/03/2024 2:16 PM EDT Generic External Data Provider LAB BLOOD ORDERAB LES Final Result [facility] [address] [place], [place] [phone] * (ABNORMAL) VENOUS BLOOD GAS (12/03/2024 12:53 PM EDT) VBG pH 7.50(H) 7.32 - 7.43 [facility] Comment:METER #: [id number] additional_comment: Cb gali VBG PCO2 36 mmHg [facility] Comment:METER #: [id number] additional_comment: Cb gali VBG PO2 129 mmHg [facility] Comment:METER #: [id number] additional_comment: Cb gali VBG Base Excess 5.2 mmol/L [facility] Comment:METER #: [id number] additional_comment: Cb gali VBG HCO3 28(H) 22 - 26 mmol/L [facility] Comment:METER #: [id number] additional_comment: Cb gali O2 Sat, Eron 99.0 % [facility] Comment:METER #: [id number] additional_comment: George murphy 12/03/2024 12:5 3 PM EDT 12/03/2024 12:57 PM EDT us Generic External Data Provider LAB BLOOD ORDERAB LES Final Result Performing Organization Address [facility]/ZIP Co de Phone Number [facility] [address] [place] [phone] * (ABNORMAL) Lipid Panel, Standard (08/26/2024 9:58 AM EDT) Triglycerides 158(H) <150 mg/dL [facility] Comment:Desirable Triglyceri de: less than 150 mg/dLBorderline High Triglyceride 150-199 mg/dLHigh Triglyceride: 200-499 mg/dLVery High Triglyceride: greater than or equal to 5OO mg/dL Cholesterol 138 <200 mg/dL [facility] Comment:Desirable Cholestero l: less than 200 mg/dLBorderline High Cholesterol: 200-239 mg/dLHigh Cholesterol: greater than 239 mg/dL LDL Cholesterol Calculated 77 <100 mg/dL [facility] Comment:Desirable LDL: less than 100 mg/dLNear Optimal/Above Optimal LDL: 110- 129 mg/dLBorderline High LDL: 130-159 mg/dLHigh LDL: 160-189 mg/dLVery High LDL: greater than or equal to 190 mg/dL HDL Cholesterol 30(L) >40 mg/dL [facility] Comment:Desirable HDL: great er than 40 mg/dL Note: This HDL assay may give artificially low results in patients with liver disease. Blood Venous blood specimen / Unknown 08/26/2024 9:58 AM EDT 08/26/2024 11:40 AM EDT us Galen Chavez MD LAB BLOOD ORDERABLES Final Resul t Performing Organization Address City/[facility]/ZIP Co de Phone Number [facility] [address] [place] [phone] from Last 3 Months or Most Recently Relevant to Health Maintenance Insurance * Guarantor: Frederick Worthy Account Type Relation to Patient Date of Phone Billing Address Personal/Family Self [address] Care Teams Technical Trainer Relationship Specialty Start Date End Date Name, MD Galen [address] [place] [address] PCP - General Family Medicine 02/24/19 [facility] 09/30/24
--- OUTSIDE RECORDS SUMMARY | 2025-01-29 14:36 | XMS_ITS | Encounter Summary ---
Author Organization [employer] Address [address] [place] [address] Care Team Providers Care Db2 Developer Name Role Phone NameGalen MD Primary Care Provider [phone] Reason for Visit * Reason Onset Date Comments Status Request 10/22/2023 Encounter Details Date Type Department Care Team ([facility] Contact Info) Description 10/22/2023 Telephone [facility] [address] [place] [address] Name, MD Galen [address] [place] [address] Status Request Social History Tobacco Use Types Packs/Day Years [...] encounter Miscellaneous Notes * Telephone Encounter - Candelario Gregg - 10/24/2023 11:36 AM EDT Tc from tatiana returning call, Courtesy Van Driver advised forms were faxed on 10/19/23 by AMADOR Swenson. Please see encounter from 10/19/23, tatiana would like forms re faxed due to not receiving any forms. * Telephone Encounter - Vinicius Frank - 10/22/2023 2:43 PM EDT Tc from Tat[facility] with [facility] requesting status on pcp order form, standing order form,and TB risk assessment. Please contact Tatiana at [phone]. documented in this encounter Plan of Treatment Upcoming Encounters Date Type Department Care Team (Late st Contact Info) Description 03/11/2025 2:15 PM EST Office Visit [facility] [address] [place] [address] Name, MD Galen [address] [place] [address] documented as of this encounter Visit Diagnoses Not on filedocumented in this encounter Additional Health Concerns Assessment Noted Time PHQ-9 Depression Total Score: 0 11/18/19 10:53 AM EDT documented as of this encounter Care Teams Db2 Developer Relationship Specialty Start Date End Date Name, MD Galen [address] [place] [address] PCP - General Family Medicine 02/24/19 [facility] 09/30/24 documented as of this encounter
[2025-01-29] MEDS: metroNIDAZOLE/NS 500 MG/100 ML PIGGYBACK 100 MG IV (15:20)
--- NOTE | 2025-01-29 15:45 | PC.NURSE ---
Lab contacted, 2nd lactic sent after fluid completion.
--- NOTE | 2025-01-29 16:06 | PM.IMHP ---
History of Present Illness Date of Service: 01/29/25 Attending physician on admission: Rei Evans Chief Complaint: fever This is an 84-year-old male with advanced dementia who was brought to the emergency department due to lethargy and fever. History was obtained from his PC at the bedside with the assistance of a recruiting team lead. Patient has advanced dementia and is primarily nonverbal at baseline. He is unable to provide any significant history. His SOFTWARE TEST MANAGER states that for the past 2 days he has been more lethargic than normal. This morning he was noted to have a fever. They were concerned for urinary tract infection and brought him to the hospital for evaluation. In the emergency department he was febrile with a temperature of a 101.8 degrees, leukocytosis 23.1 heart rate of 94, lactic acid 2.5, creatinine 1.44 with a baseline around 1. There was some mild elevations in LFTs and CAT scan initially showed concern for acalculous cholecystitis. Patient was evaluated by General surgery did not feel that his imaging was consistent with a acute changes but more likely chronic in nature. Urinalysis was concerning for possible UTI. He was treated with IV antibiotics and admission was requested. Review of Systems Review of Systems: unable to obtain ROS due to advanced dementia [facility] Medical History (Updated 01/29/25 @ 16:11 by MARYSE Rosa) Dementia BPH w urinary obs/LUTS High cholesterol HTN (hypertension) Surgical History Hx of left inguinal hernia repair Social History Household Members: Unknown / Unable to assess Do you presently have visiting nurse or other home services: Yes (clinical psychology teacher) Alcohol intake: former Patient Tobacco Use Status: Never used Tobacco Smoked in Last 30 Days: No Use of substances other than those prescribed or required for medical reasons: No Advance Directives: No Advance Directives Information Provided: Yes service: No Meds Allergies Allergy/AdvReac Type Severity Reaction Status Date / Time nifedipine (From Procardia) Allergy Intermediate EDEMA Verified 01/29/25 11:11 ibuprofen (Ibuprofen) Allergy Mild RASH Verified 01/29/25 11:11 ibuprofen Allergy Unknown rash Uncoded 03/13/24 11:57 nifedipine Allergy Unknown edema Uncoded 12/19/24 11:57 Home Medications ?Medication ?Instructions ?Recorded ?Confirmed ?Last Taken ?Type aspirin 81 mg tablet,delayed 81 mg PO DAILY 05/27/20 01/29/25 01/28/25 History release atorvastatin 20 mg tablet 20 mg PO BEDTIME 05/27/20 01/29/25 01/28/25 History calcium 500 mg (as carbonate)-vit 1 tab PO BID 05/27/20 01/29/25 01/28/25 History D3 10 mcg (400 unit) chewable tablet carvedilol 25 mg tablet 25 mg PO BID 05/27/20 01/29/25 01/28/25 History hydralazine 50 mg tablet 50 mg PO TID 05/27/20 01/29/25 01/28/25 History irbesartan 300 mg tablet 300 mg PO DAILY 05/27/20 01/29/25 01/28/25 History loratadine 10 mg tablet 10 mg PO DAILY 05/27/20 01/29/25 01/28/25 History colchicine 0.6 mg tablet 0.6 mg PO DAILY 10/26/21 01/29/25 01/28/25 History pantoprazole 40 mg tablet,delayed 40 mg PO DAILY@0630 10/26/21 01/29/25 01/28/25 History release sertraline 25 mg tablet 25 mg PO DAILY 10/26/21 01/29/25 01/28/25 History acetaminophen 500 mg tablet 500 mg PO Q6H PRN pain 03/13/24 01/29/25 03/13/24 History docusate sodium 100 mg capsule 100 mg PO BID 03/13/24 01/29/25 01/28/25 History furosemide 40 mg tablet 40 mg PO DAILY 03/13/24 01/29/25 01/28/25 History trazodone 100 mg tablet 200 mg PO BEDTIME Sleep 12/03/24 01/29/25 Unknown History Physical Exam Vital Signs and Narrative: Vital Signs: Last Vital Signs Temp 100.9 F H 01/29/25 12:30 Pulse 88 01/29/25 14:47 Resp 17 01/29/25 14:47 BP 139/66 01/29/25 14:47 Pulse Ox 97 01/29/25 14:47 O2 Del Method Room Air 01/29/25 14:47 BMI result Body Mass Index 28.5 Const: Other: appears comfortable, awake, alert, does not verbalize or follow commands, but smiles now and again; unable to assess orientation General: cooperative, comfortable, no acute distress, alert and awake Resp: Effort & Inspection: normal respiratory effort, no respiratory distress and no use of accessory muscles Cardio: Rate: regular rate GI: Other: softly distended (appearance chronic as per SOFTWARE TEST MANAGER), does not appear tender Palpation (GI): no guarding Neuro: Other: unable to fully assess as pt does not follow commands Extrem: General: No pedal edema Results Labs 01/29/25 11:32 01/29/25 11:32 Labs: Laboratory Results - last 24 hr 01/29/25 01/29/25 01/29/25 11:32 11:45 13:37 MCV 90.5 MCH 30.0 MCHC 33.2 RDW 12.9 Plt Count 141 L MPV 11.2 Immature Gran % (Auto) Cancelled Neut % (Auto) Cancelled Lymph % (Auto) Cancelled [place] % (Auto) Cancelled Eos % (Auto) Cancelled Baso % (Auto) Cancelled Lymph # (Auto) Cancelled [place] # (Auto) Cancelled Eos # (Auto) Cancelled Baso # (Auto) Cancelled Abs Immat Gran (auto) Cancelled Absolute Neuts (auto) Cancelled Absolute Nucleated RBC 0.000 Nucleated RBC % (auto) 0.0 Neutrophils % (Manual) 88 H Band Neutrophils % 0 L Lymphocytes % (Manual) 9 L Monocytes % (Manual) 3 Abs Neuts (Manual) 20.3 H Lymphocytes # (Manual) 2.1 Monocytes # (Manual) 0.7 Toxic Vacuolation PRESENT Platelet Estimate SLIGHTLY DECREASED Large Platelets PRESENT Plt Morphology Comment NOTE RBC Morphology NOTED Polychromasia 1+ (0-2) Anion Gap 16 Estim Creat Clear Calc 35.4 Estimated GFR 47 Random Glucose 123 H Lactic Acid 2.5 H* Calcium 9.2 Total Bilirubin 1.1 H Direct Bilirubin 0.3 AST 42 H ALT 13 Alkaline Phosphatase 85 Ammonia 33 Total Protein 7.6 Albumin 4.1 Lipase 17 TSH 0.16 L Free T4 1.06 Urine Color Dark Yellow Urine Appearance Cloudy Urine pH 5.5 Ur Specific [place] 1.025 Urine Protein 100 (2+) H Urine Glucose (UA) Negative Urine Ketones Trace Urine Blood Large (3+) H Urine Nitrite Negative Ur Leukocyte Esterase Moderate (2+) H Urine RBC 11-20 H Urine WBC 21-50 Urine WBC Clumps Present Ur Squamous Epith Cells 6-10 Urine Bacteria 2+ Hyaline Casts 0-2 Influenza Type A (PCR) NEGATIVE Influenza Type B (PCR) NEGATIVE RSV RNA Qual (PCR) NEGATIVE SARS-CoV-2 RNA (RT-PCR) NEGATIVE Imaging Radiologist's Impressions: Impressions Chest X-Ray 01/29/25 11:11 IMPRESSION: No acute disease, low lung volumes. Electronically signed by: Claudio Leos MD 01/29/2025 11:19 AM EST RP Abdomen/Pelvis CT 01/29/25 12:58 IMPRESSION: Concerning acute calculus cholecystitis in the correct clinical settings. Benign prostate hyperplasia versus malignancy. Diverticular disease. Coronary artery disease and atherosclerosis disease. Bilateral small volume pleural effusions. Multilevel spondylosis with the questionable subcentimeter lytic lesions versus calcium metabolic disorders. Fleischner guidelines were followed. Electronically signed by: Usama Guillaume MD 01/29/2025 01:32 PM EST RP Head CT 01/29/25 12:58 IMPRESSION: No acute intracranial abnormality. Mild mucosal thickening in the ethmoid air cells is new since the prior. Chronic white matter changes are probably related to small vessel disease. Electronically signed by: Claudio Leos MD 01/29/2025 01:24 PM EST RP Abdomen Ultrasound 01/29/25 14:50 IMPRESSION: Gallstones. Gallbladder wall is thickened with edema/fluid in the bone. Reported negative sonographic Morgan's sign. Findings are equivocal. If there is persistent clinical concern for cholecystitis, recommend short-term follow-up ultrasound or HIDA scan for further evaluation. Electronically signed by: Bk Campbell MD 01/29/2025 03:11 PM EST RP Assessment and Plan (1) Dementia: Qualifiers: Dementia type: unspecified type Status: Inactive (2) UTI (urinary tract infection): Qualifiers: Hematuria presence: with hematuria Urinary tract infection type: site unspecified Qualified Code(s): N39.0 - Urinary tract infection, site not specified; R31.9 - Hematuria, unspecified Status: Acute Plan This is an 84-year-old male with a history of advanced Alzheimer's dementia who is primarily nonverbal, seizure disorder, hypertension, BPH who presented to the emergency department for evaluation of fever found to have probable UTI Sepsis due to probable UTI vs acalculous cholecystitis Seen by General surgery, feels less likely to be related to gallbladder, no indication for cholecystostomy tube at this time will treat with IV Zosyn to cover both gallbladder and urine Trend CBC Follow urine, blood cultures general surgery to follow JORGE Scr 1.44, baseline around 1 hold nephrotoxic meds including lasix, irbesartan IVF trend BMP Constipation abundant stool on imaging Bowel regimen HTn hold irbesartan for JORGE continue coreg, hydralazine BPH Continue baseline meds Advanced Alzheimer's dementia primarily nonverbal; dependant for ADLs Continue baseline medication gerd continue ppi DVT prophylaxis-heparin Code status-full code Patient will likely require 2 midnight stay in the hospital for management of UTI requiring IV antibiotics and close monitoring Quality Stroke Does the patient have a stroke diagnosis?: No VTE Prior VTE?: No VTE Risk Level:: Medical - moderate - high VTE Device Contraindication: N/A - Device Ordered VTE Drug Contraindication: N/A - Med Ordered
--- NOTE | 2025-01-29 16:07 | PM.CNGS ---
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 He also apparently had a fever earlier. He did not seem to have any GI complaints. He did not appear to have any abdominal pain nor vomiting I was consulted because of a CAT scan report showing question of cholecystitis along with gallstones. He did have UTI based on urinalysis. 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) Alcohol intake: former Patient Tobacco Use Status: Never used Tobacco service: No Meds Allergies Allergy/AdvReac Type Severity Reaction Status Date / Time nifedipine (From Procardia) Allergy Intermediate EDEMA Verified 01/29/25 11:11 ibuprofen (Ibuprofen) Allergy Mild RASH Verified 01/29/25 11:11 ibuprofen Allergy Unknown rash Uncoded 03/13/24 11:57 nifedipine Allergy Unknown edema Uncoded 03/13/24 11:57 Active Medications: Current Medications Acetaminophen (Acetaminophen 325 Mg Tablet) 650 mg PO Q6H PRN PRN Reason: Pain, Mild 1-3,fever,headache Calcium Carbonate (Calcium Carbonate 750 Mg Tab.Chew) 750 mg PO Q4H PRN PRN Reason: Heartburn Heparin Sodium (Porcine) (Heparin Sodium,Porcine 5,000 Unit/Ml Vial) 5,000 unit SUBCUT Q12H COURTNEY Lactated Ringer's (Lr) 1,000 mls @ 100 mls/hr IVCONT .Q10H COURTNEY Piperacillin Sod/Tazobactam (Sod 2.25 gm/ Sodium Chloride) 50 mls @ 100 mls/hr IV Q6H COURTNEY Magnesium Hydroxide (Milk Of Magnesia 30 Ml Oral.Susp) 30 ml PO DAILY PRN PRN Reason: Constipation Melatonin (Melatonin 3 Mg Tablet) 6 mg PO BEDTIME PRN PRN Reason: Insomnia Sodium Chloride (0.9 % Sodium Chloride Flush 3 Ml Syringe) [facility] Medications ?Medication ?Instructions ?Recorded ?Confirmed ?Last Taken ?Type aspirin 81 mg tablet,delayed 81 mg PO DAILY 05/27/20 01/29/25 01/28/25 History release atorvastatin 20 mg tablet 20 mg PO BEDTIME 05/27/20 01/29/25 01/28/25 History calcium 500 mg (as carbonate)-vit 1 tab PO BID 05/27/20 01/29/25 01/28/25 History D3 10 mcg (400 unit) chewable tablet carvedilol 25 mg tablet 25 mg PO BID 05/27/20 01/29/25 01/28/25 History hydralazine 50 mg tablet 50 mg PO TID 05/27/20 01/29/25 01/28/25 History irbesartan 300 mg tablet 300 mg PO DAILY 05/27/20 01/29/25 01/28/25 History loratadine 10 mg tablet 10 mg PO DAILY 05/27/20 01/29/25 01/28/25 History colchicine 0.6 mg tablet 0.6 mg PO DAILY 10/26/21 01/29/25 01/28/25 History pantoprazole 40 mg tablet,delayed 40 mg PO DAILY@0630 10/26/21 01/29/25 01/28/25 History release sertraline 25 mg tablet 25 mg PO DAILY 10/26/21 01/29/25 01/28/25 History acetaminophen 500 mg tablet 500 mg PO Q6H PRN pain 03/13/24 01/29/25 03/13/24 History docusate sodium 100 mg capsule 100 mg PO BID 03/13/24 01/29/25 01/28/25 History furosemide 40 mg tablet 40 mg PO DAILY 03/13/24 01/29/25 01/28/25 History trazodone 100 mg tablet 200 mg PO BEDTIME Sleep 12/03/24 01/29/25 Unknown History Physical Exam Vital Signs: Vital Signs: Last Vital Signs Temp 100.9 F H 01/29/25 12:30 Pulse 88 01/29/25 14:47 Resp 17 01/29/25 14:47 BP 139/66 01/29/25 14:47 Pulse Ox 97 01/29/25 14:47 O2 Del Method Room Air 01/29/25 14:47 BMI result Body Mass Index 28.5 Const: Other: He actually appears comfortable currently, nonverbal General: comfortable and no acute distress Resp: Effort & Inspection: normal respiratory effort Cardio: Rate: regular rate GI: Other: As baseline, very protuberant, no obvious tenderness, no guarding, no obvious Morgan's sign Results Labs 01/30/25 05:56 01/30/25 05:56 Labs: Abnormal lab results 01/29/25 01/29/25 Range/Units 11:32 13:37 WBC 23.1 H (4.8-10.8) X10*3/uL RBC 4.43 L (4.60-5.80) X10*6/uL Hgb 13.3 L (14.0-18.0) g/dl Hct 40.1 L (42.0-52.0) % Plt Count 141 L (160-400) X10*3/uL Neutrophils % (Manual) 88 H (45-73) % Band Neutrophils % 0 L (3-5) % Lymphocytes % (Manual) 9 L (20-40) % Abs Neuts (Manual) 20.3 H (2.0-8.3) X10*3/uL BUN 24 H (9-16) mg/dL Creatinine 1.44 H (0.5-1.4) mg/dL Random Glucose 123 H (60-115) mg/dL Lactic Acid 2.5 H* (0.5-2.0) mmol/L Total Bilirubin 1.1 H (0.0-1.0) mg/dL AST 42 H (5-37) U/L TSH 0.16 L (0.32-4.0) uIU/mL Urine Protein 100 (2+) H (Neg-Trace) mg/dL Urine Blood Large (3+) H (Negative) Ur Leukocyte Esterase Moderate (2+) H (Negative) Urine RBC 11-20 H (0-2) /HPF Short CBC 01/29/25 Range/Units 11:32 WBC 23.1 H (4.8-10.8) X10*3/uL Hgb 13.3 L (14.0-18.0) g/dl Hct 40.1 L (42.0-52.0) % Plt Count 141 L (160-400) X10*3/uL BMP 01/29/25 11:32 Sodium 144 Potassium 3.8 Chloride 107 Carbon Dioxide 25 BUN 24 H Creatinine 1.44 H Calcium 9.2 Liver Function 01/29/25 Range/Units 11:32 Total Bilirubin 1.1 H (0.0-1.0) mg/dL Direct Bilirubin 0.3 (0.0-0.5) mg/dL AST 42 H (5-37) U/L ALT 13 (0-40) U/L Alkaline Phosphatase 85 (39-117) U/L Albumin 4.1 (3.5-5.0) g/dL Urine 01/29/25 Range/Units 13:37 Urine Color Dark Yellow Urine Appearance Cloudy Urine pH 5.5 (5.0-9.0) Ur Specific [place] 1.025 (1.005-1.025) Urine Protein 100 (2+) H (Neg-Trace) mg/dL Urine Glucose (UA) Negative (Negative) mg/dL All other labs normal. Assessment and Plan (1) Sepsis: Qualifiers: Sepsis acute organ dysfunction status: with acute organ dysfunction Sepsis type: sepsis due to unspecified organism Severe sepsis acute organ dysfunction type: unspecified Severe sepsis shock status: without septic shock Qualified Code(s): A41.9 - Sepsis, unspecified organism; R65.20 - Severe sepsis without septic shock Status: Acute 84-year-old male with multiple medical problems including advanced dementia, here in the ER because of lethargy and a fever this morning. Workup in the ER showed elevated lactate at 2.4 I have reviewed his CAT scan and this does shows some thickening of the gallbladder wall although this appears to be more chronic. He has had CAT scans last year this year as well showing similar looking gallbladder. The gallbladder is also not markedly distended. There is note of a gallstone on the dependent area of the gallbladder and not in the neck or cystic duct He does not have any tenderness even with deep palpation of the right upper quadrant He is sepsis is more likely due to his urinary tract infection. He has he had elevated leukocyte esterase with WBCs and RBCs. I would agree with treating him for this with IV antibiotics include gallbladder antonino. I had a long discussion with his daughter Lela about the above. We will follow closely while he is in the hospital. He is currently hemodynamically stable and appears comfortable. Procedures Date of Service Date of Service: 01/30/25
[2025-01-29 16:09] LABS: ~Lactic Acid-LAB USE ONLY 1.6 mmol/L (0.5-2.0)
--- NOTE | 2025-01-29 16:41 | HO.NURTONUR ---
Addendum entered by Jyotsna Johnson RN 01/29/25 21:49: pt BIBA from home for lethargy/weakness. pt is croatian speaking/nonverbal at baseline d/t advanced dementia. sepsis work up done. ADMIT: UTI/possible cholecystitis. hx dementia, seizure disorder general surgery will monitor gallbladder, no surgery at this time 20g IV R forearm, LR infusing at 100mls/hr. failed nursing swallow at bedside x2. would not open mouth for HS medications. keppra changed to IV, all other meds not given. care: pills crushed, 1:1 feed, male purewick, able to use walker at home, foam dressing in place to blanchable redness on buttocks. aspiration and seizure precautions. family was here today, maybe they can assist with vice president medical affairs tomorrow if they are here at med times? Original Note: Report given to overflow RN, questions answered. Awaiting transport.
--- NOTE | 2025-01-29 16:45 | PHA.MEDREC ---
Pharmacy Consult ? Medication Reconciliation Pharmacy has completed the medication reconciliation. Patient and family at bedside are poor historians. Family at bedside states patient has a visiting nurse however doesn't have contact information. Last visit notes has a CREATIVE CONSULTANT Ceci [phone] called left message. Utilized list from [facility] pharmacy and claims to confirm med list. Will update with any changes if CREATIVE CONSULTANT calls back.
--- NOTE | 2025-01-29 16:49 | PHA.MEDREC ---
Addendum entered by Araceli Daly RPh 01/29/25 16:57: Reviewed by [facility] Original Note: Pharmacy Consult ? Medication Reconciliation Pharmacy has completed the medication reconciliation. Spoke to family at bedside through product marketing consultant service to confirm med list. Family did not have patient list of medications with them. Family states patient has a visiting nurse however doesn't have contact information. Last visit notes has a ACQUISITION CONSULTANT Ceci [phone] called left message. Utilized list from [facility] pharmacy and claims to confirm med list. Will update with any changes if ACQUISITION CONSULTANT calls back.
--- NOTE | 2025-01-29 17:29 | PC.NURSE ---
Assume Care Approx @1700? ?Nonverbal at baseline, Does not follows. On RA, Dim. lung sounds. Male purewick in place.?? Blanchable redness to the buttock. Foam DGS in place. Reposition maintained. 20G R. forearm.? ?Camera in the room. Fall risk precaution in place.?
[2025-01-29] MEDS: Lactated Ringers 1,000 ML 100 ML IVCONT (17:52)
--- NOTE | 2025-01-29 20:39 | PC.NURSE ---
per family, pt takes meds crushed. unable to give colace capsule
--- NOTE | 2025-01-29 21:11 | PC.NURSE ---
attempt to medicated pt with PO medication crushed, and liquid keppra. pt refused to open mouth for medication admin x2. attempt with editorial clerk. no medications given at this time. hospitalist made aware.
[2025-01-29] MEDS: levETIRAcetam in NaCl (iso-os) 500 MG/100 ML PIGGYBACK 400 MG IV (21:31)
--- NOTE | 2025-01-29 22:52 | PC.NURSE ---
pt incont of urine, purewick replaced, assist with washing and changing gown. repositioned to L side. rectal temp taken, 101.2, IV tylenol admin.
[2025-01-30] VITALS (8 sets, daily range): BP systolic 119–152; BP diastolic 52–65; PULSE 57–71; RESP 16–18; TEMP 36.4–37.4; O2SAT 94–100
--- NOTE | 2025-01-30 00:15 | PC.NURSE ---
rectal temp 99.4, repositioned at this time
--- NOTE | 2025-01-30 01:10 | MHC.PIE ---
p; pt arrived from [facility] with diet order regular? note; per nursing notes, pt failed bed side swallow eval d/t pt uncooperative and would not open mouth, pt family reported 1;1 feed with med crushed. i; MARYSE Martinez notified. diet NPO, speech consult e; will cont to monitor
--- NOTE | 2025-01-30 01:14 | PM.EVENT ---
Event Note Date of Service: 01/30/25 Event Note: pts family reported pt needs 1:1 feeds, meds crushed. pt failed bedside swallow x2. would not follow commands or open mouth. NPO prior to speech swallow eval. Time Spent With Patient Time: Total time managing care of this patient today ____ minutes.
[2025-01-30] MEDS: Lactated Ringers 1,000 ML 100 ML IVCONT ×3 (02:23→23:45)
[2025-01-30 06:28] LABS: Hematocrit 35.3 % (42.0-52.0); Hemoglobin 11.2 g/dl (14.0-18.0); Mean Corpuscular HGB Conc 31.7 g/dl (31.0-36.0); Mean Corpuscular Hemoglobin 29.2 pg (27.0-33.0); Mean Corpuscular Volume 92.2 fL (80.0-98.0); NRBC Abs Auto 0.000 X10*3/uL (0.0-0.012); NRBC Pct Auto 0.0 /100WBC (0.0-0.2); Platelet Count 103 X10*3/uL (160-400); Red Blood Count 3.83 X10*6/uL (4.60-5.80); White Blood Count 15.7 X10*3/uL (4.8-10.8)
[2025-01-30 06:35] LABS: Anion Gap 10 (12-20); Blood Urea Nitrogen 26 mg/dL (9-16); Calcium 8.3 mg/dL (8.4-10.2); Carbon Dioxide 27 mmol/L (22-29); Chloride 113 mmol/L (96-108); Creatinine Clr Calc Pharmacy 43.2; Estimated Glomerular Filt Rate 59; Potassium 3.5 mmol/L (3.3-5.1); Sodium 146 mmol/L (135-145)
[2025-01-30] MEDS: 0.9 % Sodium Chloride Flush 3 ML SYRINGE IVFLUSH ×3 (07:45→20:39)
--- NOTE | 2025-01-30 09:25 | P.PNGS_ITS ---
Subjective Subjective Date of Service: 01/30/25 <Blaze Jackson PA-C - Last Filed: 01/30/25 09:42> 01/30/25 <Josep Haynes MD - Last Filed: 01/30/25 15:34> Interval history: Nonverbal during exam, some nodding of head, does not appear to be in pain, pleasantly confused <Blaze Jackson PA-C - Last Filed: 01/30/25 09:42> Physical Exam 2 Vital Signs: Vital Signs: Last Vital Signs Temp 98.9 F 01/30/25 08:00 Pulse 67 01/30/25 08:00 Resp 16 01/30/25 08:00 BP 144/63 H 01/30/25 08:00 Pulse Ox 99 01/30/25 08:00 O2 Del Method Room Air 01/30/25 08:00 BMI result Body Mass Index 28.5 <Blaze Jackson PA-C - Last Filed: 01/30/25 09:42> Const: General: no acute distress and confusion <Blaze Jackson PA-C - Last Filed: 01/30/25 09:42> Nutritional Appearance: obese <Blaze Jackson PA-C - Last Filed: 01/30/25 09:42> Orientation/consciousness: confusion <Blaze Jackson PA-C - Last Filed: 01/30/25 09:42> GI: Inspection: Yes obesity <Blaze Jackson PA-C - Last Filed: 01/30/25 09:42> Palpation (GI): Soft to palpation and nontender (did not react to palpation of the abdomen) <Blaze Jackson PA-C - Last Filed: 01/30/25 09:42> Neuro: General: confusion <Blaze Jackson PA-C - Last Filed: 01/30/25 09:42> Objective Data Active Medications Acetaminophen (Acetaminophen 325 Mg Tablet) 650 mg PO Q6H PRN PRN Reason: Pain, Mild 1-3,fever,headache Aspirin (Aspirin Enteric Coated 81 Mg Tablet.) 81 mg PO DAILY [facility] Atorvastatin Calcium (Atorvastatin Calcium 20 Mg Tablet) 20 mg PO BEDTIME [facility] Last Admin: 01/29/25 21:28 Dose: Not Given Documented By: TALHA Non-Admin Reason: Patient Refused Calcium Carbonate (Calcium Carbonate 750 Mg Tab.Chew) 750 mg PO Q4H PRN PRN Reason: Heartburn Calcium Carbonate/Cholecalciferol (Calcium + Vitamin D 250 Mg Tablet) 500 mg PO BID [facility] Last Admin: 01/29/25 21:29 Dose: Not Given Documented By: TALHA Non-Admin Reason: Patient Refused Carvedilol (Carvedilol 25 Mg Tablet) 25 mg PO BID [facility]; Protocol Last Admin: 01/29/25 21:29 Dose: Not Given Documented By: TALHA Non-Admin Reason: Patient Refused Colchicine (Colchicine 0.6 Mg Tablet) 0.6 mg PO DAILY [facility] Docusate Sodium (Docusate Sodium 100 Mg Capsule) 100 mg PO BID [facility] Last Admin: 01/29/25 21:29 Dose: Not Given Documented By: TALHA Non-Admin Reason: Patient Condition Contraindication Doxazosin Mesylate (Doxazosin Mesylate 2 Mg Tablet) 4 mg PO BEDTIME [facility]; Protocol Last Admin: 01/29/25 21:29 Dose: Not Given Documented By: TALHA Non-Admin Reason: Patient Refused Finasteride (Finasteride 5 Mg Tablet) 5 mg PO DAILY [facility] Heparin Sodium (Porcine) (Heparin Sodium,Porcine 5,000 Unit/Ml Vial) 5,000 unit SUBCUT Q12H [facility] Last Admin: 01/30/25 05:32 Dose: 5,000 unit Documented By: TONY Hydralazine HCl (Hydralazine Hcl 50 Mg Tablet) 50 mg PO TID [facility]; Protocol Last Admin: 01/29/25 21:29 Dose: Not Given Documented By: TALHA Non-Admin Reason: Patient Refused Lactated Ringer's (Lr) 1,000 mls @ 100 mls/hr IVCONT .Q10H [facility] Last Admin: 01/30/25 02:23 Dose: 100 mls/hr Documented By: TONY Piperacillin Sod/Tazobactam (Sod 2.25 gm/ Sodium Chloride) 50 mls @ 100 mls/hr IV Q6H [facility] Last Infusion: 01/30/25 06:09 Dose: Infused Documented By: TONY Acetaminophen (Ofirmev) 1,000 mg in 100 mls @ 400 mls/hr IV Q6H PRN PRN Reason: Pain, Mild 1-3,fever,headache Last Infusion: 01/29/25 23:15 Dose: Infused Documented By: TALHA Levetiracetam (Levetiracetam Oral Soln 500 Mg/5 Ml) 500 mg PO BID [facility] Loratadine (Loratadine 10 Mg Tablet) 10 mg PO DAILY [facility] Magnesium Hydroxide (Milk Of Magnesia 30 Ml Oral.Susp) 30 ml PO DAILY PRN PRN Reason: Constipation Melatonin (Melatonin 3 Mg Tablet) 6 mg PO BEDTIME PRN PRN Reason: Insomnia Memantine (Memantine Hcl 10 Mg Tablet) 10 mg PO BID [facility] Last Admin: 01/29/25 21:29 Dose: Not Given Documented By: TALHA Non-Admin Reason: Patient Refused Omeprazole (Omeprazole 20 Mg Capsule.) 20 mg PO DAILY@629 [facility] Last Admin: 01/30/25 05:39 Dose: Not Given Documented By: TONY Non-Admin Reason: NPO Comments: pending swallow eval Polyethylene Glycol (Polyethylene Glycol 3350 17 Gm Powd.Pack) 17 gm PO DAILY [facility] Sertraline HCl (Sertraline Hcl 25 Mg Tablet) 25 mg PO DAILY [facility] Sodium Chloride (0.9 % Sodium Chloride Flush 3 Ml Syringe) 3 ml IVFLUSH QSHIFT [facility] Last Admin: 01/30/25 07:45 Dose: 3 ml Documented By: MARIA GUADALUPE Trazodone HCl (Trazodone Hcl 100 Mg Tablet) 200 mg PO BEDTIME [facility] Last Admin: 01/29/25 21:29 Dose: Not Given Documented By: TALHA Non-Admin Reason: Patient Refused <Blaze Jackson PA-C - Last Filed: 01/30/25 09:42> Labs CBC & Chem 7: 01/30/25 05:56 01/30/25 05:56 <Blaze Jackson PA-C - Last Filed: 01/30/25 09:42> Labs: Laboratory Results - last 24 hr 01/29/25 01/29/25 01/29/25 11:32 11:45 13:37 MCV 90.5 MCH 30.0 MCHC 33.2 RDW 12.9 Plt Count 141 L MPV 11.2 Immature Gran % (Auto) Cancelled Neut % (Auto) Cancelled Lymph % (Auto) Cancelled Gem % (Auto) Cancelled Eos % (Auto) Cancelled Baso % (Auto) Cancelled Lymph # (Auto) Cancelled Gem # (Auto) Cancelled Eos # (Auto) Cancelled Baso # (Auto) Cancelled Abs Immat Gran (auto) Cancelled Absolute Neuts (auto) Cancelled Absolute Nucleated RBC 0.000 Nucleated RBC % (auto) 0.0 Neutrophils % (Manual) 88 H Band Neutrophils % 0 L Lymphocytes % (Manual) 9 L Monocytes % (Manual) 3 Abs Neuts (Manual) 20.3 H Lymphocytes # (Manual) 2.1 Monocytes # (Manual) 0.7 Toxic Vacuolation PRESENT Platelet Estimate SLIGHTLY DECREASED Large Platelets PRESENT Plt Morphology Comment NOTE RBC Morphology NOTED Polychromasia 1+ (0-2) Anion Gap 16 Estim Creat Clear Calc 35.4 Estimated GFR 47 Random Glucose 123 H Lactic Acid 2.5 H* Lactic Acid F/U @ 2Hr Calcium 9.2 Total Bilirubin 1.1 H Direct Bilirubin 0.3 AST 42 H ALT 13 Alkaline Phosphatase 85 Ammonia 33 Total Protein 7.6 Albumin 4.1 Lipase 17 TSH 0.16 L Free T4 1.06 Urine Color Dark Yellow Urine Appearance Cloudy Urine pH 5.5 Ur Specific Kirvin 1.025 Urine Protein 100 (2+) H Urine Glucose (UA) Negative Urine Ketones Trace Urine Blood Large (3+) H Urine Nitrite Negative Ur Leukocyte Esterase Moderate (2+) H Urine RBC 11-20 H Urine WBC 21-50 Urine WBC Clumps Present Ur Squamous Epith Cells 6-10 Urine Bacteria 2+ Hyaline Casts 0-2 Influenza Type A (PCR) NEGATIVE Influenza Type B (PCR) NEGATIVE RSV RNA Qual (PCR) NEGATIVE SARS-CoV-2 RNA (RT-PCR) NEGATIVE 01/29/25 01/30/25 15:45 05:56 MCV 92.2 MCH 29.2 MCHC 31.7 RDW 13.0 Plt Count 103 L D MPV 10.5 Immature Gran % (Auto) Neut % (Auto) Lymph % (Auto) Gem % (Auto) Eos % (Auto) Baso % (Auto) Lymph # (Auto) Gem # (Auto) Eos # (Auto) Baso # (Auto) Abs Immat Gran (auto) Absolute Neuts (auto) Absolute Nucleated RBC 0.000 Nucleated RBC % (auto) 0.0 Neutrophils % (Manual) Band Neutrophils % Lymphocytes % (Manual) Monocytes % (Manual) Abs Neuts (Manual) Lymphocytes # (Manual) Monocytes # (Manual) Toxic Vacuolation Platelet Estimate Large Platelets Plt Morphology Comment RBC Morphology Polychromasia Anion Gap 10 L Estim Creat Clear Calc 43.2 Estimated GFR 59 Random Glucose 107 Lactic Acid Lactic Acid F/U @ 2Hr 1.6 Calcium 8.3 L D Total Bilirubin Direct Bilirubin AST ALT Alkaline Phosphatase Ammonia Total Protein Albumin Lipase TSH Free T4 Urine Color Urine Appearance Urine pH Ur Specific Kirvin Urine Protein Urine Glucose (UA) Urine Ketones Urine Blood Urine Nitrite Ur Leukocyte Esterase Urine RBC Urine WBC Urine WBC Clumps Ur Squamous Epith Cells Urine Bacteria Hyaline Casts Influenza Type A (PCR) Influenza Type B (PCR) RSV RNA Qual (PCR) SARS-CoV-2 RNA (RT-PCR) <Blaze Jackson PA-C - Last Filed: 01/30/25 09:42> Procedures Date of Service Date of Service: 01/30/25 <Blaze Jackson PA-C - Last Filed: 01/30/25 09:42> 01/30/25 <Josep Haynes MD - Last Filed: 01/30/25 15:34> Progress Note: A&P Assessment and plan (1) Sepsis: Status: Acute <Blaze Jackson PA-C - Last Filed: 01/30/25 09:42> Assessment and Plan: Abdomen remained soft No obvious tenderness Does not seem to be in pain Would not proceed with cholecystectomy at this time next continue management for UTI IV antibiotic Seen and examined independently <Josep Haynes MD - Last Filed: 01/30/25 15:34> Assessment and Plan: 84 year old male with a history of advanced dementia, admitted for sepsis, found to have UTI, concern for acute cholecystitis. Suspecting that sepsis is secondary to UTI. He is on zosyn which will cover GI organsims. White count improved to 15.7 today. Patient did not contribute to evaluation, unsure of his baseline but likely related to his advanced dementia. Did not appear to be in any distress appeared to be resting comfortably in bed. On exam his abdomen was soft and benign. We will continue with nonoperative conservative management at this point. We will continue to follow along during admission for any acute changes. <Blaze Jackson PA-C - Last Filed: 01/30/25 09:42> Time Spent With Patient Time: Total time managing care of this patient today ____ minutes. <Blaze Jackson PA-C - Last Filed: 01/30/25 09:42> Quality Stroke Does the patient have a stroke diagnosis?: No <Blaze Jackson PA-C - Last Filed: 01/30/25 09:42> VTE Prior VTE?: No <Blaze Jackson PA-C - Last Filed: 01/30/25 09:42> VTE Risk Level:: Medical - moderate - high <Blaze Jackson PA-C - Last Filed: 01/30/25 09:42> VTE Device Contraindication: N/A - Device Ordered <Blaze Jackson PA-C - Last Filed: 01/30/25 09:42> VTE Drug Contraindication: N/A - Med Ordered <Blaze Jackson PA-C - Last Filed: 01/30/25 09:42>
[2025-01-30] MEDS: levETIRAcetam Oral Soln 500 MG/5 ML PO ×2 (10:41→20:38)
[2025-01-30] MEDS: Calcium + Vitamin D 250 MG TABLET 500 MG PO (10:42)
--- NOTE | 2025-01-30 11:15 | PC.NURSE ---
Medicated patient crushing pills mixed in apple sauce and using spoon to administer liquids. Confirmed with speech therapist okay to try small pills whole (pills that aren't allowed to crush) in apple sauce, patient tolerated well with no signs of coughing or clearing throat after. Attempted to administer aspirin and patient spit it back out and did not comprehend to swallow it.
--- NOTE | 2025-01-30 13:04 | P.PNIM_ITS ---
Subjective Subjective Date of Service: 01/30/25 Interval History: Patient seen examined at bedside this morning, patient is poorly verbal, Kazakh-speaking. We will give short answers. WBC improving as well as creatinine. No acute overnight events. Review of Systems Review of Systems: Yes Unobtainable due to mental status Physical Exam 2 Exam: Exam: General: AxOx1, No acute distress Head: AT/NC ENT: Moist mucous membranes Neck: supple CVS; RRR, S1 S2 normal Lungs: Clear bilateral breath sounds, no wheezes or crackles Abd: Soft non tender, non distended Ext: No edema and no calf tenderness MSK: moving all 4 limbs Skin: No cyanosis or edema Psych: Cooperative with exam Neurology: no focal deficit Vital Signs: Vital Signs: Last Vital Signs Temp 98.9 F 01/30/25 08:00 Pulse 57 01/30/25 10:39 Resp 16 01/30/25 08:00 BP 152/60 H 01/30/25 10:39 Pulse Ox 97 01/30/25 10:39 O2 Del Method Room Air 01/30/25 10:39 BMI result Body Mass Index 28.5 Objective Data Active Medications Acetaminophen (Acetaminophen 325 Mg Tablet) 650 mg PO Q6H PRN PRN Reason: Pain, Mild 1-3,fever,headache Aspirin (Aspirin Enteric Coated 81 Mg Tablet.Dr) 81 mg PO DAILY [facility] Last Admin: 01/30/25 10:57 Dose: Not Given Documented By: MARIA GUADALUPE Non-Admin Reason: Patient Refused Comments: patient spit back out Atorvastatin Calcium (Atorvastatin Calcium 20 Mg Tablet) 20 mg PO BEDTIME [facility] Last Admin: 01/29/25 21:28 Dose: Not Given Documented By: TALHA Non-Admin Reason: Patient Refused Calcium Carbonate (Calcium Carbonate 750 Mg Tab.Chew) 750 mg PO Q4H PRN PRN Reason: Heartburn Calcium Carbonate/Cholecalciferol (Calcium + Vitamin D 250 Mg Tablet) 500 mg PO BID [facility] Last Admin: 01/30/25 10:42 Dose: 500 mg Documented By: MARIA GUADALUPE Comments: delay due to NPO pending speech/swallow eval. Carvedilol (Carvedilol 25 Mg Tablet) 25 mg PO BID [facility]; Protocol Last Admin: 01/30/25 10:43 Dose: Not Given Documented By: MARIA GUADALUPE Non-Admin Reason: Decreased Heart Rate Colchicine (Colchicine 0.6 Mg Tablet) 0.6 mg PO DAILY [facility] Last Admin: 01/30/25 10:40 Dose: 0.6 mg Documented By: MARIA GUADALUPE Comments: delay due to NPO pending speech/swallow eval. Docusate Sodium (Docusate Sodium 100 Mg Capsule) 100 mg PO BID [facility] Last Admin: 01/30/25 10:58 Dose: Not Given Documented By: MARIA GUADALUPE Non-Admin Reason: See Note Comments: pill large; unable to crush; concern for aspiration. Doxazosin Mesylate (Doxazosin Mesylate 2 Mg Tablet) 4 mg PO BEDTIME [facility]; Protocol Last Admin: 01/29/25 21:29 Dose: Not Given Documented By: TALHA Non-Admin Reason: Patient Refused Finasteride (Finasteride 5 Mg Tablet) 5 mg PO DAILY [facility] Last Admin: 01/30/25 10:41 Dose: 5 mg Documented By: MARIA GUADALUPE Comments: delay due to NPO pending speech/swallow eval. Heparin Sodium (Porcine) (Heparin Sodium,Porcine 5,000 Unit/Ml Vial) 5,000 unit SUBCUT Q12H [facility] Last Admin: 01/30/25 05:32 Dose: 5,000 unit Documented By: TONY Hydralazine HCl (Hydralazine Hcl 50 Mg Tablet) 50 mg PO TID [facility]; Protocol Last Admin: 01/30/25 10:43 Dose: 50 mg Documented By: MARIA GUADALUPE Comments: delay due to NPO pending speech/swallow eval. Lactated Ringer's (Lr) 1,000 mls @ 100 mls/hr IVCONT .Q10H [facility] Last Infusion: 01/30/25 12:26 Dose: Infused Documented By: MARIA GUADALUPE Acetaminophen (Ofirmev) 1,000 mg in 100 mls @ 400 mls/hr IV Q6H PRN PRN Reason: Pain, Mild 1-3,fever,headache Last Infusion: 01/29/25 23:15 Dose: Infused Documented By: TALHA Piperacillin Sod/Tazobactam (Sod 3.375 gm/ Sodium Chloride) 50 mls @ 100 mls/hr IV Q6H [facility] Last Admin: 01/30/25 12:31 Dose: 100 mls/hr Documented By: MARIA GUADALUPE Levetiracetam (Levetiracetam Oral Soln 500 Mg/5 Ml) 500 mg PO BID [facility] Last Admin: 01/30/25 10:41 Dose: 500 mg Documented By: MARIA GUADALUPE Comments: delay due to NPO pending speech/swallow eval. Loratadine (Loratadine 10 Mg Tablet) 10 mg PO DAILY [facility] Last Admin: 01/30/25 10:42 Dose: 10 mg Documented By: MARIA GUADALUPE Comments: delay due to NPO pending speech/swallow eval. Magnesium Hydroxide (Milk Of Magnesia 30 Ml Oral.Susp) 30 ml PO DAILY PRN PRN Reason: Constipation Melatonin (Melatonin 3 Mg Tablet) 6 mg PO BEDTIME PRN PRN Reason: Insomnia Memantine (Memantine Hcl 10 Mg Tablet) 10 mg PO BID [facility] Last Admin: 01/30/25 10:42 Dose: 10 mg Documented By: MARIA GUADALUPE Comments: delay due to NPO pending speech/swallow eval. Omeprazole (Omeprazole 20 Mg Capsule.Dr) 20 mg PO DAILY@0630 [facility] Last Admin: 01/30/25 05:39 Dose: Not Given Documented By: TONY Non-Admin Reason: NPO Comments: pending swallow eval Polyethylene Glycol (Polyethylene Glycol 3350 17 Gm Powd.Pack) 17 gm PO DAILY [facility] Last Admin: 01/30/25 10:44 Dose: 17 gm Documented By: MARIA GUADALUPE Comments: delay due to NPO pending speech/swallow eval. Sertraline HCl (Sertraline Hcl 25 Mg Tablet) 25 mg PO DAILY [facility] Last Admin: 01/30/25 10:43 Dose: 25 mg Documented By: MARIA GUADALUPE Comments: delay due to NPO pending speech/swallow eval. Sodium Chloride (0.9 % Sodium Chloride Flush 3 Ml Syringe) 3 ml IVFLUSH QSHIFT [facility] Last Admin: 01/30/25 07:45 Dose: 3 ml Documented By: MARIA GUADALUPE Trazodone HCl (Trazodone Hcl 100 Mg Tablet) 200 mg PO BEDTIME [facility] Last Admin: 01/29/25 21:29 Dose: Not Given Documented By: TALHA Non-Admin Reason: Patient Refused Labs 01/30/25 05:56 01/30/25 05:56 Labs: Laboratory Results - last 24 hr 01/29/25 01/29/25 01/29/25 11:32 13:37 15:45 MCV MCH MCHC RDW Plt Count MPV Absolute Nucleated RBC Nucleated RBC % (auto) Anion Gap Estim Creat Clear Calc Estimated GFR Random Glucose Lactic Acid F/U @ 2Hr 1.6 Calcium Free T4 1.06 Urine Color Dark Yellow Urine Appearance Cloudy Urine pH 5.5 Ur Specific [place] 1.025 Urine Protein 100 (2+) H Urine Glucose (UA) Negative Urine Ketones Trace Urine Blood Large (3+) H Urine Nitrite Negative Ur Leukocyte Esterase Moderate (2+) H Urine RBC 11-20 H Urine WBC 21-50 Urine WBC Clumps Present Ur Squamous Epith Cells 6-10 Urine Bacteria 2+ Hyaline Casts 0-2 01/30/25 05:56 MCV 92.2 MCH 29.2 MCHC 31.7 RDW 13.0 Plt Count 103 L D MPV 10.5 Absolute Nucleated RBC 0.000 Nucleated RBC % (auto) 0.0 Anion Gap 10 L Estim Creat Clear Calc 43.2 Estimated GFR 59 Random Glucose 107 Lactic Acid F/U @ 2Hr Calcium 8.3 L D Free T4 Urine Color Urine Appearance Urine pH Ur Specific [place] Urine Protein Urine Glucose (UA) Urine Ketones Urine Blood Urine Nitrite Ur Leukocyte Esterase Urine RBC Urine WBC Urine WBC Clumps Ur Squamous Epith Cells Urine Bacteria Hyaline Casts Assessment and Plan (1) Sepsis: Status: Acute (2) UTI (urinary tract infection): Status: Acute (3) Dementia: Status: Acute Plan 84-year-old male with a history of advanced Alzheimer's dementia who is primarily nonverbal, seizure disorder, hypertension, BPH who presented to the emergency department for evaluation of fever found to have probable UTI Sepsis likely 2/2 UTI, less likely acalculous cholecystis at this time UTI Leukocytosis, improving -UA with leukocyte esterase, negative nitrites, WBC clumps, hyaline casts, awaiting cultures -continue IV Zosyn to cover both gallbladder and urine Per General surgery, feels less likely to be related to gallbladder, no indication for cholecystostomy tube at this time JORGE, resolved on admission 1.4 at this time 1.1. baseline around 1 continue to hold nephrotoxic meds including lasix, irbesartan IVF trend BMP Constipation abundant stool on imaging Bowel regimen HTN, chronic hold irbesartan for JORGE continue coreg, hydralazine BPH Continue baseline meds Advanced Alzheimer's dementia poorly verbal; dependant for ADLs Continue baseline medication gerd continue ppi DVT prophylaxis-heparin Code status-full code Disposition: All questions and concerns with the patient were answered to satisfaction. All pertinent clinical documents, images and labs were reviewed. DISCLAIMER: This document was created using voice recognition software. Any mistakes in the prescription are unintentional. An attempt was made to focus for accuracy, but to expedite availability, some errors may persist. Please contact with any need for correction or further clarification Total time managing care of this patient today: 35 minutes. Quality Stroke Does the patient have a stroke diagnosis?: No VTE Prior VTE?: No VTE Risk Level:: Medical - moderate - high VTE Device Contraindication: N/A - Device Ordered VTE Drug Contraindication: N/A - Med Ordered
--- NOTE | 2025-01-30 13:44 | PC.NURSE ---
Reached out to provider, Augusto Evans, as patient's left hand is contracted and patient has limited ROM of left arm and nursing unsure if this was baseline. 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
--- NOTE | 2025-01-30 15:30 | PC.NURSE ---
Utilized break off worker Nat, to talk to patient's rejected items clerk at bedside. They reported that at home he is usually incontinent at home and has increased weakness and no longer ambulates but stand and pivots to chair/bed and usually takes crushed pills at home, they also reported that he is minimally verbal due to dementia.
--- NOTE | 2025-01-30 15:45 | MHC.CM.PN ---
CM MET WITH PTS SISTER IN LAW/LEAD PERSON AND HIS EVENING LEAD PERSON AT BEDSIDE WITH A WATCHER LOOKOUT TOWER PTS BROTHER AND HIS LIVE WITH, AND ASSIST WITH CARING FOR, THE PT PT HAS 50 HOURS OF LEAD PERSON SERVICES PER WEEK, HOWEVER FAMILY IS ALWAYS THERE PT HAS A WALKER FOR DME, HOWEVER IS NON-AMBULATORY AT THIS TIME CM PROVIDED INFORMATION ON OBTAINING FREE DME AND WILL CALL [employer] TO REQUEST THE [employer] WORK ON A HOSPITAL BED AND LADAN LIFT HCP ON FILE PCP: MELISSA NAILS IMM DELIVERED DCP: HOME RESUME LEAD PERSON CARE BLS TRANSPORT
[2025-01-31] VITALS (10 sets, daily range): BP systolic 165–207; BP diastolic 73–94; PULSE 65–70; RESP 18; TEMP 36.4–37.6; O2SAT 94–96
[2025-01-31 08:21] LABS: MANUAL DIFF FLAG NO
[2025-01-31 08:39] LABS: Hematocrit 33.2 % (42.0-52.0); Hemoglobin 10.7 g/dl (14.0-18.0); Imm Gran Abs Auto 0.08 X10*3/uL (0.00-0.03); Imm Gran Pct Auto 0.8 % (0.0-0.4); Lymphocytes Absolute Auto 1.2 X10*3/uL (1.2-4.9); Mean Corpuscular HGB Conc 32.2 g/dl (31.0-36.0); Mean Corpuscular Hemoglobin 29.1 pg (27.0-33.0); Mean Corpuscular Volume 90.2 fL (80.0-98.0); NRBC Abs Auto 0.000 X10*3/uL (0.0-0.012); NRBC Pct Auto 0.0 /100WBC (0.0-0.2); Platelet Count 120 X10*3/uL (160-400); Red Blood Count 3.68 X10*6/uL (4.60-5.80); White Blood Count 10.2 X10*3/uL (4.8-10.8)
[2025-01-31 08:59] LABS: Anion Gap 13 (12-20); Blood Urea Nitrogen 24 mg/dL (9-16); Calcium 8.5 mg/dL (8.4-10.2); Carbon Dioxide 23 mmol/L (22-29); Chloride 115 mmol/L (96-108); Creatinine Clr Calc Pharmacy 44.3; Estimated Glomerular Filt Rate > 60; Potassium 3.5 mmol/L (3.3-5.1); Sodium 147 mmol/L (135-145)
[2025-01-31] MEDS: 0.9 % Sodium Chloride Flush 3 ML SYRINGE IVFLUSH ×3 (09:48→20:18)
[2025-01-31] MEDS: Lactated Ringers 1,000 ML 100 ML IVCONT (09:48)
--- NOTE | 2025-01-31 11:03 | P.PNIM_ITS ---
Subjective Subjective Date of Service: 01/31/25 Interval History: Patient seen and examined at bedside this morning, today patient is nonverbal, we will nod to questions, at this time when asked, states that he is feeling okay. Review of Systems Review of Systems: Yes Unobtainable due to mental status Physical Exam 2 Exam: Exam: General: Alert oriented to self, No acute distress Head: AT/NC ENT: Moist mucous membranes Neck: supple CVS; RRR, S1 S2 normal Lungs: Clear bilateral breath sounds, no wheezes or crackles Abd: Soft non tender, non distended Ext: No edema and no calf tenderness, left upper extremity contracture MSK: moving all 4 limbs Skin: No cyanosis or edema Psych: Cooperative with exam Neurology: Left-sided hemiparesis Vital Signs: Vital Signs: Last Vital Signs Temp 98.1 F 01/31/25 07:36 Pulse 69 01/31/25 07:36 Resp 18 01/31/25 07:36 BP 165/74 H 01/31/25 07:36 Pulse Ox 94 01/31/25 07:36 O2 Del Method Room Air 01/31/25 07:36 BMI result Body Mass Index 28.5 Objective Data Active Medications Acetaminophen (Acetaminophen 325 Mg Tablet) 650 mg PO Q6H PRN PRN Reason: Pain, Mild 1-3,fever,headache Aspirin (Aspirin 81 Mg Tab.Chew) 81 mg PO DAILY [facility] Atorvastatin Calcium (Atorvastatin Calcium 20 Mg Tablet) 20 mg PO BEDTIME [facility] Last Admin: 01/30/25 21:00 Dose: Not Given Documented By: PEARL Non-Admin Reason: Patient Refused Comments: Patient refused to take meds despite of multiple attempts w/ videotape editor Calcium Carbonate (Calcium Carbonate 750 Mg Tab.Chew) 750 mg PO Q4H PRN PRN Reason: Heartburn Calcium Carbonate/Cholecalciferol (Calcium + Vitamin D 250 Mg Tablet) 500 mg PO BID [facility] Last Admin: 01/30/25 21:00 Dose: Not Given Documented By: PEARL Non-Admin Reason: Patient Refused Comments: Patient refused to take meds despite of multiple attempts w/ videotape editor Carvedilol (Carvedilol 25 Mg Tablet) 25 mg PO BID [facility]; Protocol Last Admin: 01/30/25 21:00 Dose: Not Given Documented By: PEARL Non-Admin Reason: Patient Refused Comments: Patient refused to take meds despite of multiple attempts w/ videotape editor Colchicine (Colchicine 0.6 Mg Tablet) 0.6 mg PO DAILY [facility] Last Admin: 01/30/25 10:40 Dose: 0.6 mg Documented By: MARIA GUADALUPE Comments: delay due to NPO pending speech/swallow eval. Docusate Sodium (Docusate Sodium 100 Mg Capsule) 100 mg PO BID [facility] Last Admin: 01/30/25 21:00 Dose: Not Given Documented By: PEARL Non-Admin Reason: Patient Refused Comments: Patient refused to take meds despite of multiple attempts w/ videotape editor Doxazosin Mesylate (Doxazosin Mesylate 2 Mg Tablet) 4 mg PO BEDTIME [facility]; Protocol Last Admin: 01/30/25 21:00 Dose: Not Given Documented By: PEARL Non-Admin Reason: Patient Refused Comments: Patient refused to take meds despite of multiple attempts w/ videotape editor Finasteride (Finasteride 5 Mg Tablet) 5 mg PO DAILY [facility] Last Admin: 01/30/25 10:41 Dose: 5 mg Documented By: MARIA GUADALUPE Comments: delay due to NPO pending speech/swallow eval. Heparin Sodium (Porcine) (Heparin Sodium,Porcine 5,000 Unit/Ml Vial) 5,000 unit SUBCUT Q12H [facility] Last Admin: 01/31/25 04:33 Dose: 5,000 unit Documented By: DHARMESH Hydralazine HCl (Hydralazine Hcl 50 Mg Tablet) 50 mg PO TID [facility]; Protocol Last Admin: 01/30/25 21:00 Dose: Not Given Documented By: PEARL Non-Admin Reason: Patient Refused Comments: Patient refused to take meds despite of multiple attempts w/ videotape editor Lactated Ringer's (Lr) 1,000 mls @ 100 mls/hr IVCONT .Q10H [facility] Last Admin: 01/31/25 09:48 Dose: 100 mls/hr Documented By: KENYA Acetaminophen (Ofirmev) 1,000 mg in 100 mls @ 400 mls/hr IV Q6H PRN PRN Reason: Pain, Mild 1-3,fever,headache Last Infusion: 01/29/25 23:15 Dose: Infused Documented By: TALHA Piperacillin Sod/Tazobactam (Sod 3.375 gm/ Sodium Chloride) 50 mls @ 100 mls/hr IV Q6H [facility] Last Infusion: 01/31/25 07:27 Dose: Infused Documented By: DHARMESH Levetiracetam (Levetiracetam Oral Soln 500 Mg/5 Ml) 500 mg PO BID [facility] Last Admin: 01/30/25 20:38 Dose: 500 mg Documented By: PEARL Loratadine (Loratadine 10 Mg Tablet) 10 mg PO DAILY [facility] Last Admin: 01/30/25 10:42 Dose: 10 mg Documented By: MARIA GUADALUPE Comments: delay due to NPO pending speech/swallow eval. Magnesium Hydroxide (Milk Of Magnesia 30 Ml Oral.Susp) 30 ml PO DAILY PRN PRN Reason: Constipation Melatonin (Melatonin 3 Mg Tablet) 6 mg PO BEDTIME PRN PRN Reason: Insomnia Memantine (Memantine Hcl 10 Mg Tablet) 10 mg PO BID [facility] Last Admin: 01/30/25 21:00 Dose: Not Given Documented By: PEARL Non-Admin Reason: Patient Refused Comments: Patient refused to take meds despite of multiple attempts w/ videotape editor Omeprazole (Omeprazole 20 Mg Capsule.Dr) 20 mg PO DAILY@0630 [facility] Last Admin: 01/31/25 06:39 Dose: Not Given Documented By: DHARMESH Non-Admin Reason: unable to crush Polyethylene Glycol (Polyethylene Glycol 3350 17 Gm Powd.Pack) 17 gm PO DAILY [facility] Last Admin: 01/30/25 10:44 Dose: 17 gm Documented By: MARIA GUADALUPE Comments: delay due to NPO pending speech/swallow eval. Sertraline HCl (Sertraline Hcl 25 Mg Tablet) 25 mg PO DAILY [facility] Last Admin: 01/30/25 10:43 Dose: 25 mg Documented By: MARIA GUADALUPE Comments: delay due to NPO pending speech/swallow eval. Sodium Chloride (0.9 % Sodium Chloride Flush 3 Ml Syringe) 3 ml IVFLUSH QSHIFT [facility] Last Admin: 01/31/25 09:48 Dose: 3 ml Documented By: KENYA Trazodone HCl (Trazodone Hcl 100 Mg Tablet) 200 mg PO BEDTIME [facility] Last Admin: 01/30/25 21:00 Dose: Not Given Documented By: PEARL Non-Admin Reason: Patient Refused Comments: Patient refused to take meds despite of multiple attempts w/ videotape editor Labs 01/31/25 08:01 01/31/25 08:01 Labs: Laboratory Results - last 24 hr 01/31/25 08:01 MCV 90.2 MCH 29.1 MCHC 32.2 RDW 13.1 Plt Count 120 L MPV 11.9 Immature Gran % (Auto) 0.8 H Neut % (Auto) 81.2 H Lymph % (Auto) 11.8 L Clark % (Auto) 5.6 Eos % (Auto) 0.4 Baso % (Auto) 0.2 Lymph # (Auto) 1.2 Clark # (Auto) 0.6 Eos # (Auto) 0.0 Baso # (Auto) 0.0 Abs Immat Gran (auto) 0.08 H Absolute Neuts (auto) 8.3 Absolute Nucleated RBC 0.000 Nucleated RBC % (auto) 0.0 Anion Gap 13 Estim Creat Clear Calc 44.3 Estimated GFR > 60 Random Glucose 102 Calcium 8.5 Microbiology Microbiology Results: Microbiology 01/29/25 11:45 Blood Culture - Preliminary Blood - Venous No growth after 24 hours. 01/29/25 11:32 Blood Culture - Preliminary Blood - Venous No growth after 24 hours. Assessment and Plan (1) Dementia: Status: Acute (2) Sepsis: Status: Acute (3) UTI (urinary tract infection): Status: Acute Plan 84-year-old male with a history of advanced Alzheimer's dementia who is primarily nonverbal, seizure disorder, hypertension, BPH who presented to the emergency department for evaluation of fever found to have probable UTI Sepsis likely 2/2 UTI, less likely acalculous cholecystis at this time UTI Leukocytosis, resolved -UA with leukocyte esterase, negative nitrites, WBC clumps, hyaline casts, awaiting cultures -continue IV Zosyn to cover both gallbladder and urine Per General surgery, feels less likely to be related to gallbladder, no indication for cholecystostomy tube at this time JORGE, resolved on admission 1.4 at this time 1.1. baseline around 1 continue to hold nephrotoxic meds including lasix, irbesartan IVF trend BMP Constipation continue Bowel regimen HTN, chronic restart irbesartan, continue coreg, hydralazine BPH Continue baseline meds Advanced Alzheimer's dementia poorly verbal; dependant for ADLs Continue baseline medication gerd continue ppi DVT prophylaxis-heparin Code status-full code Disposition: All questions and concerns with the patient were answered to satisfaction. All pertinent clinical documents, images and labs were reviewed. DISCLAIMER: This document was created using voice recognition software. Any mistakes in the prescription are unintentional. An attempt was made to focus for accuracy, but to expedite availability, some errors may persist. Please contact with any need for correction or further clarification Total time managing care of this patient today: 35 minutes. Quality Stroke Does the patient have a stroke diagnosis?: No VTE Prior VTE?: No VTE Risk Level:: Medical - moderate - high VTE Device Contraindication: N/A - Device Ordered VTE Drug Contraindication: N/A - Med Ordered
[2025-01-31] MEDS: levETIRAcetam in NaCl (iso-os) 500 MG/100 ML PIGGYBACK 400 MG IV (16:03)
[2025-01-31 17:06] LABS: Appearance Urine Turbid; Glucose Urine UA Negative (Negative); PH 6.0 (5.0-9.0); Specific Gravity - Urine >= 1.030 (1.005-1.025); UMIC TRIGGER UACC YES
[2025-01-31 17:32] LABS: UACC Culture Trigger YES
[2025-01-31] MEDS: Dextrose 5 % and Lactated Ring 1,000 ML 100 ML IVCONT (17:52)
--- NOTE | 2025-01-31 18:11 | PM.EVENT ---
Event Note Date of Service: 01/31/25 Event Note: Patient having episodes of hypertension, today has not up in his mouth, has not taking any medications, was given an initial dose of labetalol, however blood pressures persist elevated, we will give additional dose of hydralazine. If patient persists with elevated blood pressure, to consider start him on nicardipine drip. Time Spent With Patient Time: Total time managing care of this patient today ____ minutes.
[2025-02-01] VITALS (10 sets, daily range): BP systolic 131–189; BP diastolic 60–80; PULSE 56–94; RESP 15–20; TEMP 36.2–37.1; O2SAT 93–97
--- NOTE | 2025-02-01 03:04 | PC.NURSE ---
01/31/25 0000 BP-189/78 p-58 Geeta SERRA notified ordered 5mg IV hydralazine given at 0025.Repeat Bp 1 hour later 174/74 p-62 Geeta SERRA notified ordered another 5mg IV hydralazine given at 0200.Repeat BP 1 hour later 170/60 P-61.
[2025-02-01] MEDS: levETIRAcetam in NaCl (iso-os) 500 MG/100 ML PIGGYBACK 400 MG IV ×2 (03:34→16:35)
[2025-02-01] MEDS: Dextrose 5 % and Lactated Ring 1,000 ML 100 ML IVCONT ×3 (05:40→22:47)
[2025-02-01] MEDS: Calcium + Vitamin D 250 MG TABLET 500 MG PO (08:59)
[2025-02-01] MEDS: 0.9 % Sodium Chloride Flush 3 ML SYRINGE IVFLUSH ×3 (09:15→23:55)
--- NOTE | 2025-02-01 10:32 | HO.PM.IMPN ---
Subjective Subjective Date of Service: 02/01/25 Interval History: Patient seen and examined at bedside this morning, today patient is talking, patient nods and mentioned the word breakfast, that he wants to eat. Yesterday, patient refusing medications, with elevated blood pressures. Review of Systems Review of Systems: Yes all other systems are reviewed and are negative Physical Exam Exam: Exam: General: AxOx1, No acute distress Head: AT/NC ENT: Moist mucous membranes Neck: supple CVS; RRR, S1 S2 normal Lungs: Clear bilateral breath sounds, no wheezes or crackles Abd: Soft non tender, non distended Ext: No edema and no calf tenderness MSK: Left upper extremity contracture Skin: No cyanosis or edema Psych: Cooperative with exam Neurology: Left-sided hemiparesis Vital Signs: Vital Signs: Last Vital Signs Temp 98 F 02/01/25 06:59 Pulse 94 02/01/25 06:59 Resp 15 02/01/25 06:59 BP 131/61 02/01/25 06:59 Pulse Ox 95 02/01/25 06:59 O2 Del Method Room Air 02/01/25 06:59 BMI result Body Mass Index 28.5 Objective Data Active Medications Acetaminophen (Acetaminophen 325 Mg Tablet) 650 mg PO Q6H PRN PRN Reason: Pain, Mild 1-3,fever,headache Aspirin (Aspirin 81 Mg Tab.Chew) 81 mg PO DAILY [facility] Last Admin: 02/01/25 08:58 Dose: 81 mg Documented By: KENYA Atorvastatin Calcium (Atorvastatin Calcium 20 Mg Tablet) 20 mg PO BEDTIME [facility] Last Admin: 01/31/25 20:15 Dose: 20 mg Documented By: LEELEE Calcium Carbonate (Calcium Carbonate 750 Mg Tab.Chew) 750 mg PO Q4H PRN PRN Reason: Heartburn Calcium Carbonate/Cholecalciferol (Calcium + Vitamin D 250 Mg Tablet) 500 mg PO BID [facility] Last Admin: 02/01/25 08:59 Dose: 500 mg Documented By: KENYA Carvedilol (Carvedilol 25 Mg Tablet) 25 mg PO BID [facility]; Protocol Last Admin: 02/01/25 09:14 Dose: Not Given Documented By: KENYA Non-Admin Reason: HR 50s Colchicine (Colchicine 0.6 Mg Tablet) 0.6 mg PO DAILY [facility] Last Admin: 02/01/25 08:59 Dose: 0.6 mg Documented By: KENYA Docusate Sodium (Docusate Sodium 100 Mg Capsule) 100 mg PO BID [facility] Last Admin: 02/01/25 09:14 Dose: Not Given Documented By: KENYA Non-Admin Reason: unable to swallow Doxazosin Mesylate (Doxazosin Mesylate 2 Mg Tablet) 4 mg PO BEDTIME [facility]; Protocol Last Admin: 01/31/25 20:11 Dose: 4 mg Documented By: LEELEE Finasteride (Finasteride 5 Mg Tablet) 5 mg PO DAILY [facility] Last Admin: 02/01/25 08:58 Dose: 5 mg Documented By: KENYA Heparin Sodium (Porcine) (Heparin Sodium,Porcine 5,000 Unit/Ml Vial) 5,000 unit SUBCUT Q12H [facility] Last Admin: 02/01/25 05:38 Dose: 5,000 unit Documented By: LEELEE Hydralazine HCl (Hydralazine Hcl 50 Mg Tablet) 50 mg PO TID [facility]; Protocol Last Admin: 02/01/25 08:58 Dose: 50 mg Documented By: KENYA Acetaminophen (Ofirmev) 1,000 mg in 100 mls @ 400 mls/hr IV Q6H PRN PRN Reason: Pain, Mild 1-3,fever,headache Last Infusion: 01/29/25 23:15 Dose: Infused Documented By: TALHA Piperacillin Sod/Tazobactam (Sod 3.375 gm/ Sodium Chloride) 50 mls @ 100 mls/hr IV Q6H [facility] Last Infusion: 02/01/25 06:10 Dose: Infused Documented By: LEELEE Levetiracetam (Keppra) 500 mg in 100 mls @ 400 mls/hr IV Q12H [facility] Last Infusion: 02/01/25 03:51 Dose: Infused Documented By: LEELEE Dextrose/Lactated Ringer's (D5lr) 1,000 mls @ 100 mls/hr IVCONT .Q10H [facility] Last Admin: 02/01/25 05:40 Dose: 100 mls/hr Documented By: LEELEE Labetalol HCl (Labetalol Hcl 100 Mg/20 Ml Vial) 20 mg IVPUSH Q10M PRN PRN Reason: SBP > 160 Loratadine (Loratadine 10 Mg Tablet) 10 mg PO DAILY [facility] Last Admin: 02/01/25 08:58 Dose: 10 mg Documented By: KENYA Magnesium Hydroxide (Milk Of Magnesia 30 Ml Oral.Susp) 30 ml PO DAILY PRN PRN Reason: Constipation Melatonin (Melatonin 3 Mg Tablet) 6 mg PO BEDTIME PRN PRN Reason: Insomnia Memantine (Memantine Hcl 10 Mg Tablet) 10 mg PO BID [facility] Last Admin: 02/01/25 08:58 Dose: 10 mg Documented By: KENYA Omeprazole (Omeprazole 20 Mg Capsule.Dr) 20 mg PO DAILY@0630 [facility] Last Admin: 02/01/25 05:43 Dose: Not Given Documented By: LEELEE Non-Admin Reason: unable to crush Polyethylene Glycol (Polyethylene Glycol 3350 17 Gm Powd.Pack) 17 gm PO DAILY [facility] Last Admin: 02/01/25 08:59 Dose: 17 gm Documented By: KENYA Sertraline HCl (Sertraline Hcl 25 Mg Tablet) 25 mg PO DAILY [facility] Last Admin: 02/01/25 08:58 Dose: 25 mg Documented By: KENYA Sodium Chloride (0.9 % Sodium Chloride Flush 3 Ml Syringe) 3 ml IVFLUSH QSHIFT [facility] Last Admin: 02/01/25 09:15 Dose: 3 ml Documented By: KENYA Trazodone HCl (Trazodone Hcl 100 Mg Tablet) 200 mg PO BEDTIME [facility] Last Admin: 01/31/25 20:11 Dose: 200 mg Documented By: LEELEE Valsartan (Valsartan 160 Mg Tablet) 160 mg PO DAILY [facility]; Protocol Last Admin: 02/01/25 08:59 Dose: 160 mg Documented By: KENYA Labs 01/31/25 08:01 01/31/25 08:01 Labs: Laboratory Results - last 24 hr 01/31/25 16:14 Urine Color Dark Yellow Urine Appearance Turbid Urine pH 6.0 Ur Specific [place] >= 1.030 H Urine Protein 300 (3+) H Urine Glucose (UA) Negative Urine Ketones 15 Urine Blood Trace H Urine Nitrite Negative Ur Leukocyte Esterase Moderate (2+) H Urine RBC 3-5 H Urine WBC 6-10 Ur Squamous Epith Cells 3-5 Urine Bacteria Trace Hyaline Casts 0-2 Microbiology Microbiology Results: Microbiology 01/29/25 11:45 Blood Culture - Preliminary Blood - Venous No growth after 48 hours. 01/29/25 11:32 Blood Culture - Preliminary Blood - Venous No growth after 48 hours. Assessment and Plan (1) Sepsis: Status: Acute (2) Dementia: Status: Acute (3) HTN (hypertension): Status: Acute Plan 84-year-old male with a history of advanced Alzheimer's dementia who is primarily nonverbal, seizure disorder, hypertension, BPH who presented to the emergency department for evaluation of fever found to have UTI Sepsis likely 2/2 UTI, less likely acalculous cholecystis at this time UTI Leukocytosis, resolved -UA with leukocyte esterase, negative nitrites, WBC clumps, hyaline casts, awaiting cultures -continue IV Zosyn to cover both gallbladder and urine Per General surgery, feels less likely to be related to gallbladder, no indication for cholecystostomy tube at this time JORGE, resolved on admission 1.4 at this time 1.1. baseline around 1 continue to hold nephrotoxic meds including lasix, irbesartan IVF trend BMP Constipation continue Bowel regimen HTN, chronic, uncontrolled continue irbesartan, coreg, hydralazine. PRN ordered Medication non compliance -likely secondary to his underlying dementia BPH Continue baseline meds Advanced Alzheimer's dementia poorly verbal; dependant for ADLs Continue baseline medication gerd continue ppi DVT prophylaxis-heparin Code status-full code Disposition: All questions and concerns with the patient were answered to satisfaction. All pertinent clinical documents, images and labs were reviewed. DISCLAIMER: This document was created using voice recognition software. Any mistakes in the prescription are unintentional. An attempt was made to focus for accuracy, but to expedite availability, some errors may persist. Please contact with any need for correction or further clarification Total time managing care of this patient today: 35 minutes. Quality Stroke Does the patient have a stroke diagnosis?: No VTE Prior VTE?: No VTE Risk Level:: Medical - moderate - high VTE Device Contraindication: N/A - Device Ordered VTE Drug Contraindication: N/A - Med Ordered
[2025-02-02] VITALS (7 sets, daily range): BP systolic 152–168; BP diastolic 78–92; PULSE 54–74; RESP 12–20; TEMP 36.2–36.4; O2SAT 93–97
[2025-02-02] MEDS: levETIRAcetam in NaCl (iso-os) 500 MG/100 ML PIGGYBACK 400 MG IV ×2 (03:39→15:26)
[2025-02-02 07:57] LABS: Alanine Aminotransferase 18 U/L (0-40); Albumin Level 3.1 g/dL (3.5-5.0); Alkaline Phosphatase 53 U/L (39-117); Aspartate Amino Transferase 32 U/L (5-37); Blood Urea Nitrogen 16 mg/dL (9-16); Calcium 8.8 mg/dL (8.4-10.2); Creatinine Clr Calc Pharmacy 46.3; Estimated Glomerular Filt Rate > 60; Total Protein 6.0 g/dL (6.5-8.0)
[2025-02-02 08:02] LABS: Hematocrit 34.7 % (42.0-52.0); Hemoglobin 11.0 g/dl (14.0-18.0); Mean Corpuscular HGB Conc 31.7 g/dl (31.0-36.0); Mean Corpuscular Hemoglobin 29.3 pg (27.0-33.0); Mean Corpuscular Volume 92.5 fL (80.0-98.0); NRBC Abs Auto 0.000 X10*3/uL (0.0-0.012); NRBC Pct Auto 0.0 /100WBC (0.0-0.2); Platelet Count 145 X10*3/uL (160-400); Red Blood Count 3.75 X10*6/uL (4.60-5.80); White Blood Count 6.0 X10*3/uL (4.8-10.8)
[2025-02-02 08:05] LABS: Anion Gap 9 (12-20); Carbon Dioxide 27 mmol/L (22-29); Chloride 115 mmol/L (96-108); Potassium 3.3 mmol/L (3.3-5.1); Sodium 148 mmol/L (135-145)
[2025-02-02] MEDS: Dextrose 5 % and Lactated Ring 1,000 ML 100 ML IVCONT (08:28)
[2025-02-02] MEDS: 0.9 % Sodium Chloride Flush 3 ML SYRINGE IVFLUSH ×3 (08:29→21:27)
--- NOTE | 2025-02-02 11:16 | PC.NURSE ---
Patient refused to take all morning meds,nurse attempted numerous time bu patient did not even opened his mouth,Dr. Casas notified,RN called family hoping someone will visit and that would make a difference but nobody able to visit so far
--- NOTE | 2025-02-02 11:39 | MHC.SLORD ---
Speech Language Pathology Order Status: Attempted to see patient this AM. Patient not accepting any PO this date. Per RN, patient refusing breakfast as well as medications despite multiple attempts. Recommend continuing with current diet. 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
--- NOTE | 2025-02-02 14:19 | P.PNIM_ITS ---
Subjective Subjective Date of Service: 02/02/25 Interval History: Patient seen and examined at bedside this morning, patient admitted today, refusing to eat or have any p.o. medications. However today patient was able to state that he is feeling okay. Review of Systems Review of Systems: Yes all other systems are reviewed and are negative Physical Exam 2 Exam: Exam: General: AxOx1, No acute distress Head: AT/NC ENT: Moist mucous membranes Neck: supple CVS; RRR, S1 S2 normal Lungs: Clear bilateral breath sounds, no wheezes or crackles Abd: Soft non tender, non distended Ext: No edema and no calf tenderness MSK: moving all 4 limbs, left upper extremity contracture Skin: No cyanosis or edema Psych: Cooperative with exam Neurology: no focal deficit Neurology: Left-sided hemiparesis Vital Signs: Vital Signs: Last Vital Signs Temp 97.1 F 02/02/25 08:00 Pulse 54 02/02/25 08:00 Resp 12 02/02/25 08:00 BP 160/92 H 02/02/25 08:00 Pulse Ox 93 02/02/25 08:00 O2 Del Method Room Air 02/02/25 08:00 BMI result Body Mass Index 28.5 Objective Data Active Medications Acetaminophen (Acetaminophen 325 Mg Tablet) 650 mg PO Q6H PRN PRN Reason: Pain, Mild 1-3,fever,headache Aspirin (Aspirin 81 Mg Tab.Chew) 81 mg PO DAILY [facility] Last Admin: 02/02/25 11:04 Dose: Not Given Documented By: ZEFERINO Non-Admin Reason: Patient Refused Atorvastatin Calcium (Atorvastatin Calcium 20 Mg Tablet) 20 mg PO BEDTIME [facility] Last Admin: 02/01/25 21:24 Dose: 20 mg Documented By: ANNELISE Calcium Carbonate (Calcium Carbonate 750 Mg Tab.Chew) 750 mg PO Q4H PRN PRN Reason: Heartburn Calcium Carbonate/Cholecalciferol (Calcium + Vitamin D 250 Mg Tablet) 500 mg PO BID [facility] Last Admin: 02/02/25 11:04 Dose: Not Given Documented By: ZEFERINO Non-Admin Reason: Patient Refused Carvedilol (Carvedilol 25 Mg Tablet) 25 mg PO BID [facility]; Protocol Last Admin: 02/02/25 11:04 Dose: Not Given Documented By: ZEFERINO Non-Admin Reason: Patient Refused Colchicine (Colchicine 0.6 Mg Tablet) 0.6 mg PO DAILY [facility] Last Admin: 02/02/25 11:05 Dose: Not Given Documented By: ZEFERINO Non-Admin Reason: Patient Refused Docusate Sodium (Docusate Sodium 100 Mg Capsule) 100 mg PO BID [facility] Last Admin: 02/02/25 11:05 Dose: Not Given Documented By: ZEFERINO Non-Admin Reason: Patient Refused Doxazosin Mesylate (Doxazosin Mesylate 2 Mg Tablet) 4 mg PO BEDTIME [facility]; Protocol Last Admin: 02/01/25 21:24 Dose: 4 mg Documented By: ANNELISE Finasteride (Finasteride 5 Mg Tablet) 5 mg PO DAILY [facility] Last Admin: 02/02/25 11:05 Dose: Not Given Documented By: ZEFERINO Non-Admin Reason: Patient Refused Heparin Sodium (Porcine) (Heparin Sodium,Porcine 5,000 Unit/Ml Vial) 5,000 unit SUBCUT Q12H [facility] Last Admin: 02/02/25 04:33 Dose: 5,000 unit Documented By: ANNELISE Hydralazine HCl (Hydralazine Hcl 50 Mg Tablet) 50 mg PO TID [facility]; Protocol Last Admin: 02/02/25 11:06 Dose: Not Given Documented By: ZEFERINO Non-Admin Reason: Patient Refused Piperacillin Sod/Tazobactam (Sod 3.375 gm/ Sodium Chloride) 50 mls @ 100 mls/hr IV Q6H [facility] Last Infusion: 02/02/25 12:30 Dose: Infused Documented By: ZEFERINO Levetiracetam (Keppra) 500 mg in 100 mls @ 400 mls/hr IV Q12H [facility] Last Infusion: 02/02/25 03:54 Dose: Infused Documented By: ANNELISE Dextrose/Lactated Ringer's (D5lr) 1,000 mls @ 100 mls/hr IVCONT .Q10H [facility] Last Admin: 02/02/25 08:28 Dose: 100 mls/hr Documented By: ZEFERINO Labetalol HCl (Labetalol Hcl 100 Mg/20 Ml Vial) 20 mg IVPUSH Q10M PRN PRN Reason: SBP > 160 Loratadine (Loratadine 10 Mg Tablet) 10 mg PO DAILY [facility] Last Admin: 02/02/25 08:32 Dose: 10 mg Documented By: ZEFERINO Magnesium Hydroxide (Milk Of Magnesia 30 Ml Oral.Susp) 30 ml PO DAILY PRN PRN Reason: Constipation Melatonin (Melatonin 3 Mg Tablet) 6 mg PO BEDTIME PRN PRN Reason: Insomnia Memantine (Memantine Hcl 10 Mg Tablet) 10 mg PO BID [facility] Last Admin: 02/02/25 11:06 Dose: Not Given Documented By: ZEFERINO Non-Admin Reason: Patient Refused Omeprazole (Omeprazole 20 Mg Capsule.) 20 mg PO DAILY@0630 [facility] Last Admin: 02/02/25 05:54 Dose: Not Given Documented By: ANNELISE Non-Admin Reason: unable to crush Polyethylene Glycol (Polyethylene Glycol 3350 17 Gm Powd.Pack) 17 gm PO DAILY [facility] Last Admin: 02/02/25 08:33 Dose: 17 gm Documented By: ZEFERINO Sertraline HCl (Sertraline Hcl 25 Mg Tablet) 25 mg PO DAILY [facility] Last Admin: 02/02/25 08:32 Dose: 25 mg Documented By: ZEFERINO Sodium Chloride (0.9 % Sodium Chloride Flush 3 Ml Syringe) 3 ml IVFLUSH QSHIFT [facility] Last Admin: 02/02/25 08:29 Dose: 3 ml Documented By: ZEFERINO Trazodone HCl (Trazodone Hcl 100 Mg Tablet) 200 mg PO BEDTIME [facility] Last Admin: 02/01/25 21:25 Dose: 200 mg Documented By: ANNELISE Valsartan (Valsartan 160 Mg Tablet) 160 mg PO DAILY [facility]; Protocol Last Admin: 02/02/25 08:31 Dose: 160 mg Documented By: ZEFERINO Labs 02/02/25 07:33 02/02/25 07:33 Labs: Laboratory Results - last 24 hr 02/02/25 07:33 MCV 92.5 MCH 29.3 MCHC 31.7 RDW 13.3 Plt Count 145 L MPV 11.1 Absolute Nucleated RBC 0.000 Nucleated RBC % (auto) 0.0 Anion Gap 9 L Estim Creat Clear Calc 46.3 Estimated GFR > 60 Random Glucose 130 H Calcium 8.8 Total Bilirubin 0.4 AST 32 ALT 18 Alkaline Phosphatase 53 Total Protein 6.0 L Albumin 3.1 L Microbiology Microbiology Results: Microbiology 01/31/25 16:14 Urine Culture - Final Urine clean catch - Clean Catch Midstream No growth. 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 -d/c IV Zosyn will switch to ceftriaxone 1gm q24 for UTI. will likely transition to PO tomorrow if patient accepts taking PO Per General surgery, feels less likely to be related to gallbladder, no indication for cholecystostomy tube at this time JORGE, resolved on admission 1.4 at this time 1.1. baseline around 1 continue to hold nephrotoxic meds including lasix, irbesartan IVF trend BMP Constipation continue Bowel regimen HTN, chronic, uncontrolled continue irbesartan, coreg, hydralazine. PRN ordered Medication non compliance -likely secondary to his underlying dementia BPH Continue baseline meds Advanced Alzheimer's dementia poorly verbal; dependant for ADLs Continue baseline medication gerd continue ppi DVT prophylaxis-heparin Code status-full code Disposition: All questions and concerns with the patient were answered to satisfaction. All pertinent clinical documents, images and labs were reviewed. DISCLAIMER: This document was created using voice recognition software. Any mistakes in the prescription are unintentional. An attempt was made to focus for accuracy, but to expedite availability, some errors may persist. Please contact with any need for correction or further clarification Total time managing care of this patient today: 55 minutes. Quality Stroke Does the patient have a stroke diagnosis?: No VTE Prior VTE?: No VTE Risk Level:: Medical - moderate - high VTE Device Contraindication: N/A - Device Ordered VTE Drug Contraindication: N/A - Med Ordered
--- NOTE | 2025-02-02 14:27 | MHC.CM.PN ---
EMR REVIEWED AND PER MD ROUNDS, PT IS NOT YET MEDICALLY CLEARED FOR DC HOME, POSSIBLY TOMORROW. PPLAN REMAINS HOME WITH RESUMPTION OF CARE VIA MEASURING MACHINE OPERATOR/FAMILY SUPPORT. CM WILL CONTINUE TO FOLLOW FOR ANY CHANGE TO DC PLAN/NEEDS.
--- NOTE | 2025-02-02 15:05 | PC.NURSE ---
Spoke with patient daughter April requested flu shot for patient,also stating last time patient got a flu shot developed fever and flu like symptoms,Dr. Casas was notified,Dr. Casas will not order flu shot at this time.Screen Repairer Crusher Nat was notified that daughter is requesting patient is to be discharged home not to a facility
[2025-02-02] MEDS: Calcium + Vitamin D 250 MG TABLET 500 MG PO (21:25)
[2025-02-03 03:17] VITALS: BP 160/68; PULSE 61; RESP 18; TEMP 36.1; O2SAT 99
[2025-02-03] MEDS: levETIRAcetam in NaCl (iso-os) 500 MG/100 ML PIGGYBACK 400 MG IV (03:19)
[2025-02-03 07:57] VITALS: PULSE 64; RESP 18; TEMP 36.2; O2SAT 95
[2025-02-03 08:59] VITALS: BP 176/64
[2025-02-03 09:00] VITALS: PULSE 64
[2025-02-03] MEDS: 0.9 % Sodium Chloride Flush 3 ML SYRINGE IVFLUSH (09:15)
[2025-02-03] MEDS: Calcium + Vitamin D 250 MG TABLET 500 MG PO (09:16)
--- NOTE | 2025-02-03 09:28 | PC.NURSE ---
RN able to administer some po meds this am crushed with puding and apple juice,some patient refused
--- NOTE | 2025-02-03 10:06 | PC.NURSE ---
BP elevated this am 176/64 pulse 60 ,patient took his BP meds this am, notified
--- NOTE | 2025-02-03 11:37 | PM.DS ---
DS: Providers Provider Date of Service: 02/03/25 Date of admission: 01/29/25 16:11 Date of discharge: 02/03/25 Primary care physician: Galen Chavez MD Consults: 01/29/25 16:03 Consult to General Surgery Routine Consulting Provider: [facility] General Surgeons Reason for consultation: possible acute cholecystitis Has provider been notified: No Attending physician on discharge: Rei Evans Discharging clinician: Rei Evans DS: Diagnosis Discharge Diagnosis (1) Sepsis: Status: Acute (2) UTI (urinary tract infection): Status: Acute (3) Dementia: Status: Acute DS: Summary Hospital Course Hospital Course: 84-year-old male with a history of advanced Alzheimer's dementia who is primarily nonverbal, seizure disorder, hypertension, BPH who presented to the emergency department for evaluation of fever found to have UTI, patient started on IV ceftriaxone, with improvement of mentation. Patient not tolerating p.o., we will switch to p.o. antibiotics and discharged home to complete 3 extra days for a total of 7 days of antibiotics. Sepsis likely 2/2 UTI, less likely acalculous cholecystis at this time, resolved UTI, improving -UA with leukocyte esterase, negative nitrites, WBC clumps, hyaline casts, repeat culture from 01/31 negative however culture was not obtained on initial UA, this negative culture is likely from tx UTI w/ abs. -d/c IV Zosyn will switch to ceftriaxone 1gm q24 for UTI. will transition to cefpodoxime to complete 3 extra days Per General surgery, feels less likely to be related to gallbladder, no indication for cholecystostomy tube at this time Constipation continue Bowel regimen HTN, chronic continue irbesartan, coreg, hydralazine Medication non compliance -likely secondary to his underlying dementia BPH Continue baseline meds Advanced Alzheimer's dementia poorly verbal; dependant for ADLs Continue baseline medication gerd continue ppi Time Attestation Discharge Coordination Time (in mins): 35 minutes Quality: Safe Use of Opioids Does Pt have an Active Cancer Diagnosis on the Problem List?: No Quality: Stroke Does the patient have a stroke diagnosis?: No Physical Exam Exam: Exam: General: AxOx1, No acute distress Head: AT/NC ENT: Moist mucous membranes Neck: supple CVS; RRR, S1 S2 normal Lungs: Clear bilateral breath sounds, no wheezes or crackles Abd: Soft non tender, non distended Ext: No edema and no calf tenderness MSK: moving all 4 limbs, left upper extremity contracture Skin: No cyanosis or edema Psych: Cooperative with exam Neurology: no focal deficit Neurology: Left-sided hemiparesis Vital Signs: Vital Signs: Last Vital Signs Temp 97.2 F 02/03/25 07:57 Pulse 64 02/03/25 09:00 Resp 18 02/03/25 07:57 BP 176/64 H 02/03/25 08:59 Pulse Ox 95 02/03/25 07:57 O2 Del Method Room Air 02/03/25 07:57 BMI result Body Mass Index 28.5 DS: Data Data Completed and Pending Labs on day of discharge: Preliminary micro results at discharge 01/29/25 11:45 Blood Culture - Preliminary Blood - Venous No growth after 48 hours. 01/29/25 11:32 Blood Culture - Preliminary Blood - Venous No growth after 48 hours. Discharge Plan Discharge Anticipated Discharge Date/Time: 02/03/25 14:31 Patient Disposition: Home, Self-Care Discharge Diagnosis: Urinary tract infection Referrals: Name,MD Galen [Primary Care Provider, Internal Medicine] - 1 Week Discharge Medications: New cefpodoxime 200 mg tablet 200 mg PO BID 3 Days Qty: 6 0RF Rx Instructions: must administer with a meal/food Continued memantine 10 mg tablet 10 mg PO BID 30 Days Qty: 60 5RF trazodone 100 mg tablet 200 mg PO BEDTIME levetiracetam 500 mg/5 mL (5 mL) solution 500 mg PO BID 90 Days Qty: 900 0RF acetaminophen 500 mg tablet 500 mg PO Q6H PRN (Reason: pain) docusate sodium 100 mg capsule 100 mg PO BID furosemide 40 mg Tablet 40 mg PO DAILY irbesartan 300 mg tablet 300 mg PO DAILY hydralazine 50 mg tablet 50 mg PO TID carvedilol 25 mg tablet 25 mg PO BID calcium carbonate-vitamin D3 500 mg(1,250mg) -400 unit tablet,chewable 1 tab PO BID loratadine 10 mg tablet 10 mg PO DAILY aspirin 81 mg tablet,delayed release (DR/EC) 81 mg PO DAILY atorvastatin 20 mg tablet 20 mg PO BEDTIME colchicine 0.6 mg tablet 0.6 mg PO DAILY sertraline 25 mg tablet 25 mg PO DAILY pantoprazole 40 mg tablet,delayed release (DR/EC) 40 mg PO DAILY@0630 doxazosin 4 mg tablet 4 mg PO BEDTIME 90 Days Qty: 90 3RF finasteride 5 mg tablet 5 mg PO DAILY 90 Days Qty: 90 3RF Discharge Orders: Discharge Order (Routine); Ordered 02/03/25 Ordered By: Rei Evans Activity on Discharge: As tolerated Stand Alone Forms: Patient Portal Discharge page Print Language: Romanian Care Plan Goals: continue antibiotics for 3 days continue bowel regimen follow up with primary care provider Health Concerns: Urinary tract infection Plan of Treatment: completed IV antibiotics, transitioned to PO antibiotics for 3 days monitor for fevers, worsening mentation Assessment: 84-year-old male with a history of advanced Alzheimer's dementia who is primarily nonverbal, seizure disorder, hypertension, BPH who presented to the emergency department for evaluation of fever found to have UTI, patient started on IV ceftriaxone, with improvement of mentation. Patient not tolerating p.o., we will switch to p.o. antibiotics and discharged home to complete 3 extra days for a total of 7 days of antibiotics. Patient Instructions: Urinary Tract Infection in Men (DC)
--- NOTE | 2025-02-03 11:55 | MHC.CM.PN ---
Addendum entered by Daniela Gillespie RN 02/03/25 12:01: IMM delivered. Original Note: Patient medically cleared for dc home w/ resumption of family support & [employer] services. BLS transport scheduled for 3pm. Brother/parole or probation officer aware and will notify daughter. RN aware.
[2025-02-03 15:01] VITALS: BP 158/60
== END 2025-02-03 15:25 | disposition home or self-care (01) | DRG 872 ==
LOC: HO.ED 15:36 → HO.EDOVER 16:11 → HO.S3 01-30
PROVIDERS: Admitting Provider Physician Assistant Medical; Emergency Provider Student in an Organized Health Care Education/Training Program; PCP Internal Medicine Geriatric Medicine; Visit Provider Student in an Organized Health Care Education/Training Program
DX: A41.9 Sepsis, unspecified organism (principal); N17.9 Acute kidney failure, unspecified; N39.0 Urinary tract infection, site not specified; G40.909 Epilepsy, unspecified, not intractable, without status epilepticus; K21.9 Gastro-esophageal reflux disease without esophagitis; K59.00 Constipation, unspecified; I10 Essential (primary) hypertension; N40.0 Benign prostatic hyperplasia without lower urinary tract symptoms; G30.9 Alzheimer's disease, unspecified; F02.80 Dementia in other diseases classified elsewhere, unspecified severity, without behavioral disturbance, psychotic disturbance, mood disturbance, and anxiety; Z91.199 Patient's noncompliance with other medical treatment and regimen due to unspecified reason; Z20.822 Contact with and (suspected) exposure to COVID-19; Z79.82 Long term (current) use of aspirin; Z79.899 Other long term (current) drug therapy
CPT/HCPCS: 36415; 70450; 71045; 74177; 76705; 80048; 80053; 80076; 81001; 82140; 83605; 83690; 84439; 84443; 85007; 85025; 85027; 87040; 87086; 87637; 92610; 99285; J0131; J0360; J0696; J1644; J1836; J1920; J1953; J2543; J7120; Q9967

== ENCOUNTER → 2025-01-29 11:11 | Outpatient (BNV) | payer OTHER, SELFPAY | PROVIDERS: Emergency Provider Student in an Organized Health Care Education/Training Program; PCP Internal Medicine Geriatric Medicine; Visit Provider Radiology Diagnostic Radiology | DX: K57.90 Diverticulosis of intestine, part unspecified, without perforation or abscess without bleeding (principal); I25.10 Atherosclerotic heart disease of native coronary artery without angina pectoris; J90 Pleural effusion, not elsewhere classified; M47.895 Other spondylosis, thoracolumbar region; J32.2 Chronic ethmoidal sinusitis; R90.82 White matter disease, unspecified; K80.20 Calculus of gallbladder without cholecystitis without obstruction; K82.8 Other specified diseases of gallbladder; J98.4 Other disorders of lung | CPT/HCPCS: 70450; 71045; 74177; 76705 ==

== ENCOUNTER → 2025-01-29 16:11 | Outpatient (BNV) | payer OTHER, SELFPAY | PROVIDERS: Admitting Provider Physician Assistant Medical; Emergency Provider Student in an Organized Health Care Education/Training Program; PCP Internal Medicine Geriatric Medicine | DX: A41.9 Sepsis, unspecified organism (principal); R65.20 Severe sepsis without septic shock | CPT/HCPCS: 99222; 99232 ==

== ENCOUNTER → 2025-01-29 16:11 | Outpatient (BNV) | payer OTHER, SELFPAY | PROVIDERS: Admitting Provider Physician Assistant Medical; Emergency Provider Student in an Organized Health Care Education/Training Program; PCP Internal Medicine Geriatric Medicine; Visit Provider Physician Assistant Medical | DX: F03.90 Unspecified dementia, unspecified severity, without behavioral disturbance, psychotic disturbance, mood disturbance, and anxiety (principal); A41.9 Sepsis, unspecified organism; R65.20 Severe sepsis without septic shock; N39.0 Urinary tract infection, site not specified; R31.9 Hematuria, unspecified | CPT/HCPCS: 99223; 99232; 99499 ==

== ENCOUNTER 2025-03-11 14:51 | Outpatient (REF) | payer OTHER, SELFPAY ==
--- OUTSIDE RECORDS SUMMARY | 2025-03-11 14:15 | XMS_ITS | Encounter Summary ---
Author Organization [employer] Address [address] [place] [address] 7t [place] [address] Care Team Providers Care Hoisting Pile Driving Engineer Name Role Phone Name, Galen AGUAYO Primary Care Provider [phone] Reason for Visit * Reason Comments Follow-up Encounter Details Date Type Department Care Team ([facility] st Contact Info) Description 03/11/2025 2:15 PM EST Office Visit [facility] MEDICINE [address] [place] [address] Name, MD Galen [address] [place] [address] Dementia, unspecified dementia severity, unspecified dementia type, unspecified whether behavioral, psychotic, or mood disturbance or anxiety (CMS/HCC) (HCC) (Primary Dx); Gait instability; Septicemia (CMS/HCC) (HCC); Leukocytosis, unspecified type; Encounter for immunization; Essential hypertension Social History Tobacco Use Types Packs/Day Years Used Date Smoking Tobacco: Never Passive Smoke Exposure: Never Smokeless Tobacco: Never Tobacco Cessation:Counseling Given: Not Answered Alcohol Use Standard Drinks/Week Comments Never 0 (1 standard drink = 0.6 oz pur e alcohol) Depression Answer Date Recorded Patient Health Questionnaire-9 Score 0 11/17/2022 Housing Stability Answer Date Recorded What is your housing situation today? I have vegajimenez wolff 01/18/[address] you [...] AM EDT documented as of this encounter Last Filed Vital Signs Vital Sign Reading Time Taken Comments Blood Pressure 122/58 03/11/2025 2:25 PM EST Pulse 58 03/11/2025 2:25 PM EST Temperature 36.2 C (97.2 F) 03/11/2025 2:25 PM EST Respiratory Rate 18 03/11/2025 2:25 PM EST Oxygen Saturation - - Inhaled Oxygen Concentration - - Weight - - Height - - Body Mass Index - - documented in this encounter Progress Notes * Galen Chavez MD - 03/11/2025 2:15 PM EST Subjective Patient ID: Frederick Worthy is a 84 y.o. male who presents for Follow-up. Patient comes for a follow-up visit. Patient has severe dementia, he is nonverbal, he requires assistance for ADLs, he comes accompanied by his PET CAREGIVER. Since his last appointment he was admitted at [facility] with urosepsis, he responded very well to treatment with antibiotics. For the most part he has returned to his baseline severe dementia but PET CAREGIVER has noted that gait is getting a little worse, now he cannot walk without supervision because of frequent stumbling and high risk of falls. PET CAREGIVER also often has to feed the patient because he has not been eating on his own. She has requested prescription fora manual wheelchair and a gait belt, she also requested to have the patient reevaluated to see if we can get more hours of PET CAREGIVER help at home. We agreed on giving him the flu vaccination today. PET CAREGIVER refused a COVID vaccination for the patient. Review of Systems Constitutional: Negative for chills, fatigue and fever. HENT: Negative for sore throat. Respiratory: Negative for cough, chest tightness and shortness of breath. Cardiovascular: Negative for chest pain, palpitations and leg swelling. Gastrointestinal: Negative for abdominal pain and blood in stool. Objective Vitals: 03/11/25 1425 BP: 122/58 BP Location: Right arm Patient Position: Sitting BP Cuff Size: Adult Pulse: 58 Resp: 18 Temp: 97.2 ??F (36.2 ??C) TempSrc: Temporal Physical Exam Constitutional: Appearance: Normal appearance. Cardiovascular: Rate and Rhythm: Normal rate and regular rhythm. Heart sounds: Murmur heard. Pulmonary: Effort: Pulmonary effort is normal. No respiratory distress. Breath sounds: No wheezing, rhonchi or rales. Abdominal: Palpations: Abdomen is soft. Tenderness: There is no abdominal tenderness. Neurological: General: No focal deficit present. Mental Status: He is alert. Mental status is at baseline. He is disoriented. Gait: Gait abnormal. Comments: He requires assistance to get up from a chair He is unsteady when he turns to either side He has a short shuffling gait Assessment/Plan Diagnoses and all orders for this visit: Dementia, unspecified dementia severity, unspecified dementia type, unspecified whether behavioral,psychotic, or mood disturbance or anxiety (CMS/HCC) ([facility]) Comments: Patient requires constant supervision. This is currently provided by a team of elementary esl teacher at home. I will message form specialist to see if we can get him reevaluated for more hours at home since his gait is getting worse and he now requires more assistance for eating. I will try to obtain DME including wheelchair and gait belt. Gait instability Septicemia (CMS/HCC) ([facility]) Comments: Resolved with the use of antibiotics in the hospital. I will repeat his CBC to make sure there has been improvement of the WBC count. He had a WBC count of more than 24,000 in the hospital. Leukocytosis, unspecified type - CBC auto differential; Future Encounter for immunization - FLU VACCINE TRIVALENT HIGH DOSE [id number] (Fluzone) 65 yrs + Essential hypertension Comments: PET CAREGIVER requested blood pressure monitor to check the patient blood pressure at home and I agreed. Orders: - Blood Pressure kit; Use once a day at home documented in this encounter Plan of Treatment Not on file documented as of this encounter Procedures Procedure Name Priority Date/Time Associated Diagnosis Comments CBC WITH AUTO DIFFERENTIAL Routine 03/11/2025 3:00 PM EST Leukocytosis, unspecified type documented in this encounter Results * (ABNORMAL) CBC auto differential (03/11/2025 3:00 PM EST) White Blood Count 8.0 4.8 - 10.8 X10*3/uL [facility] Red Blood Count 4.20(L) 4.60 - 5.80 X10*6/uL [facility] Hemoglobin 12.3(L) 14.0 - 18.0 g/dl [facility] Hematocrit 39.4(L) 42.0 - 52.0 % [facility] Mean Corpuscular Volume 93.8 80.0 - 98.0 fL [facility] Mean Corpuscular Hemoglobin 29.3 27.0 - 33.0 pg [facility] Mean Corpuscular HGB Conc 31.2 31.0 - 36.0 g/dl [facility] Red Cell Distribution Width 13.8 11.0 - 16.0 % [facility] Platelet Count 174 160 - 400 X10*3/uL [facility] Mean Platelet Volume 11.5 9.4 - 12.4 fL [facility] Neutrophils Percent Auto 60.3 45 - 73 % [facility] Imm Gran Pct Auto 0.5(H) 0.0 - 0.4 % [facility] Lymphocytes Percent Auto 29.4 20 - 40 % [facility] Monocytes Percent Auto 7.8 2 - 11 % [facility] Eosinophils Percent Auto 1.6 0 - 4 % [facility] Basophils Percent Auto 0.4 0 - 2 % [facility] NRBC Pct Auto 0.0 0.0 - 0.2 /100WBC [facility] Neutrophils Absolute Auto 4.8 2.0 - 8.3 x10*3/uL [facility] Imm Gran Abs Auto 0.04(H) 0.00 - 0.03 X10*3/uL [facility] Lymphocytes Absolute Auto 2.4 1.2 - 4.9 X10*3/uL [facility] Monocytes Absolute Auto 0.6 0.1 - 1.2 X10*3/uL [facility] Eosinophils Absolute Auto 0.1 0.0 - 0.4 X10*3/uL [facility] Basophils Absolute Auto 0.0 0.0 - 0.2 X10*3/uL [facility] NRBC Abs Auto 0.000 0.0 - 0.012 X10*3/uL [facility] Blood Venous blood specimen / Unknown 03/11/2025 3:00 PM EST 03/11/2025 4:13 PM EST us Galen Chavez MD LAB BLOOD ORDERABLES Final Resul t Performing Organization Address City/State/[facility] Co de Phone Number [facility] [address] [place] [address] [phone] documented in this encounter Visit Diagnoses Diagnosis Dementia, unspecified dementia severity, unspecified dementia type, unspecified whether behavioral, psychotic, or mood disturbance or anxiety ([facility]) ([facility])- Primary Gait instability Abnormality of gait Septicemia ([facility]) ([facility]) Leukocytosis, unspecified type Encounter for immunization Essential hypertension Unspecified essential hypertension documented in this encounter Additional Health Concerns Assessment Noted Time PHQ-9 Depression Total Score: 0 11/18/19 23 10:53 AM EDT documented as of this encounter Care Teams Hoisting Pile Driving Engineer Relationship Specialty Start Date End Date Name, MD Galen [address] [place] [address] PCP - General Family Medicine 02/24/19 [facility] 09/30/24 documented as of this encounter
[2025-03-11 16:16] LABS: MANUAL DIFF FLAG NO
[2025-03-11 16:23] LABS: Hematocrit 39.4 % (42.0-52.0); Hemoglobin 12.3 g/dl (14.0-18.0); Imm Gran Abs Auto 0.04 X10*3/uL (0.00-0.03); Imm Gran Pct Auto 0.5 % (0.0-0.4); Lymphocytes Absolute Auto 2.4 X10*3/uL (1.2-4.9); Mean Corpuscular HGB Conc 31.2 g/dl (31.0-36.0); Mean Corpuscular Hemoglobin 29.3 pg (27.0-33.0); Mean Corpuscular Volume 93.8 fL (80.0-98.0); NRBC Abs Auto 0.000 X10*3/uL (0.0-0.012); NRBC Pct Auto 0.0 /100WBC (0.0-0.2); Platelet Count 174 X10*3/uL (160-400); Red Blood Count 4.20 X10*6/uL (4.60-5.80); White Blood Count 8.0 X10*3/uL (4.8-10.8)
--- OUTSIDE RECORDS SUMMARY | 2025-03-11 19:50 | XMS_ITS | Encounter Summary ---
Author Organization [employer] Address [address] [facility] 7t [place] [address] Care Team Providers Care Propulsion Systems Engineer Name Role Phone Name, Galen AGUAYO Primary Care Provider [phone] Reason for Visit * Reason Onset Date Comments Status Request 10/22/2023 Encounter Details Date Type Department Care Team ([facility] st Contact Info) Description 10/22/2023 Telephone [facility] MEDICINE [address] [place] [address] Name, MD Galen [address] [place], [place] [phone] Status Request Social History Tobacco Use Types [...] t he electric, gas, oil or water [employer] threatened to shut off services in your [...] AM EDT Tc from tatiana returning call, Electrotype Servicer advised forms were faxed on 10/19/23 by AMADOR Swenson. Please see encounter from 10/19/23, tatiana would like forms re faxed due to not receiving any forms. * Telephone Encounter - Vinicius Frank - 10/22/2023 2:43 PM EDT Tc from Tatiana with [facility] requesting status on pcp order form, standing order form,and TB risk assessment. Please contact Tatiana at [phone]. documented in this encounter Plan of Treatment Not on file documented as of this encounter Visit Diagnoses Not on filedocumented in this encounter Additional Health Concerns Assessment Noted Time PHQ-9 Depression Total Score: 0 11/18/19 23 10:53 AM EDT documented as of this encounter Care Teams Propulsion Systems Engineer Relationship Specialty Start Date End Date Name, MD Galen [address] [place] [address] PCP - General Family Medicine 02/24/19 [facility] 09/30/24 documented as of this encounter
--- OUTSIDE RECORDS SUMMARY | 2025-03-11 19:50 | XMS_ITS | Data Portability ---
Author Organization [employer] [facility], [facility] Address [address] [place] [phone] Care Team Providers Care Siding Stapler Name Role Phone HIM CCA OTHER NAME, MELISSA Primary Care Provider Assessment Encounter Date Assessment Date Assessment LastModified by Organization Details LastModified Time 11/04/2024 11/04/2024 I provided real -time medical direction via phone for this encounter, and was available for additional phone based assistance as needed. I have reviewed and agree with the Assessment and Plan as documented by the Film Cleaner. We discussed the diagnostic uncertainty of home visits and the risk associated with this. In this case the patient's daughter and I felt this to be an acceptable and reasonable amount of risk given the benefit of avoiding an ED visit. She is aware I cannot determine the cause of his pain and he needs radiographic studies as well as possible blood work which we cannot do with the BLS medic. Since this has been ongoing for at least 3 weeks it does not warrant the emergency department at this point. The patient's daughter given the opportunity to ask questions. Advised if develops CP/severe SOB/turning blue/uncontrolle d n/v/d/ syncope/ hi fever /significant/unc ontrolled pain to the extremity with the patient is in distress or he develops a hot red extremity to call 911-his daughter verbalized understanding of instructions to me over the phone. [email or web address] Not available 11/04/2024 23:09:04 Plan of Treatment Reminders Order Date Submit Date Provider Last Modified By Organization Details Last Modified Time Details Appointments None record ed. Lab None record ed. Referral None record ed. Procedures None record ed. Surgeries None record ed. Imaging None record ed. Medication Orders None record ed. Patient TargetsNo targets recorded. Patient InstructionsNo instructions recorded. Reason for Referral None Reported. Medical Equipment None Reported. Allergies Allergen ID Allergen Name Allergen Category Reaction Reaction Severity Criticality Documentation Date Start Date Code Code System Note Provider Name and Address Organization Details Recorded Time 85784 cortisone medicatio n Not available Not available Not available 11/04/2024 2878 RxNorm Not Available [facility] 5 11:36:14 05061 nifedipin e medicatio n Not available Not available Not available 11/04/2024 7417 RxNorm Not Available [facility] 11:36:14 68983 ibuprofen medicatio n Not available Not available Not available 11/04/2024 5640 RxNorm Not Available [facility] 11:36:14 Medications Name Sig Start Date Stop Date Status Note LastModified by Organization Details LastModified Time furosemide 40 mg tablet TAKE 1 TABLET BY MOUTH EVERY MORNING active Not Available Not Available No t Available carvedilol 25 mg tablet TAKE 1 TABLET BY MOUTH TWICE DAILY IN THE MORNING AND IN THE EVENING active Not Available Not Available No t Available atorvastatin 20 mg tablet TAKE 1 TABLET BY MOUTH AT BEDTIME active Not Available Not Available No t Available aspirin 81 mg tablet,delay ed release TAKE 1 TABLET BY MOUTH EVERY MORNING active Not Available Not Available No t Available acetaminophe n 500 mg tablet TAKE 1 TABLET BY MOUTH EVERY 6 HOURS NEEDED FOR PAIN active Not Available Not Available No t Available trazodone 100 mg tablet TAKE 2 TABLETS BY MOUTH EVERY DAY AT BEDTIME active Not Available Not Available No t Available pantoprazole 40 mg tablet,delay ed release TAKE 1 TABLET BY MOUTH EVERY MORNING active Not Available Not Available No t Available docusate sodium 100 mg capsule TAKE 1 CAPSULE BY MOUTH TWICE DAILY active Not Available Not Available No t Available sertraline 25 mg tablet TAKE 1 TABLET BY MOUTH EVERY MORNING active Not Available Not Available No t Available doxazosin 4 mg tablet TAKE 1 TABLET BY MOUTH AT BEDTIME active Not Available Not Available No t Available hydralazine 50 mg tablet TAKE 1 TABLET BY MOUTH THREE TIMES DAILY IN THE MORNING, EVENING, AND BEDTIME active Not Available Not Available Not Available colchicine 0.6 mg tablet TAKE 1 TABLET BY MOUTH EVERY MORNING active Not Available Not Available No t Available finasteride 5 mg tablet TAKE 1 TABLET BY MOUTH EVERY MORNING active Not Available Not Available No t Available irbesartan 300 mg tablet TAKE 1 TABLET BY MOUTH EVERY MORNING active Not Available Not Available No t Available loratadine 10 mg tablet TAKE 1 TABLET BY MOUTH EVERY MORNING active Not Available Not Available No t Available memantine 10 mg tablet TAKE 1 TABLET BY MOUTH TWICE DAILY IN THE MORNING AND IN THE EVENING active Not Available Not Available No t Available calcium 500 mg (as carbonate)-v it D3 10 mcg (400 unit) chewable tablet TAKE 1 TABLET BY MOUTH TWICE DAILY IN THE MORNING AND IN THE EVENING (CHEW) active Not Available Not Available No t Available Boudreauxs Butt Paste 40 % topical ointment APPLY TO THE AFFECTED AREA(S) TOPICALLY NEEDED IRRITATION active Not Available Not Available N ot Available Vitals Date Recorded Body weight Body mass index (BMI) Provider Name and Address Organization Details Last Updated DateTime 11/04/2024 83031.78 g 29.3 kg/m2 Josey Mccord MD [address] [place] [address],[address], [place], [address], [place] - [employer] [facility] 11/04/2024 23:02:44 Date Recorded Oxygen saturation Heart rate Body height Respiratory rate Body temperature Systolic And Diastolic Provider Name and Address Organization Details Last Updated DateTime 5 97 % 80 /min 157.48 cm 18 /min 97.9 [degF] 121/55 mm[Hg] Not Available [employer] - production 15:35:37 Social History None recorded. Functional Status None recorded. Mental Status None recorded. Family History Nothing Reported. Medical History No medical history recorded. Past Encounters Encounter ID Performer Location Encounter Start Date Encounter Closed Date Diagnosis/Indication Diagnosis SNOMED-CT Code Diagnosis ICD10 Code Diagnosis IMO Codes Diagnosis Note [id number] Josey Mccord MD [facility] [address] [phone] 11/04/2024 15:35:20 11/05/2024 09:42:20 Pain of left upper arm 3914472417 66399 M79.970 [id number] With obvious edema and swelling question etiology. Spoke with the daughter over the phone difficult to evaluate because he needs x-rays and lab workMay increase Tylenol to 500 mg 4 to times a day safely for better pain relief. Daughter verbalized understand ing Peripheral edema 0309770 00 R60.0 84839 Localized to the left arm/advise d to try and elevate the arm and apply ice packs wrapped in a towel for 15 to 20 minutes every several hours when awake. Health Concerns Section Related Observation LastModified by Organization Detai ls LastModified Time None Recorded Concern Status LastModified by Organization Details LastModified Time None Recorded Advance Directives Directive None Recorded Payers Insurance Date Sequence Insurance Name Policy Number Policy Smith Covered Member ID Smith Member ID Guarantor Name 12/18/2024 1 [facility] - DOS ON OR AFTER 2022 - DUAL ELIGIBLE - CUSTODIAL OPTIONS AND ONE CARE (MEDICARE REPLACEMENT/AD VANTAGE - HMO) Frederick Worthy [id number] Frederick Worthy Notes Date Note Type Note Provider Name and Address Organization Details Recorded Time 11/04/2024 text/html ROS as noted in the HPI HPI: Patient with intermittent swelling of left wrist and hand extends to elbow at times. No fever or redness appears to have pain. Patient with advanced dementia and is non verbal. drug room clerk in home no known injury .................. .................. .................. .................. .................. .................. .................. ............... [facility] Nurse Triage Notes (Odalys Parks): Reason For Request: swelling in left hand Chief Complaints: Extremity Pain, Extremity Swelling PMH: Dementia (e.g., Alzheimer's Disease), Hyperlipidemia, Hypertension PMH Reviewed at 11/04/2024 - 11:36 Allergies Reviewed at 11/04/2024 - 11:36 Pain Assessment: Level null out of 10 Comments: Reviewed HPI. .................. .................. .................. .................. .................. .................. .................. ............... Film Cleaner Note From Zaheer Anders: SC1 sent to the above address for the pt with extremity pain and swelling in his left arm. The pt was met in his apartment and thet pts EARLY CHILDHOOD TEACHER was at his side. The pts daughter [...] see if there is anything broken. The daughter was also made aware of the warning signs over the video with the DR and she understood. The warning signs were, chest pain, severe shortness of breath, extreme pain, and she did understand. Dr Mccord advised they could increase the Tylenol use to 4 times a day, and they were pleased with that info. MT1 cleared the call. WRR. .................. .................. .................. .................. .................. .................. .................. ............... [facility] Consulted: Josey Mccord .................. .................. .................. .................. .................. .................. .................. ............... Disposition: Fulfilled SEGMD- no known trauma- no fever/ chills/ sweats/ CP/sob-patient is a limited historian due to nonverbal and dementia. Josey Mccord MD [address] [facility],[address], [place], [address], [facility]ST[facility] - [employer] 11/04/2024 23:10:06
--- OUTSIDE RECORDS SUMMARY | 2025-03-11 19:50 | XMS_ITS | Encounter Summary ---
Author Organization [employer] Address [address] [facility] [address] [place] [address] Care Team Providers Care Cycle Analyst Name Role Phone Name, Galen AGUAYO Primary Care Provider [phone] Reason for Visit * Reason Onset Date Comments Hospital Follow-up 03/20/2024 Encounter Details Date Type Department Care Team (Late st Contact Info) Description 03/20/2024 Telephone [facility] MEDICINE [address] [place] [address] Name, MD Galen [address] [place] [address] Hospital Follow-up Social History Tobacco Use Types [...] from pt requesting a HDF appt. Hospital: [facility] Date of admission: 03/13/2024 Discharge date: 03/17/2024 Diagnosed:Diverticulosis *Send message to [place] Clinical Care Coordinators documented in this encounter Plan of Treatment Not on file documented as of this encounter Visit Diagnoses Not on filedocumented in this encounter Additional Health Concerns Assessment Noted Time PHQ-9 Depression Total Score: 0 11/18/19 10:53 AM EDT documented as of this encounter Care Teams Cycle Analyst Relationship Specialty Start Date End Date Name, MD Galen [address] [place] [address] PCP - General Family Medicine 02/24/19 [facility] 09/30/24 documented as of this encounter
--- OUTSIDE RECORDS SUMMARY | 2025-03-11 19:50 | XMS_ITS | Encounter Summary ---
Author Organization [employer] Address [address] [facility] 7[address] [place] [address] Care Team Providers Care Materials Director Name Role Phone Name, Galen AGUAYO Primary Care Provider [phone] Reason for Visit * Reason Comments Med Refill Encounter Details Date Type Department Care Team ([facility] st Contact Info) Description 04/02/2023 Refill [facility] [address] [place], [place] [phone] Name, MD Galen [address] [place], [place] [phone] Social History Tobacco Use Types Packs/Day Years [...] documented as of this encounter Care Teams Materials Director Relationship Specialty Start Date End Date Name, MD Galen [address] [place] [address] PCP - General Family Medicine 02/24/19 [facility] 09/30/24 documented as of this encounter
--- OUTSIDE RECORDS SUMMARY | 2025-03-11 19:50 | XMS_ITS | Encounter Summary ---
Author Organization [employer] Address [address] [facility] [address] [place] [address] Care Team Providers Care Reinforced Concrete Inspector Name Role Phone Name, Galen AGUAYO Primary Care Provider [phone] Encounter Details Date Type Department Care Team (Late st Contact Info) Description 07/05/2022 Orders Only [facility] PEDS [address] [place] [address] Nelia Morrow LPN Social History Tobacco Use [...] on filedocumented in this encounter Care Teams Reinforced Concrete Inspector Relationship Specialty Start Date End Date Name, MD Galen [address] [place] [address] PCP - General Family Medicine 02/24/19 [facility] 09/30/24 documented as of this encounter
--- OUTSIDE RECORDS SUMMARY | 2025-03-11 19:50 | XMS_ITS | Encounter Summary ---
Author Organization [employer] Address [address] [facility] 7t [place] [address] Care Team Providers Care Flight Service Specialist Name Role Phone Name, Galen AGUAYO Primary Care Provider [phone] Reason for Visit * Reason Onset Date Comments Chart Prep 03/10/2025 Encounter Details Date Type Department Care Team ([facility] st Contact Info) Description 03/10/2025 Telephone [facility] MED[facility] [address] [place] [address] Name, MD Galen [address] [place], [place] [phone] Chart Prep Social History Tobacco Use Types Packs/Day Years [...] encounter Miscellaneous Notes * Telephone Encounter - Kizzy Steve [place] - 03/10/2025 5:19 PM EST Chart Prep Labs: done Images: done Referrals: not applicable Vaccines due: Covid, Flu, and RSV Screenings: not applicable Overdue care gaps: SDOH, PHQ-9, and KWAN-7 documented in this encounter Plan of Treatment Not on file documented as of this encounter Visit Diagnoses Not on filedocumented in this encounter Additional Health Concerns Assessment Noted Time PHQ-9 Depression Total Score: 0 11/18/19 23 10:53 AM EDT documented as of this encounter Care Teams Flight Service Specialist Relationship Specialty Start Date End Date Name, MD Galen [address] [place] [address] PCP - General Family Medicine 02/24/19 [facility] 09/30/24 documented as of this encounter
--- OUTSIDE RECORDS SUMMARY | 2025-03-11 19:50 | XMS_ITS | Encounter Summary ---
Author Organization [employer] Address [address] [facility] 7t [place] [address] Care Team Providers Care Manager Placement Name Role Phone Name, Galen AGUAYO Primary Care Provider [phone] Encounter Details Date Type Department Care Team (Late st Contact Info) Description 05/08/2022 Orders Only [facility] [address] [place] [address] Nelia Morrow LPN Social History Tobacco Use [...] on filedocumented in this encounter Care Teams Manager Placement Relationship Specialty Start Date End Date Name, MD Galen [address] [place] [address] PCP - General Family Medicine 02/24/19 [facility] 09/30/24 documented as of this encounter
--- OUTSIDE RECORDS SUMMARY | 2025-03-11 19:50 | XMS_ITS ---
Claudio Leos MD Signed By: <Electronically signed by Claudio Leos MD in OV> 01/29/25 1324 DD/ 1258 TD/TT: 01/29/25 1319 Car And Yard Supervisor: Procedure Note Sarwatter, Image - 01/29/[address] [address] [place] Scan Report Signed Patient: Vineet Worthy#: [id number] : 1940cct:[id number] Age/Sex: 84 / MADM Date: 01/29/25 Loc: HO.ED Attending Dr: Ordering Physician: Teresita Suggs DO Date of Service: 01/29/25 Procedure(s): CT head/brain wo IV con Accession Number(s): [id number] cc: Teresita Suggs DO; Name,Galen AGUAYO Report Number: [id number]: Total DLP = 706.98 mGy-cm Reason for [...] 01/29/25 1324 DD/ 1258 TD/TT: 01/29/25 1319 Car And Yard Supervisor: [facility] External Provider IMG CT PROCEDURES Final Result * SARS-CoV-2 RNA, Influenza A/B, and RSV RNA, Ql NAAT (01/29/2025 11:45 AM EST) Pathologist [facility] Influenza A PCR NEGATIVE Negative [facility] Influenza B PCR NEGATIVE Negative [facility] Resp Syncy Virus RNA Qual PCR NEGATIVE Negative [facility] SARS COV2 PCR NEGATIVE Negative [facility] Comment:All test results mus t [...] use by authorized laboratories.Testing performed on the [employer] GeneXpert utilizingreal-time RT-PCR.All SARS CoV2 and positive influenza A/B results arereported to [facility]. 01/29/2025 11:4 5 AM EST 01/29/2025 11:50 AM EST Generic External Data Provider LAB MICROBIOLOGY - GENERAL ORDERABLES Final Result [facility] [address] [place] [phone] * (ABNORMAL) Complete Blood Count Manual Diff (01/29/2025 11:32 AM EST) White Blood Count 23.1(H) 4.8 - 10.8 X10*3/uL [facility] Red Blood Count 4.43(L) 4.60 - 5.80 X10*6/uL [facility] Hemoglobin 13.3(L) 14.0 - 18.0 g/dl [facility] Hematocrit 40.1(L) 42.0 - 52.0 % [facility] Mean Corpuscular Volume 90.5 80.0 - 98.0 fL [facility] Mean Corpuscular Hemoglobin 30.0 27.0 - 33.0 pg [facility] Mean Corpuscular HGB Conc 33.2 31.0 - 36.0 g/dl [facility] Red Cell Distribution Width 12.9 11.0 - 16.0 % [facility] Platelet Count 141(L) 160 - 400 X10*3/uL [facility] Mean Platelet Volume 11.2 9.4 - 12.4 fL [facility] NRBC Pct Auto 0.0 0.0 - 0.2 /100WBC [facility] NRBC Abs Auto 0.000 0.0 - 0.012 X10*3/uL [facility] Neutrophils % Manual 88(H) 45 - 73 % [facility] Band Neutrophils Percent 0(L) 3 - 5 % [facility] Lymphocytes Percent Manual 9(L) 20 - 40 % [facility] Monocytes Percent Manual 3 2 - 11 % [facility] NEUTROPHILS ABSOLUTE MANUAL 20.3(H) 2.0 - 8.3 X10*3/uL [facility] LYMPHOCYTES ABSOLUTE MANUAL 2.1 1.2 - 4.9 X10*3/uL [facility] MONOCYTES ABSOLUTE MANUAL 0.7 0.1 - 1.2 X10*3/uL [facility] Platelet Estimate SLIGHTLY DECREASED NORMAL [facility] Large Platelet PRESENT [facility] Platelet Morphology Comment NOTE [facility] RBC Morphology NOTED [facility] POLYCHROMASIA 1+ (0-2) /OIF [facility] Toxic Vacuolation [facility] 01/29/2025 11:3 2 AM EST 01/29/2025 11:37 AM EST Generic External Data Provider LAB BLOOD ORDERAB LES Final Result Performing Organization Address [facility] Co de Phone Number [facility] [address] [place] [phone] * (ABNORMAL) TSH with Reflex to Free T4 (01/29/2025 11:32 AM EST) TSH reflex Free T4 0.16(L) 0.32 - 4.0 uIU/mL [facility] 01/29/2025 11:3 2 AM EST 01/29/2025 11:37 AM EST Generic External Data Provider LAB BLOOD ORDERAB LES Final Result Performing Organization Address [facility] de Phone Number [facility] [address] [place] [phone] * T4, Free (01/29/2025 11:32 AM EST) Free T4 (Free Thyroxine) 1.06 0.71 - 1.85 ng/dL [facility] 01/29/2025 11:3 2 AM EST 01/29/2025 11:37 AM EST Generic External Data Provider LAB BLOOD ORDERAB LES Final Result Performing Organization Address [facility] de Phone Number [facility] [address] [place] [phone] * (ABNORMAL) Lactic Acid (01/29/2025 11:32 AM EST) Lactic Acid 2.5(HH) 0.5 - 2.0 mmol/L [facility] Comment:Critical value for L ACTIC: Results called to and read rosalinay: ELLA Person calling: MITCH Date: 01/29/25 Time: 1220 01/29/2025 11:3 2 AM EST 01/29/2025 11:37 AM EST us Generic External Data Provider LAB BLOOD ORDERAB LES Final Result Performing Organization Address [facility] de Phone Number [facility] [address] [place] [phone] * Ammonia, Plasma (01/29/2025 11:32 AM EST) Ammonia (P) 33 13 - 55 umol/L [facility] 01/29/2025 11:3 2 AM EST 01/29/2025 11:37 AM EST Generic External Data Provider LAB BLOOD ORDERAB LES Final Result Performing Organization Address [facility] Number [facility] [address] [place] [phone] * XR Chest 1 View (01/29/2025 11:11 AM EST) Anatomical Region Laterality Modality Chest Radiographic Vi ging 01/29/2025 11:1 1 AM EST Narrative 01/29/2025 11:22 AM EST [address] [address] XRay Report Signed Patient: Frederick Worthy MR#: [id number] 462 : 1940 Acct:[id number] Age/Sex: 84 / M ADM Date: 01/29/25 Loc: .ED Attending Dr: Ordering Physician: Teresita Suggs DO Date of Service: 01/29/25 Procedure(s): XR chest 1V Accession Number(s): [id number] cc: Teresita Suggs DO; Name,Galen AGUAYO Reason [...] OV> 01/29/25 1119 DD/ 1111 TD/TT: 01/29/25 111 [employer] And Yard Supervisor: Procedure Note Donotuseinterpreter, Image - 01/29/2025 [place] [address] XRay Report Signed Patient: Vineet Worthy#: [id number] : 1940cct:[id number] Age/Sex: 84 / MADM Date: 01/29/25 Loc: .ED Attending Dr: Ordering Physician: Teresita Suggs DO Date of Service: 01/29/25 Procedure(s): XR chest 1V Accession Number(s): [id number] cc: Teresita Suggs DO; Name,Galen AGUAYO Reason [...] 01/29/25 1119 DD/ 1111 TD/TT: 01/29/25 1115 Car And Yard Supervisor: [facility] External Provider IMG XR PROCEDURES Final Result * (ABNORMAL) Lipid Panel, Standard (08/26/2024 9:58 AM EDT) Triglycerides 158(H) <150 mg/dL [facility] Comment:Desirable Triglyceri de: less than 150 mg/dLBorderline High Triglyceride 150-199 mg/dLHigh Triglyceride: 200-499 mg/dLVery High Triglyceride: greater than or equal to 5OO mg/dL Cholesterol 138 <200 mg/dL [facility] Comment:Desirable Cholestero l: less than 200 mg/dLBorderline High Cholesterol: 200-239 mg/dLHigh Cholesterol: greater than 239 mg/dL LDL Cholesterol Calculated 77 <100 mg/dL [facility] Comment:Desirable LDL: less than 100 mg/dLNear Optimal/Above Optimal LDL: 110- 129 mg/dLBorderline High LDL: 130-159 mg/dLHigh LDL: 160-189 mg/dLVery High LDL: greater than or equal to 190 mg/dL HDL Cholesterol 30(L) >40 mg/dL [facility] Comment:Desirable HDL: great er than 40 mg/dL Note: This HDL assay may give artificially low results in patients with liver disease. Blood Venous blood specimen / Unknown 08/26/2024 9:58 AM EDT 08/26/2024 11:40 AM EDT us Galen Name LAB BLOOD ORDERABLES Final Resul t [facility] [address] [place] [phone] from Last 3 Months or Most Recently Relevant to Health Maintenance Insurance [id number] OPTIONS (HMO D-SNP) DENTAL - [facility] Care Teams Bass Fisher Relationship Specialty Start Date End Date Name, MD Galen [address] [place] [phone] PCP - General Family Medicine 02/24/19 [facility] 09/30/24
--- OUTSIDE RECORDS SUMMARY | 2025-03-11 19:50 | XMS_ITS | Encounter Summary ---
Author Organization [employer] Address [address] [facility] 7t [place] [address] Care Team Providers Care Nail Assembly Machine Operator Name Role Phone Name, Galen AGUAYO Primary Care Provider Reason for Visit * Reason Onset Date Comments Surrogate Info 03/09/2025 Encounter Details Date Type Department Care Team ([facility] st Contact Info) Description 03/09/2025 Telephone [facility] MEDICINE [address] [place] [address] Name, MD Galen [address] [place], [place] [phone] Surrogate Info Social History Tobacco Use Types Packs/Day Years [...] encounter Miscellaneous Notes * Telephone Encounter - Magda Luu - 03/09/2025 2:30 PM EST Patient in today for appointment but appointment is not till 03/11/25. Patient in with Bel Guzmán and daughter procedure writer was informed that Bel Conway Was his POA/Surrogate I then indicated I need all legal documents brought in to MR for scanning and change pt info in chart for proper communication. Patient didn't have a registration in chart and one was given where he signed with an x. documented in this encounter Plan of Treatment Not on file documented as of this encounter Visit Diagnoses Not on filedocumented in this encounter Additional Health Concerns Assessment Noted Time PHQ-9 Depression Total Score: 0 11/18/19 23 10:53 AM EDT documented as of this encounter Care Teams Nail Assembly Machine Operator Relationship Specialty Start Date End Date Name, MD Galen [address] [place] [address] PCP - General Family Medicine 02/24/19 [facility] 09/30/24 documented as of this encounter
--- OUTSIDE RECORDS SUMMARY | 2025-03-11 19:50 | XMS_ITS | Encounter Summary ---
Author Organization [employer] Address [address] [facility] 7t [place] [address] Care Team Providers Care Reading Assistant Name Role Phone Name, Galen AGUAYO Primary Care Provider [phone] Encounter Details Date Type Department Care Team ([facility] st Contact Info) Description 10/17/2022 Orders Only [facility] MEDICINE [address] [place], [place] [phone] Merry Sandhu MD [address] [place], [place] [phone] Low TSH level (Primary Dx) Social History [...] Thyroid Stimulating Immunoglobulin <89 <140 % baseline [facility] Comment: Thyroid stimulating immunoglobulins (TSI) [...] hCG concentrationfalls below 40,625 mIU/mL (usually after [id number]-smehb gestation).The analytical performance characteristics of thisassay have been determined by [place]. The modificationshave not been cleared or approved by the FDA. Thisassay has been validated pursuant to the CLIAregulations and is used for clinical purposes.THIS TEST WAS PERFORMED AT:[employer] [place] [phone] MACK MD,PHD Blood Venous blood specimen / Unknown 10/18/2022 9:47 AM EDT 10/18/2022 11:24 AM EDT us Merry Sandhu MD LAB BLOOD ORDERABLES Final Resul t [facility] [address] [place] [phone] * (ABNORMAL) TSH (10/18/2022 9:47 AM EDT) Thyroid Stimulating Hormone 0.12(L) 0.32 - 4.0 uIU/mL [facility] Comment:TSH 3rd Generation ( [facility]) Blood Venous blood specimen / Unknown 10/18/2022 9:47 AM EDT 10/18/2022 11:24 AM EDT Merry Sandhu MD LAB BLOOD ORDERABLES Final Resul t Performing Organization Address [facility]/ZIP Co de Phone Number [facility] [address] [place] [phone] * Thyroid Peroxidase And Thyroglobulin Antibodies (10/18/2022 9:47 AM EDT) Thyroglobulin Antibodies <1 < or = 1 IU/mL [facility] Comment:THIS TEST WAS PERFOR MED AT:[employer] [place] [phone] LOZANO MD 10/18/2022 9:47 AM EDT 10/18/2022 11:24 AM EDT Merry Sandhu MD LAB BLOOD ORDERABLES Final Resul t Performing Organization Address City/[facility]/ZIP Co de Phone Number [facility] [address] [place] [phone] * T3, Free (10/18/2022 9:47 AM EDT) T3, Free 3.1 2.3 - 4.2 pg/mL [facility] Comment:THIS TEST WAS PERFOR MED AT:[employer] [place] [phone] LOZANO MD Blood Venous blood specimen / Unknown 10/18/2022 9:47 AM EDT 10/18/2022 11:24 AM EDT us Merry Sandhu MD LAB BLOOD ORDERABLES Final Resul t Performing Organization Address City/[facility]/ZIP Co de Phone Number [facility] [address] [place] [phone] * T4, Free (10/18/2022 9:47 AM EDT) Free T4 (Free Thyroxine) 0.92 0.71 - 1.85 ng/dL [facility] Blood Venous blood specimen / Unknown 10/18/2022 9:47 AM EDT 10/18/2022 11:24 AM EDT us Merry Sandhu MD LAB BLOOD ORDERABLES Final Resul t Performing Organization Address [facility] Co de Phone Number [facility] [address] [place] [phone] documented in this encounter Visit Diagnoses Diagnosis Low TSH level- Primary documented in this encounter Care Teams Reading Assistant Relationship Specialty Start Date End Date Name, MD Galen [address] [place] [address] PCP - General Family Medicine 02/24/19 [facility] 09/30/24 documented as of this encounter
--- OUTSIDE RECORDS SUMMARY | 2025-03-11 19:50 | XMS_ITS | Encounter Summary ---
Author Organization [employer] Address [address] [facility] 7t [place] [address] Care Team Providers Care Backup Administrative Coordinator Name Role Phone Name, Galen AGUAYO Primary Care Provider [phone] Encounter Details Date Type Department Care Team (Latest Contact Info) Description 03/11/2025 Travel Social History Tobacco Use Types Packs/Day Years [...] documented as of this encounter Care Teams Backup Administrative Coordinator Relationship Specialty Start Date End Date Name, MD Galen [address] [place] [address] PCP - General Family Medicine 02/24/19 [facility] 09/30/24 documented as of this encounter
--- OUTSIDE RECORDS SUMMARY | 2025-03-11 19:50 | XMS_ITS | Encounter Summary ---
Author Organization [facility] Address [address] [place] [phone] Phone Care Team Providers Care Email Marketing Specialist Name Role Phone Name, Galen AGUAYO Primary Care Provider [phone] Encounter Details Date Type Department Care Team (Late st Contact Info) Description 02/21/2021 Procedure Pass [facility] [address] [place] [address] Social History Tobacco Use Types Packs/Day Years [...] 02/21/2021 3:34 PM Shannan Morales RN * [place] Suicide Severity Rating Scale (Screener/Recent Self-Report) Question [...] documented as of this encounter Care Teams Email Marketing Specialist Relationship Specialty Start Date End Date Name, MD Galen [address] [place] [address] PCP - General Geriatric Psychiatry 02/21/21 documented as of this encounter Additional Source Comments The information contained in this document represents components of the legal health record. It is not the complete legal health record.[facility]
--- OUTSIDE RECORDS SUMMARY | 2025-03-11 19:50 | XMS_ITS | Clinical Summary ---
Author Organization [facility] Address [address] [place] [address] Phone Care Team Providers Care Van Owner Operator Name Role Phone Name, Galen AGUAYO Primary Care Provider [phone] Allergies No known active allergies Medications furosemide [...] left side. Patient doing well speaking in Greenlandic this morning Case management consultation appreciated Patient [...] EST) SODIUM 139 133 - 146 mmol/L [facility] CHLORIDE 106 96 - 108 mmol/L [facility] POTASSIUM 4.4 3.3 - 5.1 mmol/L [facility] CO2 25 21 - 35 mmol/L [facility] BUN 27(H) 6 - 19 mg/dL [facility] CREATININE 1.00 0.5 - 1.5 mg/dL [facility] GLUCOSE 98 70 - 99 mg/dL [facility] CALCIUM 8.6 8.4 - 10.3 mg/dL [facility] EGFR 72 >59 mL/min/1.7 3m2 [facility] Comment:Estimated glomerular filtration rate calculated using the CKD-EPI equation. ANION GAP 12 10 - 20 mmol/L [facility] Blood 02/23/2021 5:59 AM EST 02/23/2021 6:27 AM EST us Fani Gay MD LAB BLOOD BKR ORDERABLES Fin al Result [facility] [address] [place] [address] from Last 3 Months or [...] B HEALTH MEDICARE PART A & [facility] Advance Directives For more information, please contact: [phone] (9AM - 5PM [facility], Sunday-Sunday) * Full Code (Latest Code Status on File) Date Activated Date Inactivated Comments 02/21/2021 11:20 PM Question Answer Comments Code Status Confirmed With: Patient Care Teams Van Owner Operator Relationship Specialty Start Date End Date Name, MD Galen [address] [place] [phone] PCP - General Geriatric Psychiatry 02/21/21 Additional Source Comments The information contained in this document represents components of the legal health record. It is not the complete legal health record.[facility]
--- OUTSIDE RECORDS SUMMARY | 2025-03-11 19:50 | XMS_ITS | Encounter Summary ---
Author Organization [employer] Address [address] [facility] 7t [place] [address] Care Team Providers Care Military Personnel Specialist Name Role Phone Name, Galen AGUAYO Primary Care Provider [phone] Encounter Details Date Type Department Care Team ([facility] st Contact Info) Description 04/03/2024 Orders Only [facility] MEDICINE [address] [place] [address] Anh Waite MD [address] [place] [address] Social History Tobacco Use Types Packs/Day Years [...] documented as of this encounter Care Teams Military Personnel Specialist Relationship Specialty Start Date End Date Name, MD Galen [address] [place] [address] PCP - General Family Medicine 02/24/19 [facility] 09/30/24 documented as of this encounter
== END 2025-03-11 14:52 | disposition home or self-care (01) ==
LOC: HO.HHCL 14:51
PROVIDERS: PCP Internal Medicine Geriatric Medicine; Visit Provider Internal Medicine Geriatric Medicine
DX: D72.829 Elevated white blood cell count, unspecified (principal)
CPT/HCPCS: 36415; 85025

== ENCOUNTER 2025-03-23 10:15 | Emergency (ER) | payer OTHER, SELFPAY ==
--- NOTE | ~2025-03-23 | CT_ITS ---
EXAMINATION: CT HEAD WITHOUT CONTRAST CLINICAL INFORMATION: Fall, head injury. COMPARISON: Numerous priors, most recently 01/29/2025. TECHNIQUE: Contiguous axial imaging was performed from the skull base to vertex without intravenous administration of contrast. This CT examination was performed using dose optimization techniques as appropriate, variously including the following: *Automated exposure control *Adjustment of mA and/or kV according to patient size (this includes techniques or standardized protocols for targeted exams where dose is matched to indication/reason for exam; i.e. extremities or head) *Use of iterative reconstruction technique FINDINGS: There is moderate motion degradation present, especially at the upper portion of the scan. This limits sensitivity of the study. There is no evidence of intracranial hemorrhage or extra-axial fluid collection. There is no mass effect, or edema. No CT evidence of acute territorial infarct. Ventricles, sulci, and cisterns are again noted to be somewhat diffusely prominent, in keeping with mildly age advanced cerebral and cerebellar volume loss. Ventricles are stably enlarged. No evidence of acute hydrocephalus. No midline shift. Negative hyperdense MCA sign. Negative insular ribbon sign. Patchy periventricular and deep white matter hypoattenuation is consistent with moderate small vessel ischemic changes. Stable encephalomalacia in the inferior frontal poles bilaterally, likely related to prior trauma. 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 Partial empty sella. Mild atheromatous calcification of the bilateral carotid siphons and V4 segments vertebral arteries bilaterally. Globes and orbital contents demonstrate bilateral lens replacements. No extracranial soft tissue abnormalities. The imaged paranasal sinuses, mastoid air cells, and tympanic cavities are normally aerated. No suspicious bony abnormalities. Within the confines of motion, there are no acute fractures evident. There are degenerative changes in both TM joints. CT/CT head/brain wo IV con IMPRESSION: 1. Motion degraded exam. Within these confines, there is no acute intracranial abnormality. There is no fracture evident. 2. Stable chronic changes and ventriculomegaly. Electronically signed by: Lukas Bowen MD 03/23/2025 12:31 PM [facility]
--- NOTE | ~2025-03-23 | CT_ITS ---
EXAMINATION: CT CERVICAL SPINE WITHOUT IV CONTRAST HISTORY: fall. TECHNIQUE: Helical CT of the cervical spine was performed per standard departmental protocol. Coronal and sagittal reformatted images were also evaluated. One or more of the following techniques was used for dose reduction: Automated exposure control, adjustment of the mA and/or kV according to patient size, use of iterative reconstruction technique. DLP: 42 mGy-cm COMPARISON: Comparison is made with the prior examination dated 12/03/2024. FINDINGS: CERVICAL SPINE: The vertebral bodies maintain normal height without evidence of fracture or subluxation. There is straightening of the normal cervical lordosis. There is diffuse moderate to severe degenerative disc disease with disc space narrowing and osteophyte formation. Evaluation for disc pathology is limited by lack of intrathecal contrast material, however. Lucencies in the C2 and C7 vertebral bodies are unchanged. BRAIN: The visualized portion of the brain is unremarkable. SINUSES: The visualized paranasal sinuses, mastoid air cells and middle ear cavities are unremarkable. LUNG APICES: The visualized lung apices are clear. SOFT TISSUES: The visualized paraspinal soft tissues are unremarkable. CT/CT cervical spine wo IV con IMPRESSION: Straightening of the normal cervical lordosis. No evidence of fracture or subluxation of the cervical spine. Degenerative changes as described. Electronically signed by: Behzad Talbert MD 03/23/2025 12:35 PM [facility]
[2025-03-23 10:41] VITALS: BP 116/72; BP 138/47; PULSE 80; RESP 18; TEMP 36.1; O2SAT 80; O2SAT 95; BMI 27.6
--- NOTE | 2025-03-23 10:49 | ECG_ITS ---
Test Reason : SEIZURE Blood Pressure : */* mmHG Vent. Rate : 78 BPM Atrial Rate : 78 BPM P-R Int : 202 ms QRS Dur : 142 ms QT Int : 426 ms P-R-T Axes : 50 3 13 degrees QTcB Int : 485 ms Normal sinus rhythm Right bundle branch block Abnormal ECG When compared with ECG of 03-Dec-2024 11:59, No significant change was found Referred By: Sandi Mann Electronically Signed By: WHITNEY LAURA
--- NOTE | 2025-03-23 10:56 | ED.SEIZURE ---
HPI - Seizure General Chief Complaint: Seizure Stated Complaint: WITNESSED SZ,H/O DEMENTIA PER EMS Time Seen by Provider: 03/23/25 10:42 Source: patient and EMS Mode of arrival: EMS Limitations: altered mental status History of Present Illness ED Provider: DEBO MARQUEZ Narrative: 84-year-old male with past medical history of advanced Alzheimer's who is nonverbal, seizure disorder on Keppra, hypertension, BPH who reportedly had a witnessed seizure when entering the shower this morning. Family notes it lasted about 1 minute. EMS states he was postictal and incontinent of urine. The patient can not provide any history. He is smiling and attempting to follow commands. He can not tell us if he had any symptoms previous to that. We do see that he takes Keppra for seizures parcel post weigher here she states he has to parcel post weigher 1 in the morning 1 in the afternoon he lives with a son. She got him ready to use the bathroom and prior to getting in the shower he started to have whole-body convulsions, drooling, loss of consciousness for a few minutes. She states he believes he is compliant with all medications. He is at his baseline right now MD complaint: seizure Onset (ago): minute(s) (Prior to arrival) Description of Episode: loss of consciousness Duration of episode: 1 -: minutes(s) Witnessed: Yes - by Bystander Trauma: Yes Seizure History: Yes Place: Home Possible Precipitating Event: none Associated symptoms: denies other symptoms Related Data Home Medications ?Medication ?Instructions ?Recorded ?Confirmed aspirin 81 mg tablet,delayed 81 mg PO DAILY 05/27/20 01/29/25 release atorvastatin 20 mg tablet 20 mg PO BEDTIME 05/27/20 01/29/25 calcium 500 mg (as carbonate)-vit 1 tab PO BID 05/27/20 01/29/25 D3 10 mcg (400 unit) chewable tablet carvedilol 25 mg tablet 25 mg PO BID 05/27/20 01/29/25 hydralazine 50 mg tablet 50 mg PO TID 05/27/20 01/29/25 irbesartan 300 mg tablet 300 mg PO DAILY 05/27/20 01/29/25 loratadine 10 mg tablet 10 mg PO DAILY 05/27/20 01/29/25 colchicine 0.6 mg tablet 0.6 mg PO DAILY 10/26/21 01/29/25 pantoprazole 40 mg tablet,delayed 40 mg PO DAILY@0630 10/26/21 01/29/25 release acetaminophen 500 mg tablet 500 mg PO Q6H PRN pain 03/13/24 01/29/25 docusate sodium 100 mg capsule 100 mg PO BID 03/13/24 01/29/25 furosemide 40 mg tablet 40 mg PO DAILY 03/13/24 01/29/25 trazodone 100 mg tablet 200 mg PO BEDTIME Sleep 12/03/24 01/29/25 Previous Rx's ?Medication ?Instructions ?Recorded doxazosin 4 mg tablet 4 mg PO BEDTIME 90 days #90 tabs 08/03/23 finasteride 5 mg tablet 5 mg PO DAILY 90 days #90 tabs 08/03/23 levetiracetam 500 mg/5 mL (5 mL) 500 mg (5 mL) PO BID 90 days #900 12/04/24 oral solution mL memantine 10 mg tablet 10 mg PO BID 30 days #60 tabs 01/28/25 cefpodoxime 200 mg tablet 200 mg PO BID 3 days #6 tabs 02/03/25 sertraline 25 mg tablet 25 mg PO DAILY #30 tabs 02/26/25 levetiracetam 500 mg tablet 500 mg PO BID #180 tabs 03/23/25 (Keppra) Allergies Allergy/AdvReac Type Severity Reaction Status Date / Time nifedipine (From Procardia) Allergy Intermediate EDEMA Verified 03/23/25 10:45 ibuprofen (Ibuprofen) Allergy Mild RASH Verified 03/23/25 10:45 ibuprofen Allergy Unknown rash Uncoded 03/23/25 10:45 nifedipine Allergy Unknown edema Uncoded 03/23/25 10:45 Review of Systems Review of Systems: Yes all other systems are reviewed and are negative [facility] Past Medical History Attestation statement: The following information was validated with the patient. Source: old records reviewed Medical History Alzheimer disease Dementia BPH w urinary obs/LUTS High cholesterol HTN (hypertension) Surgical History Hx of left inguinal hernia repair Social History Social History Household Members: Unknown / Unable to assess Housing: Unknown / Unable to assess Do you presently have visiting nurse or other home services: Yes (escrow closer) Alcohol intake: former Comment: pt is bedbound at this time Patient Tobacco Use Status: Never used Tobacco Advance Directives: Yes Advance Directives on File: Yes Advance Directives Date on File: 03/18/24 service: No Physical Exam Vital Signs: Vital Signs: Last Vital Signs Temp 97.9 F 03/23/25 14:13 Pulse 96 03/23/25 15:49 Resp 20 03/23/25 15:49 BP 149/61 H 03/23/25 15:49 Pulse Ox 98 03/23/25 15:49 O2 Del Method Room Air 03/23/25 15:49 BMI result Body Mass Index 27.6 Appearance: Alert. Nonverbal confused No acute distress. Eyes: Pupils equal, round and reactive to light. ENT: Pharynx normal. No obvious signs of trauma Neck: Normal inspection. Neck supple. CVS: Normal heart rate and rhythm. Pulses normal. Respiratory: No respiratory distress. Breath sounds normal. Abdomen: Soft and nontender. He does not grimace Skin: Skin warm and dry. Normal skin color. Normal skin turgor. Extremities: No lower extremity edema. No calf ttp Neuro: He can not participate in the neuro exam but he is moving all extremities he is tracking with his eyes he is smiling Course Course Course Narrative: 3:24 PM 03/23/2025 (DEBO ZHANG): Patient is at his baseline has parcel post weigher and they assure me he can be monitored for the next 24 hours he will not be alone, suspect his lack of Keppra is causing his seizures Reevaluation(s) Reevaluation #1: 4:02 PM 03/23/2025 (DEBO ZHANG): On discharge he had an episode of 5 seconds of shaking but he was not incontinent this is very atypical for seizure. This was not what occurred at home. I did talk to his daughter on the phone we discussed that he needs to continue his Keppra after reading neurology's notes. She is unclear why primary care did not continue it. They are agreeable to start IV Keppra and continue oral medications at home Medications Administered Discontinued Medications Generic Name Dose Route Start Last Admin Trade Name Freq PRN Reason Stop Dose Admin Levetiracetam 1,000 mg in 100 mls @ 400 mls/hr 03/23/25 15:48 03/23/25 16:01 Keppra IV 03/23/25 16:02 400 mls/hr ONCE ONE Administration Medical Decision Making Medical Decision Making MDM Narrative: 84-year-old male with past medical history of advanced Alzheimer's who is nonverbal, seizure disorder on Keppra, hypertension, BPH who had a witnessed seizure with a postictal episode. He appears at his baseline from his prior neurology notes he is nonverbal but he is following some commands. He is very difficult given his advanced dementia. At this time he does have a known history of seizures he is on Keppra I am going to observe him. He will get basic labs, EKG, troponin x2, CT head and C-spine given the fall. He will need a urine study as well. I am waiting on family to arrive for further history Differential Diagnosis Differential Diagnoses: The differential diagnosis associated with the presentation includes Seizure disorder, urinary pathology, JORGE, anemia, head injury Admission/Observation Consideration of admission/observation: Escalation of care including admission/observation considered Patient is at his baseline his afternoon COUNTY DIRECTOR WELFARE is here and states he has not actually taken his Keppra since January they have been not able to get a refill this is likely the cause of his seizure he had done well with the Keppra in the past Lab Data MDM Lab Attestation statement: I reviewed the patient's lab results. 03/23/25 10:54 03/23/25 10:54 Labs: Lab Results 03/23/25 Range/Units 10:54 WBC 6.0 (4.8-10.8) X10*3/uL RBC 4.09 L (4.60-5.80) X10*6/uL Hgb 12.3 L (14.0-18.0) g/dl Hct 38.2 L (42.0-52.0) % MCV 93.4 (80.0-98.0) fL MCH 30.1 (27.0-33.0) pg MCHC 32.2 (31.0-36.0) g/dl RDW 13.5 (11.0-16.0) % Plt Count 177 (160-400) X10*3/uL MPV 10.1 (9.4-12.4) fL Immature Gran % (Auto) 0.7 H (0.0-0.4) % Neut % (Auto) 61.2 (45-73) % Lymph % (Auto) 28.3 (20-40) % Chase % (Auto) 7.3 (2-11) % Eos % (Auto) 2.2 (0-4) % Baso % (Auto) 0.3 (0-2) % Lymph # (Auto) 1.7 (1.2-4.9) X10*3/uL Chase # (Auto) 0.4 (0.1-1.2) X10*3/uL Eos # (Auto) 0.1 (0.0-0.4) X10*3/uL Baso # (Auto) 0.0 (0.0-0.2) X10*3/uL Abs Immat Gran (auto) 0.04 H (0.00-0.03) X10*3/uL Absolute Neuts (auto) 3.7 (2.0-8.3) x10*3/uL Absolute Nucleated RBC 0.000 (0.0-0.012) X10*3/uL Nucleated RBC % (auto) 0.0 (0.0-0.2) /100WBC Sodium 144 (135-145) mmol/L Potassium 4.2 D (3.3-5.1) mmol/L Chloride 105 (96-108) mmol/L Carbon Dioxide 33 H (22-29) mmol/L Anion Gap 10 L (12-20) BUN 16 (9-16) mg/dL Creatinine 1.27 (0.5-1.4) mg/dL Estim Creat Clear Calc 41.0 Estimated GFR 54 Random Glucose 104 (60-115) mg/dL Calcium 9.6 D (8.4-10.2) mg/dL Magnesium 2.0 (1.6-2.6) mg/dL Total Bilirubin 0.4 (0.0-1.0) mg/dL AST 29 (5-37) U/L ALT 20 (0-40) U/L Alkaline Phosphatase 90 (39-117) U/L Troponin I High Sens 6.3 (<3.5-35.0) ng/L C-Reactive Protein 0.15 (< or = 0.50) mg/dL Total Protein 7.0 (6.5-8.0) g/dL Albumin 4.0 (3.5-5.0) g/dL Ethyl Alcohol < 10 mg/dL Independent Interpretation I performed an independent interpretation of an: EKG and CT Scan (No acute finding) Interpretation: Rate: 78 Rhythm: NSR [place]: Normal Normal P waves. Normal DIVYA. Right bundle-branch block ST T wave : Inverted T-waves V1 to V3 no ST-elevation qTC: 45 prior studies: No significant change from prior The study has been interpreted contemporaneously by me. . Radiology Impression Discussion of test interpretation with radiology: I have reviewed the radiologist's reading. Independent Historian Clinical information obtained from an independent historian. History obtained from or confirmed by: EMS External Record Review External record reviewed: Inpatient record, Outpatient record and Prior outpatient labs Prescription Management I considered prescription management with: Other Discharge Plan Discharge Clinical Impression: Epileptic seizure Patient Disposition: Home, Self-Care Instructions: Recurrent Seizures in Adults (ED) Additional Instructions: At this time your CAT scans were reassuring Your labs were reassuring I am starting you back on your Keppra You need to be with an adult for the next 24 hours Return for any worsening symptoms or concerns Next dose of Keppra is tonight around 9:00pm Prescriptions: New levetiracetam [Keppra] 500 mg tablet 500 mg PO BID Qty: 180 2RF No Action memantine 10 mg tablet 10 mg PO BID 30 Days Qty: 60 5RF sertraline 25 mg tablet 25 mg PO DAILY Qty: 30 0RF trazodone 100 mg tablet 200 mg PO BEDTIME levetiracetam 500 mg/5 mL (5 mL) solution 500 mg PO BID 90 Days Qty: 900 0RF cefpodoxime 200 mg tablet 200 mg PO BID 3 Days Qty: 6 0RF Rx Instructions: must administer with a meal/food acetaminophen 500 mg tablet 500 mg PO Q6H PRN (Reason: pain) docusate sodium 100 mg capsule 100 mg PO BID furosemide 40 mg Tablet 40 mg PO DAILY irbesartan 300 mg tablet 300 mg PO DAILY hydralazine 50 mg tablet 50 mg PO TID carvedilol 25 mg tablet 25 mg PO BID calcium carbonate-vitamin D3 500 mg(1,250mg) -400 unit tablet,chewable 1 tab PO BID loratadine 10 mg tablet 10 mg PO DAILY aspirin 81 mg tablet,delayed release (DR/EC) 81 mg PO DAILY atorvastatin 20 mg tablet 20 mg PO BEDTIME colchicine 0.6 mg tablet 0.6 mg PO DAILY pantoprazole 40 mg tablet,delayed release (DR/EC) 40 mg PO DAILY@0630 doxazosin 4 mg tablet 4 mg PO BEDTIME 90 Days Qty: 90 3RF finasteride 5 mg tablet 5 mg PO DAILY 90 Days Qty: 90 3RF Print Language: Lao
[2025-03-23 11:00] LABS: Hematocrit 38.2 % (42.0-52.0); Hemoglobin 12.3 g/dl (14.0-18.0); Imm Gran Abs Auto 0.04 X10*3/uL (0.00-0.03); Imm Gran Pct Auto 0.7 % (0.0-0.4); Lymphocytes Absolute Auto 1.7 X10*3/uL (1.2-4.9); MANUAL DIFF FLAG NO; Mean Corpuscular HGB Conc 32.2 g/dl (31.0-36.0); Mean Corpuscular Hemoglobin 30.1 pg (27.0-33.0); Mean Corpuscular Volume 93.4 fL (80.0-98.0); NRBC Abs Auto 0.000 X10*3/uL (0.0-0.012); NRBC Pct Auto 0.0 /100WBC (0.0-0.2); Platelet Count 177 X10*3/uL (160-400); Red Blood Count 4.09 X10*6/uL (4.60-5.80); White Blood Count 6.0 X10*3/uL (4.8-10.8)
--- NOTE | 2025-03-23 11:07 | PC.NURSE ---
Patient presented here via EMS from home after having witnessed seizure when getting into the shower. Patient has history of Alzheimer and nonverbal baseline. EMS reports seizure lasted around1 min, and reported post ictal after and incontinent of urine. Seizure pads placed on stretcher. IV in right arm, labs sent and VSS on monitor. Patient aroused to voice, but nonverbal.
[2025-03-23 11:14] LABS: Anion Gap 10 (12-20); Blood Urea Nitrogen 16 mg/dL (9-16); Carbon Dioxide 33 mmol/L (22-29); Chloride 105 mmol/L (96-108); Potassium 4.2 mmol/L (3.3-5.1); Sodium 144 mmol/L (135-145)
[2025-03-23 11:15] LABS: Alanine Aminotransferase 20 U/L (0-40); Albumin Level 4.0 g/dL (3.5-5.0); Alkaline Phosphatase 90 U/L (39-117); Aspartate Amino Transferase 29 U/L (5-37); Calcium 9.6 mg/dL (8.4-10.2); Creatinine Clr Calc Pharmacy 41.0; Estimated Glomerular Filt Rate 54; Magnesium 2.0 mg/dL (1.6-2.6); Total Protein 7.0 g/dL (6.5-8.0)
[2025-03-23 11:21] LABS: Troponin-I High Sensitivity 6.3 ng/L (<3.5-35.0)
--- OUTSIDE RECORDS SUMMARY | 2025-03-23 13:01 | XMS_ITS | Encounter Summary ---
Author Organization [employer] Address [address] [facility] 7t [place] [address] Care Team Providers Care Tube Machine Operator Helper Name Role Phone Name, Galen AGUAYO Primary Care Provider [phone] Encounter Details Date Type Department Care Team ([facility] st Contact Info) Description 10/17/2022 Orders Only [facility] [address] [place], [place] [phone] Merry Sandhu MD [address] [place], [place] [phone] Low TSH level (Primary Dx) Social History [...] Thyroid Stimulating Immunoglobulin <89 <140 % baseline [facility] Comment: Thyroid stimulating immunoglobulins (TSI) can [...] hCG concentrationfalls below 40,625 mIU/mL (usually after [id number] gestation).The analytical performance characteristics of thisassay have been determined by [facility]. The modificationshave not been cleared or approved by the FDA. Thisassay has been validated pursuant to the CLIAregulations and is used for clinical purposes.THIS TEST WAS PERFORMED AT:[employer] [place] [phone] MACK MD,PHD Blood Venous blood specimen / Unknown 10/18/2022 9:47 AM EDT 10/18/2022 11:24 AM EDT us Merry Sandhu MD LAB BLOOD ORDERABLES Final Resul t [facility] [address] [place] [phone] * (ABNORMAL) TSH (10/18/2022 9:47 AM EDT) Thyroid Stimulating Hormone 0.12(L) 0.32 - 4.0 uIU/mL [facility] Comment:TSH 3rd Generation ( [facility]) Blood Venous blood specimen / Unknown 10/18/2022 9:47 AM EDT 10/18/2022 11:24 AM EDT Merry Sandhu MD LAB BLOOD ORDERABLES Final Resul t Performing Organization Address [facility]/ZIP Co de Phone Number [facility] [address] [place] [phone] * Thyroid Peroxidase And Thyroglobulin Antibodies (10/18/2022 9:47 AM EDT) Thyroglobulin Antibodies <1 < or = 1 IU/mL [facility] Comment:THIS TEST WAS PERFOR MED AT:[facility] [place] [phone] LOZANO MD 10/18/2022 9:47 AM EDT 10/18/2022 11:24 AM EDT Merry Sandhu MD LAB BLOOD ORDERABLES Final Resul t Performing Organization Address City/[facility]/ZIP Co de Phone Number [facility] [address] [place] [phone] * T3, Free (10/18/2022 9:47 AM EDT) T3, Free 3.1 2.3 - 4.2 pg/mL [facility] Comment:THIS TEST WAS PERFOR MED AT:[facility] [place] [phone] LOZANO MD Blood Venous blood specimen / Unknown 10/18/2022 9:47 AM EDT 10/18/2022 11:24 AM EDT us Merry Sandhu MD LAB BLOOD ORDERABLES Final Resul t Performing Organization Address City/[facility]/ZIP Co de Phone Number [facility] [address] [place] [phone] * T4, Free (10/18/2022 9:47 AM EDT) Free T4 (Free Thyroxine) 0.92 0.71 - 1.85 ng/dL [facility] Blood Venous blood specimen / Unknown 10/18/2022 9:47 AM EDT 10/18/2022 11:24 AM EDT us Merry Sandhu MD LAB BLOOD ORDERABLES Final Resul t Performing Organization Address [facility] Co de Phone Number [facility] [address] [place] [phone] documented in this encounter Visit Diagnoses Diagnosis Low TSH level- Primary documented in this encounter Care Teams Tube Machine Operator Helper Relationship Specialty Start Date End Date Name, MD Galen [address] [place] [address] PCP - General Family Medicine 02/24/19 [facility] 09/30/24 documented as of this encounter
--- OUTSIDE RECORDS SUMMARY | 2025-03-23 13:01 | XMS_ITS | Encounter Summary ---
Author Organization [employer] Address [address] [facility] 7t [place] [address] Care Team Providers Care Ambulance Paramedic Name Role Phone Name, Galen AGUAYO Primary Care Provider [phone] Reason for Visit * Reason Comments Med Refill Encounter Details Date Type Department Care Team ([facility] st Contact Info) Description 04/02/2023 Refill C [facility] [address] [place], [place] [phone] Name, MD Galen [address] [place], [place] [phone] Social History Tobacco Use Types Packs/Day Years [...] documented as of this encounter Care Teams Ambulance Paramedic Relationship Specialty Start Date End Date Name, MD Galen [address] [place] [address] PCP - General Family Medicine 02/24/19 [facility] 09/30/24 documented as of this encounter
--- OUTSIDE RECORDS SUMMARY | 2025-03-23 13:01 | XMS_ITS | Encounter Summary ---
Author Organization [employer] Address [address] [facility] 7t [place] [address] Care Team Providers Care Semiconductor Wafer Inspector Name Role Phone Name, Galen AGUAYO Primary Care Provider [phone] Encounter Details Date Type Department Care Team (Late st Contact Info) Description 05/08/2022 Orders Only [facility] [address] [place] [address] Nelia Morrow LPN Social History Tobacco Use [...] on filedocumented in this encounter Care Teams Semiconductor Wafer Inspector Relationship Specialty Start Date End Date Name, MD Galen [address] [place] [address] PCP - General Family Medicine 02/24/19 [facility] 09/30/24 documented as of this encounter
--- OUTSIDE RECORDS SUMMARY | 2025-03-23 13:01 | XMS_ITS | Encounter Summary ---
Author Organization [email or web address] Address [address] [facility] [address]t [place] [address] Care Team Providers Care Label Press Operator Name Role Phone Name, Galen AGUAYO Primary Care Provider [phone] Encounter Details Date Type Department Care Team ([facility] st Contact Info) Description 04/03/2024 Orders Only [facility] [address] [place] [address] Anh Waite MD [address] [place] [address] Social History Tobacco Use Types [...] documented as of this encounter Care Teams Label Press Operator Relationship Specialty Start Date End Date Name, MD Galen [address] [place] [address] PCP - General Family Medicine 02/24/19 [facility] 09/30/24 documented as of this encounter
--- OUTSIDE RECORDS SUMMARY | 2025-03-23 13:01 | XMS_ITS | Encounter Summary ---
Author Organization [email or web address] Address [address] [facility] [address] [place] [address] Care Team Providers Care Manager Print Name Role Phone Name, Galen AGUAYO Primary Care Provider [phone] Reason for Visit * Reason Onset Date Comments Hospital Follow-up 03/20/2024 Encounter Details Date Type Department Care Team (Late st Contact Info) Description 03/20/2024 Telephone [facility] [address] [place] [address] Name, MD Galen [address] [place] [address] Hospital Follow-up Social History Tobacco Use Types [...] from pt requesting a HDF appt. [place] [facility] [place] Date of admission: 03/13/2024 Discharge date: 03/17/2024 Diagnosed:Diverticulosis *Send message to [facility] Clinical Care Coordinators documented in this encounter Plan of Treatment Not on file documented as of this encounter Visit Diagnoses Not on filedocumented in this encounter Additional Health Concerns Assessment Noted Time PHQ-9 Depression Total Score: 0 11/18/19 10:53 AM EDT documented as of this encounter Care Teams Manager Print Relationship Specialty Start Date End Date Name, MD Galen [address] [place] [address] PCP - General Family Medicine 02/24/19 [facility] 09/30/24 documented as of this encounter
--- OUTSIDE RECORDS SUMMARY | 2025-03-23 13:01 | XMS_ITS | Encounter Summary ---
Author Organization [facility] Address [address] [place] [phone] Phone Care Team Providers Care Vocational Training Instructor Name Role Phone Name, Galen AGUAYO Primary Care Provider [phone] Encounter Details Date Type Department Care Team (Late st Contact Info) Description 02/21/2021 Procedure [facility] [employer] [facility] [address] [place] [address] Social History Tobacco Use Types Packs/Day Years [...] on file documented as of this encounter Plan of Treatment Not on file documented as of this encounter Visit Diagnoses Not on filedocumented in this encounter Additional Health Concerns Infection Onset Date Last Indicated Resolved Time CoV-Risk Comment:Per note documentation 02/21/2021 02/21/2021 4:26 PM EST documented as of this encounter Care Teams Vocational Training Instructor Relationship Specialty Start Date End Date Name, MD Galen [address] [place] [address] PCP - General Geriatric Psychiatry 02/21/21 documented as of this encounter Additional Source Comments The information contained in this document represents components of the legal health record. It is not the complete legal health record.[facility]
--- OUTSIDE RECORDS SUMMARY | 2025-03-23 13:01 | XMS_ITS | Encounter Summary ---
Author Organization [employer] Address [address] [facility] 7t [place] [address] Care Team Providers Care Arc Cutter Plasma Arc Name Role Phone Name, Galen AGUAYO Primary Care Provider [phone] Encounter Details Date Type Department Care Team (Late st Contact Info) Description 07/05/2022 Orders Only [facility] & PEDS [address] [place] [address] Nelia Morrow LPN Social History Tobacco Use [...] on filedocumented in this encounter Care Teams Arc Cutter Plasma Arc Relationship Specialty Start Date End Date Name, MD Galen [address] [place] [address] PCP - General Family Medicine 02/24/19 [facility] 09/30/24 documented as of this encounter
--- OUTSIDE RECORDS SUMMARY | 2025-03-23 13:02 | XMS_ITS | Clinical Summary ---
Author Organization [facility] Address [address] [place] [address] Phone Care Team Providers Care Water Resources Business Segment Leader Name Role Phone Name, Galen AGUAYO Primary Care Provider [phone] Allergies No known active allergies Medications furosemide [...] left side. Patient doing well speaking in Yakut this morning Case management consultation appreciated Patient [...] EST) SODIUM 139 133 - 146 mmol/L [facility] CHLORIDE 106 96 - 108 mmol/L [facility] POTASSIUM 4.4 3.3 - 5.1 mmol/L [facility] CO2 25 21 - 35 mmol/L [facility] BUN 27(H) 6 - 19 mg/dL [facility] CREATININE 1.00 0.5 - 1.5 mg/dL [facility] GLUCOSE 98 70 - 99 mg/dL [facility] CALCIUM 8.6 8.4 - 10.3 mg/dL [facility] EGFR 72 >59 mL/min/1.7 3m2 [facility] Comment:Estimated glomerular filtration rate calculated using the CKD-EPI equation. ANION GAP 12 10 - 20 mmol/L [facility] Blood 02/23/2021 5:59 AM EST 02/23/2021 6:27 AM EST us Fani Gay MD LAB BLOOD BKR ORDERABLES Fin al Result [facility] [address] [place] [address] from Last 3 Months or [...] B HEALTH MEDICARE PART A & B [facility] Advance Directives For more information, please contact: [phone] (9AM - 5PM [facility], Sunday-Sunday) * Full Code (Latest Code Status on File) Date Activated Date Inactivated Comments 02/21/2021 11:20 PM Question Answer Comments Code Status Confirmed With: Patient Care Teams Water Resources Business Segment Leader Relationship Specialty Start Date End Date Name, MD Galen [address] [place] [phone] PCP - General Geriatric Psychiatry 02/21/21 Additional Source Comments The information contained in this document represents components of the legal health record. It is not the complete legal health record.[facility]
--- OUTSIDE RECORDS SUMMARY | 2025-03-23 13:02 | XMS_ITS | Clinical Summary ---
Author Organization [employer] Address [address] [facility] [address] [place] [address] Care Team Providers Care Assistant Manager Name Role Phone Name, Galen AGUAYO Primary Care Provider [phone] Allergies Active Allergy Reactions Criticality Noted Date [...] PAIN 60 tablet 3 04/02/19 24 Active liver oil-zinc oxide (Desitin) 40 [...] MORNING 90 tablet 1 12/23/19 25 Active doxazosin (Cardura) 4 MG tablet Take 1 tablet (4 mg) by mouth at bedtime. 90 tablet 01/06/20 25 Active Calcium Carb-Cholecalci ferol 500-10 MG-MCG chewable tablet TAKE 1 TABLET BY MOUTH TWICE DAILY IN THE MORNING AND IN THE EVENING (CHEW) 180 tablet 1 5 4:03 PM EST 01/27/20 25 Active traZODone (Desyrel) 100 MG tablet TAKE 2 TABLETS BY MOUTH EVERY DAY AT BEDTIME 60 tablet 1 5 2:31 PM EST 02/27/20 25 Active Blood Pressure kitIndications: Essential hypertension Use once a day at home 1 kit 03/11/20 25 Active Blood Pressure Monitoring (Omron 3 Series BP Monitor) device 07/27/19 24 025 Discontinued(Du plicate order (will not trigger notification to Pharmacy)) traZODone (Desyrel) 100 MG tablet TAKE 2 TABLETS BY MOUTH EVERY DAY AT BEDTIME 60 tablet 1 5 4:03 PM EST 12/27/19 25 025 Discontinued Active Problems Problem Noted Date Diagnosed Date Acalculous cholecystitis 03/11/2025 Acidosis, lactic 03/11/2025 Contusion of chest wall 03/11/2025 Hiccups 03/11/2025 Sepsis (CMS/HCC) 03/11/2025 Unspecified convulsions (CMS/HCC) 03/11/2025 UTI (urinary tract infection) 03/11/2025 Vomiting 03/11/2025 Fall 08/22/2024 Laceration of ear, external, right [...] Venous insufficiency 11/20/2022 Food insecurity 11/16/2022 Dementia ([facility]/HCC) 10/16/2022 Overview (10/16/2022): Last Assessment & Plan: Patient more alert and oriented this morning, able to provide a history of a few days worth of worsening of the chest pain along the left side. 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 [...] Noted Date Diagnosed Date Resolved Date Ileus (CMS/HCC) 04/02/2024 04/02/2024 Encounters Date Type Department Care Team Description 03/23/2025 Orders Only [facility] External Provider, [facility] 03/12/[address] [address] Galen Chavez MD Durable Medical Equipment (Wheelchair & gait belt) 03/11/2025 2:15 PM EST Office Visit [address] [address] Galen Chavez MD Dementia, unspecified dementia severity, unspecified dementia type, unspecified whether behavioral, psychotic, or mood disturbance or anxiety (CMS/HCC) (HCC) (Primary Dx); Gait instability; Septicemia (CMS/HCC) (HCC); Leukocytosis, unspecified type; Encounter for immunization; Essential hypertension 03/11/2025 Travel 03/10/2025 Telephone [facility] [address] [place] [phone] Galen Chavez MD Chart Prep 03/09/2025 Telephone [facility] [address] [place] [phone] Galen Chavez MD Surrogate Info 02/26/2025 Refill [facility] [address] [place] [phone] Galen Chavez MD 02/06/[address] [address] Galen Chavez MD Durable Medical Equipment (Recert - incontinence supplies) 01/29/2025 Orders Only [facility] External Provider, [facility] 01/25/2025 Refill [facility] [address] [place] [phone] Galen Chavez MD 01/05/2025 Refill [facility] [address] [place] [phone] Name, MD aGlen 12/26/2024 Refill [facility] [address] [place] [phone] Rosanne Kessler MD from Last 3 Months Immunizations Immunization Administration Dates Next Due Influenza High-dose Quadriva lent Preservative Free 03/05/2023,12/20/2021,12/20/2020,02/26 Influenza injectable quadriv alent preservative free 01/23/2017 Influenza, High Dose Seasona l, Preservative Free 03/11/2025,01/25/2024,12/19/2017 Influenza, Split (incl. migue fied surface antigen) [...] 18 03/11/2025 2:25 PM EST Oxygen Saturation 99% 12/12/2024 3:20 PM EDT Inhaled Oxygen Concentration - - Weight 74 kg (163 lb 4 oz) 12/12/2024 3:20 PM ED T Height 160 cm (5' 3 ) 12/12/2024 3:20 PM EDT Body Mass Index 28.92 12/12/2024 3:20 PM EDT Plan of Treatment Health Maintenance Due Date Last Done Comments Dental X-Ray: [facility] 1940 Alcohol/Substance Use Screening 1954 RSV Patients and Patients Aged 60 years or older (1 - 1-dose 75+ series) 2017 Dental Oral Exam 02/09/2023 08/08/2022, 05/19/2009 Dental Prophylaxis 02/09/2023 08/08/2022 Depression Screening 11/18/2023 11/17/2022, 11/18/19 SDOH Screening 11/18/2023 11/17/2022 COVID-19 Vaccine ( season) 2024 01/25/2024, 09/22/2021, 05/03/2021, Additional history exists Dental X-Ray: Full Mouth 08/09/2025 08/08/2022, 04/27 Tobacco Screening 03/11/2026 03/11/2025 Lipid Panel 08/26/2029 08/26/2024, 08/25, 05/26/2021 DTaP/Tdap/Td Vaccines (4 - Td or Tdap) 08/24/2033 08/25/2023, 03/05/2023, 04/16/2012 Zoster Vaccines Completed 02/27/2019, 1005/2018, 05/08/2017 Pneumococcal Vaccine: 50+ Years Completed 03/04/2021, 05/08/2017 Influenza Vaccine Completed 03/11/2025, , 03/05/2023, Additional history exists HIB Vaccines Aged Out No longer eligi [...] Procedure Name Priority Date/Time Associated Diagnosis Comments CT CERVICAL SPINE WO CONTRAST Routine 03/23/2025 11:[address] HEAD WO CONTRAST Routine 03/23/2025 11:49 AM EST CBC WITH AUTO DIFFERENTIAL Routine 03/11/2025 3:00 PM EST Leukocytosis, unspecified type LACTIC ACID LAB USE ONLY Routine 01/29/2025 3:45 PM EST US ABDOMEN LIMITED Routine 01/29/2025 2: 50 PM EST URINALYSIS, COMPLETE (INCLUDES MACRO AND MICRO) Routine 01/29/2025 1:[address] ABDOMEN [...] 1 VIEW Routine 01/29/2025 11:11 AM EST LIPID PANEL, STANDARD Routine 08/26/2024 9:58 AM [...] Recently Relevant to Health Maintenance Results * CT Cervical Spine w/o Contrast (03/23/2025 11:49 AM EST) Anatomical Region Laterality Modality Spine, C-spine Computed Tomogra phy 03/23/2025 11:4 9 AM EST Narrative 03/23/2025 12:[address] [address] [address] Scan Report Signed Patient: Frederick Worthy MR#: [id number] 462 : 1940 Acct:[id number] Age/Sex: 84 / M ADM Date: 03/23/25 Loc: .ED Attending Dr: Ordering Physician: Sandi Mann DO Date of Service: 03/23/25 Procedure(s): CT cervical spine wo IV con Accession Number(s): [id number] cc: Sandi Mann DO; Name,Galen AGUAYO Report Number: [id number]: Total DLP = 1209.00 mGy-cm Reason for Exam: fall EXAMINATION: CT CERVICAL SPINE WITHOUT IV CONTRAST HISTORY: fall. TECHNIQUE: Helical CT of the cervical spine was performed per standard departmental protocol. Coronal and sagittal reformatted images were also evaluated. One or more of the following techniques was used for dose reduction: Automated exposure control, adjustment of the mA and/or kV according to patient size, use of iterative reconstruction technique. DLP: 42 mGy-cm COMPARISON: Comparison is made with the prior examination dated 12/03/2024. FINDINGS: CERVICAL SPINE: The vertebral bodies maintain normal height without evidence of fracture or subluxation. There is straightening of the normal cervical lordosis. There is diffuse moderate to severe degenerative disc disease with disc space narrowing and osteophyte formation. Evaluation for disc pathology is limited by lack of intrathecal contrast material, however. Lucencies in the C2 and C7 vertebral bodies are unchanged. BRAIN: The visualized portion of the brain is unremarkable. SINUSES: The visualized paranasal sinuses, mastoid air cells and middle ear cavities are unremarkable. LUNG APICES: The visualized lung apices are clear. SOFT TISSUES: The visualized paraspinal soft tissues are unremarkable. CT/CT cervical spine wo IV con IMPRESSION: Straightening of the normal cervical lordosis. No evidence of fracture or subluxation of the cervical spine. Degenerative changes as described. Electronically signed by: Behzad Talbert MD 03/23/2025 12:35 PM [facility] Dictated By: Behzad Talbert MD Signed By: <Electronically signed by Behzad Talbert MD in OV> 03/23/25 1235 DD/ 1149 TD/TT: 03/23/25 1219 Home Care Scheduler: Procedure Note Donotuseinterpreter, Image - 03/23/[address] [address] [address] Scan Report Signed Patient: Vineet Worthy#: [id number] 462 : 1940cct:[id number] Age/Sex: 84 / MADM Date: 03/23/25 Loc: HO.ED Attending Dr: Ordering Physician: Sandi Mann DO Date of Service: 03/23/25 Procedure(s): CT cervical spine wo IV con Accession Number(s): [id number] cc: Sandi Mann DO; Name,Galen AGUAYO Report Number: [id number]: Total DLP = 1209.00 mGy-cm Reason for Exam: fall EXAMINATION: CT CERVICAL SPINE WITHOUT IV CONTRAST HISTORY: fall. TECHNIQUE: Helical CT of the cervical spine was performed per standard departmental protocol. Coronal and sagittal reformatted images were also evaluated. One or more of the following techniques was used for dose reduction: Automated exposure control, adjustment of the mA and/or kV according to patient size, use of iterative reconstruction technique. DLP: 42 mGy-cm COMPARISON: Comparison is made with the prior examination dated 12/03/2024. FINDINGS: CERVICAL SPINE: The vertebral bodies maintain normal height without evidence of fracture or subluxation. There is straightening of the normal cervical lordosis. There is diffuse moderate to severe degenerative disc disease with disc space narrowing and osteophyte formation. Evaluation for disc pathology is limited by lack of intrathecal contrast material, however. Lucencies in the C2 and C7 vertebral bodies are unchanged. BRAIN: The visualized portion of the brain is unremarkable. SINUSES: The visualized paranasal sinuses, mastoid air cells and middle ear cavities are unremarkable. LUNG APICES: The visualized lung apices are clear. SOFT TISSUES: The visualized paraspinal soft tissues are unremarkable. CT/CT cervical spine wo IV con IMPRESSION: Straightening of the normal cervical lordosis. No evidence of fracture or subluxation of the cervical spine. Degenerative changes as described. Electronically signed by: Behzad Talbert MD 03/23/2025 12:35 PM EST Dictated By: Behzad Talbert MD Signed By: <Electronically signed by Behzad Talbert MD in OV> 03/23/25 1235 DD/ 1149 TD/TT: 03/23/25 1219 Home Care Scheduler: [facility] External Provider IMG CT PROCEDURES Final Result * CT Head w/o Contrast (03/23/2025 11:49 AM EST) Only the most recent of2 resultswithin the time period is included. Anatomical Region Laterality Modality Head, Neck Computed Tomogra phy 03/23/2025 11:4 9 AM EST Narrative 03/23/2025 12:34 PM EST [address] [address] [address] Scan Report Signed Patient: Frederick Worthy MR#: [id number] 462 : 1940 Acct:[id number] Age/Sex: 84 / M ADM Date: 03/23/25 Loc: HO.ED Attending Dr: Ordering Physician: Sandi Mann DO Date of Service: 03/23/25 Procedure(s): CT head/brain wo IV con Accession Number(s): [id number] cc: Sandi Mann DO; Name,Galen AGUAYO Report Number: [id number]: Total DLP = 0.00 mGy-cm Reason for Exam: fall EXAMINATION: CT HEAD WITHOUT CONTRAST CLINICAL INFORMATION: Fall, head injury. COMPARISON: Numerous priors, most recently 01/29/2025. TECHNIQUE: Contiguous axial imaging was performed from [...] of iterative reconstruction technique FINDINGS: There is moderate motion degradation present, especially at the upper portion of the scan. This limits sensitivity of the study. There is no evidence of intracranial hemorrhage or extra-axial fluid collection. There is no mass effect, or edema. No CT evidence of acute territorial infarct. Ventricles, sulci, and cisterns are again noted to be somewhat diffusely prominent, in keeping with mildly age advanced cerebral and cerebellar volume loss. Ventricles are stably enlarged. No evidence of acute hydrocephalus. No midline shift. Negative hyperdense MCA sign. Negative insular ribbon sign. Patchy periventricular and deep white matter hypoattenuation is consistent with moderate small vessel ischemic changes. Stable encephalomalacia in the inferior frontal poles bilaterally, likely related to prior trauma. 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 Partial empty sella. Mild atheromatous calcification of the bilateral carotid siphons and V4 segments vertebral arteries bilaterally. Globes and orbital contents demonstrate bilateral lens replacements. No extracranial soft tissue abnormalities. The imaged paranasal sinuses, mastoid air cells, and tympanic cavities are normally aerated. No suspicious bony abnormalities. Within the confines of motion, there are no acute fractures evident. There are degenerative changes in both TM joints. CT/CT head/brain wo IV con IMPRESSION: 1. Motion degraded exam. Within these confines, there is no acute intracranial abnormality. There is no fracture evident. 2. Stable chronic changes and ventriculomegaly. Electronically signed by: Lukas Bowen MD 03/23/2025 12:31 PM [facility] Dictated By: Lukas Bowen MD Signed By: <Electronically signed by Lukas Bowen MD in OV> 03/23/25 1231 DD/ 1149 TD/TT: 03/23/25 1219 Home Care Scheduler: Procedure Note Donotuseinterpreter, Image - 03/23/[address] [address] [address] Scan Report Signed Patient: Vineet Worthy#: [id number] 462 : 1940cct:[id number] Age/Sex: 84 / MADM Date: 03/23/25 Loc: HO.ED Attending Dr: Ordering Physician: Sandi Mann DO Date of Service: 03/23/25 Procedure(s): CT head/brain wo IV con Accession Number(s): [id number] cc: aSndi Mann DO; Name,Galen AGUAYO Report Number: [id number]: Total DLP = 0.00 mGy-cm Reason for Exam: fall EXAMINATION: CT HEAD WITHOUT CONTRAST CLINICAL INFORMATION: Fall, head injury. COMPARISON: Numerous priors, most recently 01/29/2025. TECHNIQUE: Contiguous axial imaging was performed from [...] of iterative reconstruction technique FINDINGS: There is moderate motion degradation present, especially at the upper portion of the scan. This limits sensitivity of the study. There is no evidence of intracranial hemorrhage or extra-axial fluid collection. There is no mass effect, or edema. No CT evidence of acute territorial infarct. Ventricles, sulci, and cisterns are again noted to be somewhat diffusely prominent, in keeping with mildly age advanced cerebral and cerebellar volume loss. Ventricles are stably enlarged. No evidence of acute hydrocephalus. No midline shift. Negative hyperdense MCA sign. Negative insular ribbon sign. Patchy periventricular and deep white matter hypoattenuation is consistent with moderate small vessel ischemic changes. Stable encephalomalacia in the inferior frontal poles bilaterally, likely related to prior trauma. 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 Partial empty sella. Mild atheromatous calcification of the bilateral carotid siphons and V4 segments vertebral arteries bilaterally. Globes and orbital contents demonstrate bilateral lens replacements. No extracranial soft tissue abnormalities. The imaged paranasal sinuses, mastoid air cells, and tympanic cavities are normally aerated. No suspicious bony abnormalities. Within the confines of motion, there are no acute fractures evident. There are degenerative changes in both TM joints. CT/CT head/brain wo IV con IMPRESSION: 1. Motion degraded exam. Within these confines, there is no acute intracranial abnormality. There is no fracture evident. 2. Stable chronic changes and ventriculomegaly. Electronically signed by: Lukas Bowen MD 03/23/2025 12:31 PM [facility] Dictated By: Lukas Bowen MD Signed By: <Electronically signed by Lukas Bowen MD in OV> 03/23/25 1231 DD/ 1149 TD/TT: 03/23/25 1219 Home Care Scheduler: [facility] External Provider IMG CT PROCEDURES Final Result * (ABNORMAL) CBC auto differential (03/11/2025 3:00 PM EST) Only the most recent of2 resultswithin the time period is included. White Blood Count 8.0 4.8 - 10.8 X10*3/uL [facility] Red Blood Count 4.20(L) 4.60 - 5.80 X10*6/uL [facility] Hemoglobin 12.3(L) 14.0 - 18.0 g/dl [facility] Hematocrit 39.4(L) 42.0 - 52.0 % [facility] Mean Corpuscular Volume 93.8 80.0 - 98.0 fL [facility] Mean Corpuscular Hemoglobin 29.3 27.0 - 33.0 pg [facility] Mean Corpuscular HGB Conc 31.2 31.0 - 36.0 g/dl [facility] Red Cell Distribution Width 13.8 11.0 - 16.0 % [facility] Platelet Count 174 160 - 400 X10*3/uL [facility] Mean Platelet Volume 11.5 9.4 - 12.4 fL [facility] Neutrophils Percent Auto 60.3 45 - 73 % [facility] Imm Gran Pct Auto 0.5(H) 0.0 - 0.4 % [facility] Lymphocytes Percent Auto 29.4 20 - 40 % [facility] Monocytes Percent Auto 7.8 2 - 11 % [facility] Eosinophils Percent Auto 1.6 0 - 4 % [facility] Basophils Percent Auto 0.4 0 - 2 % [facility] NRBC Pct Auto 0.0 0.0 - 0.2 /100WBC [facility] Neutrophils Absolute Auto 4.8 2.0 - 8.3 x10*3/uL [facility] Imm Gran Abs Auto 0.04(H) 0.00 - 0.03 X10*3/uL [facility] Lymphocytes Absolute Auto 2.4 1.2 - 4.9 X10*3/uL [facility] Monocytes Absolute Auto 0.6 0.1 - 1.2 X10*3/uL [facility] Eosinophils Absolute Auto 0.1 0.0 - 0.4 X10*3/uL [facility] Basophils Absolute Auto 0.0 0.0 - 0.2 X10*3/uL [facility] NRBC Abs Auto 0.000 0.0 - 0.012 X10*3/uL [facility] Blood Venous blood specimen / Unknown 03/11/2025 3:00 PM EST 03/11/2025 4:13 PM EST Galen Chavez MD LAB BLOOD ORDERABLES Final Resul t Performing Organization Address [facility]/ZIP Co de Phone Number [facility] [address] [place] [phone] Lactic Acid (01/29/2025 3:45 PM EST) Lactic Acid 1.6 0.5 - 2.0 mmol/L [facility] 01/29/2025 3:45 PM EST 01/29/2025 3:52 PM EST Narrative [facility] - 01/29/2025 4:09 PM EST us Generic External Data Provider LAB BLOOD ORDERAB LES Final Result Performing Organization Address [facility] de Phone Number [facility] [address] [place] [phone] * US Abdomen Limited (01/29/2025 2:50 PM EST) Anatomical Region Laterality Modality Abdomen Ultrasound 01/29/2025 2:50 PM EST Narrative 01/29/2025 3:14 PM EST [address] [address] Ultrasound Report Signed Patient: Frederick Worthy MR#: [id number] 462 : 1940 Acct:[id number] Age/Sex: 84 / M ADM Date: 01/29/25 Loc: HO.ED Attending Dr: Ordering Physician: Teresita Suggs DO Date of Service: 01/29/25 Procedure(s): US abdomen limited Accession Number(s): [id number] cc: Teresita Suggs DO; Name,Galen AGUAYO Reason for Exam: RUQ EXAMINATION: US ABDOMEN LIMITED CLINICAL INFORMATION: Right upper quadrant. COMPARISON: CT 01/29/2025 TECHNIQUE: Real-time imaging of the right upper quadrant abdominal viscera. FINDINGS: GALLBLADDER: Gallstones present. Gallbladder wall is thickened measuring 5 mm. There is mild edema/fluid in the gallbladder wall. Chiropractor Assistant reports there is no tenderness in the area of the gallbladder. COMMON BILE DUCT: Normal in caliber measuring 0.3 cm in diameter. No free fluid in the immediate vicinity of the gallbladder. US/US abdomen limited IMPRESSION: Gallstones. Gallbladder wall is thickened with edema/fluid in the bone. Reported negative sonographic Morgan's sign. Findings are equivocal. If there is persistent clinical concern for cholecystitis, recommend short-term follow-up ultrasound or HIDA scan for further evaluation. Electronically signed by: Bk Campbell MD 01/29/2025 03:11 PM [facility] Dictated By: Bk Campbell MD Signed By: <Electronically signed by Bk Campbell MD in OV> 01/29/25 1511 DD/ 1450 TD/TT: 01/29/25 1452 Home Care Scheduler: [facility] Procedure Note Donotuseinterpreter, Image - 01/29/[address] [address] Ultrasound Report Signed Patient: Vineet Worthy#: [id number] 462 : 1940cct:[id number] Age/Sex: 84 / MADM Date: 01/29/25 Loc: .ED Attending Dr: Ordering Physician: Suggs,Ting Ho DO Date of Service: 01/29/25 Procedure(s): US abdomen limited Accession Number(s): [id number] cc: Teresita Suggs DO; Name,Galen AGUAYO Reason for Exam: RUQ EXAMINATION: US ABDOMEN LIMITED CLINICAL INFORMATION: Right upper quadrant. COMPARISON: CT 01/29/2025 TECHNIQUE: Real-time imaging of the right upper quadrant abdominal viscera. FINDINGS: GALLBLADDER: Gallstones present. Gallbladder wall is thickened measuring 5 mm. There is mild edema/fluid in the gallbladder wall. Chiropractor Assistant reports there is no tenderness in the area of the gallbladder. COMMON BILE DUCT: Normal in caliber measuring 0.3 cm in diameter. No free fluid in the immediate vicinity of the gallbladder. US/US abdomen limited IMPRESSION: Gallstones. Gallbladder wall is thickened with edema/fluid in the bone. Reported negative sonographic Morgan's sign. Findings are equivocal. If there is persistent clinical concern for cholecystitis, recommend short-term follow-up ultrasound or HIDA scan for further evaluation. Electronically signed by: Bk Campbell MD 01/29/2025 03:11 PM EST Dictated By: Bk Campbell MD Signed By: <Electronically signed by Bk Campbell MD in OV> 01/29/25 1511 DD/ 1450 TD/TT: 01/29/25 1452 Home Care Scheduler: [facility] External Provider IMG US PROCEDURES Final Result * (ABNORMAL) Urinalysis Complete (01/29/2025 1:37 PM EST) Color Urine Dark Yellow [facility] Appearance Urine Cloudy [facility] PH 5.5 5.0 - 9.0 [facility] Glucose Urine UA Negative Negative mg/dL [facility] Urine Blood Large (3+)(A) Negative [facility] Specific [place] - Urine 1.025 1.005 - 1.025 [facility] Urine Protein 100 (2+)(A) Neg-Trace mg/dL [facility] Urine Ketones Trace Negative mg/dL [facility] Nitrite Urine Negative Negative [facility] Leukocyte Esterase Urine Moderate (2+)(A) Negative [facility] RBC Urine 11-20(A) 0 - 2 /HPF [facility] Urine WBC 21-50 0 - 5 /HPF [facility] WBC CLUMPS, UR Present [facility] Urine Squamous Epithelial Cell 6-10 0 - 2 /HPF [facility] Urine Bacteria 2+ None Seen [facility] Hyaline Casts, Urine 0-2 0 - 2 /LPF [facility] 01/29/2025 1:37 PM EST 01/29/2025 1:40 PM EST us Generic External Data Provider LAB URINE ORDERAB LES Final Result Performing Organization Address City/State/[facility] de Phone Number [facility] [address] [place] [phone] * CT Abdomen Pelvis w/ Contrast (01/29/2025 12:58 PM EST) Anatomical Region Laterality Modality Body, Pelvis, Abdomen Computed T omography 01/29/2025 12:5 8 PM EST Narrative 01/29/2025 1:34 PM EST [place] [address] CT Scan Report Signed Patient: Frederick Worthy MR#: [id number] 462 : 1940 Acct:[id number] Age/Sex: 84 / M ADM Date: 01/29/25 Loc: HO.ED Attending Dr: Ordering Physician: Teresita Suggs DO Date of Service: 01/29/25 Procedure(s): CT abdomen pelvis w IV con Accession Number(s): [id number] cc: Teresita Suggs DO; Name,Galen AGUAYO Report Number: [id number]: Total DLP = 839.05 mGy-cm Reason for [...] by: Usama Guillaume MD 01/29/2025 01:32 PM [facility] [facility] Dictated By: Usama Canchola MD Signed By: <Electronically signed by Usama Garcia MD in OV> 01/29/25 1332 DD/ 1258 TD/TT: 01/29/25 1319 Home Care Scheduler: Procedure Note Donotuseinterpreter, Image - 01/29/[address] [place] [address] [address] Scan Report Signed Patient: Vineet Worthy#: [id number] : 1940cct:[id number] Age/Sex: 84 / MADM Date: 01/29/25 Loc: .ED Attending Dr: Ordering Physician: Teresita Suggs DO Date of Service: 01/29/25 Procedure(s): CT abdomen pelvis w IV con Accession Number(s): [id number] cc: Teresita Suggs DO; Name,Galen AGUAYO Report Number: [id number]: Total DLP = 839.05 mGy-cm Reason for [...] 01/29/25 1332 DD/ 1258 TD/TT: 01/29/25 1319 Home Care Scheduler: [facility] External Provider IMG CT PROCEDURES Final Result * SARS-CoV-2 RNA, Influenza A/B, and RSV RNA, Ql NAAT (01/29/2025 11:45 AM EST) Influenza A PCR NEGATIVE Negative [facility] Influenza B PCR NEGATIVE Negative [facility] Resp Syncy Virus RNA Qual PCR NEGATIVE Negative [facility] SARS COV2 PCR NEGATIVE Negative [facility] Comment:All test results mus t [...] use by authorized laboratories.Testing performed on the [employer] GeneXpert utilizingreal-time RT-PCR.All SARS CoV2 and positive influenza A/B results arereported to [facility]. 01/29/2025 11:4 5 AM EST 01/29/2025 11:50 AM EST us Generic External Data Provider LAB MICROBIOLOGY - GENERAL ORDERABLES Final Result [facility] [address] [place] [phone] * (ABNORMAL) Complete Blood Count Manual Diff (01/29/2025 11:32 AM EST) White Blood Count 23.1(H) 4.8 - 10.8 X10*3/uL [facility] Red Blood Count 4.43(L) 4.60 - 5.80 X10*6/uL [facility] Hemoglobin 13.3(L) 14.0 - 18.0 g/dl [facility] Hematocrit 40.1(L) 42.0 - 52.0 % [facility] Mean Corpuscular Volume 90.5 80.0 - 98.0 fL [facility] Mean Corpuscular Hemoglobin 30.0 27.0 - 33.0 pg [facility] Mean Corpuscular HGB Conc 33.2 31.0 - 36.0 g/dl [facility] Red Cell Distribution Width 12.9 11.0 - 16.0 % [facility] Platelet Count 141(L) 160 - 400 X10*3/uL [facility] Mean Platelet Volume 11.2 9.4 - 12.4 fL [facility] NRBC Pct Auto 0.0 0.0 - 0.2 /100WBC [facility] NRBC Abs Auto 0.000 0.0 - 0.012 X10*3/uL [facility] Neutrophils % Manual 88(H) 45 - 73 % [facility] Band Neutrophils Percent 0(L) 3 - 5 % [facility] Lymphocytes Percent Manual 9(L) 20 - 40 % [facility] Monocytes Percent Manual 3 2 - 11 % [facility] NEUTROPHILS ABSOLUTE MANUAL 20.3(H) 2.0 - 8.3 X10*3/uL [facility] LYMPHOCYTES ABSOLUTE MANUAL 2.1 1.2 - 4.9 X10*3/uL [facility] MONOCYTES ABSOLUTE MANUAL 0.7 0.1 - 1.2 X10*3/uL [facility] Platelet Estimate SLIGHTLY DECREASED NORMAL [facility] Large Platelet [facility] Platelet Morphology Comment NOTE [facility] RBC Morphology NOTED [facility] POLYCHROMASIA 1+ (0-2) /OIF [facility] Toxic Vacuolation [facility] 01/29/2025 11:3 2 AM EST 01/29/2025 11:37 AM EST us Generic External Data Provider LAB BLOOD ORDERAB LES Final Result Performing Organization Address [facility] Co de Phone Number [facility] [address] [place] [phone] * (ABNORMAL) TSH with Reflex to Free T4 (01/29/2025 11:32 AM EST) TSH reflex Free T4 0.16(L) 0.32 - 4.0 uIU/mL [facility] 01/29/2025 11:3 2 AM EST 01/29/2025 11:37 AM EST us Generic External Data Provider LAB BLOOD ORDERAB LES Final Result Performing Organization Address [facility] Co de Phone Number [facility] [address] [place] [phone] * T4, Free (01/29/2025 11:32 AM EST) Free T4 (Free Thyroxine) 1.06 0.71 - 1.85 ng/dL [facility] 01/29/2025 11:3 2 AM EST 01/29/2025 11:37 AM EST us Generic External Data Provider LAB BLOOD ORDERAB LES Final Result Performing Organization Address [facility] Co de Phone Number [facility] [address] [place] [phone] * (ABNORMAL) Lactic Acid (01/29/2025 11:32 AM EST) Lactic Acid 2.5(HH) 0.5 - 2.0 mmol/L [facility] Comment:Critical value for L ACTIC: Results called to and read backby: ELLA Person calling: GALENSA Date: 01/29/25 Time: 1220 01/29/2025 11:3 2 AM EST 01/29/2025 11:37 AM EST us Generic External Data Provider LAB BLOOD ORDERAB LES Final Result Performing Organization Address City/[facility]/ZIP Co de Phone Number [facility] [address] [place] [phone] * Ammonia, Plasma (01/29/2025 11:32 AM EST) Ammonia (P) 33 13 - 55 umol/L [facility] 01/29/2025 11:3 2 AM EST 01/29/2025 11:37 AM EST Generic External Data Provider LAB BLOOD ORDERAB LES Final Result Performing Organization Address City/[facility]/ZIP Co de Phone Number [facility] [address] [place] [phone] * XR Chest 1 View (01/29/2025 11:11 AM EST) Anatomical Region Laterality Modality Chest Radiographic Vi ging 01/29/2025 11:1 1 AM EST Narrative 01/29/2025 11:22 AM EST [address] [address] XRay Report Signed Patient: Frederick Worthy MR#: [id number] 462 : 1940 Acct:[id number] Age/Sex: 84 / M ADM Date: 01/29/25 Loc: HO.ED Attending Dr: Ordering Physician: Teresita Suggs DO Date of Service: 01/29/25 Procedure(s): XR chest 1V Accession Number(s): [id number] cc: Teresita Suggs DO; Name,Galen AGUAYO Reason [...] 01/29/25 1119 DD/ 1111 TD/TT: 01/29/25 1115 Home Care Scheduler: Procedure Note Donotuseinterpreter, Image - 01/29/2025 [place] [address] XRay Report Signed Patient: Vineet Worthy#: [id number] 462 : 1940cct:[id number] Age/Sex: 84 / MADM Date: 01/29/25 Loc: HO.ED Attending Dr: Ordering Physician: Teresita Suggs DO Date of Service: 01/29/25 Procedure(s): XR chest 1V Accession Number(s): [id number] cc: Teresita Suggs DO; Name,Galen AGUAYO Reason [...] 01/29/25 1119 DD/ 1111 TD/TT: 01/29/25 1115 Home Care Scheduler: [facility] External Provider IMG XR PROCEDURES Final Result * (ABNORMAL) Lipid Panel, Standard (08/26/2024 9:58 AM EDT) Triglycerides 158(H) <150 mg/dL [facility] Comment:Desirable Triglyceri de: less than 150 mg/dLBorderline High Triglyceride 150-199 mg/dLHigh Triglyceride: 200-499 mg/dLVery High Triglyceride: greater than or equal to 5OO mg/dL Cholesterol 138 <200 mg/dL [facility] Comment:Desirable Cholestero l: less than 200 mg/dLBorderline High Cholesterol: 200-239 mg/dLHigh Cholesterol: greater than 239 mg/dL LDL Cholesterol Calculated 77 <100 mg/dL [facility] Comment:Desirable LDL: less than 100 mg/dLNear Optimal/Above Optimal LDL: 110- 129 mg/dLBorderline High LDL: 130-159 mg/dLHigh LDL: 160-189 mg/dLVery High LDL: greater than or equal to 190 mg/dL HDL Cholesterol 30(L) >40 mg/dL [facility] Comment:Desirable HDL: great er than 40 mg/dL Note: This HDL assay may give artificially low results in patients with liver disease. Blood Venous blood specimen / Unknown 08/26/2024 9:58 AM EDT 08/26/2024 11:40 AM EDT Galen Chavez MD LAB BLOOD ORDERABLES Final Resul t [facility] [address] [place] [address] [phone] from Last 3 Months or Most Recently Relevant to Health Maintenance Insurance [facility] RETIRE[employer] OPT[employer] (HMO D-SNP) DENTAL [facility] [address] [place] [address] Care Teams Assistant Manager Relationship Specialty Start Date End Date Name, MD Galen [address] [place] [phone] PCP - General Family Medicine 02/24/19 [facility] 09/30/24
--- OUTSIDE RECORDS SUMMARY | 2025-03-23 13:02 | XMS_ITS | Encounter Summary ---
Author Organization [employer] Address [address] [facility] [address] [place] [address] Care Team Providers Care Relocation Associate Name Role Phone Name, Galen AGUAYO Primary Care Provider [phone] Reason for Visit * Reason Onset Date Comments Status Request 10/22/2023 Encounter Details Date Type Department Care Team ([facility] st Contact Info) Description 10/22/2023 Telephone [facility] [address] [place] [address] Name, MD Galen [address] [place], [place] [phone] Status Request Social History Tobacco Use Types [...] t he electric, gas, oil or water Recovers threatened to shut off services in your [...] AM EDT Tc from tatiana returning call, Tax Compliance Officer advised forms were faxed on 10/19/23 by AMADOR Swenson. Please see encounter from 10/19/23, tatiana would like forms re faxed due to not receiving any forms. * Telephone Encounter - Vinicius Frank - 10/22/2023 2:43 PM EDT Tc from Tatiana with [facility] requesting status on pcp order form, standing order form,and TB risk assessment. Please contact Tatiana at [phone]. documented in this encounter Plan of Treatment Not on file documented as of this encounter Visit Diagnoses Not on filedocumented in this encounter Additional Health Concerns Assessment Noted Time PHQ-9 Depression Total Score: 0 11/18/19 23 10:53 AM EDT documented as of this encounter Care Teams Relocation Associate Relationship Specialty Start Date End Date Name, MD Galen [address] [place] [phone] PCP - General Family Medicine 02/24/19 [facility] 09/30/24 documented as of this encounter
--- OUTSIDE RECORDS SUMMARY | 2025-03-23 13:02 | XMS_ITS | Encounter Summary ---
Author Organization [employer] Address [address] [facility] [address] [place] [address] Care Team Providers Care Child Health Associate Name Role Phone Name, Galen AGUAYO Primary Care Provider [phone] Encounter Details Date Type Department Care Team (Late st Contact Info) Description 03/23/2025 Orders Only [facility] External Provider, [facility] Social History Tobacco Use Types Packs/Day Years [...] EST CT HEAD WO CONTRAST Routine 03/23/2025 1 1:49 AM EST documented in this encounter Results * CT Cervical Spine w/o Contrast (03/23/2025 11:49 AM EST) Anatomical Region Laterality Modality Spine, C-spine Computed Tomogra phy 03/23/2025 11:4 9 AM EST Narrative 03/23/2025 12:38 PM EST [place] [address] CT Scan Report Signed Patient: Frederick Worthy MR#: [id number] 462 : 1940 Acct:[id number] Age/Sex: 84 / M ADM Date: 03/23/25 Loc: HO.ED Attending Dr: Ordering Physician: Sandi Mann DO Date of Service: 03/23/25 Procedure(s): CT cervical spine wo IV con Accession Number(s): [id number] cc: Sandi Mann DO; Name,Galen AGUAYO Report Number: [id number]: Total DLP = 1209.00 mGy-cm Reason for [...] by: Behzad Talbert MD 03/23/2025 12:35 PM [facility] Dictated By: Behzad Talbert MD Signed By: <Electronically signed by Behzad Talbert MD in OV> 03/23/25 1235 DD/ 1149 TD/TT: 03/23/[address] Operator: Procedure Note Donotuseinterpreter, Image - 03/23/[address] [place] [address] [address] Scan Report Signed Patient: Vineet Worthy#: [id number] 462 : 1940cct:[id number] Age/Sex: 84 / MADM Date: 03/23/25 Loc: HO.ED Attending Dr: Ordering Physician: Sandi Mann DO Date of Service: 03/23/25 Procedure(s): CT cervical spine wo IV con Accession Number(s): [id number] cc: Sandi Mann DO; Name,Galen AGUAYO Report Number: [id number]: Total DLP = 1209.00 mGy-cm Reason for [...] 03/23/25 1235 DD/ 1149 TD/TT: 03/23/[address] Operator: [facility] External Provider IMG CT PROCEDURES Final Result * CT Head w/o Contrast (03/23/2025 11:49 AM EST) Anatomical Region Laterality Modality Head, Neck Computed Tomogra phy 03/23/2025 11:4 9 AM EST Narrative 03/23/2025 12:34 PM EST [address] [address] [address] Scan Report Signed Patient: Frederick Worthy MR#: [id number] 462 : 1940 Acct:[id number] Age/Sex: 84 / M ADM Date: 03/23/25 Loc: HO.ED Attending Dr: Ordering Physician: Sandi Mann DO Date of Service: 03/23/25 Procedure(s): CT head/brain wo IV con Accession Number(s): [id number] cc: Sandi Mann DO; Name,Galen AGUAYO Report Number: [id number]: Total DLP = 0.00 mGy-cm Reason for [...] by: Lukas Bowen MD 03/23/2025 12:31 PM [facility] Dictated By: Lukas Bowen MD Signed By: <Electronically signed by Lukas Bowen MD in OV> 03/23/25 1231 DD/ 1149 TD/TT: 03/23/[address] Operator: Procedure Note Donotuseinterpreter, Image - 03/23/[address] [place] [address] [address] Scan Report Signed Patient: Vineet Worthy#: [id number] 462 : 1940cct:[id number] Age/Sex: 84 / MADM Date: 03/23/25 Loc: HO.ED Attending Dr: Ordering Physician: Sandi Mann DO Date of Service: 03/23/25 Procedure(s): CT head/brain wo IV con Accession Number(s): [id number] cc: Sandi Mann DO; Name,Galen AGUAYO Report Number: [id number]: Total DLP = 0.00 mGy-cm Reason for [...] by: Lukas Bowen MD 03/23/2025 12:31 PM [facility] Dictated By: Lukas Bowen MD Signed By: <Electronically signed by Lukas Bowen MD in OV> 03/23/25 1231 DD/ 1149 TD/TT: 03/23/[address] Operator: [facility] External Provider IMG CT PROCEDURES Final Result documented in this encounter Visit Diagnoses Not on filedocumented in this encounter Additional Health Concerns Assessment Noted Time PHQ-9 Depression Total Score: 0 11/18/19 23 10:53 AM EDT documented as of this encounter Care Teams Child Health Associate Relationship Specialty Start Date End Date Name, MD Galen [address] [place] [address] PCP - General Family Medicine 02/24/19 [facility] 09/30/24 documented as of this encounter
[2025-03-23 14:13] VITALS: PULSE 87; RESP 20; TEMP 36.6; O2SAT 92
[2025-03-23 15:49] VITALS: BP 149/61; PULSE 96; RESP 20; O2SAT 98
[2025-03-23] MEDS: levETIRAcetam in NaCl (iso-os) 1,000 MG/100 ML PIGGYBACK 400 MG IV (16:01)
--- NOTE | 2025-03-23 16:10 | PC.NURSE ---
pt started to have some sort of seizure activity, started to roll his eyes in the back of the head, shaking the left arm and the entire torsal but lasted approximately 5-10sec, will be giving keppra iv instead of PO, vs stable at this
[2025-03-23 18:23] VITALS: BP 149/61; PULSE 96; RESP 20; TEMP 35.8; O2SAT 98
== END 2025-03-23 18:24 | disposition home or self-care (01) ==
PROVIDERS: Physician Assistant Medical; Emergency Provider Emergency Medicine; PCP Internal Medicine Geriatric Medicine
DX: G40.909 Epilepsy, unspecified, not intractable, without status epilepticus (principal); R51.9 Headache, unspecified; M54.2 Cervicalgia; I45.10 Unspecified right bundle-branch block; R94.31 Abnormal electrocardiogram [ECG] [EKG]; Z51.81 Encounter for therapeutic drug level monitoring; Z79.899 Other long term (current) drug therapy
CPT/HCPCS: 36415; 70450; 72125; 80053; 80307; 83735; 84484; 85025; 86140; 93005; 96365; 99285; J1953

== ENCOUNTER → 2025-03-23 10:49 | Outpatient (BNV) | payer OTHER, SELFPAY | PROVIDERS: Emergency Provider Emergency Medicine; PCP Internal Medicine Geriatric Medicine; Visit Provider Internal Medicine | DX: I45.10 Unspecified right bundle-branch block (principal) | CPT/HCPCS: 93010 ==

== ENCOUNTER → 2025-03-23 10:49 | Outpatient (BNV) | payer OTHER, SELFPAY | PROVIDERS: Emergency Provider Emergency Medicine; PCP Internal Medicine Geriatric Medicine; Visit Provider Radiology Diagnostic Radiology | DX: Z04.3 Encounter for examination and observation following other accident (principal); G93.89 Other specified disorders of brain | CPT/HCPCS: 70450; 72125 ==